=== PATIENT | female | born 1995 | race Caucasian/White ===

== ENCOUNTER 2025-11-01 06:01 | Inpatient (IN) | payer BC, SELFPAY ==
[2025-11-01] VITALS (24 sets, daily range): BP systolic 107–149; BP diastolic 63–123; PULSE 61–223; RESP 16; TEMP 36.1–37.1; O2SAT 96–100
[2025-11-01] MEDS: LACTATED RINGERS 1,000 ML 125 ML IV CONT (06:15)
--- OUTSIDE RECORDS SUMMARY | 2025-11-01 06:19 | XMS_ITS | Continuity of Care Document ---
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 Discussed plan. Not available 09/10/2025 10:47:12 Plan of Treatment Reminders Order Date Submit Date Provider Last Modified By Organization Details Last Modified Time Details Appointments OB ROUTINE 2024 10:00A M ELVIRA ZARAGOZA MD Not available Not available Not available U/S OB BPP 2024 09:30A M ULTRASOUND Not available Not available Not available NST 2024 10:00A M NST SCHEDULE Not available Not available Not available OB ROUTINE 2024 10:30A M Alysia Santos CNM Not available Not available Not available U/S OB BPP 2024 09:00A M ULTRASOUND Not available Not available Not available NST 2024 09:30A M NST SCHEDULE Not available Not available Not available OB ROUTINE 2024 10:00A M Alysia Santos CNM Not available Not available Not available INDUCTI ON 2024 06:00A M Alysia Santos CNM Not available Not available Not available U/S OB BPP 2025 09:00A M ULTRASOUND Not available Not available Not available NST 2025 09:30A M NST SCHEDULE Not available Not available Not available OB ROUTINE 2025 10:00A Cathy Santos, CNM Not available Not available Not available Lab None recorde d. Referral None recorde d. Procedures None recorde d. Surgeries None recorde d. Imaging None recorde d. Medication Orders None recorde d. Patient TargetsNo targets recorded. Patient InstructionsNo instructions recorded. Reason for Referral None Reported. Results Created Date Observation Date Name Description Value Unit Range Abnormal Flag Note LastModifiedBy Organization Detail LastModifiedTime 05/27/2005/27/2025 [UNIT Y] ANEUP LOIDY NIPT fraction 10.2% normal Not Available [facility] [address], [place], [address], 05/27/2025 02:56:04 05/27/2005/27/2025 [UNIT Y] ANEUP LOIDY NIPT 22Q11.2 microdeletio n LOW RISK <1 in 10,000 normal Not Available [facility] [address], [place], [address], 05/27/2025 02:56:04 05/27/2005/27/2025 [UNIT Y] ANEUP LOIDY NIPT sex chromosome aneuploidy NOT DETECT ED normal Not Available [facility] [address], [place], [address], 05/27/2025 02:56:04 05/27/20 25 05/27/2025 [UNIT Y] ANEUP LOIDY NIPT monosomy X LOW RISK <1 in 10,000 normal Not Available [facility] [address], [place], [address], 05/27/2025 02:56:04 05/27/20 25 05/27/2025 [UNIT Y] ANEUP LOIDY NIPT trisomy 13 LOW RISK <1 in 10,000 normal Not Available [facility] [address], [place], [address], 05/27/2025 02:56:04 05/27/20 25 05/27/2025 [UNIT Y] ANEUP LOIDY NIPT trisomy 18 LOW RISK <1 in 10,000 normal Not Available [facility] [address], [place], [address], 05/27/2025 02:56:04 05/27/20 25 05/27/2025 [UNIT Y] ANEUP LOIDY NIPT trisomy 21 LOW RISK <1 in 10,000 normal Not Available [facility] [address], [place], [address], 05/27/2025 02:56:04 05/27/20 25 05/27/2025 [UNIT Y] ANEUP LOIDY NIPT sex FEMALE normal Not Available [facility] [address], [place], [address], 05/27/2025 02:56:04 05/27/20 25 05/27/2025 [UNIT Y] ANEUP LOIDY NIPT gestation SINGLE TON normal Not Available [facility] [address], [place], [address], 05/27/2025 02:56:04 05/27/20 25 05/27/2025 [UNIT Y] ANEUP LOIDY NIPT for detailed report, see pdf See PDF normal Not Available [facility] [address], [place], [address], 05/27/2025 02:56:04 06/03/20 25 06/03/2025 [UNIT Y] LORIN Morocho sickle cell disease/beta -thalassemia /hemoglobino pathies carrier screen NEGATI VE normal Not Available [facility] [address], [place], [address], 06/03/2025 09:08:22 06/03/20 25 06/03/2025 [UNIT Y] LORIN Morocho alpha-thalas semia carrier screen NEGATI VE normal Not Available [facility] [address], [place], [address], 06/03/2025 09:08:22 06/03/20 25 06/03/2025 [UNIT Y] LORIN RICO Kurtis cystic fibrosis carrier screen NEGATI VE normal Not Available [facility] [address], [place], [address], 06/03/2025 09:08:22 06/03/20 25 06/03/2025 [UNIT Y] LORIN RICO Kurtis spinal muscular atrophy carrier screen NEGATI VE 2 SMN1 copies , SNP not presen t normal Not Available [facility] [address], [place], [address], 06/03/2025 09:08:22 06/03/20 25 06/03/2025 [UNIT Y] LORIN MCCANN TRISHA Morocho for detailed report, see pdf See PDF normal Not Available [facility] [address], [place], [address], 06/03/2025 09:08:22 05/19/20 25 05/19/2025 CBC W/DIF F WBC 9.6 10'3/ uL 3.5-10 .5 Not Available [facility] (Lab) [address], [place], [address], 05/20/2025 10:56:36 05/19/20 25 05/19/2025 CBC W/DIF F RBC 4.49 10'6/ uL (based on docume nted legal sex) 3.80-5 .20 Not Available [facility] (Lab) [address], [place], [address], 05/20/2025 10:56:36 05/19/20 25 05/19/2025 CBC W/DIF F HGB 12.5 g/dL (based on docume nted legal sex) 11.6-1 5.4 Not Available [facility] (Lab) [address], [place], [address], 05/20/2025 10:56:36 05/19/20 25 05/19/2025 CBC W/DIF F HCT 38.2 % (based on docume nted legal sex) 34.0-4 5.0 Not Available [facility] (Lab) [address], [place], [address], 05/20/2025 10:56:36 05/19/20 25 05/19/2025 CBC W/DIF F MCV 85.1 fL 80.0-9 9.0 Not Available [facility] (Lab) [address], [place], [address], 05/20/2025 10:56:36 05/19/20 25 05/19/2025 CBC W/DIF F MCH 27.8 pg 27.0-3 4.0 Not Available [facility] (Lab) [address], [place], [address], 05/20/2025 10:56:36 05/19/20 25 05/19/2025 CBC W/DIF F MCHC 32.7 g/dL 32.0-3 5.5 Not Available [facility] (Lab) [address], [place], [address], 05/20/2025 10:56:36 05/19/20 25 05/19/2025 CBC W/DIF F RDW 13.2 % 11.0-1 5.0 Not Available [facility] (Lab) [address], [place], [address], 05/20/2025 10:56:36 05/19/20 25 05/19/2025 CBC W/DIF F plt 301 10'3/ uL 150-40 0 Not Available [facility] (Lab) [address], [place], [address], 05/20/2025 10:56:36 05/19/20 25 05/19/2025 CBC W/DIF F MPV 11.9 fL 8.8-12 .1 Not Available [facility] (Lab) [address], [place], [address], 05/20/2025 10:56:36 05/19/20 25 05/19/2025 CBC W/DIF F NRBC's 0.0 % 0.0 Not Available [facility] (Lab) [address] [facility], [place], [address], 05/20/2025 10:56:36 05/19/20 25 05/19/2025 CBC W/DIF F absolute NRBCs 0.0 10'3/ uL no refere nce range establ ished Not Available [facility] (Lab) [address] [facility], [place], [address], 05/20/2025 10:56:36 05/19/20 25 05/19/2025 CBC W/DIF F neutrophils 71.0 % 34.0-7 3.0 Not Available [facility] (Lab) [address] [facility], [place], [address], 05/20/2025 10:56:36 05/19/20 25 05/19/2025 CBC W/DIF F lymphocytes 22.5 % 15.0-5 0.0 Not Available [facility] (Lab) [address] [facility], [place], [address], 05/20/2025 10:56:36 05/19/20 25 05/19/2025 CBC W/DIF F monocytes 5.3 % 1.0-15 .0 Not Available [facility] (Lab) [address] [facility], [place], [address], 05/20/2025 10:56:36 05/19/20 25 05/19/2025 CBC W/DIF F eosinophils 0.6 % 0.0-8. 0 Not Available [facility] (Lab) [address] [facility], [place], [address], 05/20/2025 10:56:36 05/19/20 25 05/19/2025 CBC W/DIF F basophils 0.3 % 0.0-2. 0 Not Available [facility] (Lab) [address] [facility], [place], [address], 05/20/2025 10:56:36 05/19/20 25 05/19/2025 CBC W/DIF F immature granulocytes 0.3 % no define d refere nce range Immat ure Granu locyt es (IG) repre sents autom ated enume ratio n of Metam yeloc ytes, Myelo cytes and Promy elocy claudia when IG is < 5%. Blast s are not inclu ded in IG and repor tashi separ ately if prese nt. Not Available [facility] (Lab) [address] [facility], [place], [address], 05/20/2025 10:56:36 05/19/20 25 05/19/2025 CBC W/DIF F absolute neutrophils 6.8 10'3/ uL 1.5-8. 0 Not Available [facility] (Lab) [address] [facility], [place], [address], 05/20/2025 10:56:36 05/19/20 25 05/19/2025 CBC W/DIF F absolute lymphocytes 2.2 10'3/ uL 1.0-4. 0 Not Available [facility] (Lab) [address] [facility], [place], [address], 05/20/2025 10:56:36 05/19/20 25 05/19/2025 CBC W/DIF F absolute monocytes 0.5 10'3/ uL 0.2-1. 0 Not Available [facility] (Lab) [address] [facility] [address], [place], [address], 05/20/2025 10:56:36 05/19/20 25 05/19/2025 CBC W/DIF F absolute eosinophils 0.1 10'3/ uL 0.0-0. 6 Not Available [facility] (Lab) [address] [facility], [place], [address], 05/20/2025 10:56:36 05/19/20 25 05/19/2025 CBC W/DIF F absolute basophils 0.0 10'3/ uL 0.0-0. 3 Not Available [facility] (Lab) [address], [place], [address], 05/20/2025 10:56:36 05/19/20 25 05/19/2025 CBC W/DIF F absolute immature granulocytes 0.0 10'3/ uL 0.00-0 .10 Refer ence range s for nonbi nary/ inter sex or unspe cifie d gende r patie nts have not been estab lishe d. Pleas e refer to the follo wing table for range s estab lishe d for cisge nder patie nts and evalu ate in the clini sam padmini xt of the indiv idual patie nt: https ://angelique resendizand book. nm.or g/gen derx Not Available [facility] (Lab) [address], [place], [address], 05/20/2025 10:56:36 05/19/20 25 05/19/2025 HEPAT ITIS B SURFA CE ANTIG EN hepatitis B surface antigen Non-re active non-re active This assay was perfo rmed using [employer] ratio n reage nts and test kits. Value s obtai erica with other assay metho ds or kits canno t be used inter melton eably . Not Available [facility] (Lab) [address], [place], [address], 05/20/2025 10:56:37 05/19/2005/19/2025 HIV 1/2 ANTIG EN/AN TIBOD Y, REFLE X CONFI RMATI ON HIV antigen/anti body Nonrea ctive nonrea ctive HIV-1 antig en and HIV-1 /HIV- 2 antib odies were not detec tashi. No labor atory evide nce of HIV infec tion. Not Available [facility] (Lab) [address], [place], [address], 05/20/2025 10:56:37 05/19/20 25 05/19/2025 HEPAT ITIS C ANTIB NEPTALI SCREE N, REFLE X TO CONFI RMATI ON hepatitis C antibody Non-re active non-re active Antib odies to HCV Not Detec tashi, does not exclu de the possi bilit y of expos ure to HCV. Not Available [facility] (Lab) [address] [facility], [place], [address], 05/20/2025 10:56:38 05/19/20 25 05/19/2025 VITAM IN D, 25-OH (TOTA L D2/D3 ) vitamin D, 25-hydroxy, total 59.5 NG/mL 30.0-1 00.0 Sugge stive of Defic iency : <20 ng/mL Sugge stive of Insuf ficie ncy: 20-29 ng/mL Sugge stive of Suffi cienc y: 30-10 0 ng/mL Sugge stive of Toxic ity: >150 ng/mL Not Available [facility] (Lab) [address] [facility], [place], [address], 05/20/2025 10:56:38 05/19/20 25 05/19/2025 TYPE/ RH/SC REEN ABO/Rh type O POS Not Available [facility] (Lab) [address] [facility] [address] [facility], [place], [address], 05/20/2025 10:56:39 05/19/20 25 05/19/2025 TYPE/ RH/SC REEN antibody screen NEG Not Available [facility] (Lab) [address] [facility], [place], [address], 05/20/2025 10:56:39 05/19/20 25 05/19/2025 TYPE/ RH/SC REEN exp date 2024 23:59 Not Available [facility] (Lab) [address] [facility], [place], [address], 05/20/2025 10:56:39 05/19/20 25 05/19/2025 RUBEL LA IGG ANTIB NEPTALI, QUANT rubella antibodies, IgG Reacti ve reacti ve Not Available [facility] (Lab) [address] [facility], [place], [address], 05/20/2025 10:56:39 05/19/20 25 05/19/2025 RUBEL LA IGG ANTIB NEPTALI, QUANT rubella antibodies, IgG quant 13.6 IU/mL >=10 Non-r eacti ve (Non- Immun e) <10 IU/mL React dwight (Immu ne) > or = 10 IU/mL Not Available [facility] (Lab) [address] [facility], [place], [address], 05/20/2025 10:56:39 05/19/20 25 05/19/2025 HEMOG LOBIN A1C hemoglobin A1C 4.9 % 4.0-5. 6 The Ameri can Diabe claudia Assoc iatio n recom mends that a prima ry goal of thera py shoul d be a HBA1C of < 7% and that physi cians shoul d reeva luate the treat ment regim en in patie nts with HBA1C value s consi stent ly > 8%. <5.7% Nagela l 5.7 - 6.4% Incre ased risk for diabe claudia >=6.5 % Diagn ostic of diabe claudia <7.0% Goal of thera py >8.0% Actio n sugge sted Not Available [facility] (Lab) [address] [facility], [place], [address], 05/20/2025 10:56:40 05/19/20 25 05/19/2025 RPR SCREE N, REFLE X TITER /CONF IRMAT ION RPR qualitative Nonrea ctive nonrea ctive Not Available [facility] (Lab) [address] [facility], [place], [address], 05/20/2025 10:56:41 05/19/20 25 05/19/2025 CULTU RE: URINE result report SEE RESULT S BELOW Test: Cultu re: Urine Speci men Sourc e: Urine Voide d Speci men Type: Urine Speci men Date: 7/2/2 025 1413 Resul t Date: 2142 Resul t Statu s: Final resul t Abnor mal: No Resul ting Lab: [facility] [address] [facility] [address] Tel: CULTU RE ----- ----- ----- --- No growt h in 1 day (dete ction level of 10,00 0 colon ies / ml.) Not Available [facility] (Lab) [address] [facility] [address], [place], [address], 05/20/2025 22:47:16 05/19/20 25 05/19/2025 IMAGE GUIDE D PAP, REFLE X HPV IF ASCUS ONLY image guided Pap, reflex HPV ASCUS only SEE RESULT S BELOW CASE REPOR T: Cytol ogy Gynec ologi sam Repor t Case: [id number] Autho alexi Provi kiah: Alysia Mohr NP Colle cted: 05/19 1409 Order ing Locat ion: [place] Patho logy Recei [place]: 05/20 1144 First Scree n: Wong Jimenez , [place] Rescr een: Joseph Deleon, CT Speci men: Trisha rubio Pap - Image d, Cervi x STATE MENT OF ADEQU ACY: Satis facto ry for evalu ation Trans forma tion zone compo nent prese nt ----- ----- ----- ----- ----- ----- ----- ----- ----- ----- ----- ----- ----- ----- ----- ----- ----- ---- FINAL DIAGN OSIS: Negat dwight for Intra epith elial Lesimani morocho or Jose Antonio ribeiro ([facility]) . Elect sapphire becker d by Joseph Deleon, CT on 025 at 1739 CDT ----- ----- ----- ----- ----- ----- ----- ----- ----- ----- ----- ----- ----- ----- ----- ----- ----- ---- COMME NT: This speci men was revie wed by a Cytot echno logis t and/o r Patho logis t (as indic ated in this repor t) after evalu ation using the Thinp rep Imagi ng Syste m. CLINI SAM INFOR MATIO N: Menst rual Statu s: LMP (if appli cable ): Clini sam Histo ry/Pr eviou s Pap: Type of Neopl marcelo (if appli cable ): Signi fican t Clini sam Findi ngs: Other Histo ry: Hormo kezia (if appli cable ): PAP EDUCA JANELL L NOTE: The Pap Test is a scree joanne test with an inher ent false negat dwight rate. Liqui d-bas ed sampl ing may decre ase, but will not elimi yvrose, false negat dwight resul ts. A negat dwight resul t does not precl ude the prese nce and/o r devel opmen t of disea se, since the prese nce of abnor mal cells in the sampl e depen ds on the locat ion of the lesio n and sampl ing techn ique. Osbaldo nued regul ar scree joanne is the best metho d of cance r preve ntion . If repor tashi cytol ogic findi ng do not corre late with physi sam and/o r histo rical findi ngs, furth er inves tigat ion is recom minal d, as clini luis eduardo camp nted. Not Available [facility] (Lab) [address], [place], [address], 05/24/2025 18:43:29 05/19/20 25 05/19/2025 CT/GC (CAT) , THINP REP VIAL chlamydia trachomatis, PCR Negati ve negati ve Not Available [facility] (Lab) [address], [place], [address], 05/24/2025 18:43:30 05/19/20 25 05/19/2025 CT/GC (CAT) , THINP REP VIAL neisseria gonorrhoeae, PCR Negati ve negati ve Not Available [facility] (Lab) [address], [place], [address], 05/24/2025 18:43:30 05/19/20 25 05/19/2025 drug scree n, urine Cannabinoids : positi ve Not Available [facility] [address], [place], [address], 05/19/2025 13:35:34 05/19/20 25 05/19/2025 drug scree n, urine Other: positi ve Not Available [facility] [address], [place], [address], 05/19/2025 13:35:34 09/10/20 25 09/10/2025 HEMAT OCRIT (HCT) HCT 39.4 % (based on docume nted legal sex) 34.0-4 5.0 Not Available [facility] (Lab) [address] [place], [address], 09/11/2025 12:57:34 09/10/20 25 09/10/2025 HEMOG LOBIN (HGB) HGB 12.7 g/dL (based on docume nted legal sex) 11.6-1 5.4 Not Available [facility] (Lab) [address] [place], [address], 09/11/2025 12:57:34 09/10/20 25 09/10/2025 CMP/C BC/UR IC ACID WBC 10.8 10'3/ uL 3.5-10 .5 high Not Available [facility] (Lab) [address], [place], [address], 09/11/2025 12:57:34 09/10/20 25 09/10/2025 CMP/C BC/UR IC ACID RBC 4.59 10'6/ uL (based on docume nted legal sex) 3.80-5 .20 Not Available [facility] (Lab) [address] [facility], [place], [address], 09/11/2025 12:57:34 09/10/2009/10/2025 CMP/C BC/UR IC ACID HGB 12.7 g/dL (based on docume nted legal sex) 11.6-1 5.4 Not Available [facility] (Lab) [address] [facility], [place], [address], 09/11/2025 12:57:34 09/10/2009/10/2025 CMP/C BC/UR IC ACID HCT 39.4 % (based on docume nted legal sex) 34.0-4 5.0 Not Available [facility] (Lab) [address] [facility] [address], [place], [address], 09/11/2025 12:57:34 09/10/2009/10/2025 CMP/C BC/UR IC ACID MCV 85.8 fL 80.0-9 9.0 Not Available [facility] (Lab) [address] [facility], [place], [address], 09/11/2025 12:57:34 09/10/2009/10/2025 CMP/C BC/UR IC ACID MCH 27.7 pg 27.0-3 4.0 Not Available [facility] (Lab) [address] [place], [address], 09/11/2025 12:57:34 09/10/2009/10/2025 CMP/C BC/UR IC ACID MCHC 32.2 g/dL 32.0-3 5.5 Not Available [facility] (Lab) [address] [place], [address], 09/11/2025 12:57:34 09/10/2009/10/2025 CMP/C BC/UR IC ACID RDW 12.7 % 11.0-1 5.0 Not Available [facility] (Lab) [address] [facility], [place], [address], 09/11/2025 12:57:34 09/10/2009/10/2025 CMP/C BC/UR IC ACID plt 252 10'3/ uL 150-40 0 Not Available [facility] (Lab) [address] [facility] [address], [place], [address], 09/11/2025 12:57:34 09/10/2009/10/2025 CMP/C BC/UR IC ACID MPV 11.7 fL 8.8-12 .1 Not Available [facility] (Lab) [address] [facility] [address], [place], [address], 09/11/2025 12:57:34 09/10/2009/10/2025 CMP/C BC/UR IC ACID NRBC's 0.0 % 0.0 Not Available [facility] (Lab) [address] [facility] [address], [place], [address], 09/11/2025 12:57:34 09/10/2009/10/2025 CMP/C BC/UR IC ACID absolute NRBCs 0.0 10'3/ uL no refere nce range establ ished Not Available [facility] (Lab) [address] [facility] [address], [place], [address], 09/11/2025 12:57:34 09/10/2009/10/2025 CMP/C BC/UR IC ACID neutrophils 74.4 % 34.0-7 3.0 high Not Available [facility] (Lab) [address] [place], [address], 09/11/2025 12:57:34 09/10/2009/10/2025 CMP/C BC/UR IC ACID lymphocytes 18.6 % 15.0-5 0.0 Not Available [facility] (Lab) [address] [place], [address], 09/11/2025 12:57:34 09/10/2009/10/2025 CMP/C BC/UR IC ACID monocytes 5.9 % 1.0-15 .0 Not Available [facility] (Lab) [address] [facility] [address], [place], [address], 09/11/2025 12:57:34 09/10/2009/10/2025 CMP/C BC/UR IC ACID eosinophils 0.5 % 0.0-8. 0 Not Available [facility] (Lab) [address] [facility] [address], [place], [address], 09/11/2025 12:57:34 09/10/2009/10/2025 CMP/C BC/UR IC ACID basophils 0.1 % 0.0-2. 0 Not Available [facility] (Lab) [address] [facility] [address], [place], [address], 09/11/2025 12:57:34 09/10/20 25 09/10/2025 CMP/C BC/UR IC ACID immature granulocytes 0.5 % no define d refere nce range Immat ure Granu locyt es (IG) repre sents autom ated enume ratio n of Metam yeloc ytes, Myelo cytes and Promy elocy claudia when IG is < 5%. Blast s are not inclu ded in IG and repor tashi separ ately if prese nt. Not Available [facility] (Lab) [address] [facility] [address], [place], [address], 09/11/2025 12:57:34 09/10/2009/10/2025 CMP/C BC/UR IC ACID absolute neutrophils 8.1 10'3/ uL 1.5-8. 0 high Not Available [facility] (Lab) [address] [facility] [address], [place], [address], 09/11/2025 12:57:34 09/10/20 25 09/10/2025 CMP/C BC/UR IC ACID absolute lymphocytes 2.0 10'3/ uL 1.0-4. 0 Not Available [facility] (Lab) [address] [facility] [address], [place], [address], 09/11/2025 12:57:34 09/10/2009/10/2025 CMP/C BC/UR IC ACID absolute monocytes 0.6 10'3/ uL 0.2-1. 0 Not Available [facility] (Lab) [address] [facility] [address], [place], [address], 09/11/2025 12:57:34 09/10/20 25 09/10/2025 CMP/C BC/UR IC ACID absolute eosinophils 0.1 10'3/ uL 0.0-0. 6 Not Available [facility] (Lab) [address] [facility] [address], [place], [address], 09/11/2025 12:57:34 09/10/2009/10/2025 CMP/C BC/UR IC ACID absolute basophils 0.0 10'3/ uL 0.0-0. 3 Not Available [facility] (Lab) [address] [facility] [address], [place], [address], 09/11/2025 12:57:34 09/10/2009/10/2025 CMP/C BC/UR IC ACID absolute immature granulocytes 0.1 10'3/ uL 0.00-0 .10 Refer ence range s for nonbi nary/ inter sex or unspe cifie d gende r patie nts have not been estab lishe d. Plefarhana e refer to the marko wing table for range s estab lishe d for cisge nder patie nts and evalu ate in the clini sam padmini xt of the indiv idual patie nt: https ://angelique dennis book. nm.or g/gen derx Not Available [facility] (Lab) [address], [place], [address], 09/11/2025 12:57:34 09/10/20 25 09/10/2025 CMP/C BC/UR IC ACID uric acid 3.0 mg/dL 2.3-6. 6 Not Available [facility] (Lab) [address] [facility] [address], [place], [address], 09/11/2025 12:57:34 09/10/2009/10/2025 CMP/C BC/UR IC ACID sodium 136 mmol/ L 133-14 6 Not Available [facility] (Lab) [address] [facility] [address], [place], [address], 09/11/2025 12:57:34 09/10/2009/10/2025 CMP/C BC/UR IC ACID potassium 3.9 mmol/ L 3.5-5. 1 Not Available [facility] (Lab) [address] [facility] [address], [place], [address], 09/11/2025 12:57:34 09/10/2009/10/2025 CMP/C BC/UR IC ACID chloride 102 mmol/ L 98-107 Not Available [facility] (Lab) [address] [place], [address], 09/11/2025 12:57:34 09/10/2009/10/2025 CMP/C BC/UR IC ACID carbon dioxide 26 mmol/ L 21-31 Not Available [facility] (Lab) [address] [facility] [address], [place], [address], 09/11/2025 12:57:34 09/10/20 25 09/10/2025 CMP/C BC/UR IC ACID anion gap 8 mmol/ L 4-13 Not Available [facility] (Lab) [address] [place], [address], 09/11/2025 12:57:34 09/10/2009/10/2025 CMP/C BC/UR IC ACID blood urea nitrogen 5 mg/dL 7-25 low Not Available [facility] (Lab) [address] [place], [address], 09/11/2025 12:57:34 09/10/20 25 09/10/2025 CMP/C BC/UR IC ACID creatinine 0.55 mg/dL 0.60-1 .30 low Not Available [facility] (Lab) [address], [place], [address], 09/11/2025 12:57:34 09/10/2009/10/2025 CMP/C BC/UR IC ACID egfrcr (CKD-epi 2020) >90 mL/mi n/1.7 3_m2 >=60 Not Available [facility] (Lab) [address], [place], [address], 09/11/2025 12:57:34 09/10/2009/10/2025 CMP/C BC/UR IC ACID calcium 8.8 mg/dL 8.3-10 .5 Not Available [facility] (Lab) [address], [place], [address], 09/11/2025 12:57:34 09/10/2009/10/2025 CMP/C BC/UR IC ACID glucose 113 mg/dL 70-100 high Not Available [facility] (Lab) [address], [place], [address], 09/11/2025 12:57:34 09/10/2009/10/2025 CMP/C BC/UR IC ACID protein, total 6.1 g/dL 6.4-8. 3 low Not Available [facility] (Lab) [address] [place], [address], 09/11/2025 12:57:34 09/10/2009/10/2025 CMP/C BC/UR IC ACID albumin 3.6 g/dL 3.5-5. 0 Not Available [facility] (Lab) [address] [place], [address], 09/11/2025 12:57:34 09/10/2009/10/2025 CMP/C BC/UR IC ACID ALT 17 units /L 9-43 Not Available [facility] (Lab) [address] [place], [address], 09/11/2025 12:57:34 09/10/2009/10/2025 CMP/C BC/UR IC ACID alkaline phosphatase 61 units /L 34-104 Not Available [facility] (Lab) [address], [place], [address], 09/11/2025 12:57:34 09/10/2009/10/2025 CMP/C BC/UR IC ACID AST 15 units /L 13-39 Not Available [facility] (Lab) [address] [facility], [place], [address], 09/11/2025 12:57:34 09/10/2009/10/2025 CMP/C BC/UR IC ACID bilirubin, total 0.3 mg/dL 0.2-1. 2 Not Available [facility] (Lab) [address] [place], [address], 09/11/2025 12:57:34 09/10/20 25 09/10/2025 GTT - GESTA JANELL L TRISHA Morocho, ACOG OB glucose, 1 hour screen 107 mg/dL 70-135 Not Available [facility] (Lab) [address] [place], [address], 09/11/2025 12:57:35 09/10/2009/10/2025 HIV 1/2 ANTIG EN/AN TIBOD Y, REFLE X CONFI RMATI ON HIV antigen/anti body Nonrea ctive nonrea ctive HIV-1 antig en and HIV-1 /HIV- 2 antib odies were not detec tashi. No labor atory evide nce of HIV infec tion. Not Available [facility] (Lab) [address] [place], [address], 09/11/2025 12:57:35 09/10/2009/10/2025 RPR SCREE N, REFLE X TITER /CONF IRMAT ION RPR qualitative Nonrea ctive nonrea ctive Not Available [facility] (Lab) [address] [place] [facility] [place], [address], 09/11/2025 12:57:35 07/14/20 25 07/14/2025 US, obste tric, 2nd or 3rd trime ster No observ ation record ed. [address], [place], [address], 07/14/2025 11:48:13 07/14/20 25 07/14/2025 US, obste tric, follo w-up No observ ation record ed. [email or web address] [address], [place], [address], 07/14/2025 16:09:19 08/11/20 25 08/11/2025 US, obste tric, follo w-up No observ ation record ed. [facility] [address], [place], [address], 08/11/2025 18:35:48 08/11/20 25 08/11/2025 US, obste tric, follo w-up No observ ation record ed. [email or web address] [address] [address], [place], [address], 08/13/2025 07:06:41 09/10/2009/10/2025 US, obste tric, follo w-up No observ ation record ed. [facility] [address], [place], [address], 09/10/2025 14:42:43 09/10/2009/10/2025 US, obste tric, follo w-up No observ ation record ed. [email or web address] [place] [address], [place], [address], 09/14/2025 14:46:19 10/08/20 25 10/08/2025 US, obste tric, follo w-up No observ ation record ed. [email or web address] [place] [address], [place], [address], 10/11/2025 11:55:36 10/08/20 25 10/08/2025 non-s tress test No observ ation record ed. [email or web address] [place] [address], [place], [address], 10/08/2025 13:48:06 10/08/20 non-s tress test No observ ation record ed. [place] [address], [place], [address], 10/08/2025 12:32:22 10/08/20 25 10/08/2025 US, obste tric, follo w-up No observ ation record ed. [facility] [address], [place], [address], 10/08/2025 16:57:13 10/08/20 25 10/08/2025 US, dominic tric, bioph ysica l profi le + non-s tress test No observ ation record ed. [facility] [address], [place], [address], 10/08/2025 16:57:23 10/13/20 25 10/13/2025 US, dominic tric, bioph ysica l profi le + non-s tress test No observ ation record ed. [email or web address] [place] [address], [place], [address], 10/13/2025 11:51:09 10/13/20 25 10/13/2025 US, dominic tric, bioph ysica l profi le + non-s tress test No observ ation record ed. [email or web address] [place] [address], [place], [address], 10/20/2025 11:47:34 10/13/2010/13/2025 non-s tress test No observ ation record ed. [address], [place], [address], 10/13/2025 17:57:16 10/13/20 non-s tress test No observ ation record ed. [address], [place], [address], 10/13/2025 17:34:36 10/22/2010/22/2025 US, obste tric, bioph ysica l profi le No observ ation record ed. [email or web address] [place] [address], [place], [address], 10/29/2025 11:35:15 10/22/20 25 10/22/2025 US, obste tric, bioph ysica l profi le + non-s tress test No observ ation record ed. [facility] [address], [place], [address], 10/22/2025 13:51:55 10/22/20 25 10/22/2025 non-s tress test No observ ation record ed. [address], [place], [address], 10/27/2025 18:38:42 10/22/20 non-s tress test No observ ation record ed. [address], [place], [address], 10/22/2025 12:42:25 10/29/20 25 10/29/2025 US, obste tric, follo w-up No observ ation record ed. [email or web address] [place] [address], [place], [address], 10/30/2025 01:33:53 10/29/20 25 10/29/2025 US, obste tric, follo w-up No observ ation record ed. [facility] [address], [place], [address], 10/29/2025 17:16:32 10/29/20 25 10/29/2025 US, obste tric, bioph ysica l profi le + non-s tress test No observ ation record ed. [facility] [address], [place], [address], 10/29/2025 17:16:42 Result Notes None recorded. Problems Name Problem SNOMED Code Status Onset Date Resolution Date Notes Provider Name and Address Organization Details Recorded Time 60030294 Active 2024 Linda mcgill, [facility] 5 10:53:18 Hypertens dwight disorder 05053199 Active 2024 labetalol 200mg bid bASA daily serial growth us , weekly testing @ 32wks 10/08/25 300mg bid rpt labs Alysia Santos CNM [address], [place], [address], [facility] 5 12:52:39 Mixed anxiety and depressiv e disorder 478287932 Active 2024 buspirone 10mg lexapro 20 mg daily Alysia Santos CNM [address], [place], [address], [facility] 5 12:01:06 Past history of gestation al hypertens ion 949394722 Active 2024 vs preeclamp deirdre delivered at 37 weeks Alysia Santos CNM [address], [place], [address], [facility] 5 12:01:27 Marijuana user 054923320 Active 2024 Pt decreased . Continued use is causing family issues and pt is experienc ing increased anxiety and depressio n symptoms. Nina mccann [facility] 5 16:48:10 Marijuana user 629448700 Active 2024 Pt decreased . Continued use is causing family issues and pt is experienc ing increased anxiety and depressio n symptoms. Nina mccann [facility] 5 16:48:11 Problem Notes None recorded. Procedures Surgical History Date Name Laterality Status Provider Name and Address Organization Details Recorded Time 11/18/2021 Date of Last Pap Smear completed Kim Monson [facility] 08/11/2025 14:32:13 Imaging Results None recorded. Procedure Notes None recorded. Medical Equipment None Reported. Allergies Allergen ID Allergen Name Allergen Category Reaction Reaction Severity Criticality Documentation Date Start Date Code Code System Note Provider Name and Address Organization Details Recorded Time 70492 amoxicill in medicatio n hives Not available Not available 10/08/20252016 723 RxNorm Not Available [employer] - prod 5 03:06:32 30614 clindamyc in Not available hives Not available Not available 10/08/20252018 2582 RxNorm Not Available [employer] - [employer] 5 03:06:32 Medications Name Sig Start Date Stop Date Status Note LastModified by Organization Details LastModified Time labetalol 200 mg tablet TAKE 1 TABLET BY MOUTH TWICE DAILY DIRECTED 2024 active Not Available Not Available Not Avai lable triamcinolo ne acetonide 0.1 % topical cream APPLY TOPICALLY TWICE A DAY 05/19 completed Not Available Not Available Not Available ondansetron 8 mg disintegrat ing tablet DISSOLVE 1 TABLET ON THE TONGUE TWICE DAILY NEEDED 2024 active Not Available Not Available Not Avai lable Macrobid 100 mg capsule Take 1 capsule every 12 hours by oral route for 7 days. 10/08 completed Not Available Not Available Not Available buspirone 10 mg tablet active Not Available Not Available Not Available hydrochloro thiazide 12.5 mg capsule TAKE 1 CAPSULE BY MOUTH EVERY MORNING 05/19 completed Not Available Not Available Not Available buspirone 7.5 mg tablet TAKE 1 TABLET BY MOUTH 2 TIMES DAILY. 05/19 completed Not Available Not Available Not Available metoclopram shannan 10 mg tablet Take 1 tablet 4 times a day by oral route. 06/28 completed Not Available Not Available Not Available escitalopra m 20 mg tablet TAKE 1 TABLET BY MOUTH EVERY DAY 2024 active Not Available Not Available Not Avai lable Pepcid active Not Available Not Availa ble Not Available active Not Available Not Avai lable Not Available Vitals Date Recorded Body weight Systolic And Diastolic Provider Name and Address Organization Details Last Updated DateTime 09/10/2025 82336.56459 g 125/78 mm[Hg] Linda Auguste [facility] 09/10/2025 10:26:36 Social History Question Answer Notes LastModified by Organizat ion Details LastModified Time Do You Have An Advance Directive? No Information n ot available 04/22/2025 How Many Years Have You Consumed Alcohol? 8 [email or web address] Information not available 08/11/2025 Are You Blind Or Do You Have Difficulty Seeing? No Information not available 04/22/2025 What Is Your Level Of Caffeine Consumption? Moderate Information not available 04/22/2025 How Much Tobacco Do You Chew? None Information not available 04/22/2025 In The 14 Days Before Symptom Onset, Have You Had Close Contact With A Laboratory-confirme d COVID-19 While That Case Was Ill? No Information n ot available 04/22/2025 In The 14 Days Before Symptom Onset, Have You Had Close Contact With A Person Who Is Under Investigation For COVID-19 While That Person Was Ill? No Information not available 04/22/2025 Have You Been To An Area Known To Be High Risk For COVID-19? No Information not available 04/22/2025 Are You Deaf Or Do You Have Serious Difficulty Hearing? No Information not available 04/22/2025 What Type Of Diet Are You Following? REGULAR Information n ot available 04/22/2025 What Is The Highest Grade Or Level Of School You Have Completed Or The Highest Degree You Have Received? [id number] Information not available 04/22/2025 Are There Any Guns Present In Your Home? Yes Information not available 04/22/2025 Have You Ever Been Counseled For Unhealthy Alcohol Use? No [email or web address] Information not available 06/16/2025 Do You Use Protection During Sex? No Information not available 04/22/2025 Do You Use Your Seat Belt Or Car Seat Routinely? Yes Information not available 04/22/2025 Are You Sexually Active? Yes [email or web address] Information not available 06/16/2025 Do You Have Smoke And Carbon Monoxide Detectors In Your Home? Yes Information not available 04/22/2025 At What Age Did You Start Smoking Tobacco? 19 Information not available 04/22/2025 How Much Tobacco Do You Smoke? No Information not available 04/22/2025 Do You Use Sunscreen Routinely? No Information not available 04/22/2025 Has Tobacco Cessation Counseling Been Provided? No [email or web address] Information not available 06/16/2025 How Many Years Have You Smoked Tobacco? 4 [email or web address] Information not available 08/11/2025 Have You Used IV Drugs? No Information not available 04/22/2025 Do You Have Difficulty Walking Or Climbing Stairs? No [email or web address] Information not available 06/16/2025 Sex: Unknown Functional Status Question Answer Note LastModified by Organizat ion Details LastModified Time Do you use any illicit or recreational drugs? Yes Information not available 04/22/2025 Do you or have you ever used any other forms of tobacco or nicotine? No Information not available 06/16/2025 What is your level of alcohol consumption? Occasional [email or web address] Information not available 08/11/2025 Are you currently employed? Yes [email or web address] Information not available 06/16/2025 Are you able to walk independently without assistance or assistive devices? [email or web address] Information not available 04/22/2025 Are you able to care for yourself independently? 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 No [email or web address] Information not available 06/16/2025 What is your exercise level? Occasional Information not available 04/22/2025 Mental Status Question Answer Note LastModified by Organization D etails LastModified Time Do you feel stressed (tense, restless, nervous, or anxious, or unable to sleep at night)? [id number] Information not available 08/11/2025 Family History Relationship Description Onset Age of this Age Resolved Age Notes LastModified by Organization Details LastModified Time Paternal Grandmother Heart disease Not available 2024 15:56:02 Paternal Grandmother Diabetes mellitus Not available 2024 15:56:02 Mother Heart disease Not available 2024 15:56:02 Mother Diabetes mellitus Not available 2024 15:56:02 Father Diabetes mellitus Not available 2024 15:56:02 Medical History Condition Response Anxiety Disorder Y History of abnormal pap Y Depression/ depression Y Hypertension Y Gynecological History Statement/Question Response Flow Moderate Date of LMP 02/20/2025 N Was last menstrual period normal Y STIs/STDs N Condoms Desired Control Method Condoms Abnormal Pap Y On BCP's at Conception? N HPV Vaccine N Duration of Flow (days) 7 Current Control Method None Age at First Child 23 Are cycles usually normal Y Frequency of Cycle (Q days) 28 Sexually Active? Y Menses Monthly Y Age of first menstrual cycle 12 Date of Last Pap Smear 11/18/2021 Sexual Problems? Y LMP Definite N 11/18/2017 Obstetrics History GPAL:G 3 P 0 0 1 1 Type Value Spontaneous 1 Living 1 Total 3 Past Encounters Encounter ID Performer Location Encounter Start Date Encounter Closed Date Diagnosis/Indication Diagnosis SNOMED-CT Code Diagnosis ICD10 Code Diagnosis IMO Codes Diagnosis Note [id number] Norris Jordan MD [facility] [address] [address] 08/11/2025 13:50:59 08/11/2025 14:30:57 Chronic hypertension complicating AND/OR reason for care during 38118140 O10.912 Z3A.24 [id number] Alysia Santos CNM [facility] [address],[place] [address] 08/11/2025 13:51:12 08/11/2025 14:48:47 Gestation period, 24 weeks 664235021 Z3A.24 [id number] Norris Jordan MD [facility] [address],[place] [address] 09/10/2025 09:35:51 09/10/2025 10:12:45 Maternal hypertension 066276580 O16.3 Z3A.28 2931046 [id number] Alysia Santos CNM [facility] [address],[place] [address] 09/10/2025 09:36:28 09/10/2025 11:14:34 Gestation period, 28 weeks 57634864 Z3A.28 0283229 Health Concerns Section Related Observation LastModified by Organization Detai ls LastModified Time None Recorded Concern Status LastModified by Organization Details LastModified Time None Recorded Payers Encounter Date Sequence Insurance Name Policy Number Policy Sarah Covered Member ID Sarah Member ID Guarantor Name 09/10/2025 1 [place] [id number] Artem [place] [id number] Artem Dora Notes Date Note Type Note Provider Name and Address Organization Details Recorded Time 09/10/2025 text/html Generic HPI TemplateReported by Patient Alysia Santos CNM [address], [place], [address], [facility] 09/10/2025 11:13:18 OBGyn Episode Ob Episode Information Episode Created Date Number of Fetuses Patient Bloodtype Patient rh Status Prepregnancy Weight lbs Domestic Partner Domestic Partner Phone Father Name Manuscript Editor Status 05/19/20 25 1 O Positive 173 OPEN Fetus Data First Name Last Name Admitted to NICU Weight (g) Sex Living Outcome Pediatric Complications Fetus ID Race Codes Race Delivery Type [id number] Problems Problem Notes Problem Name Start Date End Date Resolution Snomed Code Not e Hypertensive disorder 05/19/2025 1539948 3 labetalol 200mg bidbASA dailyserial growth us , weekly testing @ [id number]// 300mg bid rpt labs Past history of gestational hypertension 05/19/2025 606764349 vs preeclampsia delivered at 37 weeks Marijuana user 08/18/2025 917007600 Pt d ecreased. Continued use is causing family issues and pt is experiencing increased anxiety and depression symptoms. Mixed anxiety and depressive disorder 05/19/2025 941658634 buspiron e 10mglexapro 20 mg daily Pablito Calculation Initial Pablito Date Initial Exam Date Initial Exam Provider Initial Ultrasound Date Last Menstrual Period Date Ultra Sound Weeks Gestation 11/27/2025 05/19/2025 04/22/2025 02/20/2025 9 Eighteen To Twenty Week Pablito Update Ultra Sound Date Fundal Height At Umbil Quickening Date Ultra Sound Latest Weeks Gestation Final Pablito Confirmed By Final Pablito Confirmed Date Final Pablito Date Ultra Sound Latest Days Gestation 0 [email or web address] 05/19/2025 11/27/19 26 0 Pre- Flowsheet Flowsheet Date 05/19/2025 Yoder Score Blood Edema Fundus Height Fundus Units Glucose Ketones Leukocytes Nitrite Labor Signs Protein Cervic Dilation Cervic Effacement Cervic Station Type Weight in lbs Pre/Post Dialysis Refused Weight 169.591244996249 BP Diastolic BP Location Tested BP Systolic BP Type 73 L arm 118 sitting Fetus Heart Rate Present Fetus Movement A No Comments pap collected, labs today, r eviewed history meds, education and precautions, vaping daily, weaning slowly, begin routine care, care in third trimester, delivery 37-38 weeks Flowsheet Date 06/16/2025 Yoder Score Blood Edema Fundus Height Fundus Units Glucose Ketones Leukocytes Nitrite Labor Signs Protein Cervic Dilation Cervic Effacement Cervic Station Type Weight in lbs Pre/Post Dialysis Refused Weight 173.730653121204 BP Diastolic BP Location Tested BP Systolic BP Type 77 L arm 133 sitting Fetus Heart Rate Present A 150 Fetus Movement A No Comments weaning still on vape, bring ing son to [place] next visit, education and precautions f/u 4 weeks ?FM ok for colace Flowsheet Date 07/14/2025 Yoder Score Blood Edema Fundus Height Fundus Units Glucose Ketones Leukocytes Nitrite Labor Signs Protein Cervic Dilation Cervic Effacement Cervic Station Type Weight in lbs Pre/Post Dialysis Refused BP Diastolic BP Location Tested BP Systolic BP Type Fetus Heart Rate Present Fetus Movement Comments Flowsheet Date 07/14/2025 Yoder Score Blood Edema Fundus Height Fundus Units Glucose Ketones Leukocytes Nitrite Labor Signs Protein Cervic Dilation Cervic Effacement Cervic Station Type Weight in lbs Pre/Post Dialysis Refused Weight 179.626245162272 BP Diastolic BP Location Tested BP Systolic BP Type 81 L arm 125 sitting Fetus Heart Rate Present Fetus Movement A Yes Comments anatomy complete, nausea in am ok for pepcid at hs, education and precautions +FM, plan growth q 4 f/u 4 weeks Flowsheet Date 08/11/2025 Yoder Score Blood Edema Fundus Height Fundus Units Glucose Ketones Leukocytes Nitrite Labor Signs Protein Cervic Dilation Cervic Effacement Cervic Station Type Weight in lbs Pre/Post Dialysis Refused BP Diastolic BP Location Tested BP Systolic BP Type Fetus Heart Rate Present Fetus Movement Comments Flowsheet Date 08/11/2025 Yoder Score Blood Edema Fundus Height Fundus Units Glucose Ketones Leukocytes Nitrite Labor Signs Protein Cervic Dilation Cervic Effacement Cervic Station Type Weight in lbs Pre/Post Dialysis Refused Weight 188.334985968998 BP Diastolic BP Location Tested BP Systolic BP Type 74 L arm 119 sitting Fetus Heart Rate Present Fetus Movement A Yes Comments +FM, precautions and educati on efw 73%, growth q 4, testing at 32 weeks,f/u 4 weeks Flowsheet Date 09/10/2025 Yoder Score Blood Edema Fundus Height Fundus Units Glucose Ketones Leukocytes Nitrite Labor Signs Protein Cervic Dilation Cervic Effacement Cervic Station Type Weight in lbs Pre/Post Dialysis Refused BP Diastolic BP Location Tested BP Systolic BP Type Fetus Heart Rate Present Fetus Movement Comments Flowsheet Date 09/10/2025 Yoder Score Blood Edema Fundus Height Fundus Units Glucose Ketones Leukocytes Nitrite Labor Signs Protein Cervic Dilation Cervic Effacement Cervic Station Type Weight in lbs Pre/Post Dialysis Refused 189.522952004552 BP Diastolic BP Location Tested BP Systolic BP Type 78 L arm 125 sitting Fetus Heart Rate Present Fetus Movement A Yes Comments +FM, very tearful today anxi et high, meds usually work when not but having some issues at home and with family. growth good, eating ok, precautions and education. discussed anxiety and will plan referral to laurel diaz apn for management. gct today reviewed us Flowsheet Date 09/24/2025 Yoder Score Blood Edema Fundus Height Fundus Units Glucose Ketones Leukocytes Nitrite Labor Signs Protein Cervic Dilation Cervic Effacement Cervic Station 0cm Type Weight in lbs Pre/Post Dialysis Refused Weight 188.964215613330 BP Diastolic BP Location Tested BP Systolic BP Type 73 L arm 111 sitting Fetus Heart Rate Present A 138 Fetus Movement A Yes Comments lots of cntx gone now but in creased pressure, cervix closed, urine for culture, +FM labor precautions, already scheduled preadmit, planning delivery around nov 06. saw laurel diaz note in chart f/u 2 weeks Flowsheet Date 10/08/2025 Yoder Score Blood Edema Fundus Height Fundus Units Glucose Ketones Leukocytes Nitrite Labor Signs Protein Cervic Dilation Cervic Effacement Cervic Station Type Weight in lbs Pre/Post Dialysis Refused Weight 190.900543184740 BP Diastolic BP Location Tested BP Systolic BP Type 79 L arm 122 sitting Fetus Heart Rate Present Fetus Movement A Yes Comments Flowsheet Date 10/08/2025 Yoder Score Blood Edema Fundus Height Fundus Units Glucose Ketones Leukocytes Nitrite Labor Signs Protein Cervic Dilation Cervic Effacement Cervic Station Type Weight in lbs Pre/Post Dialysis Refused BP Diastolic BP Location Tested BP Systolic BP Type Fetus Heart Rate Present Fetus Movement Comments Flowsheet Date 10/08/2025 Yoder Score Blood Edema Fundus Height Fundus Units Glucose Ketones Leukocytes Nitrite Labor Signs Protein Cervic Dilation Cervic Effacement Cervic Station Type Weight in lbs Pre/Post Dialysis Refused 191.799607635496 BP Diastolic BP Location Tested BP Systolic BP Type Fetus Heart Rate Present Fetus Movement Comments bpp 10/10 +FM doing well, ca ll for preadmit, bp's at home are increasing, discussed rpt labs today and can increase to 300mg bid will discuss with md, urine for culture, hx uti would like to make sure its gone, precautions and education f/u one week Flowsheet Date 10/13/2025 Yoder Score Blood Edema Fundus Height Fundus Units Glucose Ketones Leukocytes Nitrite Labor Signs Protein Cervic Dilation Cervic Effacement Cervic Station Type Weight in lbs Pre/Post Dialysis Refused BP Diastolic BP Location Tested BP Systolic BP Type Fetus Heart Rate Present Fetus Movement Comments Flowsheet Date 10/13/2025 Yoder Score Blood Edema Fundus Height Fundus Units Glucose Ketones Leukocytes Nitrite Labor Signs Protein Cervic Dilation Cervic Effacement Cervic Station Type Weight in lbs Pre/Post Dialysis Refused 189.122182863972 BP Diastolic BP Location Tested BP Systolic BP Type 80 L arm 119 sitting Fetus Heart Rate Present Fetus Movement A Yes Comments Flowsheet Date 10/13/2025 Yoder Score Blood Edema Fundus Height Fundus Units Glucose Ketones Leukocytes Nitrite Labor Signs Protein Cervic Dilation Cervic Effacement Cervic Station Type Weight in lbs Pre/Post Dialysis Refused Weight 189.293014692227 BP Diastolic BP Location Tested BP Systolic BP Type 80 L arm 119 sitting Fetus Heart Rate Present Fetus Movement A Yes Comments +FM bpp 06/25 iOL nov 09, 2025 at 0600. precautions and education,never started the 300mg labetalol, bp's normotensive ok to cont 200mg labetalol bid, f/u one week Flowsheet Date 10/22/2025 Yoder Score Blood Edema Fundus Height Fundus Units Glucose Ketones Leukocytes Nitrite Labor Signs Protein Cervic Dilation Cervic Effacement Cervic Station Type Weight in lbs Pre/Post Dialysis Refused BP Diastolic BP Location Tested BP Systolic BP Type Fetus Heart Rate Present Fetus Movement Comments Flowsheet Date 10/22/2025 Yoder Score Blood Edema Fundus Height Fundus Units Glucose Ketones Leukocytes Nitrite Labor Signs Protein Cervic Dilation Cervic Effacement Cervic Station Type Weight in lbs Pre/Post Dialysis Refused Weight 192.132370229212 BP Diastolic BP Location Tested BP Systolic BP Type 79 L arm 128 sitting Fetus Heart Rate Present Fetus Movement A Yes Comments Flowsheet Date 10/22/2025 Yoder Score Blood Edema Fundus Height Fundus Units Glucose Ketones Leukocytes Nitrite Labor Signs Protein Cervic Dilation Cervic Effacement Cervic Station Type Weight in lbs Pre/Post Dialysis Refused [id number] BP Diastolic BP Location Tested BP Systolic BP Type 79 L arm 128 sitting Fetus Heart Rate Present Fetus Movement A Yes Comments bpp 08/27, +FM reviewed ptl precautions, doing well, education done f/u one week as scheduled Flowsheet Date 10/29/2025 Yoder Score Blood Edema Fundus Height Fundus Units Glucose Ketones Leukocytes Nitrite Labor Signs Protein Cervic Dilation Cervic Effacement Cervic Station Type Weight in lbs Pre/Post Dialysis Refused BP Diastolic BP Location Tested BP Systolic BP Type Fetus Heart Rate Present Fetus Movement Comments Flowsheet Date 10/29/2025 Yoder Score Blood Edema Fundus Height Fundus Units Glucose Ketones Leukocytes Nitrite Labor Signs Protein Cervic Dilation Cervic Effacement Cervic Station Type Weight in lbs Pre/Post Dialysis Refused BP Diastolic BP Location Tested BP Systolic BP Type Fetus Heart Rate Present Fetus Movement Comments Menstrual History Last Menstrual Date Menses Monthly On Bcp Conception Prior Menses Frequency Hcg Plus Date Menarche Onset Age 0402/20/2025 true 29 Delivery Information Delivery Date Delivery Type Labor Anesthesia Weeks Gestation Incision Type Labor Labor Length Hrs Delivered By Post Complications Tubal Sterilization Discharge Date Comments Discharge Information Feeding Method Contraceptive Method Maternal HG B and HCT Levels
--- OUTSIDE RECORDS SUMMARY | 2025-11-01 06:19 | XMS_ITS | Continuity of Care Document ---
Author Organization [facility] [address] [place] [address] Care Team Providers Care Chief Executive Name Role Phone TIANNA ALESHA Primary Care Provider Assessment No assessment recorded. Plan of Treatment Reminders Order Date Submit [...] available Not available OB ROUTINE 2025 10:00A M Alysia Santos CNM Not available Not available Not available Lab None recorde d. Referral None recorde d. Procedures None recorde d. Surgeries None recorde d. Imaging US, obstetr ic, follow- up 2024 025 VANESSA [address], [address], [place], [address], 10/09/2025 23:38:32 US, obstetr ic, biophys ical profile + non-str ess test 2024 025 [email or web address] [address], [address], [place], [address], 10/09/2025 21:51:12 Medication Orders None recorde d. Patient TargetsNo targets recorded. Patient InstructionsNo instructions recorded. Reason for Referral None Reported. Results Created Date Observation Date Name Description Value Unit Range Abnormal Flag Note LastModifiedBy Organization Detail LastModifiedTime 05/27/2005/27/2025 [UNIT Y] ANEUP LOIDY NIPT fraction 10.2% normal Not Available [facility] [address], [place], [address], 05/27/2025 02:56:04 05/27/20 25 05/27/2025 [UNIT Y] ANEUP LOIDY NIPT 22Q11.2 microdeletio n LOW RISK <1 in 10,000 normal Not Available [facility] [address], [place], [address], 05/27/2025 02:56:04 05/27/20 25 05/27/2025 [UNIT Y] ANEUP LOIDY NIPT sex chromosome aneuploidy NOT DETECT ED normal Not Available [facility] [address], [place], [address], 05/27/2025 02:56:04 05/27/20 25 05/27/2025 [UNIT Y] ANEUP LOIDY NIPT monosomy X LOW RISK <1 in 10,000 normal Not Available [facility] [address], [place], [address], 05/27/2025 02:56:04 05/27/20 25 05/27/2025 [UNIT Y] ANEUP LOIDY NIPT trisomy 13 LOW RISK <1 in 10,000 normal Not Available [facility] [address], [place], [address], 05/27/2025 02:56:04 05/27/20 25 05/27/2025 [UNIT Y] ANEUP LOIDY NIPT trisomy 18 LOW RISK <1 in 10,000 normal Not Available [facility] [address], [place], [address], 05/27/2025 02:56:04 05/27/20 25 05/27/2025 [UNIT Y] ANEUP LOIDY NIPT trisomy 21 LOW RISK <1 in 10,000 normal Not Available [facility] [address], [place], [address], 05/27/2025 02:56:04 05/27/20 25 05/27/2025 [UNIT Y] ANEUP LOIDY NIPT sex FEMALE normal Not Available [facility] [address], [place], [address], 05/27/2025 02:56:04 05/27/20 25 05/27/2025 [UNIT Y] ANEUP LOIDY NIPT gestation SINGLE TON normal Not Available [facility] [address], [place], [address], 05/27/2025 02:56:04 05/27/20 25 05/27/2025 [UNIT Y] ANEUP LOIDY NIPT for detailed report, see pdf See PDF normal Not Available [facility] [address], [place], [address], 05/27/2025 02:56:04 06/03/20 25 06/03/2025 [UNIT Y] LORIN ER LYNDAE N sickle cell disease/beta -thalassemia /hemoglobino pathies carrier screen NEGATI VE normal Not Available [facility] [address], [place], [address], 06/03/2025 09:08:22 06/03/20 25 06/03/2025 [UNIT Y] LORIN Hull alpha-thalas semia carrier screen NEGATI VE normal Not Available [facility] [address], [place], [address], 06/03/2025 09:08:22 06/03/20 25 06/03/2025 [UNIT Y] LORIN Hull cystic fibrosis carrier screen NEGATI VE normal Not Available [facility] [address], [place], [address], 06/03/2025 09:08:22 06/03/20 25 06/03/2025 [UNIT Y] LORIN Hull spinal muscular atrophy carrier screen NEGATI VE 2 SMN1 copies , SNP not presen t normal Not Available [facility] [address], [place], [address], 06/03/2025 09:08:22 06/03/20 25 06/03/2025 [UNIT Y] LORIN RAMY Hull for detailed report, see pdf See PDF normal Not Available [facility] [address], [place], [address], 06/03/2025 09:08:22 05/19/20 25 05/19/2025 CBC W/DIF F WBC 9.6 10'3/ uL 3.5-10 .5 Not Available [facility] (Lab) [address], [place], [address], 05/20/2025 10:56:36 05/19/20 25 05/19/2025 CBC W/DIF F RBC 4.49 10'6/ uL (based on docume nted legal sex) 3.80-5 .20 Not Available [facility] (Lab) [address], [place], [address], 05/20/2025 10:56:36 05/19/20 25 05/19/2025 CBC W/DIF F HGB 12.5 g/dL (based on docume nted legal sex) 11.6-1 5.4 Not Available [facility] (Lab) [address], [place], [address], 05/20/2025 10:56:36 05/19/20 25 05/19/2025 CBC W/DIF F HCT 38.2 % (based on docume nted legal sex) 34.0-4 5.0 Not Available [facility] (Lab) [address], [place], [address], 05/20/2025 10:56:36 05/19/20 25 05/19/2025 CBC W/DIF F MCV 85.1 fL 80.0-9 9.0 Not Available [facility] (Lab) [address], [place], [address], 05/20/2025 10:56:36 05/19/20 25 05/19/2025 CBC W/DIF F MCH 27.8 pg 27.0-3 4.0 Not Available [facility] (Lab) [address], [place], [address], 05/20/2025 10:56:36 05/19/20 25 05/19/2025 CBC W/DIF F MCHC 32.7 g/dL 32.0-3 5.5 Not Available [facility] (Lab) [address], [place], [address], 05/20/2025 10:56:36 05/19/20 25 05/19/2025 CBC W/DIF F RDW 13.2 % 11.0-1 5.0 Not Available [facility] (Lab) [address], [place], [address], 05/20/2025 10:56:36 05/19/20 25 05/19/2025 CBC W/DIF F plt 301 10'3/ uL 150-40 0 Not Available [facility] (Lab) [address] [facility], [place], [address], 05/20/2025 10:56:36 05/19/20 25 05/19/2025 CBC W/DIF F MPV 11.9 fL 8.8-12 .1 Not Available [facility] (Lab) [address] [facility], [place], [address], 05/20/2025 10:56:36 05/19/20 25 05/19/2025 CBC W/DIF F NRBC's 0.0 % 0.0 Not Available [facility] (Lab) [address] [facility], [place], [address], 05/20/2025 10:56:36 05/19/20 25 05/19/2025 CBC W/DIF F absolute NRBCs 0.0 10'3/ uL no refere nce range establ ished Not Available [facility] (Lab) [address] [facility], [place], [address], 05/20/2025 10:56:36 05/19/20 25 05/19/2025 CBC W/DIF F neutrophils 71.0 % 34.0-7 3.0 Not Available [facility] (Lab) [address] [facility], [place], [address], 05/20/2025 10:56:36 05/19/20 25 05/19/2025 CBC W/DIF F lymphocytes 22.5 % 15.0-5 0.0 Not Available [facility] (Lab) [address] [facility], [place], [address], 05/20/2025 10:56:36 05/19/20 25 05/19/2025 CBC W/DIF F monocytes 5.3 % 1.0-15 .0 Not Available [facility] (Lab) [address] [facility], [place], [address], 05/20/2025 10:56:36 05/19/20 25 05/19/2025 CBC W/DIF F eosinophils 0.6 % 0.0-8. 0 Not Available [facility] (Lab) [address] [facility], [place], [address], 05/20/2025 10:56:36 05/19/20 25 05/19/2025 CBC W/DIF F basophils 0.3 % 0.0-2. 0 Not Available [facility] (Lab) [address] [facility], [place], [address], 05/20/2025 10:56:36 05/19/20 25 05/19/2025 CBC W/DIF [...] separ ately if prese nt. Not Available [facility] (Lab) [address] [facility], [place], [address], 05/20/2025 10:56:36 05/19/20 25 05/19/2025 CBC W/DIF F absolute neutrophils 6.8 10'3/ uL 1.5-8. 0 Not Available [facility] (Lab) [address] [facility], [place], [address], 05/20/2025 10:56:36 05/19/20 25 05/19/2025 CBC W/DIF F absolute lymphocytes 2.2 10'3/ uL 1.0-4. 0 Not Available [facility] (Lab) [address] [facility], [place], [address], 05/20/2025 10:56:36 05/19/20 25 05/19/2025 CBC W/DIF F absolute monocytes 0.5 10'3/ uL 0.2-1. 0 Not Available [facility] (Lab) [address] [facility], [place], [address], 05/20/2025 10:56:36 05/19/20 25 05/19/2025 CBC W/DIF F absolute eosinophils 0.1 10'3/ uL 0.0-0. 6 Not Available [facility] (Lab) [address] [place], [address], 05/20/2025 10:56:36 05/19/20 25 05/19/2025 CBC W/DIF F absolute basophils 0.0 10'3/ uL 0.0-0. 3 Not Available [facility] (Lab) [address], [place], [address], 05/20/2025 10:56:36 05/19/20 25 05/19/2025 CBC W/DIF F absolute immature granulocytes 0.0 10'3/ uL 0.00-0 .10 Refer ence range s for nonbi nary/ inter sex or unspe cifie d gende r patie nts have not been estab lishe d. Pleas e refer to the marko wing table for range s estab lishe d for cisge nder patie nts and evalu ate in the clini jennifer padmini xt of the indiv idual patie nt: https ://la and book. nm.or g/gen derx Not Available [facility] (Lab) [address], [place], [address], 05/20/2025 10:56:36 05/19/20 25 05/19/2025 HEPAT ITIS B SURFA CE ANTIG EN hepatitis B surface antigen Non-re active non-re active This assay was perfo rmed using [employer] ratio n reage nts and test kits. Value s obtai erica with other assay metho ds or kits canno t be used inter melton eably . Not Available [facility] (Lab) [address], [place], [address], 05/20/2025 10:56:37 05/19/20 25 05/19/2025 HIV 1/2 ANTIG EN/AN TIBOD Y, REFLE X CONFI RMATI ON HIV antigen/anti body Nonrea ctive nonrea ctive HIV-1 antig en and HIV-1 /HIV- 2 antib odies were not detec tashi. No labor atory evide nce of HIV infec tion. Not Available [facility] (Lab) [address], [place], [address], 05/20/2025 10:56:37 05/19/20 25 05/19/2025 HEPAT ITIS C ANTIB NEPTALI SCREE N, REFLE X TO CONFI RMATI ON hepatitis C antibody Non-re active non-re active Antib odies to HCV Not Detec tashi, does not exclu de the possi bilit y of expos ure to HCV. Not Available [facility] (Lab) [address], [place], [address], 05/20/2025 10:56:38 05/19/20 25 05/19/2025 VITAM IN D, 25-OH (TOTA L D2/D3 ) vitamin D, 25-hydroxy, total 59.5 NG/mL 30.0-1 00.0 Sugge stive of Defic iency : <20 ng/mL Sugge stive of Insuf ficie ncy: 20-29 ng/mL Sugge stive of Suffi cienc y: 30-10 0 ng/mL Sugge stive of Toxic ity: >150 ng/mL Not Available [facility] (Lab) [address], [place], [address], 05/20/2025 10:56:38 05/19/20 25 05/19/2025 TYPE/ RH/SC REEN ABO/Rh type O POS Not Available [facility] (Lab) [address], [place], [address], 05/20/2025 10:56:39 05/19/20 25 05/19/2025 TYPE/ RH/SC REEN antibody screen NEG Not Available [facility] (Lab) [address], [place], [address], 05/20/2025 10:56:39 05/19/20 25 05/19/2025 TYPE/ RH/SC REEN exp date 2024 23:59 Not Available [facility] (Lab) [address] [facility], [place], [address], 05/20/2025 10:56:39 05/19/20 25 05/19/2025 RUBEL LA IGG ANTIB NEPTALI, QUANT rubella antibodies, IgG Reacti ve reacti ve Not Available [facility] (Lab) [address] [facility], [place], [address], 05/20/2025 10:56:39 05/19/20 25 05/19/2025 RUBEL LA IGG ANTIB NEPTALI, QUANT rubella antibodies, IgG quant 13.6 IU/mL >=10 Non-r eacti ve (Non- Immun e) <10 IU/mL React dwight (Immu ne) > or = 10 IU/mL Not Available [facility] (Lab) [address] [facility], [place], [address], 05/20/2025 10:56:39 05/19/20 25 05/19/2025 HEMOG LOBIN A1C hemoglobin A1C 4.9 % 4.0-5. 6 The Ameri can Diabe claudia Assoc iatio n recom mends that a prima ry goal of thera py loretta d be a HBA1C of < 7% and that physi cians shoul d reeva luate the treat ment regim en in patie nts with HBA1C value s consi stent ly > 8%. <5.7% Angela l 5.7 - 6.4% Incre ased risk for diabe claudia >=6.5 % Diagn ostic of diabe claudia <7.0% Goal of thera py >8.0% Actio n sugge sted Not Available [facility] (Lab) [address], [place], [address], 05/20/2025 10:56:40 05/19/20 25 05/19/2025 RPR SCREE N, REFLE X TITER /CONF IRMAT ION RPR qualitative Nonrea ctive nonrea ctive Not Available [facility] (Lab) [address], [place], [address], 05/20/2025 10:56:41 05/19/20 25 05/19/2025 CULTU RE: URINE result report SEE RESULT S BELOW Test: Cultu re: Urine Speci men Sourc e: Urine Voide d Speci men Type: Urine Speci men Date: 1413 Resul t Date: 2142 Resul t Statu s: Final resul t Abnor mal: No Resul ting Lab: [facility] [address] [facility] [address] Tel: CULTU RE ----- ----- ----- --- No growt h in 1 day (dete ction level of 10,00 0 colon ies / ml.) Not Available [facility] (Lab) [address] [facility], [place], [address], 05/20/2025 22:47:16 05/19/20 25 05/19/2025 IMAGE GUIDE D PAP, REFLE X HPV IF ASCUS ONLY image guided Pap, reflex HPV ASCUS only SEE RESULT S BELOW CASE REPOR T: Cytol ogy Gynec ologi jennifer Repor t Case: [id number] Autho alexi verma Provi kiah: Alysia Mohr NP Colle cted: 05/19 1409 Order ing Locat ion: [place] Patho logy Recei [place]: 05/20 1144 First Scree n: Wong Jimenez , CT Rescr een: Joseph Deleon, CT Speci men: Scree joanen Pap - Image d, Cervi x STATE MENT OF ADEQU ACY: Satis facto ry for evalu ation Trans forma tion zone compo nent prese nt ----- ----- ----- ----- ----- ----- ----- ----- ----- ----- ----- ----- ----- ----- ----- ----- ----- ---- FINAL DIAGN OSIS: Negat dwight for Intra epith elial Lesio n or Jose Antonio ribeiro (NIL) . Elect sapphire becker d by Joseph [...] Thinp rep Imagi ng Syste m. CLINI JENNIFER INFOR MATIO N: Menst rual Statu s: LMP (if appli cable ): Clini jennifer Histo ry/Pr eviou s Pap: Type of Neopl marcelo (if appli cable ): Signi fican t Clini jennifer Findi ngs: Other Histo ry: Hormo kezia [...] ng do not corre late with physi jennifer and/o r histo rical findi ngs, furth er inves tigat ion is recom minal d, as clini luis eduardo camp nted. Not Available [facility] (Lab) [address], [place], [address], 05/24/2025 18:43:29 05/19/20 25 05/19/2025 CT/GC (CAT) , THINP REP VIAL chlamydia trachomatis, PCR Negati ve negati ve Not Available [facility] (Lab) [address] [place], [address], 05/24/2025 18:43:30 05/19/20 25 05/19/2025 CT/GC (CAT) , THINP REP VIAL neisseria gonorrhoeae, PCR Negati ve negati ve Not Available [facility] (Lab) [address] [place], [address], 05/24/2025 18:43:30 05/19/20 25 05/19/2025 drug scree n, urine Cannabinoids : positi ve Not Available [facility] [address], [place], [address], 05/19/2025 13:35:34 05/19/20 25 05/19/2025 drug scree n, urine Other: positi ve Not Available [facility] [address], [place], [address], 05/19/2025 13:35:34 09/10/20 25 09/10/2025 HEMAT OCRIT (HCT) HCT 39.4 % (based on docume nted legal sex) 34.0-4 5.0 Not Available [facility] (Lab) [address] [place], [address], 09/11/2025 12:57:34 09/10/20 25 09/10/2025 HEMOG LOBIN (HGB) HGB 12.7 g/dL (based on docume nted legal sex) 11.6-1 5.4 Not Available [facility] (Lab) [address] [place], [address], 09/11/2025 12:57:34 09/10/20 25 09/10/2025 CMP/C BC/UR IC ACID WBC 10.8 10'3/ uL 3.5-10 .5 high Not Available [facility] (Lab) [address] [facility], [place], [address], 09/11/2025 12:57:34 09/10/2009/10/2025 CMP/C BC/UR IC ACID RBC 4.59 10'6/ uL (based on docume nted legal sex) 3.80-5 .20 Not Available [facility] (Lab) [address] [facility], [place], [address], 09/11/2025 12:57:34 09/10/2009/10/2025 CMP/C BC/UR IC ACID HGB 12.7 g/dL (based on docume nted legal sex) 11.6-1 5.4 Not Available [facility] (Lab) [address] [facility], [place], [address], 09/11/2025 12:57:34 09/10/20 25 09/10/2025 CMP/C BC/UR IC ACID HCT 39.4 % (based on docume nted legal sex) 34.0-4 5.0 Not Available [facility] (Lab) [address] [facility], [place], [address], 09/11/2025 12:57:34 09/10/2009/10/2025 CMP/C BC/UR IC ACID MCV 85.8 fL 80.0-9 9.0 Not Available [facility] (Lab) [address] [facility], [place], [address], 09/11/2025 12:57:34 09/10/2009/10/2025 CMP/C BC/UR IC ACID MCH 27.7 pg 27.0-3 4.0 Not Available [facility] (Lab) [address] [facility], [place], [address], 09/11/2025 12:57:34 09/10/2009/10/2025 CMP/C BC/UR IC ACID MCHC 32.2 g/dL 32.0-3 5.5 Not Available [facility] (Lab) [address] [facility], [place], [address], 09/11/2025 12:57:34 09/10/2009/10/2025 CMP/C BC/UR IC ACID RDW 12.7 % 11.0-1 5.0 Not Available [facility] (Lab) [address] [facility], [place], [address], 09/11/2025 12:57:34 09/10/2009/10/2025 CMP/C BC/UR IC ACID plt 252 10'3/ uL 150-40 0 Not Available [facility] (Lab) [address] [facility], [place], [address], 09/11/2025 12:57:34 09/10/2009/10/2025 CMP/C BC/UR IC ACID MPV 11.7 fL 8.8-12 .1 Not Available [facility] (Lab) [address] [facility], [place], [address], 09/11/2025 12:57:34 09/10/2009/10/2025 CMP/C BC/UR IC ACID NRBC's 0.0 % 0.0 Not Available [facility] (Lab) [address] [place], [address], 09/11/2025 12:57:34 09/10/2009/10/2025 CMP/C BC/UR IC ACID absolute NRBCs 0.0 10'3/ uL no refere nce range establ ished Not Available [facility] (Lab) [address] [place], [address], 09/11/2025 12:57:34 09/10/2009/10/2025 CMP/C BC/UR IC ACID neutrophils 74.4 % 34.0-7 3.0 high Not Available [facility] (Lab) [address] [place], [address], 09/11/2025 12:57:34 09/10/20 25 09/10/2025 CMP/C BC/UR IC ACID lymphocytes 18.6 % 15.0-5 0.0 Not Available [facility] (Lab) [address] [facility], [place], [address], 09/11/2025 12:57:34 09/10/2009/10/2025 CMP/C BC/UR IC ACID monocytes 5.9 % 1.0-15 .0 Not Available [facility] (Lab) [address] [facility], [place], [address], 09/11/2025 12:57:34 09/10/20 25 09/10/2025 CMP/C BC/UR IC ACID eosinophils 0.5 % 0.0-8. 0 Not Available [facility] (Lab) [address] [facility], [place], [address], 09/11/2025 12:57:34 09/10/20 25 09/10/2025 CMP/C BC/UR IC ACID basophils 0.1 % 0.0-2. 0 Not Available [facility] (Lab) [address] [facility], [place], [address], 09/11/2025 12:57:34 09/10/20 25 09/10/2025 CMP/C BC/UR IC ACID immature granulocytes 0.5 % no define d refere nce range Immat ure Granu locyt es (IG) repre sents autom ated enume ratio n of Metam yeloc ytes, Myelo cytes and Promy elocy claudia when IG is < 5%. Blast s are not inclu ded in IG and repor atshi separ ately if prese nt. Not Available [facility] (Lab) [address] [facility], [place], [address], 09/11/2025 12:57:34 09/10/20 25 09/10/2025 CMP/C BC/UR IC ACID absolute neutrophils 8.1 10'3/ uL 1.5-8. 0 high Not Available [facility] (Lab) [address] [place], [address], 09/11/2025 12:57:34 09/10/2009/10/2025 CMP/C BC/UR IC ACID absolute lymphocytes 2.0 10'3/ uL 1.0-4. 0 Not Available [facility] (Lab) [address] [place], [address], 09/11/2025 12:57:34 09/10/2009/10/2025 CMP/C BC/UR IC ACID absolute monocytes 0.6 10'3/ uL 0.2-1. 0 Not Available [facility] (Lab) [address] [place], [address], 09/11/2025 12:57:34 09/10/20 25 09/10/2025 CMP/C BC/UR IC ACID absolute eosinophils 0.1 10'3/ uL 0.0-0. 6 Not Available [facility] (Lab) [address] [place], [address], 09/11/2025 12:57:34 09/10/2009/10/2025 CMP/C BC/UR IC ACID absolute basophils 0.0 10'3/ uL 0.0-0. 3 Not Available [facility] (Lab) [address] [place], [address], 09/11/2025 12:57:34 09/10/2009/10/2025 CMP/C BC/UR IC ACID absolute immature granulocytes 0.1 10'3/ uL 0.00-0 .10 Refer ence range s for nonbi nary/ inter sex or unspe cifie d gende r patie nts have not been estab lishe d. Pleas e refer to the [facility] table for range s estab lishe d for cisge nder patie nts and evalu ate in the clini jennifer padmini xt of the indiv idual patie nt: https ://angelique dennis book. nm.or g/gen derx Not Available [facility] (Lab) [address] [facility], [place], [address], 09/11/2025 12:57:34 09/10/2009/10/2025 CMP/C BC/UR IC ACID uric acid 3.0 mg/dL 2.3-6. 6 Not Available [facility] (Lab) [address] [facility], [place], [address], 09/11/2025 12:57:34 09/10/2009/10/2025 CMP/C BC/UR IC ACID sodium 136 mmol/ L 133-14 6 Not Available [facility] (Lab) [address] [facility], [place], [address], 09/11/2025 12:57:34 09/10/2009/10/2025 CMP/C BC/UR IC ACID potassium 3.9 mmol/ L 3.5-5. 1 Not Available [facility] (Lab) [address] [facility], [place], [address], 09/11/2025 12:57:34 09/10/2009/10/2025 CMP/C BC/UR IC ACID chloride 102 mmol/ L 98-107 Not Available [facility] (Lab) [address] [facility], [place], [address], 09/11/2025 12:57:34 09/10/2009/10/2025 CMP/C BC/UR IC ACID carbon dioxide 26 mmol/ L 21-31 Not Available [facility] (Lab) [address] [place], [address], 09/11/2025 12:57:34 09/10/2009/10/2025 CMP/C BC/UR IC ACID anion gap 8 mmol/ L 4-13 Not Available [facility] (Lab) [address] [place], [address], 09/11/2025 12:57:34 09/10/2009/10/2025 CMP/C BC/UR IC ACID blood urea nitrogen 5 mg/dL 7-25 low Not Available [facility] (Lab) [address] [facility], [place], [address], 09/11/2025 12:57:34 09/10/20 25 09/10/2025 CMP/C BC/UR IC ACID creatinine 0.55 mg/dL 0.60-1 .30 low Not Available [facility] (Lab) [address] [facility], [place], [address], 09/11/2025 12:57:34 09/10/20 25 09/10/2025 CMP/C BC/UR IC ACID egfrcr (CKD-epi 2020) >90 mL/mi n/1.7 3_m2 >=60 Not Available [facility] (Lab) [address] [facility], [place], [address], 09/11/2025 12:57:34 09/10/2009/10/2025 CMP/C BC/UR IC ACID calcium 8.8 mg/dL 8.3-10 .5 Not Available [facility] (Lab) [address] [facility], [place], [address], 09/11/2025 12:57:34 09/10/20 25 09/10/2025 CMP/C BC/UR IC ACID glucose 113 mg/dL 70-100 high Not Available [facility] (Lab) [address] [facility], [place], [address], 09/11/2025 12:57:34 09/10/2009/10/2025 CMP/C BC/UR IC ACID protein, total 6.1 g/dL 6.4-8. 3 low Not Available [facility] (Lab) [address] [place], [address], 09/11/2025 12:57:34 09/10/20 25 09/10/2025 CMP/C BC/UR IC ACID albumin 3.6 g/dL 3.5-5. 0 Not Available [facility] (Lab) [address] [place], [address], 09/11/2025 12:57:34 09/10/2009/10/2025 CMP/C BC/UR IC ACID ALT 17 units /L 9-43 Not Available [facility] (Lab) [address] [facility], [place], [address], 09/11/2025 12:57:34 09/10/2009/10/2025 CMP/C BC/UR IC ACID alkaline phosphatase 61 units /L 34-104 Not Available [facility] (Lab) [address] [facility], [place], [address], 09/11/2025 12:57:34 09/10/2009/10/2025 CMP/C BC/UR IC ACID AST 15 units /L 13-39 Not Available [facility] (Lab) [address] [facility], [place], [address], 09/11/2025 12:57:34 09/10/2009/10/2025 CMP/C BC/UR IC ACID bilirubin, total 0.3 mg/dL 0.2-1. 2 Not Available [facility] (Lab) [address] [place], [address], 09/11/2025 12:57:34 09/10/2009/10/2025 GTT - GESTA JANELL L SCREE N, ACOG OB glucose, 1 hour screen 107 mg/dL 70-135 Not Available [facility] (Lab) [address] [place], [address], 09/11/2025 12:57:35 09/10/2009/10/2025 HIV 1/2 ANTIG EN/AN TIBOD Y, REFLE X CONFI RMATI ON HIV antigen/anti body Nonrea ctive nonrea ctive HIV-1 antig en and HIV-1 /HIV- 2 antib odies were not detec tashi. No labor atory evide nce of HIV infec tion. Not Available [facility] [facility] [address] [place], [address], 09/11/2025 12:57:35 09/10/20 25 09/10/2025 RPR SCREE N, REFLE X TITER /CONF IRMAT ION RPR qualitative Nonrea ctive nonrea ctive Not Available [facility] (Lab) [address] [facility], [place], [address], 09/11/2025 12:57:35 09/24/20 25 09/24/2025 CULTU RE: URINE result report SEE RESULT S BELOW Test: Cultu re: Urine Speci men Sourc e: Urine - Clean Catch Speci men Type: Urine Speci men Date: 2024 1332 Resul t Date: 2024 1203 Resul t Statu s: Final resul t Abnor mal: No Resul ting Lab: [facility] [address] [facility] [address] Tel: CULTU RE ----- ----- ----- --- Cultu re resul t (>=3 organ isms prese nt) indic ates possi ble conta minat ion. Repea t cultu re if sympt oms indic ate. Not Available [facility] (Lab) [address] [facility], [place], [address], 09/26/2025 13:06:06 09/24/20 25 09/24/2025 urina lysis , dipst ick Leukocytes ++ Not Available [facility] [address], [place], [address], 09/24/2025 13:05:12 09/24/20 25 09/24/2025 urina lysis , dipst ick Protein + Not Available [facility] [address], [place], [address], 09/24/2025 13:05:12 09/24/20 25 09/24/2025 urina lysis , dipst ick pH 5 Not Available [facility] [address], [place], [address], 09/24/2025 13:05:12 09/24/20 25 09/24/2025 urina lysis , dipst ick Blood +++ Not Available [facility] [address], [place], [address], 09/24/2025 13:05:12 09/24/20 25 09/24/2025 urina lysis , dipst ick Specific Mobile 1.015 Not Available [facility] [address], [place], [address], 09/24/2025 13:05:12 09/24/20 25 09/24/2025 urina lysis , dipst ick Appearance cloudy Not Available [facility] [address], [place], [address], 09/24/2025 13:05:12 09/24/20 25 09/24/2025 urina lysis , dipst ick Color yellow Not Available [facility] [address], [place], [address], 09/24/2025 13:05:12 10/08/20 25 10/08/2025 CBC W/DIF F WBC 12.3 10'3/ uL 3.5-10 .5 high Not Available [facility] (Lab) [address] [place], [address], 10/10/2025 00:09:54 10/08/20 25 10/08/2025 CBC W/DIF F RBC 4.69 10'6/ uL (based on docume nted legal sex) 3.80-5 .20 Not Available [facility] (Lab) [address] , [place], [address], 10/10/2025 00:09:54 10/08/20 25 10/08/2025 CBC W/DIF F HGB 12.7 g/dL (based on docume nted legal sex) 11.6-1 5.4 Not Available [facility] (Lab) [address], [place], [address], 10/10/2025 00:09:54 10/08/20 25 10/08/2025 CBC W/DIF F HCT 39.8 % (based on docume nted legal sex) 34.0-4 5.0 Not Available [facility] (Lab) [address], [place], [address], 10/10/2025 00:09:54 10/08/20 25 10/08/2025 CBC W/DIF F MCV 84.9 fL 80.0-9 9.0 Not Available [facility] (Lab) [address], [place], [address], 10/10/2025 00:09:54 10/08/20 25 10/08/2025 CBC W/DIF F MCH 27.1 pg 27.0-3 4.0 Not Available [facility] (Lab) [address], [place], [address], 10/10/2025 00:09:54 10/08/20 25 10/08/2025 CBC W/DIF F MCHC 31.9 g/dL 32.0-3 5.5 low Not Available [facility] (Lab) [address], [place], [address], 10/10/2025 00:09:54 10/08/20 25 10/08/2025 CBC W/DIF F RDW 13.2 % 11.0-1 5.0 Not Available [facility] (Lab) [address] [place], [address], 10/10/2025 00:09:54 10/08/20 25 10/08/2025 CBC W/DIF F plt 239 10'3/ uL 150-40 0 Not Available [facility] (Lab) [address] [place], [address], 10/10/2025 00:09:54 10/08/20 25 10/08/2025 CBC W/DIF F MPV 11.9 fL 8.8-12 .1 Not Available [facility] (Lab) [address], [place], [address], 10/10/2025 00:09:54 10/08/20 25 10/08/2025 CBC W/DIF F NRBC's 0.0 % 0.0 Not Available [facility] (Lab) [address], [place], [address], 10/10/2025 00:09:54 10/08/20 25 10/08/2025 CBC W/DIF F absolute NRBCs 0.0 10'3/ uL no refere nce range establ ished Not Available [facility] (Lab) [address], [place], [address], 10/10/2025 00:09:54 10/08/20 25 10/08/2025 CBC W/DIF F neutrophils 70.7 % 34.0-7 3.0 Not Available [facility] (Lab) [address], [place], [address], 10/10/2025 00:09:54 10/08/20 25 10/08/2025 CBC W/DIF F lymphocytes 22.0 % 15.0-5 0.0 Not Available [facility] (Lab) [address], [place], [address], 10/10/2025 00:09:54 10/08/20 25 10/08/2025 CBC W/DIF F monocytes 6.1 % 1.0-15 .0 Not Available [facility] (Lab) [address], [place], [address], 10/10/2025 00:09:54 10/08/20 25 10/08/2025 CBC W/DIF F eosinophils 0.5 % 0.0-8. 0 Not Available [facility] (Lab) [address], [place], [address], 10/10/2025 00:09:54 10/08/20 25 10/08/2025 CBC W/DIF F basophils 0.2 % 0.0-2. 0 Not Available [facility] (Lab) [address] [facility], [place], [address], 10/10/2025 00:09:54 10/08/20 25 10/08/2025 CBC W/DIF F immature granulocytes 0.5 % no define d refere nce range Immat ure Granu locyt es (IG) repre sents autom ated enume ratio n of Metam yeloc ytes, Myelo cytes and Promy elocy claudia when IG is < 5%. Blast s are not inclu ded in IG and repor tashi separ ately if prese nt. Not Available [facility] (Lab) [address] [facility], [place], [address], 10/10/2025 00:09:54 10/08/20 25 10/08/2025 CBC W/DIF F absolute neutrophils 8.7 10'3/ uL 1.5-8. 0 high Not Available [facility] (Lab) [address] [facility], [place], [address], 10/10/2025 00:09:54 10/08/20 25 10/08/2025 CBC W/DIF F absolute lymphocytes 2.7 10'3/ uL 1.0-4. 0 Not Available [facility] (Lab) [address] [facility], [place], [address], 10/10/2025 00:09:54 10/08/20 25 10/08/2025 CBC W/DIF F absolute monocytes 0.8 10'3/ uL 0.2-1. 0 Not Available [facility] (Lab) [address] [facility], [place], [address], 10/10/2025 00:09:54 10/08/20 25 10/08/2025 CBC W/DIF F absolute eosinophils 0.1 10'3/ uL 0.0-0. 6 Not Available [facility] (Lab) [address], [place], [address], 10/10/2025 00:09:54 10/08/20 25 10/08/2025 CBC W/DIF F absolute basophils 0.0 10'3/ uL 0.0-0. 3 Not Available [facility] (Lab) [address], [place], [address], 10/10/2025 00:09:54 10/08/20 25 10/08/2025 CBC W/DIF F absolute immature granulocytes 0.1 10'3/ uL 0.00-0 .10 Refer ence range s for nonbi nary/ inter sex or unspe cifie d gende r patie nts have not been estab lishe d. Plefarhana e [facility] for range s estab lishe d for cisge nder patie nts and evalu ate in the clini jennifer padmini xt of the indiv idual patie nt: https ://angelique dennis book. nm.or g/gen derx Not Available [facility] (Lab) [address] [facility], [place], [address], 10/10/2025 00:09:54 10/08/20 25 10/08/2025 PROTE IN/CR EATIN INE RATIO , URINE creatinine, urine 34.6 mg/dL R-No refer ence range estab lishe d for this assay Not Available [facility] (Lab) [address], [place], [address], 10/10/2025 00:09:55 10/08/20 25 10/08/2025 PROTE IN/CR EATIN INE RATIO , URINE protein, urine <4 mg/dL R-No refer ence range estab lishe d for this assay Not Available [facility] (Lab) [address], [place], [address], 10/10/2025 00:09:55 10/08/20 25 10/08/2025 PROTE IN/CR EATIN INE RATIO , URINE protein/crea tinine ratio, urine . No Refer ence Range avail able for Rando m Urine s. Unabl e to perfo rm calcu latio n due to low elidia te marline ntrat ion A prote in to creat inine ratio of >=0.1 9 is a good predi ctor of signi fican t prote inuri a. A level of <0.14 can rule out signi fican t prote inuri a. Not Available [facility] (Lab) [address] [facility], [place], [address], 10/10/2025 00:09:55 10/08/20 25 10/08/2025 URIC ACID uric acid 3.5 mg/dL 2.3-6. 6 Not Available [facility] (Lab) [address] [facility], [place], [address], 10/10/2025 00:09:55 10/08/20 25 10/08/2025 CMP(C OMPRE HENSI VE METAB OLIC PANEL ) sodium 135 mmol/ L 133-14 6 Not Available [facility] (Lab) [address] [place], [address], 10/10/2025 00:09:56 10/08/20 25 10/08/2025 CMP(C OMPRE HENSI VE METAB OLIC PANEL ) potassium 3.8 mmol/ L 3.5-5. 1 Not Available [facility] (Lab) [address] [place], [address], 10/10/2025 00:09:56 10/08/20 25 10/08/2025 CMP(C OMPRE HENSI VE METAB OLIC PANEL ) chloride 102 mmol/ L 98-107 Not Available [facility] (Lab) [address] [place], [address], 10/10/2025 00:09:56 10/08/20 25 10/08/2025 CMP(C OMPRE HENSI VE METAB OLIC PANEL ) carbon dioxide 22 mmol/ L 21-31 Not Available [facility] (Lab) [address] [place], [address], 10/10/2025 00:09:56 10/08/20 25 10/08/2025 CMP(C OMPRE HENSI VE METAB OLIC PANEL ) anion gap 11 mmol/ L 4-13 Not Available [facility] (Lab) [address] [facility], [place], [address], 10/10/2025 00:09:56 10/08/20 25 10/08/2025 CMP(C OMPRE HENSI VE METAB OLIC PANEL ) blood urea nitrogen 5 mg/dL 7-25 low Not Available [facility] (Lab) [address] [facility], [place], [address], 10/10/2025 00:09:56 10/08/20 25 10/08/2025 CMP(C OMPRE HENSI VE METAB OLIC PANEL ) creatinine 0.53 mg/dL 0.60-1 .30 low Not Available [facility] (Lab) [address] [facility], [place], [address], 10/10/2025 00:09:56 10/08/20 25 10/08/2025 CMP(C OMPRE HENSI VE METAB OLIC PANEL ) egfrcr (CKD-epi 2020) >90 mL/mi n/1.7 3_m2 >=60 Not Available [facility] (Lab) [address] [facility], [place], [address], 10/10/2025 00:09:56 10/08/20 25 10/08/2025 CMP(C OMPRE HENSI VE METAB OLIC PANEL ) calcium 8.6 mg/dL 8.3-10 .5 Not Available [facility] (Lab) [address] [facility], [place], [address], 10/10/2025 00:09:56 10/08/20 25 10/08/2025 CMP(C OMPRE HENSI VE METAB OLIC PANEL ) glucose 92 mg/dL 70-100 Not Available [facility] (Lab) [address] [facility], [place], [address], 10/10/2025 00:09:56 10/08/20 25 10/08/2025 CMP(C OMPRE HENSI VE METAB OLIC PANEL ) protein, total 5.9 g/dL 6.4-8. 3 low Not Available [facility] (Lab) [address], [place], [address], 10/10/2025 00:09:56 10/08/20 25 10/08/2025 CMP(C OMPRE HENSI VE METAB OLIC PANEL ) albumin 3.5 g/dL 3.5-5. 0 Not Available [facility] (Lab) [address], [place], [address], 10/10/2025 00:09:56 10/08/20 25 10/08/2025 CMP(C OMPRE HENSI VE METAB OLIC PANEL ) ALT 17 units /L 9-43 Not Available [facility] (Lab) [address] [facility], [place], [address], 10/10/2025 00:09:56 10/08/20 25 10/08/2025 CMP(C OMPRE HENSI VE METAB OLIC PANEL ) alkaline phosphatase 81 units /L 34-104 Not Available [facility] (Lab) [address] [facility], [place], [address], 10/10/2025 00:09:56 10/08/20 25 10/08/2025 CMP(C OMPRE HENSI VE METAB OLIC PANEL ) AST 16 units /L 13-39 Not Available [facility] (Lab) [address] [facility], [place], [address], 10/10/2025 00:09:56 10/08/20 25 10/08/2025 CMP(C OMPRE HENSI VE METAB OLIC PANEL ) bilirubin, total 0.5 mg/dL 0.2-1. 2 Not Available [facility] (Lab) [address] [facility], [place], [address], 10/10/2025 00:09:56 10/08/2010/08/2025 CULTU RE: URINE result report SEE RESULT S BELOW Test: Cultu re: Urine Speci men Sourc e: Urine - Clean Catch Speci men Type: Urine Speci men Date: 10/08 1152 Resul t Date: 10/09 2305 Resul t Statu s: Final resul t Abnor mal: No Resul ting Lab: [facility] [address] [facility] [address] Tel: CULTU RE ----- ----- ----- --- No growt h in 1 day (dete ction level of 10,00 0 colon ies / ml.) Not Available [facility] (Lab) [address], [place], [address], 10/10/2025 00:09:56 07/14/20 25 07/14/2025 US, obste tric, 2nd or 3rd trime ster No observ ation record ed. [email or web address], [place], [address], 07/14/2025 11:48:13 07/14/2007/14/2025 US, obste tric, follo w-up No observ ation record ed. [email or web address] [address], [place], [address], 07/14/2025 16:09:19 08/11/20 25 08/11/2025 US, obste tric, follo w-up No observ ation record ed. [facility] [address], [place], [address], 08/11/2025 18:35:48 08/11/20 25 08/11/2025 US, obste tric, follo w-up No observ ation record ed. [address], [place], [address], 08/13/2025 07:06:41 09/10/20 09/10/2025 US, obste tric, follo w-up No observ ation record ed. [facility] [address], [place], [address], 09/10/2025 14:42:43 09/10/20 25 09/10/2025 US, obste tric, follo w-up No observ ation record ed. [email or web address] [address], [place], [address], 09/14/2025 14:46:19 10/08/2010/08/2025 US, obste tric, follo w-up No observ ation record ed. [address], [place], [address], 10/11/2025 11:55:36 10/08/20 25 10/08/2025 non-s tress test No observ ation record ed. [address], [place], [address], 10/08/2025 13:48:06 10/08/20 non-s tress test No observ ation record ed. [email or web address], [place], [address], 10/08/2025 12:32:22 10/08/2010/08/2025 , obste tric, follo w-up No observ ation record ed. [facility] [address], [place], [address], 10/08/2025 16:57:13 10/08/20 25 10/08/2025 , obste tric, bioph ysica l profi le + non-s tress test No observ ation record ed. [facility] [address], [place], [address], 10/08/2025 16:57:23 10/13/20 25 10/13/2025 US, obste tric, bioph ysica l profi le + non-s tress test No observ ation record ed. [email or web address] [facility] [address], [place], [address], 10/13/2025 11:51:09 10/13/20 25 10/13/2025 US, obste tric, bioph ysica l profi le + non-s tress test No observ ation record ed. [email or web address] [address], [place], [address], 10/20/2025 11:47:34 10/13/2010/13/2025 non-s tress test No observ ation record ed. [email or web address] [facility] [address], [place], [address], 10/13/2025 17:57:16 10/13/20 non-s tress test No observ ation record ed. [email or web address] [facility] [address], [place], [address], 10/13/2025 17:34:36 10/22/20 25 10/22/2025 US, dominic tric, bioph ysica l profi le No observ ation record ed. [email or web address] [address], [place], [address], 10/29/2025 11:35:15 10/22/20 25 10/22/2025 US, obste tric, bioph ysica l profi le + non-s tress test No observ ation record ed. [facility] [address], [place], [address], 10/22/2025 13:51:55 10/22/20 25 10/22/2025 non-s tress test No observ ation record ed. [address], [place], [address], 10/27/2025 18:38:42 10/22/20 non-s tress test No observ ation record ed. [address], [place], [address], 10/22/2025 12:42:25 10/29/20 25 10/29/2025 US, obste tric, follo w-up No observ ation record ed. [email or web address] [address], [place], [address], 10/30/2025 01:33:53 10/29/20 25 10/29/2025 US, obste tric, follo w-up No observ ation record ed. [facility] [address], [place], [address], 10/29/2025 17:16:32 10/29/20 25 10/29/2025 US, obste tric, bioph ysica l profi le + non-s tress test No observ ation record ed. [facility] [address], [place], [address], 10/29/2025 17:16:42 Result Notes None recorded. Problems Name Problem SNOMED Code Status Onset Date Resolution Date Notes Provider Name and Address Organization Details Recorded Time 04386445 Active 2024 Linda mcgill, [facility] 10:53:18 Hypertens dwight disorder 68688057 Active 2024 labetalol 200mg bid bASA daily serial growth us , weekly testing @ 32wks 10/08/25 300mg bid rpt labs Alysia Santos CNM [address], [place], [address], [facility] 12:52:39 Mixed anxiety and depressiv e disorder 544614387 Active 2024 buspirone 10mg lexapro 20 mg daily Alysia Santos CNM [address], [place], [address], [facility] 12:01:06 Past history of gestation al hypertens ion 841211478 Active 2024 vs preeclamp deirdre delivered at 37 weeks Alysia Santos CNM [address], [place], [address], [facility] 12:01:27 Marijuana user 439778154 Active 2024 Pt decreased . Continued use is causing family issues and pt is experienc ing increased anxiety and depressio n symptoms. Nina Lestermarizolboom mcgill [facility] 16:48:10 Marijuana user 545851649 Active 2024 Pt decreased . Continued use is causing family issues and pt is experienc ing increased anxiety and depressio n symptoms. Nina Hammboom mcgill [facility] 16:48:11 Problem Notes None recorded. Procedures Surgical History Date Name Laterality Status Provider Name and Address Organization Details Recorded Time 11/18/2021 Date of Last Pap Smear completed Kim Monson [facility] 08/11/2025 14:32:13 Imaging Results None recorded. Procedure Notes None recorded. Medical Equipment None Reported. Allergies Allergen ID Allergen Name Allergen Category Reaction Reaction Severity Criticality Documentation Date Start Date Code Code System Note Provider Name and Address Organization Details Recorded Time 57412 amoxicill in medicatio n hives Not available Not available 10/08/20252016 723 RxNorm Not Available vanessa - External Data Service - prod 03:06:32 13216 clindamyc in Not available hives Not available Not available 10/08/20252018 2582 RxNorm Not Available vanessa - External Data Service - prod 03:06:32 Medications Name Sig Start Date Stop [...] Not Available Vitals Date Recorded Body weight Provider Name an d Address Organization Details Last Updated DateTime 10/08/2025 46443.26411 g Krysta Ortizney [facility] 10/08/2025 12:37:53 Date Recorded Body height Body mass index (BMI) Body weight Systolic And Diastolic Provider Name and Address Organization Details Last Updated DateTime 10/08/2025 162.56 cm 32.6 kg/m2 93263.55 g 122/79 mm[Hg] Cami Merida [facility] 10/08/2025 12:29:55 Social History Question Answer Notes LastModified by Organizat ion Details LastModified Time Do You Have An Advance Directive? No Information n ot available 04/22/2025 How Many Years Have You Consumed Alcohol? 8 [email or web address] Information not available 08/11/2025 Are You Blind [...] Or The Highest Degree You Have Received? [id number] Information not available 04/22/2025 Are There Any Guns Present In Your Home? Yes Information not available 04/22/2025 Have You Ever Been Counseled For Unhealthy Alcohol Use? No [email or web address] Information not available 06/16/2025 Do You Use Protection During Sex? No Information not available 04/22/2025 Do You Use Your Seat Belt Or Car Seat Routinely? Yes Information not available 04/22/2025 Are You Sexually Active? Yes [email or web address] Information not available 06/16/2025 Do You Have Smoke And Carbon Monoxide Detectors In Your Home? Yes Information not available 04/22/2025 At What Age Did You Start Smoking Tobacco? 19 Information not available 04/22/2025 How Much Tobacco Do You Smoke? No Information not available 04/22/2025 Do You Use Sunscreen Routinely? No Information not available 04/22/2025 Has Tobacco Cessation Counseling Been Provided? No [email or web address] Information not available 06/16/2025 How Many Years Have You Smoked Tobacco? 4 Information not available 08/11/2025 Have You Used IV Drugs? No Information not available 04/22/2025 Do You Have Difficulty Walking Or Climbing Stairs? No Information not available 06/16/2025 Sex: Unknown Functional Status Question Answer Note LastModified by Organizat ion Details LastModified Time Do you use any illicit or recreational drugs? Yes Information not available 04/22/2025 Do you or have you ever used any other forms of tobacco or nicotine? No Information not available 06/16/2025 What is your level of alcohol consumption? Occasional [email or web address] Information not available 08/11/2025 Are you currently employed? Yes [email or web address] Information not available 06/16/2025 Are you able to walk independently without assistance or assistive devices? [email or web address] Information not available 04/22/2025 Are you able to care for yourself independently? 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 No [email or web address] Information not available 06/16/2025 What is your exercise level? Occasional Information not available 04/22/2025 Mental Status Question Answer Note LastModified by Organization D etails LastModified Time Do you feel stressed (tense, restless, nervous, or anxious, or unable to sleep at night)? [id number] [email or web address] Information not available 08/11/2025 Family History Relationship [...] Disorder Y History of abnormal pap Y Hypertension Y Depression/ depression Y Gynecological History Statement/Question Response Flow Moderate [...] ICD10 Code Diagnosis IMO Codes Diagnosis Note [id number] Norris Jordan MD [facility] [address] [address] 09/10/2025 09:35:51 09/10/2025 10:12:45 Maternal hypertension 409005747 O16.3 Z3A.28 4142662 [id number] Alysia Santos [facility] [address] [place] [address] 09/10/2025 09:36:28 09/10/2025 11:14:34 Gestation period, 28 weeks 96160595 Z3A.28 5384882 464358 [facility] [address] [place] [address] 09/24/2025 11:20:09 09/24/2025 12:02:06 Gestation period, 30 weeks 52813305 Z3A.30 6931770 Acute urin shamir tract infection 197553786 N39.0 397626 049750 [facility] [address],[place] [address] 10/08/2025 11:01:42 10/08/2025 12:33:16 Chronic hypertension complicating AND/OR reason for care during 64914399 O10.919 86589979 [id number] Norris Jordan MD [facility] [address] [address] 10/08/2025 11:02:16 10/08/2025 13:23:40 Hypertension complicating 7180030894 9102 O16.3 Z3A.32 89614893 [id number] Alysia Santos CNM [facility] [address] [address] 10/08/2025 11:02:36 10/08/2025 12:56:56 -induced hypertension 18246117 O13.9 Hypertensive disorder 38 593006 I10 84220150 History of urinary tract infection 0066294129 107 Z87.298 1040974 Health Concerns Section Related Observation LastModified by Organization Detai ls LastModified Time None Recorded Concern Status LastModified by Organization Details LastModified Time None Recorded Payers Encounter Date Sequence Insurance Name Policy Number Policy Sarah Covered Member ID Sarah Member ID Guarantor Name 10/08/2025 1 [id number] Artem Beresford [id number] Artem Beresford Notes Date Note Type Note Provider Name and Address Organization Details Recorded Time 10/08/2025 text/html Generic HPI TemplateReported by Patient Alysia Santos CNM [address], [place], [address], [facility] 10/08/2025 12:55:06 OBGyn Episode Ob Episode Information Episode Created Date Number of Fetuses Patient Bloodtype Patient rh Status Prepregnancy Weight lbs Domestic Partner Domestic Partner Phone Father Name Human Factors Scientist Status 05/19/20 25 1 O Positive 173 OPEN Fetus Data First Name Last Name Admitted to NICU Weight (g) Sex Living Outcome Pediatric Complications Fetus ID Race Codes Race Delivery Type [id number] Problems Problem Notes Problem Name Start Date End Date Resolution Snomed Code Not e Hypertensive disorder 05/19/2025 3875698 3 labetalol 200mg bidbASA dailyserial growth us , weekly testing @ 26tyh7310/08/25 300mg bid rpt labs Past history of gestational hypertension 05/19/2025 [id number] vs preeclampsia delivered at 37 weeks Marijuana user 08/18/2025 [id number] Pt d ecreased. Continued use is causing family issues and pt is experiencing increased anxiety and depression symptoms. Mixed anxiety and depressive disorder 05/19/2025 [id number] buspiron e 10mglexapro 20 mg daily Pablito [...] Date Ultra Sound Latest Days Gestation 0 [email or web address] 05/19/2025 11/27/19 26 0 Pre- Flowsheet Flowsheet Date 05/19/2025 Yoder Score Blood Edema Fundus Height Fundus Units Glucose Ketones Leukocytes Nitrite Labor Signs Protein Cervic Dilation Cervic Effacement Cervic Station Type Weight in lbs Pre/Post Dialysis Refused Weight 169.780771330770 BP Diastolic BP Location Tested BP Systolic [...] Weight in lbs Pre/Post Dialysis Refused Weight 173.586346858216 BP Diastolic BP Location Tested BP Systolic [...] Weight in lbs Pre/Post Dialysis Refused Weight 179.934922967670 BP Diastolic BP Location Tested BP Systolic [...] Weight in lbs Pre/Post Dialysis Refused Weight 188.574593138372 BP Diastolic BP Location Tested BP Systolic [...] Type Weight in lbs Pre/Post Dialysis Refused 189.349619050068 BP Diastolic BP Location Tested BP Systolic [...] Weight in lbs Pre/Post Dialysis Refused Weight 188.434547036961 BP Diastolic BP Location Tested BP Systolic BP Type 73 L arm 111 sitting Fetus Heart Rate Present A 138 Fetus Movement A Yes Comments lots of cntx gone now but in creased pressure, cervix closed, urine for culture, +FM labor precautions, already scheduled preadmit, planning delivery around nov 06. saw t joe note in chart f/u 2 weeks Flowsheet Date 10/08/2025 Yoder Score Blood Edema Fundus Height Fundus Units Glucose Ketones Leukocytes Nitrite Labor Signs Protein Cervic Dilation Cervic Effacement Cervic Station Type Weight in lbs Pre/Post Dialysis Refused Weight 190.190609533594 BP Diastolic BP Location Tested BP Systolic [...] Type Weight in lbs Pre/Post Dialysis Refused 191.242470788612 BP Diastolic BP Location Tested BP Systolic [...] education f/u one week Flowsheet Date 10/13/2025 Yodre Score Blood Edema Fundus Height Fundus Units [...] Type Weight in lbs Pre/Post Dialysis Refused 189.748257200926 BP Diastolic BP Location Tested BP Systolic BP Type 80 L arm 119 sitting Fetus Heart Rate Present Fetus Movement A Yes Comments Flowsheet Date 10/13/2025 Yoder Score Blood Edema Fundus Height Fundus Units Glucose Ketones Leukocytes Nitrite Labor Signs Protein Cervic Dilation Cervic Effacement Cervic Station Type Weight in lbs Pre/Post Dialysis Refused Weight 189.240584586784 BP Diastolic BP Location Tested BP Systolic BP Type 80 L arm 119 sitting Fetus Heart Rate Present Fetus Movement A Yes Comments +FM bpp 8/ iOL nov 09, 2025 at 0600. precautions [...] Weight in lbs Pre/Post Dialysis Refused Weight 192.840002737877 BP Diastolic BP Location Tested BP Systolic BP Type 79 L arm 128 sitting Fetus Heart Rate Present Fetus Movement A Yes Comments Flowsheet Date 10/22/2025 Yoder Score Blood Edema Fundus Height Fundus Units Glucose Ketones Leukocytes Nitrite Labor Signs Protein Cervic Dilation Cervic Effacement Cervic Station Type Weight in lbs Pre/Post Dialysis Refused 192.236573896882 BP Diastolic BP Location Tested BP Systolic [...]
--- OUTSIDE RECORDS SUMMARY | 2025-11-01 06:19 | XMS_ITS | Data Portability ---
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 Discussed plan. Not available 10/22/2025 12:38:42 Plan of Treatment Reminders Order Date Submit [...] Not available OB ROUTINE 2024 10:00A M Alsyia Santos CNM Not available Not available Not available INDUCTI ON 2024 06:00A M Alysia Santos CNM Not available Not available Not available U/S OB BPP 2025 09:00A M ULTRASOUND Not available Not available Not available NST 2025 09:30A M NST SCHEDULE Not available Not available Not available OB ROUTINE 2025 10:00A M Alysia Santos, CNM Not available Not available Not available Lab None recorde d. Referral None recorde d. Procedures None recorde d. Surgeries None recorde d. Imaging US, obstetr ic, follow- up 2024 025 [address], [address], [place], [address], 10/29/2025 16:47:31 US, obstetr ic, biophys ical profile + non-str ess test 2024 025 BRIANA [address], [address], [place], [address], 10/29/2025 17:16:42 non-str ess test 2024 [email or web address] [place], [place] [id number], [address], [place], [address], 10/22/2025 13:37:30 US, obstetr ic, biophys ical profile + non-str ess test 2024 025 [email or web address] [address], [address], [place], [address], 10/22/2025 14:22:06 Medication Orders None recorde d. Patient TargetsNo targets recorded. Patient InstructionsNo instructions recorded. Reason for Referral None Reported. Results Created Date Observation Date Name Description Value Unit Range Abnormal Flag Note LastModifiedBy Organization Detail LastModifiedTime 09/24/20 25 09/24/2025 CULTU RE: URINE result report SEE RESULT S BELOW Test: Cultu re: Urine Speci men Sourc e: Urine - Clean Catch Speci men Type: Urine Speci men Date: 2024 1332 Resul t Date: 2024 1203 Resul t Statu s: Final resul t Abnor mal: No Resul ting Lab: [facility] [address] [facility] [address] Tel: CULTU RE ----- ----- ----- --- Cultu re resul t (>=3 organ isms prese nt) indic ates possi ble conta minat ion. Repea t cultu re if sympt oms indic ate. Not Available [facility] (Lab) [address], [place], [address], 09/26/2025 13:06:06 09/24/20 25 09/24/2025 urina lysis , dipst ick Leukocytes ++ Not Available [facility] [address], [place], [address], 09/24/2025 13:05:12 09/24/20 25 09/24/2025 urina lysis , dipst ick Protein + Not Available [address], [place], [address], 09/24/2025 13:05:12 09/24/20 25 09/24/2025 urina lysis , dipst ick pH 5 Not Available [facility], [place], [address], 09/24/2025 13:05:12 09/24/20 25 09/24/2025 urina lysis , dipst ick Blood +++ Not Available [address], [place], [address], 09/24/2025 13:05:12 09/24/20 25 09/24/2025 urina lysis , dipst ick Specific Harper 1.015 Not Available [facility] [address], [place], [address], 09/24/2025 13:05:12 09/24/20 25 09/24/2025 urina lysis , dipst ick Appearance cloudy Not Available [facility] [address], [place], [address], 09/24/2025 13:05:12 09/24/20 25 09/24/2025 urina lysis , dipst ick Color yellow Not Available [address], [place], [address], 09/24/2025 13:05:12 10/08/20 25 10/08/2025 CBC W/DIF F WBC 12.3 10'3/ uL 3.5-10 .5 high Not Available [facility] (Lab) [address], [place], [address], 10/10/2025 00:09:54 10/08/20 25 10/08/2025 CBC W/DIF F RBC 4.69 10'6/ uL (based on docume nted legal sex) 3.80-5 .20 Not Available [facility] (Lab) [address], [place], [address], 10/10/2025 00:09:54 10/08/20 25 10/08/2025 CBC W/DIF F HGB 12.7 g/dL (based on docume nted legal sex) 11.6-1 5.4 Not Available [facility] (Lab) [address], [place], [address], 10/10/2025 00:09:54 10/08/20 25 10/08/2025 CBC W/DIF F HCT 39.8 % (based on docume nted legal sex) 34.0-4 5.0 Not Available [facility] (Lab) [address], [place], [address], 10/10/2025 00:09:54 10/08/20 25 10/08/2025 CBC W/DIF F MCV 84.9 fL 80.0-9 9.0 Not Available [facility] (Lab) [address], [place], [address], 10/10/2025 00:09:54 10/08/20 25 10/08/2025 CBC W/DIF F MCH 27.1 pg 27.0-3 4.0 Not Available [facility] (Lab) [address] [facility], [place], [address], 10/10/2025 00:09:54 10/08/20 25 10/08/2025 CBC W/DIF F MCHC 31.9 g/dL 32.0-3 5.5 low Not Available [facility] (Lab) [address] [facility], [place], [address], 10/10/2025 00:09:54 10/08/20 25 10/08/2025 CBC W/DIF F RDW 13.2 % 11.0-1 5.0 Not Available [facility] (Lab) [address], [place], [address], 10/10/2025 00:09:54 10/08/20 25 10/08/2025 CBC W/DIF F plt 239 10'3/ uL 150-40 0 Not Available [facility] (Lab) [address] [facility], [place], [address], 10/10/2025 00:09:54 10/08/20 25 10/08/2025 CBC W/DIF F MPV 11.9 fL 8.8-12 .1 Not Available [facility] (Lab) [address] [facility], [place], [address], 10/10/2025 00:09:54 10/08/20 25 10/08/2025 CBC W/DIF F NRBC's 0.0 % 0.0 Not Available [facility] (Lab) [address] [facility], [place], [address], 10/10/2025 00:09:54 10/08/20 25 10/08/2025 CBC W/DIF F absolute NRBCs 0.0 10'3/ uL no refere nce range establ ished Not Available [facility] (Lab) [address], [place], [address], 10/10/2025 00:09:54 10/08/20 25 10/08/2025 CBC W/DIF F neutrophils 70.7 % 34.0-7 3.0 Not Available [facility] (Lab) [address] [facility], [place], [address], 10/10/2025 00:09:54 10/08/20 25 10/08/2025 CBC W/DIF F lymphocytes 22.0 % 15.0-5 0.0 Not Available [facility] (Lab) [address] [facility], [place], [address], 10/10/2025 00:09:54 10/08/20 25 10/08/2025 CBC W/DIF F monocytes 6.1 % 1.0-15 .0 Not Available [facility] (Lab) [address] [facility], [place], [address], 10/10/2025 00:09:54 10/08/20 25 10/08/2025 CBC W/DIF F eosinophils 0.5 % 0.0-8. 0 Not Available [facility] (Lab) [address] [facility], [place], [address], 10/10/2025 00:09:54 10/08/20 25 10/08/2025 CBC W/DIF F basophils 0.2 % 0.0-2. 0 Not Available [facility] (Lab) [address] [place], [address], 10/10/2025 00:09:54 10/08/20 25 10/08/2025 CBC W/DIF [...] separ ately if prese nt. Not Available [facility] (Lab) [address] [facility], [place], [address], 10/10/2025 00:09:54 10/08/20 25 10/08/2025 CBC W/DIF F absolute neutrophils 8.7 10'3/ uL 1.5-8. 0 high Not Available [facility] (Lab) [address] [place], [address], 10/10/2025 00:09:54 10/08/20 25 10/08/2025 CBC W/DIF F absolute lymphocytes 2.7 10'3/ uL 1.0-4. 0 Not Available [facility] (Lab) [address], [place], [address], 10/10/2025 00:09:54 10/08/20 25 10/08/2025 CBC W/DIF F absolute monocytes 0.8 10'3/ uL 0.2-1. 0 Not Available [facility] (Lab) [address] [facility], [place], [address], 10/10/2025 00:09:54 10/08/20 25 10/08/2025 CBC W/DIF F absolute eosinophils 0.1 10'3/ uL 0.0-0. 6 Not Available [facility] (Lab) [address] [facility], [place], [address], 10/10/2025 00:09:54 10/08/20 25 10/08/2025 CBC W/DIF F absolute basophils 0.0 10'3/ uL 0.0-0. 3 Not Available [facility] (Lab) [address] [facility], [place], [address], 10/10/2025 00:09:54 10/08/20 25 10/08/2025 CBC W/DIF [...] dennis book. nm.or g/gen derx Not Available [facility] (Lab) [address] [facility], [place], [address], 10/10/2025 00:09:54 10/08/20 25 10/08/2025 PROTE IN/CR EATIN INE RATIO , URINE creatinine, urine 34.6 mg/dL R-No refer ence range estab lishe d for this assay Not Available [facility] (Lab) [address] [place], [address], 10/10/2025 00:09:55 10/08/20 25 10/08/2025 PROTE IN/CR EATIN INE RATIO , URINE protein, urine <4 mg/dL R-No refer ence range estab lishe d for this assay Not Available [facility] (Lab) [address] [facility], [place], [address], 10/10/2025 00:09:55 10/08/20 25 10/08/2025 PROTE IN/CR [...] fican t prote inuri a. Not Available [facility] (Lab) [address] [facility], [place], [address], 10/10/2025 00:09:55 10/08/20 25 10/08/2025 URIC ACID uric acid 3.5 mg/dL 2.3-6. 6 Not Available [facility] (Lab) [address] [facility], [place], [address], 10/10/2025 00:09:55 10/08/20 25 10/08/2025 CMP(C OMPRE HENSI VE METAB OLIC PANEL ) sodium 135 mmol/ L 133-14 6 Not Available [facility] (Lab) [address] [facility], [place], [address], 10/10/2025 00:09:56 10/08/20 25 10/08/2025 CMP(C OMPRE HENSI VE METAB OLIC PANEL ) potassium 3.8 mmol/ L 3.5-5. 1 Not Available [facility] (Lab) [address] [facility], [place], [address], 10/10/2025 00:09:56 10/08/20 25 10/08/2025 CMP(C OMPRE HENSI VE METAB OLIC PANEL ) chloride 102 mmol/ L 98-107 Not Available [facility] (Lab) [address] [facility], [place], [address], 10/10/2025 00:09:56 10/08/20 25 10/08/2025 CMP(C OMPRE HENSI VE METAB OLIC PANEL ) carbon dioxide 22 mmol/ L 21-31 Not Available [facility] (Lab) [address] [facility], [place], [address], 10/10/2025 00:09:56 10/08/20 25 10/08/2025 CMP(C OMPRE HENSI VE METAB OLIC PANEL ) anion gap 11 mmol/ L 4-13 Not Available [facility] (Lab) [address] [place], [address], 10/10/2025 00:09:56 10/08/20 25 10/08/2025 CMP(C OMPRE HENSI VE METAB OLIC PANEL ) blood urea nitrogen 5 mg/dL 7-[address] [facility] (Lab) [address] [place], [address], 10/10/2025 00:09:56 10/08/20 25 10/08/2025 CMP(C OMPRE HENSI VE METAB OLIC PANEL ) creatinine 0.53 mg/dL 0.60-1 .30 low Not Available [facility] (Lab) [address], [place], [address], 10/10/2025 00:09:56 10/08/20 25 10/08/2025 CMP(C OMPRE HENSI VE METAB OLIC PANEL ) egfrcr (CKD-epi 2020) >90 mL/mi n/1.7 3_m2 >=60 Not Available [facility] (Lab) [address], [place], [address], 10/10/2025 00:09:56 10/08/20 25 10/08/2025 CMP(C OMPRE HENSI VE METAB OLIC PANEL ) calcium 8.6 mg/dL 8.3-10 .5 Not Available [facility] (Lab) [address], [place], [address], 10/10/2025 00:09:56 10/08/20 25 10/08/2025 CMP(C OMPRE HENSI VE METAB OLIC PANEL ) glucose 92 mg/dL 70-100 Not Available [facility] (Lab) [address], [place], [address], 10/10/2025 00:09:56 10/08/20 25 10/08/2025 CMP(C OMPRE HENSI VE METAB OLIC PANEL ) protein, total 5.9 g/dL 6.4-8. 3 low Not Available [facility] (Lab) [address], [place], [address], 10/10/2025 00:09:56 10/08/20 25 10/08/2025 CMP(C OMPRE HENSI VE METAB OLIC PANEL ) albumin 3.5 g/dL 3.5-5. 0 Not Available [facility] (Lab) [address] [place], [address], 10/10/2025 00:09:56 10/08/20 25 10/08/2025 CMP(C OMPRE HENSI VE METAB OLIC PANEL ) ALT 17 units /L 9-43 Not Available [facility] (Lab) [address] [facility], [place], [address], 10/10/2025 00:09:56 10/08/20 25 10/08/2025 CMP(C OMPRE HENSI VE METAB OLIC PANEL ) alkaline phosphatase 81 units /L 34-104 Not Available [facility] (Lab) [address] [facility], [place], [address], 10/10/2025 00:09:56 10/08/20 25 10/08/2025 CMP(C OMPRE HENSI VE METAB OLIC PANEL ) AST 16 units /L 13-39 Not Available [facility] (Lab) [address] [facility], [place], [address], 10/10/2025 00:09:56 10/08/20 25 10/08/2025 CMP(C OMPRE HENSI VE METAB OLIC PANEL ) bilirubin, total 0.5 mg/dL 0.2-1. 2 Not Available [facility] (Lab) [address] [facility], [place], [address], 10/10/2025 00:09:56 10/08/20 25 10/08/2025 CULTU RE: URINE result report SEE RESULT S BELOW Test: Cultu re: Urine Speci men Sourc e: Urine - Clean Catch Speci men Type: Urine Speci men Date: 10/08 1152 Resul t Date: 10/09 2305 Resul t Statu s: Final resul t Abnor mal: No Resul ting Lab: [facility] [address] [facility] [address] Tel: CULTU RE ----- ----- ----- --- No growt h in 1 day (dete ction level of 10,00 0 colon ies / ml.) Not Available [facility] (Lab) [address] [place], [address], 10/10/2025 00:09:56 10/08/20 25 10/08/2025 US, obste tric, follo w-up No observ ation record ed. [email or web address] [address], [place], [address], 10/11/2025 11:55:36 10/08/2010/08/2025 non-s tress test No observ ation record ed. [email or web address] [address], [place], [address], 10/08/2025 13:48:06 10/08/20 non-s tress test No observ ation record ed. [email or web address] [address], [place], [address], 10/08/2025 12:32:22 10/08/2010/08/2025 US, obste tric, follo w-up No observ ation record ed. [facility] [address], [place], [address], 10/08/2025 16:57:13 10/08/20 25 10/08/2025 US, obste tric, bioph ysica l profi le + non-s tress test No observ ation record ed. [facility] [address], [place], [address], 10/08/2025 16:57:23 10/13/20 25 10/13/2025 US, obste tric, bioph ysica l profi le + non-s tress test No observ ation record ed. [email or web address] [address], [place], [address], 10/13/2025 11:51:09 10/13/20 25 10/13/2025 US, obste tric, bioph ysica l profi le + non-s tress test No observ ation record ed. [email or web address] [address], [place], [address], 10/20/2025 11:47:34 10/13/20 25 10/13/2025 non-s tress test No observ ation record ed. [email or web address] [address], [place], [address], 10/13/2025 17:57:16 10/13/20 non-s tress test No observ ation record ed. [address], [place], [address], 10/13/2025 17:34:36 10/22/20 25 10/22/2025 US, obste tric, bioph ysica l profi le No observ ation record ed. [email or web address] Guadarrama [address], [place], [address], 10/29/2025 11:35:15 10/22/20 25 10/22/2025 US, dominic tric, bioph ysica l profi le + non-s tress test No observ ation record ed. [facility] [address], [place], [address], 10/22/2025 13:51:55 10/22/20 25 10/22/2025 non-s tress test No observ ation record ed. [address], [place], [address], 10/27/2025 18:38:42 10/22/20 non-s tress test No observ ation record ed. [address], [place], [address], 10/22/2025 12:42:25 10/29/20 25 10/29/2025 US, dominic tric, follo w-up No observ ation record ed. [email or web address] [address], [place], [address], 10/30/2025 01:33:53 10/29/20 25 10/29/2025 US, obste tric, follo w-up No observ ation record ed. [facility] [address], [place], [address], 10/29/2025 17:16:32 10/29/20 25 10/29/2025 US, obste tric, bioph ysica l profi le + non-s tress test No observ ation record ed. [facility] [address], [place], [address], 10/29/2025 17:16:42 Result Notes None recorded. Problems Name Problem SNOMED Code Status Onset Date Resolution Date Notes Provider Name and Address Organization Details Recorded Time 16074648 Active 2024 Linda mcgill, [facility] 5 10:53:18 Hypertens dwight disorder 72902326 Active 2024 labetalol 200mg bid bASA daily serial growth us , weekly testing @ 32wks 10/08/25 300mg bid rpt labs Alysia Santos CNM [address], [place], [address], [facility] 5 12:52:39 Mixed anxiety and depressiv e disorder 813192777 Active 2024 buspirone 10mg lexapro 20 mg daily Alysia Santos CNM [address], [place], [address], [facility] 5 12:01:06 Past history of gestation al hypertens ion 765281638 Active 2024 vs preeclamp deirdre delivered at 37 weeks Alysia Santos CNM [address], [place], [address], [facility] 5 12:01:27 Marijuana user 834337251 Active 2024 Pt decreased . Continued use is causing family issues and pt is experienc ing increased anxiety and depressio n symptoms. Nina conway [facility] 16:48:10 Marijuana user 774471341 Active 2024 Pt decreased . Continued use is causing family issues and pt is experienc ing increased anxiety and depressio n symptoms. Nina conway [facility] 16:48:11 Problem Notes None recorded. Procedures Surgical History Date Name Laterality Status Provider Name and Address Organization Details Recorded Time 11/18/2021 Date of Last Pap Smear completed Kim Monson [facility] 08/11/2025 14:32:13 Imaging Results None recorded. Procedure Notes None recorded. Medical Equipment None Reported. Allergies Allergen ID Allergen Name Allergen Category Reaction Reaction Severity Criticality Documentation Date Start Date Code Code System Note Provider Name and Address Organization Details Recorded Time 50765 amoxicill in medicatio n hives Not available Not available 10/08/20252016 723 RxNorm Not Available [employer] - prod 5 03:06:32 02351 [email or web address] in Not available hives Not available Not available 10/08/20252018 2582 RxNorm Not Available [employer] - prod 5 03:06:32 Medications Name Sig Start Date [...] Not Available Vitals Date Recorded Body weight Body mass index (BMI) Body height Body height Body mass index (BMI) Body weight Systolic And Diastolic Systolic And Diastolic Provider Name and Address Organization Details Last Updated DateTime 5 91150.7 3504 g 33 kg/m2 162.56 cm 162.56 cm 33 kg/m2 27078.7 4 g 128/79 mm[Hg] 128/79 mm[Hg] Cami Merida [facility] 5 12:38:07 Social History Question Answer Notes LastModified by Organizat ion Details LastModified Time Do You Have An Advance Directive? No Information n ot available 04/22/2025 How Many Years Have You Consumed Alcohol? 8 [email or web address] Information not available 08/11/2025 Are You Blind [...] Or The Highest Degree You Have Received? [id number] Information not available 04/22/2025 Are There Any Guns Present In Your Home? Yes Information not available 04/22/2025 Have You Ever Been Counseled For Unhealthy Alcohol Use? No [email or web address] Information not available 06/16/2025 Do You Use Protection During Sex? No Information not available 04/22/2025 Do You Use Your Seat Belt Or Car Seat Routinely? Yes Information not available 04/22/2025 Are You Sexually Active? Yes [email or web address] Information not available 06/16/2025 Do You Have Smoke And Carbon Monoxide Detectors In Your Home? Yes Information not available 04/22/2025 At What Age Did You Start Smoking Tobacco? 19 Information not available 04/22/2025 How Much Tobacco Do You Smoke? No Information not available 04/22/2025 Do You Use Sunscreen Routinely? No Information not available 04/22/2025 Has Tobacco Cessation Counseling Been Provided? No [email or web address] Information not available 06/16/2025 How Many Years Have You Smoked Tobacco? 4 [email or web address] Information not available 08/11/2025 Have You Used IV Drugs? No Information not available 04/22/2025 Do You Have Difficulty Walking Or Climbing Stairs? No [email or web address] Information not available 06/16/2025 Sex: Unknown Functional Status Question Answer Note LastModified by Organizat ion Details LastModified Time Do you use any illicit or recreational drugs? Yes Information not available 04/22/2025 Do you or have you ever used any other forms of tobacco or nicotine? No [email or web address] Information not available 06/16/2025 What is your level of alcohol consumption? Occasional [email or web address] Information not available 08/11/2025 Are you currently employed? Yes [email or web address] Information not available 06/16/2025 Are you able to walk independently without assistance or assistive devices? [email or web address] Information not available 04/22/2025 Are you able to care for yourself independently? 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 No [email or web address] Information not available 06/16/2025 What is your exercise level? Occasional Information not available 04/22/2025 Mental Status Question Answer Note LastModified by Organization D etails LastModified Time Do you feel stressed (tense, restless, nervous, or anxious, or unable to sleep at night)? [id number] [email or web address] Information not available 08/11/2025 Family History Relationship [...] ICD10 Code Diagnosis IMO Codes Diagnosis Note [id number] Norris Jordan MD [facility] [address] [address] 04/22/2025 13:48:32 04/22/2025 14:32:48 [id number] Norris Jordan MD [facility] [address] [address] 04/22/2025 13:49:21 04/22/2025 16:39:15 Nausea and vomiting 83015176 R11.2 1031826434 Essential hypertension 02012140 I10 65059 this patient is an 29-year-ol d female with amenorrhea . She has a positive test and ultrasound shows a viable intrauteri ne . We talked about early care. Talked about precaution s in that included comments about diet, exercise, over-the-c ounter medication s.. We talked about vaccines. Talked about genetic screening. Talked about her ultrasound today and your ultrasound at 12 weeks. She will begin routine care. We spent 20 minutes face-to-fa ce. More than 50% was counseling . Chronic hypertensi ve, discontinu e hydrochlor othiazide, started 200 of labetalol b.i.d., history of preeclamps ia. Starting a baby aspirin. Amenorrhea 49733323 N91. 2 04004 this patient is an 29-year-ol d female with amenorrhea . She has a positive test and ultrasound shows a viable intrauteri ne . We talked about early care. Talked about precaution s in that included comments about diet, exercise, over-the-c ounter medication s.. We talked about vaccines. Talked about genetic screening. Talked about her ultrasound today and your ultrasound at 12 weeks. She will begin routine care. We spent 20 minutes face-to-fa ce. More than 50% was counseling . Chronic hypertensi ve, discontinu e hydrochlor othiazide, started 200 of labetalol b.i.d., history of preeclamps ia. Starting a baby aspirin. [id number] Norris Jordan MD [facility] [address] [address] 05/14/2025 10:30:16 05/14/2025 11:18:36 screening 084961095 Z36.82 Z3A.11 733735 [id number] Alysia Santos [facility] [address] [address] 05/19/2025 10:32:03 05/19/2025 12:05:29 Gestation period, 12 weeks 65774654 Z3A.12 6935776 [id number] Alysia Santos [facility] [address],[place] [address] 06/16/2025 15:15:47 06/16/2025 16:16:35 Gestation period, 16 weeks 93221691 Z3A.16 4564228 [id number] Norris Jordan MD [facility] [address] [address] 07/14/2025 09:19:21 07/14/2025 10:36:57 screening for malformation 077050454 Z36.3 Z3A.20 [id number] Alysia Santos [facility] [address] [address] 07/14/2025 09:20:42 07/14/2025 11:32:11 Gestation period, 20 weeks 51643295 Z3A.20 8057411 [id number] Norris Jordan MD [facility] [address] [address] 08/11/2025 13:50:59 08/11/2025 14:30:57 Chronic hypertension complicating AND/OR reason for care during 95041868 O10.912 Z3A.24 12459997 [id number] Alysia Santos [facility] [address],[place] [address] 08/11/2025 13:51:12 08/11/2025 14:48:47 Gestation period, 24 weeks [id number] Z3A.24 [id number] Norris Jordan MD [facility] [address],[place] [address] 09/10/2025 09:35:51 09/10/2025 10:12:45 Maternal hypertension 605600111 O16.3 Z3A.28 4450635 [id number] [facility] [address] [place] [address] 09/10/2025 09:36:28 09/10/2025 11:14:34 Gestation period, 28 weeks 51519055 Z3A.28 4372784 [id number] Alysia Santos [facility] [address] [place] [address] 09/24/2025 11:20:09 09/24/2025 12:02:06 Gestation period, 30 weeks 55372878 Z3A.30 6516762 Acute urin shamir tract infection 238850048 N39.0 693141 [id number] Alysia Santos [facility] [address] [place] [address] 10/08/2025 11:01:42 10/08/2025 12:33:16 Chronic hypertension complicating AND/OR reason for care during 62276779 O10.919 [id number] Norris Jordan MD [facility] [address] [place] [address] 10/08/2025 11:02:16 10/08/2025 13:23:40 Hypertension complicating 9399897331 9102 O16.3 Z3A.32 [id number] Alysia Santos [facility] [address] [place] [address] 10/08/2025 11:02:36 10/08/2025 12:56:56 -induced hypertension 73843184 O13.9 Hypertensive disorder 38 573100 I10 70675496 History of urinary tract infection 8616615688 107 Z87.513 5744482 [id number] Norris Jordan MD [facility] [address] [place] [address] 10/13/2025 10:48:37 10/13/2025 11:35:45 Essential hypertension complicating AND/OR reason for care during 46945984 O10.013 Z3A.33 3703268 [id number] Alysia Santos [facility] [address] 1 10/13/2025 10:48:51 10/13/2025 17:36:59 Chronic hypertension complicating AND/OR reason for care during 10673688 O10.919 69730805 [id number] Alysia Santos [facility] [address] 1 10/13/2025 10:49:32 10/13/2025 11:51:38 Gestation period, 33 weeks 61975140 Z3A.33 2864232 [id number] Norris Jordan MD [facility] [address] 1 10/22/2025 10:36:47 10/22/2025 13:37:48 Maternal hypertension 886230590 O16.3 Z3A.34 8786776 [id number] Alysia Santos [facility] [address],[place] [address] 10/22/2025 10:37:30 10/22/2025 13:37:30 Chronic hypertension complicating AND/OR reason for care during 53916944 O10.919 93055469 [id number] Alysia Santos [facility] [address] [address] 10/22/2025 10:37:44 10/22/2025 13:34:57 Gestation period, 34 weeks 92281860 Z3A.34 8005102 [id number] ELVIRA ZARAGOZA MD [facility] [address] [address] 10/29/2025 10:58:06 10/29/2025 14:35:19 Chronic hypertension complicating AND/OR reason for care during 83584447 O10.913 Z3A.35 [id number] Health Concerns Section Related Observation LastModified by Organization Detai ls LastModified Time None Recorded Concern Status LastModified by Organization Details LastModified Time None Recorded Advance Directives Directive N: Payers Insurance Date Sequence Insurance Name Policy Number Policy Sarah Covered Member ID Sarah Member ID Guarantor Name 10/31/2025 1 [place] [id number] Artem Dora [id number] Artem Dora 06/18/2025 PAYMENT PLAN [employer] [place] 07/16/2025 PAYMENT PLAN [employer] [place] Notes Date Note Type Note Provider Name and Address Organization Details Recorded Time 10/22/2025 text/html Generic HPI TemplateReported by Patient Alysia Santos, SARA [address], [place], [address], [facility] 10/22/2025 12:39:00 OBGyn Episode Ob Episode Information Episode Created Date Number of Fetuses Patient Bloodtype Patient rh Status Prepregnancy Weight lbs Domestic Partner Domestic Partner Phone Father Name Engine Lathe Operator Status 04/22/20 1 CLOSED Fetus Data First Name Last Name Admitted to NICU Weight (g) Sex Living Outcome Pediatric Complications Fetus ID Race Codes Race Delivery Type , Spontane ous [id number] Pablito Calculation Initial Pablito Date Initial Exam Date Initial Exam Provider Initial Ultrasound Date Last Menstrual Period Date Ultra Sound Weeks Gestation 0 Eighteen To Twenty Week Pablito Update Ultra Sound Date Fundal Height At Umbil Quickening Date Ultra Sound Latest Weeks Gestation Final Pablito Confirmed By Final Pablito Confirmed Date Final Pablito Date Ultra Sound Latest Days Gestation 0 0 Menstrual History Last Menstrual Date Menses Monthly On Bcp Conception Prior Menses Frequency Hcg Plus Date Menarche Onset Age Delivery Information Delivery Date Delivery Type Labor Anesthesia Weeks Gestation Incision Type Labor Labor Length Hrs Delivered By Post Complications Tubal Sterilization Discharge Date Comments 2 Discharge Information Feeding Method Contraceptive Method Maternal HG B and HCT Levels Ob Episode Information Episode Created Date Number of Fetuses Patient Bloodtype Patient rh Status Prepregnancy Weight lbs Domestic Partner Domestic Partner Phone Father Name Engine Lathe Operator Status 04/22/20 25 1 CLOSED Fetus Data First Name Last Name Admitted to NICU Weight (g) Sex Living Outcome Pediatric Complications Fetus ID Race Codes Race Delivery Type 3316.66 4704 M Full Term 12775 Vaginal Delivery Pablito Calculation Initial Pablito Date Initial Exam Date Initial Exam Provider Initial Ultrasound Date Last Menstrual Period Date Ultra Sound Weeks Gestation 0 Eighteen To Twenty Week Pablito Update Ultra Sound Date Fundal Height At Umbil Quickening Date Ultra Sound Latest Weeks Gestation Final Pablito Confirmed By Final Pablito Confirmed Date Final Pablito Date Ultra Sound Latest Days Gestation 0 0 Menstrual History Last Menstrual Date Menses Monthly On Bcp Conception Prior Menses Frequency Hcg Plus Date Menarche Onset Age Delivery Information Delivery Date Delivery Type Labor Anesthesia Weeks Gestation Incision Type Labor Labor Length Hrs Delivered By Post Complications Tubal Sterilization Discharge Date Comments 9 37 HTN Discharge Information Feeding Method Contraceptive Method Maternal HG B and HCT Levels Ob Episode Information Episode Created Date Number of Fetuses Patient Bloodtype Patient rh Status Prepregnancy Weight lbs Domestic Partner Domestic Partner Phone Father Name Engine Lathe Operator Status 05/19/20 25 1 O Positive 173 OPEN Fetus Data First Name Last Name Admitted to NICU Weight (g) Sex Living Outcome Pediatric Complications Fetus ID Race Codes Race Delivery Type [id number] Problems Problem Notes Problem Name Start Date End Date Resolution Snomed Code Not e Hypertensive disorder 05/19/2025 [id number] 3 labetalol 200mg bidbASA dailyserial growth us , weekly testing @ 68kmt2510/08/25 300mg bid rpt labs Past history of gestational hypertension 05/19/2025 [id number] vs preeclampsia delivered at 37 weeks Marijuana user 08/18/2025 [id number] Pt d ecreased. Continued use is causing family issues and pt is experiencing increased anxiety and depression symptoms. Mixed anxiety and depressive disorder 05/19/2025 [id number] buspiron e 10mglexapro 20 mg daily Pablito [...] Date Ultra Sound Latest Days Gestation 0 [email or web address] 05/19/2025 11/27/19 26 0 Pre-la nena Flowsheet Flowsheet Date 05/19/2025 Yoder Score Blood Edema Fundus Height Fundus Units Glucose Ketones Leukocytes Nitrite Labor Signs Protein Cervic Dilation Cervic Effacement Cervic Station Type Weight in lbs Pre/Post Dialysis Refused Weight 169.195876160580 BP Diastolic BP Location Tested BP Systolic BP Type 73 L arm 118 sitting Fetus Heart Rate Present Fetus Movement A No Comments pap collected, labs today, r abundio history meds, education and precautions, vaping daily, weaning slowly, begin routine care, care in third trimester, delivery 37-38 weeks Flowsheet Date 06/16/2025 Yoder Score Blood Edema Fundus Height Fundus Units Glucose Ketones Leukocytes Nitrite Labor Signs Protein Cervic Dilation Cervic Effacement Cervic Station Type Weight in lbs Pre/Post Dialysis Refused Weight 173.228553742201 BP Diastolic BP Location Tested BP Systolic [...] Weight in lbs Pre/Post Dialysis Refused Weight 179.511695443058 BP Diastolic BP Location Tested BP Systolic [...] Weight in lbs Pre/Post Dialysis Refused Weight 188.065952633885 BP Diastolic BP Location Tested BP Systolic [...] Type Weight in lbs Pre/Post Dialysis Refused 189.189252287362 BP Diastolic BP Location Tested BP Systolic BP Type 78 L arm 125 sitting Fetus Heart Rate Present Fetus Movement A Yes Comments +FM, very tearful today anxi et high, meds usually work when not but having some issues at home and with family. growth good, eating ok, precautions and education. discussed anxiety and will plan referral to laurel diaz material control clerk for management. gct today reviewed us Flowsheet Date 09/24/2025 Yoder Score Blood Edema Fundus Height Fundus Units Glucose Ketones Leukocytes Nitrite Labor Signs Protein Cervic Dilation Cervic Effacement Cervic Station 0cm Type Weight in lbs Pre/Post Dialysis Refused Weight 188.917974036310 BP Diastolic BP Location Tested BP Systolic [...] Weight in lbs Pre/Post Dialysis Refused Weight 190.248200585270 BP Diastolic BP Location Tested BP Systolic [...] Type Weight in lbs Pre/Post Dialysis Refused 191.853425825513 BP Diastolic BP Location Tested BP Systolic [...] Type Weight in lbs Pre/Post Dialysis Refused 189.476796102861 BP Diastolic BP Location Tested BP Systolic BP Type 80 L arm 119 sitting Fetus Heart Rate Present Fetus Movement A Yes Comments Flowsheet Date 10/13/2025 Yoder Score Blood Edema Fundus Height Fundus Units Glucose Ketones Leukocytes Nitrite Labor Signs Protein Cervic Dilation Cervic Effacement Cervic Station Type Weight in lbs Pre/Post Dialysis Refused Weight 189.626143344938 BP Diastolic BP Location Tested BP Systolic BP Type 80 L arm 119 sitting Fetus Heart Rate Present Fetus Movement A Yes Comments +FM bpp 8/8 iOL nov 09, 2025 at 0600. precautions [...] Weight in lbs Pre/Post Dialysis Refused Weight 192.584256320216 BP Diastolic BP Location Tested BP Systolic BP Type 79 L arm 128 sitting Fetus Heart Rate Present Fetus Movement A Yes Comments Flowsheet Date 10/22/2025 Yoder Score Blood Edema Fundus Height Fundus Units Glucose Ketones Leukocytes Nitrite Labor Signs Protein Cervic Dilation Cervic Effacement Cervic Station Type Weight in lbs Pre/Post Dialysis Refused 192.375230162760 BP Diastolic BP Location Tested BP Systolic [...]
--- OUTSIDE RECORDS SUMMARY | 2025-11-01 06:19 | XMS_ITS | Continuity of Care Document ---
Author Organization [facility] Address [address] [place] [address] Care Team Providers Care Elevator Examiner Name Role Phone TIANNA ALESHA Primary Care [...] None recorde d. Imaging US, obstetr ic, biophys ical profile + non-str ess test 2024 025 [email or web address] [place], [address], [address], [place], [address], 10/13/2025 11:38:27 Medication Orders None recorde d. Patient TargetsNo targets recorded. Patient InstructionsNo instructions recorded. Reason for Referral None Reported. Results Created Date Observation Date Name Description Value Unit Range Abnormal Flag Note LastModifiedBy Organization Detail LastModifiedTime 05/27/2005/27/2025 [UNIT Y] ANEUP LOIDY NIPT fraction 10.2% normal Not Available [facility] [address], [place], [address], 05/27/2025 02:56:04 05/27/20 25 05/27/2025 [UNIT Y] ANEUP LOIDY NIPT 22Q11.2 microdeletio n LOW RISK <1 in 10,000 normal Not Available [facility] [address], [place], [address], 05/27/2025 02:56:04 05/27/20 25 05/27/2025 [UNIT Y] ANEUP LOIDY NIPT sex chromosome aneuploidy NOT DETECT ED normal Not Available [facility] [address], [place], [address], 05/27/2025 02:56:04 05/27/20 25 05/27/2025 [UNIT Y] ANEUP LOIDY NIPT monosomy X LOW RISK <1 in 10,000 normal Not Available [facility] [address], [place], [address], 05/27/2025 02:56:04 05/27/20 25 05/27/2025 [UNIT Y] ANEUP LOIDY NIPT trisomy 13 LOW RISK <1 in 10,000 normal Not Available [facility] [address], [place], [address], 05/27/2025 02:56:04 05/27/20 25 05/27/2025 [UNIT Y] ANEUP LOIDY NIPT trisomy 18 LOW RISK <1 in 10,000 normal Not Available [facility] [address], [place], [address], 05/27/2025 02:56:04 05/27/20 25 05/27/2025 [UNIT Y] ANEUP LOIDY NIPT trisomy 21 LOW RISK <1 in 10,000 normal Not Available [facility] [address], [place], [address], 05/27/2025 02:56:04 05/27/20 25 05/27/2025 [UNIT Y] ANEUP LOIDY NIPT sex FEMALE normal Not Available [facility] [address], [place], [address], 05/27/2025 02:56:04 05/27/20 25 05/27/2025 [UNIT Y] ANEUP LOIDY NIPT gestation SINGLE TON normal Not Available [facility] [address], [place], [address], 05/27/2025 02:56:04 05/27/20 25 05/27/2025 [UNIT Y] ANEUP LOIDY NIPT for detailed report, see pdf See PDF normal Not Available [facility] [address], [place], [address], 05/27/2025 02:56:04 06/03/20 25 06/03/2025 [UNIT Y] LORIN RAMY Morocho sickle cell disease/beta -thalassemia /hemoglobino pathies carrier screen NEGATI VE normal Not Available [facility] [address], [place], [address], 06/03/2025 09:08:22 06/03/20 25 06/03/2025 [UNIT Y] LORIN RAMY RICO N alpha-thalas semia carrier screen NEGATI VE normal Not Available [facility] [address], [place], [address], 06/03/2025 09:08:22 06/03/20 25 06/03/2025 [UNIT Y] LORIN RAMY Morocho cystic fibrosis carrier screen NEGATI VE normal Not Available [facility] [address], [place], [address], 06/03/2025 09:08:22 06/03/20 25 06/03/2025 [UNIT Y] LORIN RAMY Morocho spinal muscular atrophy carrier screen NEGATI VE 2 SMN1 copies , SNP not presen t normal Not Available [facility] [address], [place], [address], 06/03/2025 09:08:22 06/03/20 25 06/03/2025 [UNIT Y] LORIN RAMY Morocho for detailed report, see pdf See PDF normal Not Available [facility] [address], [place], [address], 06/03/2025 09:08:22 05/19/20 25 05/19/2025 CBC W/DIF F WBC 9.6 10'3/ uL 3.5-10 .5 Not Available [facility] (Lab) [address], [place], [address], 05/20/2025 10:56:36 05/19/20 25 05/19/2025 CBC W/DIF F RBC 4.49 10'6/ uL (based on docume nted legal sex) 3.80-5 .20 Not Available [facility] (Lab) [address], [place], [address], 05/20/2025 10:56:36 05/19/20 25 05/19/2025 CBC W/DIF F HGB 12.5 g/dL (based on docume nted legal sex) 11.6-1 5.4 Not Available [facility] (Lab) [address], [place], [address], 05/20/2025 10:56:36 05/19/20 25 05/19/2025 CBC W/DIF F HCT 38.2 % (based on docume nted legal sex) 34.0-4 5.0 Not Available [facility] (Lab) [address], [place], [address], 05/20/2025 10:56:36 05/19/20 25 05/19/2025 CBC W/DIF F MCV 85.1 fL 80.0-9 9.0 Not Available [facility] (Lab) [address], [place], [address], 05/20/2025 10:56:36 05/19/20 25 05/19/2025 CBC W/DIF F MCH 27.8 pg 27.0-3 4.0 Not Available [facility] (Lab) [address], [place], [address], 05/20/2025 10:56:36 05/19/20 25 05/19/2025 CBC W/DIF F MCHC 32.7 g/dL 32.0-3 5.5 Not Available [facility] (Lab) [address] [address], [place], [address], 05/20/2025 10:56:36 05/19/20 25 05/19/2025 CBC W/DIF F RDW 13.2 % 11.0-1 5.0 Not Available [facility] (Lab) [address], [place], [address], 05/20/2025 10:56:36 05/19/20 25 05/19/2025 CBC W/DIF F plt 301 10'3/ uL 150-40 0 Not Available [facility] (Lab) [address], [place], [address], 05/20/2025 10:56:36 05/19/20 25 05/19/2025 CBC W/DIF F MPV 11.9 fL 8.8-12 .1 Not Available [facility] (Lab) [address], [place], [address], 05/20/2025 10:56:36 05/19/20 25 05/19/2025 CBC W/DIF F NRBC's 0.0 % 0.0 Not Available [facility] (Lab) [address], [place], [address], 05/20/2025 10:56:36 05/19/20 25 05/19/2025 CBC W/DIF F absolute NRBCs 0.0 10'3/ uL no refere nce range establ ished Not Available [facility] (Lab) [address], [place], [address], 05/20/2025 10:56:36 05/19/20 25 05/19/2025 CBC W/DIF F neutrophils 71.0 % 34.0-7 3.0 Not Available [facility] (Lab) [address], [place], [address], 05/20/2025 10:56:36 05/19/20 25 05/19/2025 CBC W/DIF F lymphocytes 22.5 % 15.0-5 0.0 Not Available [facility] (Lab) [address], [place], [address], 05/20/2025 10:56:36 05/19/20 25 05/19/2025 CBC W/DIF F monocytes 5.3 % 1.0-15 .0 Not Available [facility] (Lab) [address], [place], [address], 05/20/2025 10:56:36 05/19/20 25 05/19/2025 CBC W/DIF F eosinophils 0.6 % 0.0-8. 0 Not Available [facility] (Lab) [address], [place], [address], 05/20/2025 10:56:36 05/19/20 25 05/19/2025 CBC W/DIF F basophils 0.3 % 0.0-2. 0 Not Available [facility] (Lab) [address], [place], [address], 05/20/2025 10:56:36 05/19/20 25 05/19/2025 CBC W/DIF [...] separ ately if prese nt. Not Available [facility] (Lab) [address], [place], [address], 05/20/2025 10:56:36 05/19/20 25 05/19/2025 CBC W/DIF F absolute neutrophils 6.8 10'3/ uL 1.5-8. 0 Not Available [facility] (Lab) [address], [place], [address], 05/20/2025 10:56:36 05/19/20 25 05/19/2025 CBC W/DIF F absolute lymphocytes 2.2 10'3/ uL 1.0-4. 0 Not Available [facility] (Lab) [address], [place], [address], 05/20/2025 10:56:36 05/19/20 25 05/19/2025 CBC W/DIF F absolute monocytes 0.5 10'3/ uL 0.2-1. 0 Not Available [facility] (Lab) [address], [place], [address], 05/20/2025 10:56:36 05/19/20 25 05/19/2025 CBC W/DIF F absolute eosinophils 0.1 10'3/ uL 0.0-0. 6 Not Available [facility] (Lab) [address], [place], [address], 05/20/2025 10:56:36 05/19/20 25 05/19/2025 CBC W/DIF F absolute basophils 0.0 10'3/ uL 0.0-0. 3 Not Available [facility] (Lab) [address], [place], [address], 05/20/2025 10:56:36 05/19/20 25 05/19/2025 CBC W/DIF [...] the indiv idual patie nt: https ://angelique bhand book. nm.or g/gen derx Not Available [facility] (Lab) [address], [place], [address], 05/20/2025 10:56:36 05/19/20 25 05/19/2025 HEPAT ITIS B SURFA CE ANTIG EN hepatitis B surface antigen Non-re active non-re active This assay was perfo rmed using [employer] ratio n reage nts and test kits. Value s obtai erica with other assay metho ds or kits canno t be used inter melton eably . Not Available [facility] (Lab) [address], [place], [address], 05/20/2025 10:56:37 05/19/20 25 05/19/2025 HIV 1/2 ANTIG EN/AN TIBOD Y, REFLE X CONFI RMATI ON HIV antigen/anti body Nonrea ctive nonrea ctive HIV-1 antig en and HIV-1 /HIV- 2 antib odies were not detec tashi. No labor atory evide nce of HIV infec tion. Not Available [facility] (Lab) [address], [place], [address], 05/20/2025 10:56:37 05/19/20 25 05/19/2025 HEPAT ITIS C ANTIB NEPTALI SCREE N, REFLE X TO CONFI RMATI ON hepatitis C antibody Non-re active non-re active Antib odies to HCV Not Detec tashi, does not exclu de the possi bilit y of expos ure to HCV. Not Available [facility] (Lab) [address], [place], [address], 05/20/2025 10:56:38 05/19/20 25 05/19/2025 VITAM IN D, 25-OH (TOTA L D2/D3 ) vitamin D, 25-hydroxy, total 59.5 NG/mL 30.0-1 00.0 Sugge stive of Defic iency : <20 ng/mL Sugge stive of Insuf ficie ncy: 20-29 ng/mL Sugge stive of Suffi cienc y: 30-10 0 ng/mL Sugge stive of Toxic ity: >150 ng/mL Not Available [facility] (Lab) [address], [place], [address], 05/20/2025 10:56:38 05/19/20 25 05/19/2025 TYPE/ RH/SC REEN ABO/Rh type O POS Not Available [facility] (Lab) [address], [place], [address], 05/20/2025 10:56:39 05/19/20 25 05/19/2025 TYPE/ RH/SC REEN antibody screen NEG Not Available [facility] (Lab) [address], [place], [address], 05/20/2025 10:56:39 05/19/20 25 05/19/2025 TYPE/ RH/SC REEN exp date 2024 23:59 Not Available [facility] (Lab) [address], [place], [address], 05/20/2025 10:56:39 05/19/20 25 05/19/2025 RUBEL LA IGG ANTIB NEPTALI, QUANT rubella antibodies, IgG Reacti ve reacti ve Not Available [facility] (Lab) [address] [place], [address], 05/20/2025 10:56:39 05/19/20 25 05/19/2025 RUBEL LA IGG ANTIB NEPTALI, QUANT rubella antibodies, IgG quant 13.6 IU/mL >=10 Non-r eacti ve (Non- Immun e) <10 IU/mL React dwight (Immu ne) > or = 10 IU/mL Not Available [facility] (Lab) [address], [place], [address], 05/20/2025 10:56:39 05/19/20 25 05/19/2025 HEMOG LOBIN [...] >8.0% Actio n sugge sted Not Available [facility] (Lab) [address], [place], [address], 05/20/2025 10:56:40 05/19/20 25 05/19/2025 RPR SCREE N, REFLE X TITER /CONF IRMAT ION RPR qualitative Nonrea ctive nonrea ctive Not Available [facility] (Lab) [address], [place], [address], 05/20/2025 10:56:41 05/19/20 25 05/19/2025 CULTU RE: URINE result report SEE RESULT S BELOW Test: Cultu re: Urine Speci men Sourc e: Urine Voide d Speci men Type: Urine Speci men Date: 1413 Resul t Date: 2143 Resul t Statu s: Final resul t Abnor mal: No Resul nelsong Lab: [facility] [address] [facility] [address] Tel: CULTU RE ----- ----- ----- --- No growt h in 1 day (dete ction level of 10,00 0 colon ies / ml.) Not Available [facility] (Lab) [address], [place], [address], 05/20/2025 22:47:16 05/19/20 25 05/19/2025 IMAGE GUIDE D PAP, REFLE X HPV IF ASCUS ONLY image guided Pap, reflex HPV ASCUS only SEE RESULT S BELOW CASE REPOR T: Cytol ogy Gynec ologi jennifer Repor t Case: [id number] Autho alexi verma Provi kiah: Alysia Mohr, JAYSON Colle cted: 05/19 1409 Order ing Locat ion: [place] [facility] Recei kingston: 05/20 1144 First Scree n: Wong Jimenez , CT Rescr een: Joseph Deleon CT Speci men: Scree joanne Pap - Image d, Cervi x STATE MENT OF ADEQU ACY: Satis facto ry for evalu ation Trans forma tion zone compo nent prese nt ----- ----- ----- ----- ----- ----- ----- ----- ----- ----- ----- ----- ----- ----- ----- ----- ----- ---- FINAL DIAGN OSIS: Negat dwight for Intra epith elial Lesimani morocho or Jose Antonio ribeiro (NIL) . Elect sapphire becker d by Joseph Deleon, CT on at 1739 CDT ----- ----- ----- ----- [...] tigat ion is recom minal d, as domingoi luis eduardo camp nted. Not Available [facility] (Lab) [address] [place], [address], 05/24/2025 18:43:29 05/19/20 25 05/19/2025 CT/GC (CAT) , THINP REP VIAL chlamydia trachomatis, PCR Negati ve negati ve Not Available [facility] (Lab) [address], [place], [address], 05/24/2025 18:43:30 05/19/20 25 05/19/2025 CT/GC (ACT) , THINP REP VIAL neisseria gonorrhoeae, PCR Negati ve negati ve Not Available [facility] (Lab) [address], [place], [address], 05/24/2025 18:43:30 05/19/20 25 05/19/2025 drug scree n, urine Cannabinoids : positi ve Not Available [facility] [address] [place], [address], 05/19/2025 13:35:34 05/19/20 25 05/19/2025 drug scree n, urine Other: positi ve Not Available [facility] [address], [place], [address], 05/19/2025 13:35:34 09/10/20 25 09/10/2025 HEMAT OCRIT (HCT) HCT 39.4 % (based on docume nted legal sex) 34.0-4 5.0 Not Available [facility] (Lab) [address], [place], [address], 09/11/2025 12:57:34 09/10/20 25 09/10/2025 HEMOG LOBIN (HGB) HGB 12.7 g/dL (based on docume nted legal sex) 11.6-1 5.4 Not Available [facility] (Lab) [address], [place], [address], 09/11/2025 12:57:34 09/10/20 25 09/10/2025 CMP/C BC/UR IC ACID WBC 10.8 10'3/ uL 3.5-10 .5 high Not Available [facility] (Lab) [address], [place], [address], 09/11/2025 12:57:34 10/2409/10/2025 CMP/C BC/UR IC ACID RBC 4.59 10'6/ uL (based on docume nted legal sex) 3.80-5 .20 Not Available [facility] (Lab) [address], [place], [address], 09/11/2025 12:57:34 09/10/2009/10/2025 CMP/C BC/UR IC ACID HGB 12.7 g/dL (based on docume nted legal sex) 11.6-1 5.4 Not Available [facility] (Lab) [address], [place], [address], 09/11/2025 12:57:34 09/10/2009/10/2025 CMP/C BC/UR IC ACID HCT 39.4 % (based on docume nted legal sex) 34.0-4 5.0 Not Available [facility] (Lab) [address], [place], [address], 09/11/2025 12:57:34 09/10/2009/10/2025 CMP/C BC/UR IC ACID MCV 85.8 fL 80.0-9 9.0 Not Available [facility] (Lab) [address], [place], [address], 09/11/2025 12:57:34 09/10/2009/10/2025 CMP/C BC/UR IC ACID MCH 27.7 pg 27.0-3 4.0 Not Available [facility] (Lab) [address], [place], [address], 09/11/2025 12:57:34 09/10/2009/10/2025 CMP/C BC/UR IC ACID MCHC 32.2 g/dL 32.0-3 5.5 Not Available [facility] (Lab) [address] [place], [address], 09/11/2025 12:57:34 09/10/2009/10/2025 CMP/C BC/UR IC ACID RDW 12.7 % 11.0-1 5.0 Not Available [facility] (Lab) [address], [place], [address], 09/11/2025 12:57:34 09/10/2009/10/2025 CMP/C BC/UR IC ACID plt 252 10'3/ uL 150-40 0 Not Available [facility] (Lab) [address], [place], [address], 09/11/2025 12:57:34 09/10/2009/10/2025 CMP/C BC/UR IC ACID MPV 11.7 fL 8.8-12 .1 Not Available [facility] (Lab) [address], [place], [address], 09/11/2025 12:57:34 09/10/2009/10/2025 CMP/C BC/UR IC ACID NRBC's 0.0 % 0.0 Not Available [facility] (Lab) [address], [place], [address], 09/11/2025 12:57:34 09/10/2009/10/2025 CMP/C BC/UR IC ACID absolute NRBCs 0.0 10'3/ uL no refere nce range establ ished Not Available [facility] (Lab) [address], [place], [address], 09/11/2025 12:57:34 09/10/2009/10/2025 CMP/C BC/UR IC ACID neutrophils 74.4 % 34.0-7 3.0 high Not Available [facility] (Lab) [address], [place], [address], 09/11/2025 12:57:34 09/10/20 25 09/10/2025 CMP/C BC/UR IC ACID lymphocytes 18.6 % 15.0-5 0.0 Not Available [facility] (Lab) [address], [place], [address], 09/11/2025 12:57:34 09/10/2009/10/2025 CMP/C BC/UR IC ACID monocytes 5.9 % 1.0-15 .0 Not Available [facility] (Lab) [address], [place], [address], 09/11/2025 12:57:34 09/10/2009/10/2025 CMP/C BC/UR IC ACID eosinophils 0.5 % 0.0-8. 0 Not Available [facility] (Lab) [address], [place], [address], 09/11/2025 12:57:34 09/10/2009/10/2025 CMP/C BC/UR IC ACID basophils 0.1 % 0.0-2. 0 Not Available [facility] (Lab) [address], [place], [address], 09/11/2025 12:57:34 09/10/2009/10/2025 CMP/C BC/UR IC ACID immature granulocytes 0.5 % no define d refere nce range Immat ure Granu locyt es (IG) repre sents autom ated enume ratio n of Metam yeloc ytes, Myelo cytes and Promy elocy claudia when IG is < 5%. Blast s are not inclu ded in IG and repor tashi separ ately if prese nt. Not Available [facility] (Lab) [address], [place], [address], 09/11/2025 12:57:34 09/10/2009/10/2025 CMP/C BC/UR IC ACID absolute neutrophils 8.1 10'3/ uL 1.5-8. 0 high Not Available [facility] (Lab) [address], [place], [address], 09/11/2025 12:57:34 09/10/20 25 09/10/2025 CMP/C BC/UR IC ACID absolute lymphocytes 2.0 10'3/ uL 1.0-4. 0 Not Available [facility] (Lab) [address], [place], [address], 09/11/2025 12:57:34 09/10/20 25 09/10/2025 CMP/C BC/UR IC ACID absolute monocytes 0.6 10'3/ uL 0.2-1. 0 Not Available [facility] (Lab) [address], [place], [address], 09/11/2025 12:57:34 09/10/20 25 09/10/2025 CMP/C BC/UR IC ACID absolute eosinophils 0.1 10'3/ uL 0.0-0. 6 Not Available [facility] (Lab) [address], [place], [address], 09/11/2025 12:57:34 09/10/2009/10/2025 CMP/C BC/UR IC ACID absolute basophils 0.0 10'3/ uL 0.0-0. 3 Not Available [facility] (Lab) [address], [place], [address], 09/11/2025 12:57:34 09/10/20 25 09/10/2025 CMP/C BC/UR IC ACID absolute immature granulocytes 0.1 10'3/ uL 0.00-0 .10 Refer ence range s for nonbi nary/ inter sex or unspe cifie d gende r patie nts have not been estab lishe d. [facility]as e [facility] for range s estab lishe d for cisge nder patie nts and evalu ate in the clini jennifer padmini xt of the indiv idual patie nt: https ://angelique dennis book. nm.or g/gen derx Not Available [facility] (Lab) [address], [place], [address], 09/11/2025 12:57:34 09/10/2009/10/2025 CMP/C BC/UR IC ACID uric acid 3.0 mg/dL 2.3-6. 6 Not Available [facility] (Lab) [address], [place], [address], 09/11/2025 12:57:34 09/10/2009/10/2025 CMP/C BC/UR IC ACID sodium 136 mmol/ L 133-14 6 Not Available [facility] (Lab) [address], [place], [address], 09/11/2025 12:57:34 09/10/2009/10/2025 CMP/C BC/UR IC ACID potassium 3.9 mmol/ L 3.5-5. 1 Not Available [facility] (Lab) [address], [place], [address], 09/11/2025 12:57:34 09/10/2009/10/2025 CMP/C BC/UR IC ACID chloride 102 mmol/ L 98-107 Not Available [facility] (Lab) [address], [place], [address], 09/11/2025 12:57:34 09/10/2009/10/2025 CMP/C BC/UR IC ACID carbon dioxide 26 mmol/ L 21-31 Not Available [facility] (Lab) [address], [place], [address], 09/11/2025 12:57:34 09/10/2009/10/2025 CMP/C BC/UR IC ACID anion gap 8 mmol/ L 4-13 Not Available [facility] (Lab) [address] [place], [address], 09/11/2025 12:57:34 09/10/2009/10/2025 CMP/C BC/UR IC ACID blood urea nitrogen 5 mg/dL 7-25 low Not Available [facility] (Lab) [address] [place], [address], 09/11/2025 12:57:34 10/24/09/10/2025 CMP/C BC/UR IC ACID creatinine 0.55 mg/dL 0.60-1 .30 low Not Available [facility] (Lab) [address], [place], [address], 09/11/2025 12:57:34 09/10/2009/10/2025 CMP/C BC/UR IC ACID egfrcr (CKD-epi 2020) >90 mL/mi n/1.7 3_m2 >=60 Not Available [facility] (Lab) [address], [place], [address], 09/11/2025 12:57:34 09/10/2009/10/2025 CMP/C BC/UR IC ACID calcium 8.8 mg/dL 8.3-10 .5 Not Available [facility] (Lab) [address], [place], [address], 09/11/2025 12:57:34 09/10/20 25 09/10/2025 CMP/C BC/UR IC ACID glucose 113 mg/dL 70-100 high Not Available [facility] (Lab) [address], [place], [address], 09/11/2025 12:57:34 09/10/20 25 09/10/2025 CMP/C BC/UR IC ACID protein, total 6.1 g/dL 6.4-8. 3 low Not Available [facility] (Lab) [address] [place], [address], 09/11/2025 12:57:34 09/10/20 25 09/10/2025 CMP/C BC/UR IC ACID albumin 3.6 g/dL 3.5-5. 0 Not Available [facility] (Lab) [address], [place], [address], 09/11/2025 12:57:34 09/10/20 25 09/10/2025 CMP/C BC/UR IC ACID ALT 17 units /L 9-43 Not Available [facility] (Lab) [address] [place], [address], 09/11/2025 12:57:34 09/10/2009/10/2025 CMP/C BC/UR IC ACID alkaline phosphatase 61 units /L 34-104 Not Available [facility] (Lab) [address], [place], [address], 09/11/2025 12:57:34 09/10/2009/10/2025 CMP/C BC/UR IC ACID AST 15 units /L 13-39 Not Available [facility] (Lab) [address] [place], [address], 09/11/2025 12:57:34 09/10/2009/10/2025 CMP/C BC/UR IC ACID bilirubin, total 0.3 mg/dL 0.2-1. 2 Not Available [facility] (Lab) [address] [place], [address], 09/11/2025 12:57:34 09/10/2009/10/2025 GTT - GESTA JANELL L TRISHA Morocho, ACOG OB glucose, 1 hour screen 107 mg/dL 70-135 Not Available [facility] (Lab) [address] [place], [address], 09/11/2025 12:57:35 09/10/2009/10/2025 HIV 1/2 ANTIG EN/AN TIBOD Y, REFLE X CONFI RMATI ON HIV antigen/anti body Nonrea ctive nonrea ctive HIV-1 antig en and HIV-1 /HIV- 2 antib odies were not detec tashi. No labor atory evide nce of HIV infec tion. Not Available [facility] (Lab) [address] [place], [address], 09/11/2025 12:57:35 09/10/2009/10/2025 RPR SCREE N, REFLE X TITER /CONF IRMAT ION RPR qualitative Nonrea ctive nonrea ctive Not Available [facility] (Lab) [address] [place], [address], 09/11/2025 12:57:35 09/24/2009/24/2025 CULTU RE: URINE result report SEE RESULT S BELOW Test: Cultu re: Urine Speci men Sourc e: Urine - Clean Catch Speci men Type: Urine Speci men Date: 2024 1332 Resul t Date: 2024 1203 Resul t Statu s: Final resul t Abnor mal: No Resul ting Lab: [facility] [address] [facility] [address] Tel: CULTU RE ----- ----- ----- --- Cultu re resul t (>=3 organ isms prese nt) indic ates possi ble conta minat ion. Repea t cultu re if sympt oms indic ate. Not Available [facility] (Lab) [address], [place], [address], 09/26/2025 13:06:06 09/24/20 25 09/24/2025 urina lysis , dipst ick Leukocytes ++ Not Available [facility] [address] [place], [address], 09/24/2025 13:05:12 09/24/20 25 09/24/2025 urina lysis , dipst ick Protein + Not Available [facility] [address], [place], [address], 09/24/2025 13:05:12 09/24/20 25 09/24/2025 urina lysis , dipst ick pH 5 Not Available [facility] [address], [place], [address], 09/24/2025 13:05:12 09/24/20 25 09/24/2025 urina lysis , dipst ick Blood +++ Not Available [facility] [address], [place], [address], 09/24/2025 13:05:12 09/24/20 25 09/24/2025 urina lysis , dipst ick Specific [place] 1.015 Not Available [facility] [address], [place], [address], 09/24/2025 13:05:12 09/24/20 25 09/24/2025 urina lysis , dipst ick Appearance cloudy Not Available [facility] [address], [place], [address], 09/24/2025 13:05:12 09/24/20 25 09/24/2025 urina lysis , dipst ick Color yellow Not Available [facility] [address], [place], [address], 09/24/2025 13:05:12 10/08/20 25 10/08/2025 CBC W/DIF F WBC 12.3 10'3/ uL 3.5-10 .5 high Not Available [facility] (Lab) [address] , [place], [address], 10/10/2025 00:09:54 10/08/20 25 10/08/2025 CBC W/DIF F RBC 4.69 10'6/ uL (based on docume nted legal sex) 3.80-5 .20 Not Available [facility] (Lab) [address], [place], [address], 10/10/2025 00:09:54 10/08/20 25 10/08/2025 CBC W/DIF F HGB 12.7 g/dL (based on docume nted legal sex) 11.6-1 5.4 Not Available [facility] (Lab) [address], [address], 10/10/2025 00:09:54 10/08/20 25 10/08/2025 CBC W/DIF F HCT 39.8 % (based on docume nted legal sex) 34.0-4 5.0 Not Available [facility] (Lab) [address], [place], [address], 10/10/2025 00:09:54 10/08/20 25 10/08/2025 CBC W/DIF F MCV 84.9 fL 80.0-9 9.0 Not Available [facility] (Lab) [address], [place], [address], 10/10/2025 00:09:54 10/08/20 25 10/08/2025 CBC W/DIF F MCH 27.1 pg 27.0-3 4.0 Not Available [facility] (Lab) [address], [place], [address], 10/10/2025 00:09:54 10/08/20 25 10/08/2025 CBC W/DIF F MCHC 31.9 g/dL 32.0-3 5.5 low Not Available [facility] (Lab) [address], [place], [address], 10/10/2025 00:09:54 10/08/20 25 10/08/2025 CBC W/DIF F RDW 13.2 % 11.0-1 5.0 Not Available [facility] (Lab) [address], [place], [address], 10/10/2025 00:09:54 10/08/20 25 10/08/2025 CBC W/DIF F plt 239 10'3/ uL 150-40 0 Not Available [facility] (Lab) [address], [place], [address], 10/10/2025 00:09:54 10/08/20 25 10/08/2025 CBC W/DIF F MPV 11.9 fL 8.8-12 .1 Not Available [facility] (Lab) [address], [place], [address], 10/10/2025 00:09:54 10/08/20 25 10/08/2025 CBC W/DIF F NRBC's 0.0 % 0.0 Not Available [facility] (Lab) [address], [place], [address], 10/10/2025 00:09:54 10/08/20 25 10/08/2025 CBC W/DIF F absolute NRBCs 0.0 10'3/ uL no refere nce range establ ished Not Available [facility] (Lab) [address], [place], [address], 10/10/2025 00:09:54 10/08/20 25 10/08/2025 CBC W/DIF F neutrophils 70.7 % 34.0-7 3.0 Not Available [facility] (Lab) [address], [place], [address], 10/10/2025 00:09:54 10/08/20 25 10/08/2025 CBC W/DIF F lymphocytes 22.0 % 15.0-5 0.0 Not Available [facility] (Lab) [address], [place], [address], 10/10/2025 00:09:54 10/08/20 25 10/08/2025 CBC W/DIF F monocytes 6.1 % 1.0-15 .0 Not Available [facility] (Lab) [address], [place], [address], 10/10/2025 00:09:54 10/08/20 25 10/08/2025 CBC W/DIF F eosinophils 0.5 % 0.0-8. 0 Not Available [facility] (Lab) [address], [place], [address], 10/10/2025 00:09:54 10/08/20 25 10/08/2025 CBC W/DIF F basophils 0.2 % 0.0-2. 0 Not Available [facility] (Lab) [address], [place], [address], 10/10/2025 00:09:54 10/08/20 25 10/08/2025 CBC W/DIF [...] separ ately if prese nt. Not Available [facility] (Lab) [address] [facility], [place], [address], 10/10/2025 00:09:54 10/08/20 25 10/08/2025 CBC W/DIF F absolute neutrophils 8.7 10'3/ uL 1.5-8. 0 high Not Available [facility] (Lab) [address] [facility], [place], [address], 10/10/2025 00:09:54 10/08/20 25 10/08/2025 CBC W/DIF F absolute lymphocytes 2.7 10'3/ uL 1.0-4. 0 Not Available [facility] (Lab) [address] [facility], [place], [address], 10/10/2025 00:09:54 10/08/20 25 10/08/2025 CBC W/DIF F absolute monocytes 0.8 10'3/ uL 0.2-1. 0 Not Available [facility] (Lab) [address] [facility], [place], [address], 10/10/2025 00:09:54 10/08/20 25 10/08/2025 CBC W/DIF F absolute eosinophils 0.1 10'3/ uL 0.0-0. 6 Not Available [facility] (Lab) [address] [facility], [place], [address], 10/10/2025 00:09:54 10/08/20 25 10/08/2025 CBC W/DIF F absolute basophils 0.0 10'3/ uL 0.0-0. 3 Not Available [facility] (Lab) [address] [facility], [place], [address], 10/10/2025 00:09:54 10/08/20 25 10/08/2025 CBC W/DIF [...] dennis book. nm.or g/gen derx Not Available [facility] (Lab) [address] [facility], [place], [address], 10/10/2025 00:09:54 10/08/20 25 10/08/2025 PROTE IN/CR EATIN INE RATIO , URINE creatinine, urine 34.6 mg/dL R-No refer ence range estab lishe d for this assay Not Available [facility] (Lab) [address] [place], [address], 10/10/2025 00:09:55 10/08/20 25 10/08/2025 PROTE IN/CR EATIN INE RATIO , URINE protein, urine <4 mg/dL R-No refer ence range estab lishe d for this assay Not Available [facility] (Lab) [address] [place], [address], 10/10/2025 00:09:55 10/08/20 25 10/08/2025 PROTE IN/CR EATIN INE RATIO , URINE protein/crea tinine ratio, urine . No Refer ence Range avail able for Rando m Urine s. Unabl e to perfo rm calcu latio n due to low elidia te marline ntrat ion A prote in to creat inine ratio of >=0.1 9 is a good predi ctor of dinorah barragan prote inuri a. A level of <0.14 can rule out signi fican t prote inuri a. Not Available [facility] (Lab) [address] [facility], [place], [address], 10/10/2025 00:09:55 10/08/20 25 10/08/2025 URIC ACID uric acid 3.5 mg/dL 2.3-6. 6 Not Available [facility] ([facility]) [address] [facility], [place], [address], 10/10/2025 00:09:55 10/08/20 25 10/08/2025 CMP(C OMPRE HENSI VE METAB OLIC PANEL ) sodium 135 mmol/ L 133-14 6 Not Available [facility] (Lab) [address] [facility], [place], [address], 10/10/2025 00:09:56 10/08/20 25 10/08/2025 CMP(C OMPRE HENSI VE METAB OLIC PANEL ) potassium 3.8 mmol/ L 3.5-5. 1 Not Available [facility] (Lab) [address] [place], [address], 10/10/2025 00:09:56 10/08/20 25 10/08/2025 CMP(C OMPRE HENSI VE METAB OLIC PANEL ) chloride 102 mmol/ L 98-107 Not Available [facility] (Lab) [address] [place], [address], 10/10/2025 00:09:56 10/08/20 25 10/08/2025 CMP(C OMPRE HENSI VE METAB OLIC PANEL ) carbon dioxide 22 mmol/ L 21-31 Not Available [facility] (Lab) [address] [place], [address], 10/10/2025 00:09:56 10/08/20 25 10/08/2025 CMP(C OMPRE HENSI VE METAB OLIC PANEL ) anion gap 11 mmol/ L 4-13 Not Available [facility] (Lab) [address] [facility], [place], [address], 10/10/2025 00:09:56 10/08/20 25 10/08/2025 CMP(C OMPRE HENSI VE METAB OLIC PANEL ) blood urea nitrogen 5 mg/dL 7-25 low Not Available [facility] (Lab) [address], [place], [address], 10/10/2025 00:09:56 10/08/20 25 10/08/2025 CMP(C OMPRE HENSI VE METAB OLIC PANEL ) creatinine 0.53 mg/dL 0.60-1 .30 low Not Available [facility] (Lab) [address] [facility], [place], [address], 10/10/2025 00:09:56 10/08/20 25 10/08/2025 CMP(C OMPRE HENSI VE METAB OLIC PANEL ) egfrcr (CKD-epi 2020) >90 mL/mi n/1.7 3_m2 >=60 Not Available [facility] (Lab) [address] [facility], [place], [address], 10/10/2025 00:09:56 10/08/20 25 10/08/2025 CMP(C OMPRE HENSI VE METAB OLIC PANEL ) calcium 8.6 mg/dL 8.3-10 .5 Not Available [facility] (Lab) [address] [facility], [place], [address], 10/10/2025 00:09:56 10/08/20 25 10/08/2025 CMP(C OMPRE HENSI VE METAB OLIC PANEL ) glucose 92 mg/dL 70-100 Not Available [facility] (Lab) [address] [facility], [place], [address], 10/10/2025 00:09:56 10/08/20 25 10/08/2025 CMP(C OMPRE HENSI VE METAB OLIC PANEL ) protein, total 5.9 g/dL 6.4-8. 3 low Not Available [facility] (Lab) [address] [facility], [place], [address], 10/10/2025 00:09:56 10/08/20 25 10/08/2025 CMP(C OMPRE HENSI VE METAB OLIC PANEL ) albumin 3.5 g/dL 3.5-5. 0 Not Available [facility] (Lab) [address] [facility], [place], [address], 10/10/2025 00:09:56 10/08/20 25 10/08/2025 CMP(C OMPRE HENSI VE METAB OLIC PANEL ) ALT 17 units /L 9-43 Not Available [facility] (Lab) [address] [facility], [place], [address], 10/10/2025 00:09:56 10/08/20 25 10/08/2025 CMP(C OMPRE HENSI VE METAB OLIC PANEL ) alkaline phosphatase 81 units /L 34-104 Not Available [facility] (Lab) [address] [facility], [place], [address], 10/10/2025 00:09:56 10/08/20 25 10/08/2025 CMP(C OMPRE HENSI VE METAB OLIC PANEL ) AST 16 units /L 13-39 Not Available [facility] (Lab) [address] [facility], [place], [address], 10/10/2025 00:09:56 10/08/20 25 10/08/2025 CMP(C OMPRE HENSI VE METAB OLIC PANEL ) bilirubin, total 0.5 mg/dL 0.2-1. 2 Not Available [facility] (Lab) [address] [place], [address], 10/10/2025 00:09:56 10/08/20 25 10/08/2025 CULTU RE: URINE result report SEE RESULT S BELOW Test: Cultu re: Urine Speci men Sourc e: Urine - Clean Catch Speci men Type: Urine Speci men Date: 10/08 1152 Resul t Date: 10/09 2305 Resul t Statu s: Final resul t Abnor mal: No Resul ting Lab: [facility] [address] [facility] [address] Tel: CULTU RE ----- ----- ----- --- No growt h in 1 day (dete ction level of 10,00 0 colon ies / ml.) Not Available [facility] (Lab) [address] [facility], [place], [address], 10/10/2025 00:09:56 07/14/20 25 07/14/2025 US, obste tric, 2nd or 3rd trime ster No observ ation record ed. [email or web address], [place], [address], 07/14/2025 11:48:13 07/14/2007/14/2025 US, obste tric, follo w-up No observ ation record ed. [email or web address] [address], [place], [address], 07/14/2025 16:09:19 08/11/2008/11/2025 US, obste tric, follo w-up No observ ation record ed. [facility] [address], [place], [address], 08/11/2025 18:35:48 08/11/20 25 08/11/2025 US, obste tric, follo w-up No observ ation record ed. [email or web address] [address], [place], [address], 08/13/2025 07:06:41 09/10/20 25 09/10/2025 US, obste tric, follo w-up No observ ation record ed. [facility] [address], [place], [address], 09/10/2025 14:42:43 09/10/2009/10/2025 US, obste tric, follo w-up No observ ation record ed. [email or web address] [address], [place], [address], 09/14/2025 14:46:19 10/08/20 25 10/08/2025 US, obste tric, follo w-up No observ ation record ed. [email or web address] [address], [place], [address], 10/11/2025 11:55:36 10/08/2010/08/2025 non-s tress test No observ ation record ed. [email or web address] [place] [address], [place], [address], 10/08/2025 13:48:06 10/08/20 non-s tress test No observ ation record ed. [email or web address] [place] [address], [place], [address], 10/08/2025 12:32:22 10/08/2010/08/2025 US, obste tric, follo w-up No observ ation record ed. [facility] [address], [place], [address], 10/08/2025 16:57:13 10/08/20 25 10/08/2025 US, dominic tric, bioph ysica l profi le + non-s tress test No observ ation record ed. [facility] [address], [place], [address], 10/08/2025 16:57:23 10/13/20 25 10/13/2025 US, obste tric, bioph ysica l profi le + non-s tress test No observ ation record ed. [email or web address] [place] [address], [place], [address], 10/13/2025 11:51:09 10/13/2010/13/2025 US, obste tric, bioph ysica l profi le + non-s tress test No observ ation record ed. [email or web address] [address], [place], [address], 10/20/2025 11:47:34 10/13/2010/13/2025 non-s tress test No observ ation record ed. [address], [place], [address], 10/13/2025 17:57:16 10/13/20 non-s tress test No observ ation record ed. [address], [place], [address], 10/13/2025 17:34:36 10/22/20 25 10/22/2025 US, obste tric, bioph ysica l profi le No observ ation record ed. [email or web address] [address], [place], [address], 10/29/2025 11:35:15 10/22/20 25 10/22/2025 US, obste tric, bioph ysica l profi le + non-s tress test No observ ation record ed. [facility] [address], [place], [address], 10/22/2025 13:51:55 10/22/20 25 10/22/2025 non-s tress test No observ ation record ed. [address], [place], [address], 10/27/2025 18:38:42 10/22/20 non-s tress test No observ ation record ed. [place] [address], [place], [address], 10/22/2025 12:42:25 10/29/20 25 10/29/2025 US, obste tric, follo w-up No observ ation record ed. [email or web address] [address], [place], [address], 10/30/2025 01:33:53 10/29/20 25 10/29/2025 US, obste tric, follo w-up No observ ation record ed. [facility] [address], [place], [address], 10/29/2025 17:16:32 10/29/20 25 10/29/2025 US, obste tric, bioph ysica l profi le + non-s tress test No observ ation record ed. [facility] [address], [place], [address], 10/29/2025 17:16:42 Result Notes None recorded. Problems Name Problem SNOMED Code Status Onset Date Resolution Date Notes Provider Name and Address Organization Details Recorded Time 22303135 Active 2024 Linda mcgill, [facility] 10:53:18 Hypertens dwight disorder 56290097 Active 2024 labetalol 200mg bid bASA daily serial growth us , weekly testing @ 32wks 10/08/25 300mg bid rpt labs Alysia Santos CNM [address], [place], [address], [facility] 12:52:39 Mixed anxiety and depressiv e disorder 013827346 Active 2024 buspirone 10mg lexapro 20 mg daily Alysia Santos CNM [address], [place], [address], [place] [facility] 5 12:01:06 Past history of gestation al hypertens ion 686635763 Active 2024 vs preeclamp deirdre delivered at 37 weeks Alysia Santos, SARA [address], [place], [address], [facility] 5 12:01:27 Marijuana user 999254258 Active 2024 Pt decreased . Continued use is causing family issues and pt is experienc ing increased anxiety and depressio n symptoms. Nina Olivares er null, [facility] 5 16:48:10 Marijuana user 515051208 Active 2024 Pt decreased . Continued use is causing family issues and pt is experienc ing increased anxiety and depressio n symptoms. Nina conway null, [facility] 5 16:48:11 Problem Notes None recorded. Procedures Surgical History Date Name Laterality Status Provider Name and Address Organization Details Recorded Time 11/18/2021 Date of Last Pap Smear completed Kim Monson [facility] 08/11/2025 14:32:13 Imaging Results None recorded. Procedure Notes None recorded. Medical Equipment None Reported. Allergies Allergen ID Allergen Name Allergen Category Reaction Reaction Severity Criticality Documentation Date Start Date Code Code System Note Provider Name and Address Organization Details Recorded Time 29609 amoxicill in medicatio n hives Not available Not available 10/08/20252016 723 RxNorm Not Available [employer] - prod 5 03:06:32 [id number] clindamyc in Not available hives Not available Not available 10/08/20252018 2582 RxNorm Not Available [employer] - prod 5 03:06:32 Medications [...] and Address Organization Details Last Updated DateTime 10/13/2025 19077.69390 g 119/80 mm[Hg] Cami Merida [facility] 10/13/2025 17:32:53 Date Recorded Body height Body mass index (BMI) Body weight Systolic And Diastolic Provider Name and Address Organization Details Last Updated DateTime 10/13/2025 162.56 cm 32.4 kg/m2 53230.96 g 119/80 mm[Hg] LOREN DENNIS [facility] 10/13/2025 11:35:50 Social History Question Answer Notes LastModified by Organizat ion Details LastModified Time Do You Have An Advance Directive? No Information n ot available 04/22/2025 How Many Years Have You Consumed Alcohol? 8 Information not available 08/11/2025 Are You Blind [...] Or The Highest Degree You Have Received? [id number] Information not available 04/22/2025 Are There Any Guns Present In Your Home? Yes Information not available 04/22/2025 Have You Ever Been Counseled For Unhealthy Alcohol Use? No [email or web address] Information not available 06/16/2025 Do You Use Protection During Sex? No Information not available 04/22/2025 Do You Use Your Seat Belt Or Car Seat Routinely? Yes Information not available 04/22/2025 Are You Sexually Active? Yes Information not available 06/16/2025 Do You Have Smoke And Carbon Monoxide Detectors In Your Home? Yes Information not available 04/22/2025 At What Age Did You Start Smoking Tobacco? 19 Information not available 04/22/2025 How Much Tobacco Do You Smoke? No Information not available 04/22/2025 Do You Use Sunscreen Routinely? No Information not available 04/22/2025 Has Tobacco Cessation Counseling Been Provided? No Information not available 06/16/2025 How Many Years Have You Smoked Tobacco? 4 Information not available 08/11/2025 Have You Used IV Drugs? No Information not available 04/22/2025 Do You Have Difficulty Walking Or Climbing Stairs? No [email or web address] Information not available 06/16/2025 Sex: Unknown Functional Status Question Answer Note LastModified by Organizat ion Details LastModified Time Do you use any illicit or recreational drugs? Yes Information not available 04/22/2025 Do you or have you ever used any other forms of tobacco or nicotine? No [email or web address] Information not available 06/16/2025 What is your level of alcohol consumption? Occasional [email or web address] Information not available 08/11/2025 Are you currently employed? Yes [email or web address] Information not available 06/16/2025 Are you able to walk independently without assistance or assistive devices? [email or web address] Information not available 04/22/2025 Are you able to care for yourself independently? 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 No [email or web address] Information not available 06/16/2025 What is your exercise level? Occasional Information not available 04/22/2025 Mental Status Question Answer Note LastModified by Organization D etails LastModified Time Do you feel stressed (tense, restless, nervous, or anxious, or unable to sleep at night)? [id number] [email or web address] Information not available 08/11/2025 Family History Relationship [...] ICD10 Code Diagnosis IMO Codes Diagnosis Note [id number] Alysia Santos [facility] [address] [place] [address] 09/24/2025 11:20:09 09/24/2025 12:02:06 Gestation period, 30 weeks 04952284 Z3A.30 1073821 Acute urin shamir tract infection 856702735 N39.0 155591 [id number] Alysia Santos [facility] [address] [place] [address] 10/08/2025 11:01:42 10/08/2025 12:33:16 Chronic hypertension complicating AND/OR reason for care during 90437556 O10.919 10337511 [id number] Norris Jordan MD [place] [address] [place] [address] 10/08/2025 11:02:16 10/08/2025 13:23:40 Hypertension complicating 2097340313 9102 O16.3 Z3A.32 99633573 [id number] Alysia Santos [facility] [address] [place] [address] 10/08/2025 11:02:36 10/08/2025 12:56:56 -induced hypertension 57360868 O13.9 Hypertensive disorder 38 780070 I10 81505422 History of urinary tract infection 5533281216 107 Z87.387 [id number] [id number] Norris Jordan MD [place] [address] [place] [address] 10/13/2025 10:48:37 10/13/2025 11:35:45 Essential hypertension complicating AND/OR reason for care during 53680003 O10.013 Z3A.33 2907768 [id number] Alysia Santos CNM [place] [address],[facility] [place] [address] 10/13/2025 10:48:51 10/13/2025 17:36:59 Chronic hypertension complicating AND/OR reason for care during 43994142 O10.919 31409011 [id number] [facility] [address] [address] 10/13/2025 10:49:32 10/13/2025 11:51:38 Gestation period, 33 weeks 55588555 Z3A.33 0807112 Health Concerns Section Related Observation LastModified by Organization Detai ls LastModified Time None Recorded Concern Status LastModified by Organization Details LastModified Time None Recorded Payers Encounter Date Sequence Insurance Name Policy Number Policy Sarah Covered Member ID Sarah Member ID Guarantor Name 10/13/2025 1 [employer] [id number] Artem Owings [id number] Artem Dora Notes Date Note Type Note Provider Name and Address Organization Details Recorded Time 10/13/2025 text/html Generic HPI TemplateReported by Patient Alysia Santos CNM [address], [place], [address], [facility] 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 Continued use is causing family issues and pt is experiencing increased anxiety and depression symptoms. Mixed anxiety and depressive disorder 05/19/2025 782746593 buspiron e 10mglexapro 20 mg daily Pablito [...] Date Ultra Sound Latest Days Gestation 0 [email or web address] 05/19/2025 11/27/19 26 0 Pre-la nena Flowsheet Flowsheet Date 05/19/2025 Yoder Score Blood Edema Fundus Height Fundus Units Glucose Ketones Leukocytes Nitrite Labor Signs Protein Cervic Dilation Cervic Effacement Cervic Station Type Weight in lbs Pre/Post Dialysis Refused Weight 169.486687949869 BP Diastolic BP Location Tested BP Systolic [...] Weight in lbs Pre/Post Dialysis Refused Weight 173.671282180860 BP Diastolic BP Location Tested BP Systolic [...] Weight in lbs Pre/Post Dialysis Refused Weight 179.977210773253 BP Diastolic BP Location Tested BP Systolic [...] Weight in lbs Pre/Post Dialysis Refused Weight 188.007461178713 BP Diastolic BP Location Tested BP Systolic [...] Type Weight in lbs Pre/Post Dialysis Refused 189.452358755411 BP Diastolic BP Location Tested BP Systolic [...] Weight in lbs Pre/Post Dialysis Refused Weight 188.378448599492 BP Diastolic BP Location Tested BP Systolic [...] Weight in lbs Pre/Post Dialysis Refused Weight 190.066665849693 BP Diastolic BP Location Tested BP Systolic [...] Type Weight in lbs Pre/Post Dialysis Refused 191.058389661252 BP Diastolic BP Location Tested BP Systolic BP Type Fetus Heart Rate Present Fetus Movement Comments bpp 10/10 +FM doing well, ca ll for preadmit, bp's at home are increasing, discussed rpt labs today and can increase to 300mg bid will discuss with , urine for culture, hx uti would like [...] Type Weight in lbs Pre/Post Dialysis Refused 189.739018038347 BP Diastolic BP Location Tested BP Systolic BP Type 80 L arm 119 sitting Fetus Heart Rate Present Fetus Movement A Yes Comments Flowsheet Date 10/13/2025 Yoder Score Blood Edema Fundus Height Fundus Units Glucose Ketones Leukocytes Nitrite Labor Signs Protein Cervic Dilation Cervic Effacement Cervic Station Type Weight in lbs Pre/Post Dialysis Refused Weight 189.243863874262 BP Diastolic BP Location Tested BP Systolic [...] Weight in lbs Pre/Post Dialysis Refused Weight 192.809611035709 BP Diastolic BP Location Tested BP Systolic BP Type 79 L arm 128 sitting Fetus Heart Rate Present Fetus Movement A Yes Comments Flowsheet Date 10/22/2025 Yoder Score Blood Edema Fundus Height Fundus Units Glucose Ketones Leukocytes Nitrite Labor Signs Protein Cervic Dilation Cervic Effacement Cervic Station Type Weight in lbs Pre/Post Dialysis Refused 192.221159394042 BP Diastolic BP Location Tested BP Systolic BP Type 79 L arm 128 sitting Fetus Heart Rate Present Fetus Movement A Yes Comments bpp 10/10, +FM reviewed ptl precautions, doing well, education [...]
--- OUTSIDE RECORDS SUMMARY | 2025-11-01 06:20 | XMS_ITS | Continuity of Care Document ---
Author Organization [facility] Address [address] [place] [address] Care Team Providers Care Salesperson Hosiery Name Role Phone TIANNA ALESHA Primary Care Provider Assessment No assessment recorded. Plan of Treatment Reminders Order Date Submit Date Provider Last Modified By Organization Details Last Modified Time Details Appointments OB ROUTINE 2024 10:00A M ELVIRA ZAARGOZA MD Not available Not available Not available [...] recorde d. Surgeries None recorde d. Imaging non-str ess test 2024 [facility]25 [facility] [place], [facility] [address], [address], [place], [address], 10/22/2025 13:37:30 Medication Orders None recorde d. Patient TargetsNo targets recorded. Patient InstructionsNo instructions recorded. Reason for Referral None Reported. Results Created Date Observation Date Name Description Value Unit Range Abnormal Flag Note LastModifiedBy Organization Detail LastModifiedTime 05/27/2005/27/2025 [UNIT Y] ANEUP LOIDY NIPT fraction 10.2% normal Not Available [facility] [address], [place], [address], 05/27/2025 02:56:04 05/27/20 25 05/27/2025 [UNIT Y] ANEUP LOIDY NIPT 22Q11.2 microdeletio n LOW RISK <1 in 10,000 normal Not Available [facility] [address], [place], [address], 05/27/2025 02:56:04 05/27/20 25 05/27/2025 [UNIT Y] ANEUP LOIDY NIPT sex chromosome aneuploidy NOT DETECT ED normal Not Available [facility] [address], [place], [address], 05/27/2025 02:56:04 05/27/20 25 05/27/2025 [UNIT Y] ANEUP LOIDY NIPT monosomy X LOW RISK <1 in 10,000 normal Not Available [facility] [address], [place], [address], 05/27/2025 02:56:04 05/27/20 25 05/27/2025 [UNIT Y] ANEUP LOIDY NIPT trisomy 13 LOW RISK <1 in 10,000 normal Not Available [facility] [address], [place], [address], 05/27/2025 02:56:04 05/27/20 25 05/27/2025 [UNIT Y] ANEUP LOIDY NIPT trisomy 18 LOW RISK <1 in 10,000 normal Not Available [facility] [address], [place], [address], 05/27/2025 02:56:04 05/27/20 25 05/27/2025 [UNIT Y] ANEUP LOIDY NIPT trisomy 21 LOW RISK <1 in 10,000 normal Not Available [facility] [address], [place], [address], 05/27/2025 02:56:04 05/27/20 25 05/27/2025 [UNIT Y] ANEUP LOIDY NIPT sex FEMALE normal Not Available [facility] [address], [place], [address], 05/27/2025 02:56:04 05/27/20 25 05/27/2025 [UNIT Y] ANEUP LOIDY NIPT gestation SINGLE TON normal Not Available [facility] [address], [place], [address], 05/27/2025 02:56:04 05/27/20 25 05/27/2025 [UNIT Y] ANEUP LOIDY NIPT for detailed report, see pdf See PDF normal Not Available [facility] [address], [place], [address], 05/27/2025 02:56:04 06/03/20 25 06/03/2025 [UNIT Y] LORIN RAMY Hull sickle cell disease/beta -thalassemia /hemoglobino pathies carrier screen NEGATI VE normal Not Available [facility] [address], [place], [address], 06/03/2025 09:08:22 06/03/20 25 06/03/2025 [UNIT Y] LORIN RAMY Hull alpha-thalas semia carrier screen NEGATI VE normal Not Available [facility] [address] [place], [address], 06/03/2025 09:08:22 06/03/20 25 06/03/2025 [UNIT Y] LORIN RAMY Hull cystic fibrosis carrier screen NEGATI VE normal Not Available [facility] [address], [place], [address], 06/03/2025 09:08:22 06/03/20 25 06/03/2025 [UNIT Y] LORIN RAMY Hull spinal muscular atrophy carrier screen NEGATI VE 2 SMN1 copies , SNP not presen t normal Not Available [facility] [address], [place], [address], 06/03/2025 09:08:22 06/03/20 25 06/03/2025 [UNIT Y] LORIN RAMY Hull for detailed report, see pdf See PDF normal Not Available [facility] [address], [place], [address], 06/03/2025 09:08:22 05/19/20 25 05/19/2025 CBC W/DIF F WBC 9.6 10'3/ uL 3.5-10 .5 Not Available [facility] (Lab) [address], [place], [address], 05/20/2025 10:56:36 05/19/20 25 05/19/2025 CBC W/DIF F RBC 4.49 10'6/ uL (based on docume nted legal sex) 3.80-5 .20 Not Available [facility] (Lab) [address], [place], [address], 05/20/2025 10:56:36 05/19/20 25 05/19/2025 CBC W/DIF F HGB 12.5 g/dL (based on docume nted legal sex) 11.6-1 5.4 Not Available [facility] (Lab) [address], [place], [address], 05/20/2025 10:56:36 05/19/20 25 05/19/2025 CBC W/DIF F HCT 38.2 % (based on docume nted legal sex) 34.0-4 5.0 Not Available [facility] (Lab) [address], [place], [address], 05/20/2025 10:56:36 05/19/20 25 05/19/2025 CBC W/DIF F MCV 85.1 fL 80.0-9 9.0 Not Available [facility] (Lab) [address], [place], [address], 05/20/2025 10:56:36 05/19/20 25 05/19/2025 CBC W/DIF F MCH 27.8 pg 27.0-3 4.0 Not Available [facility] (Lab) [address], [place], [address], 05/20/2025 10:56:36 05/19/20 25 05/19/2025 CBC W/DIF F MCHC 32.7 g/dL 32.0-3 5.5 Not Available [facility] (Lab) [address], [place], [address], 05/20/2025 10:56:36 05/19/20 25 05/19/2025 CBC W/DIF F RDW 13.2 % 11.0-1 5.0 Not Available [facility] (Lab) [address], [place], [address], 05/20/2025 10:56:36 05/19/20 25 05/19/2025 CBC W/DIF F plt 301 10'3/ uL 150-40 0 Not Available [facility] (Lab) [address] [place], [address], 05/20/2025 10:56:36 05/19/20 25 05/19/2025 CBC W/DIF F MPV 11.9 fL 8.8-12 .1 Not Available [facility] (Lab) [address] [facility], [place], [address], 05/20/2025 10:56:36 05/19/20 25 05/19/2025 CBC W/DIF F NRBC's 0.0 % 0.0 Not Available [facility] (Lab) [address] [facility], [place], [address], 05/20/2025 10:56:36 05/19/20 25 05/19/2025 CBC W/DIF F absolute NRBCs 0.0 10'3/ uL no refere nce range establ ished Not Available [facility] (Lab) [address] [facility], [place], [address], 05/20/2025 10:56:36 05/19/20 25 05/19/2025 CBC W/DIF F neutrophils 71.0 % 34.0-7 3.0 Not Available [facility] (Lab) [address] [facility], [place], [address], 05/20/2025 10:56:36 05/19/20 25 05/19/2025 CBC W/DIF F lymphocytes 22.5 % 15.0-5 0.0 Not Available [facility] (Lab) [address] [facility], [place], [address], 05/20/2025 10:56:36 05/19/20 25 05/19/2025 CBC W/DIF F monocytes 5.3 % 1.0-15 .0 Not Available [facility] (Lab) [address] [facility], [place], [address], 05/20/2025 10:56:36 05/19/20 25 05/19/2025 CBC W/DIF F eosinophils 0.6 % 0.0-8. 0 Not Available [facility] (Lab) [address] [place], [address], 05/20/2025 10:56:36 05/19/20 25 05/19/2025 CBC W/DIF F basophils 0.3 % 0.0-2. 0 Not Available [facility] (Lab) [address] [facility], [place], [address], 05/20/2025 10:56:36 05/19/20 25 05/19/2025 CBC W/DIF [...] separ ately if prese nt. Not Available [facility] (Lab) [address] [facility], [place], [address], 05/20/2025 10:56:36 05/19/20 25 05/19/2025 CBC W/DIF F absolute neutrophils 6.8 10'3/ uL 1.5-8. 0 Not Available [facility] (Lab) [address] [facility], [place], [address], 05/20/2025 10:56:36 05/19/20 25 05/19/2025 CBC W/DIF F absolute lymphocytes 2.2 10'3/ uL 1.0-4. 0 Not Available [facility] (Lab) [address] [facility], [place], [address], 05/20/2025 10:56:36 05/19/20 25 05/19/2025 CBC W/DIF F absolute monocytes 0.5 10'3/ uL 0.2-1. 0 Not Available [facility] (Lab) [address] [facility], [place], [address], 05/20/2025 10:56:36 05/19/20 25 05/19/2025 CBC W/DIF F absolute eosinophils 0.1 10'3/ uL 0.0-0. 6 Not Available [facility] (Lab) [address] [facility], [place], [address], 05/20/2025 10:56:36 05/19/20 25 05/19/2025 CBC W/DIF F absolute basophils 0.0 10'3/ uL 0.0-0. 3 Not Available [facility] (Lab) [address], [place], [address], 05/20/2025 10:56:36 05/19/20 25 05/19/2025 CBC W/DIF [...] the indiv idual patie nt: https :[email or web address] and [email or web address].or g/gen derx Not Available [facility] (Lab) [address], [place], [address], 05/20/2025 10:56:36 05/19/20 25 05/19/2025 HEPAT ITIS B SURFA CE ANTIG EN hepatitis B surface antigen Non-re active non-re active This assay was perfo rmed using [employer] ratio n reage nts and test kits. Value s obtai erica with other assay metho ds or kits canno t be used inter melton eably . Not Available [facility] (Lab) [address], [place], [address], 05/20/2025 10:56:37 05/19/20 25 05/19/2025 HIV 1/2 ANTIG EN/AN TIBOD Y, REFLE X CONFI RMATI ON HIV antigen/anti body Nonrea ctive nonrea ctive HIV-1 antig en and HIV-1 /HIV- 2 antib odies were not detec tashi. No labor atory evide nce of HIV infec tion. Not Available [facility] (Lab) [address], [place], [address], 05/20/2025 10:56:37 05/19/20 25 05/19/2025 HEPAT ITIS C ANTIB NEPTALI SCREE N, REFLE X TO CONFI RMATI ON hepatitis C antibody Non-re active non-re active Antib odies to HCV Not Detec tashi, does not exclu de the possi bilit y of expos ure to HCV. Not Available [facility] (Lab) [address] [facility], [place], [address], 05/20/2025 10:56:38 05/19/20 25 05/19/2025 VITAM IN D, 25-OH (TOTA L D2/D3 ) vitamin D, 25-hydroxy, total 59.5 NG/mL 30.0-1 00.0 Sugge stive of Defic iency : <20 ng/mL Sugge stive of Insuf ficie ncy: 20-29 ng/mL Sugge stive of Suffi cienc y: 30-10 0 ng/mL Sugge stive of Toxic ity: >150 ng/mL Not Available [facility] (Lab) [address] [facility], [place], [address], 05/20/2025 10:56:38 05/19/20 25 05/19/2025 TYPE/ RH/SC REEN ABO/Rh type O POS Not Available [facility] (Lab) [address] [place], [address], 05/20/2025 10:56:39 05/19/20 25 05/19/2025 TYPE/ RH/SC REEN antibody screen NEG Not Available [facility] (Lab) [address] [place], [address], 05/20/2025 10:56:39 05/19/20 25 05/19/2025 TYPE/ RH/SC REEN exp date 2024 23:59 Not Available [facility] (Lab) [address] [place], [address], 05/20/2025 10:56:39 05/19/20 25 05/19/2025 RUBEL LA IGG ANTIB NEPTALI, QUANT rubella antibodies, IgG Reacti ve reacti ve Not Available [facility] (Lab) [address] [facility], [place], [address], 05/20/2025 10:56:39 05/19/20 25 05/19/2025 RUBEL LA IGG ANTIB NEPTALI, QUANT rubella antibodies, IgG quant 13.6 IU/mL >=10 Non-r eacti ve (Non- Immun e) <10 IU/mL React dwight (Immu ne) > or = 10 IU/mL Not Available [facility] (Lab) [address] [facility], [place], [address], 05/20/2025 10:56:39 05/19/20 25 05/19/2025 HEMOG LOBIN [...] >8.0% Actio n sugge sted Not Available [facility] (Lab) [address] [facility], [place], [address], 05/20/2025 10:56:40 05/19/20 25 05/19/2025 RPR SCREE N, REFLE X TITER /CONF IRMAT ION RPR qualitative Nonrea ctive nonrea ctive Not Available [facility] (Lab) [address] [facility], [place], [address], 05/20/2025 10:56:41 05/19/20 25 05/19/2025 CULTU RE: URINE result report SEE RESULT S BELOW Test: Cultu re: Urine Speci men Sourc e: Urine Voide d Speci men Type: Urine Speci men Date: 1413 Resul t Date: 3 Resul t Statu s: Final resul t Abnor mal: No Resul ting Lab: [facility] [address] [facility] [address] Tel: CULTU RE ----- ----- ----- --- No growt h in 1 day (dete ction level of 10,00 0 colon ies / ml.) Not Available [facility] (Lab) [address] [facility], [place], [address], 05/20/2025 22:47:16 05/19/20 25 05/19/2025 IMAGE GUIDE [...] kingston: 05/20 1144 First Scree n: Wong Jimeenz , CT Rescr een: Joseph Deleon, CT Speci men: Screalisha rubio Pap - Image d, Cervi x STATE MENT OF ADEQU ACY: Satis facto ry for evalu ation Trans forma tion zone compo nent prese nt ----- ----- ----- ----- ----- ----- ----- ----- ----- ----- ----- ----- ----- ----- ----- ----- ----- ---- FINAL DIAGN OSIS: Negat dwight for Intra epith elial Lesimani n or Jose Antonio ribeiro ([facility]) . Elect sapphire becker d by Joseph [...] clini luis eduardo camp nted. Not Available [facility] (Lab) [address], [place], [address], 05/24/2025 18:43:29 05/19/20 25 05/19/2025 CT/GC (CAT) , THINP REP VIAL chlamydia trachomatis, PCR Negati ve negati ve Not Available [facility] (Lab) [address] [place] [address], [address], 05/24/2025 18:43:30 05/19/20 25 05/19/2025 CT/GC (CAT) , THINP REP VIAL neisseria gonorrhoeae, PCR Negati ve negati ve Not Available [facility] (Lab) [address] [place], [address], 05/24/2025 18:43:30 05/19/20 25 05/19/2025 drug scree n, urine Cannabinoids : positi ve Not Available [facility] [address], [place], [address], 05/19/2025 13:35:34 05/19/20 25 05/19/2025 drug scree n, urine Other: positi ve Not Available [facility] [address], [place], [address], 05/19/2025 13:35:34 09/10/20 25 09/10/2025 HEMAT OCRIT (HCT) HCT 39.4 % (based on docume nted legal sex) 34.0-4 5.0 Not Available [facility] (Lab) [address] [place], [address], 09/11/2025 12:57:34 09/10/20 25 09/10/2025 HEMOG LOBIN (HGB) HGB 12.7 g/dL (based on docume nted legal sex) 11.6-1 5.4 Not Available [facility] (Lab) [address] [place], [address], 09/11/2025 12:57:34 09/10/20 25 09/10/2025 CMP/C BC/UR IC ACID WBC 10.8 10'3/ uL 3.5-10 .5 high Not Available [facility] (Lab) [address], [place], [address], 09/11/2025 12:57:34 09/10/20 25 09/10/2025 CMP/C BC/UR IC ACID RBC 4.59 10'6/ uL (based on docume nted legal sex) 3.80-5 .20 Not Available [facility] (Lab) [address] [facility], [place], [address], 09/11/2025 12:57:34 09/10/20 25 09/10/2025 CMP/C BC/UR IC ACID HGB 12.7 g/dL (based on docume nted legal sex) 11.6-1 5.4 Not Available [facility] (Lab) [address] [facility], [place], [address], 09/11/2025 12:57:34 09/10/2009/10/2025 CMP/C BC/UR IC ACID HCT 39.4 % (based on docume nted legal sex) 34.0-4 5.0 Not Available [facility] (Lab) [address] [facility], [place], [address], 09/11/2025 12:57:34 09/10/2009/10/2025 CMP/C BC/UR IC ACID MCV 85.8 fL 80.0-9 9.0 Not Available [facility] (Lab) [address] [facility], [place], [address], 09/11/2025 12:57:34 09/10/2009/10/2025 CMP/C BC/UR IC ACID MCH 27.7 pg 27.0-3 4.0 Not Available [facility] (Lab) [address] [facility], [place], [address], 09/11/2025 12:57:34 09/10/2009/10/2025 CMP/C BC/UR IC ACID MCHC 32.2 g/dL 32.0-3 5.5 Not Available [facility] (Lab) [address] [place], [address], 09/11/2025 12:57:34 09/10/20 25 09/10/2025 CMP/C BC/UR IC ACID RDW 12.7 % 11.0-1 5.0 Not Available [facility] (Lab) [address] [facility], [place], [address], 09/11/2025 12:57:34 09/10/2009/10/2025 CMP/C BC/UR IC ACID plt 252 10'3/ uL 150-40 0 Not Available [facility] (Lab) [address] [facility], [place], [address], 09/11/2025 12:57:34 09/10/2009/10/2025 CMP/C BC/UR IC ACID MPV 11.7 fL 8.8-12 .1 Not Available [facility] (Lab) [address] [facility], [place], [address], 09/11/2025 12:57:34 09/10/2009/10/2025 CMP/C BC/UR IC ACID NRBC's 0.0 % 0.0 Not Available [facility] (Lab) [address] [facility], [place], [address], 09/11/2025 12:57:34 09/10/2009/10/2025 CMP/C BC/UR IC ACID absolute NRBCs 0.0 10'3/ uL no refere nce range establ ished Not Available [facility] (Lab) [address] [facility], [place], [address], 09/11/2025 12:57:34 09/10/2009/10/2025 CMP/C BC/UR IC ACID neutrophils 74.4 % 34.0-7 3.0 high Not Available [facility] (Lab) [address] [place], [address], 09/11/2025 12:57:34 09/10/2009/10/2025 CMP/C BC/UR IC ACID lymphocytes 18.6 % 15.0-5 0.0 Not Available [facility] (Lab) [address] [place], [address], 09/11/2025 12:57:34 09/10/2009/10/2025 CMP/C BC/UR IC ACID monocytes 5.9 % 1.0-15 .0 Not Available [facility] (Lab) [address] [facility], [place], [address], 09/11/2025 12:57:34 09/10/2009/10/2025 CMP/C BC/UR IC ACID eosinophils 0.5 % 0.0-8. 0 Not Available [facility] (Lab) [address] [facility], [place], [address], 09/11/2025 12:57:34 09/10/2009/10/2025 CMP/C BC/UR IC ACID basophils 0.1 % 0.0-2. 0 Not Available [facility] (Lab) [address] [place], [address], 09/11/2025 12:57:34 09/10/20 25 09/10/2025 CMP/C BC/UR [...] separ ately if prese nt. Not Available [facility] (Lab) [address] [facility], [place], [address], 09/11/2025 12:57:34 09/10/20 25 09/10/2025 CMP/C BC/UR IC ACID absolute neutrophils 8.1 10'3/ uL 1.5-8. 0 high Not Available [facility] (Lab) [address] [facility], [place], [address], 09/11/2025 12:57:34 09/10/20 25 09/10/2025 CMP/C BC/UR IC ACID absolute lymphocytes 2.0 10'3/ uL 1.0-4. 0 Not Available [facility] (Lab) [address] [facility], [place], [address], 09/11/2025 12:57:34 09/10/2009/10/2025 CMP/C BC/UR IC ACID absolute monocytes 0.6 10'3/ uL 0.2-1. 0 Not Available [facility] (Lab) [address] [facility], [place], [address], 09/11/2025 12:57:34 09/10/2009/10/2025 CMP/C BC/UR IC ACID absolute eosinophils 0.1 10'3/ uL 0.0-0. 6 Not Available [facility] (Lab) [address] [facility], [place], [address], 09/11/2025 12:57:34 09/10/2009/10/2025 CMP/C BC/UR IC ACID absolute basophils 0.0 10'3/ uL 0.0-0. 3 Not Available [facility] (Lab) [address] [facility], [place], [address], 09/11/2025 12:57:34 09/10/2009/10/2025 CMP/C BC/UR IC ACID [...] dennis book. nm.or g/gen derx Not Available [facility] (Lab) [address] [facility], [place], [address], 09/11/2025 12:57:34 09/10/2009/10/2025 CMP/C BC/UR IC ACID uric acid 3.0 mg/dL 2.3-6. 6 Not Available [facility] (Lab) [address] [facility], [place], [address], 09/11/2025 12:57:34 09/10/2009/10/2025 CMP/C BC/UR IC ACID sodium 136 mmol/ L 133-14 6 Not Available [facility] (Lab) [address] [facility], [place], [address], 09/11/2025 12:57:34 09/10/2009/10/2025 CMP/C BC/UR IC ACID potassium 3.9 mmol/ L 3.5-5. 1 Not Available [facility] (Lab) [address] [facility], [place], [address], 09/11/2025 12:57:34 09/10/2009/10/2025 CMP/C BC/UR IC ACID chloride 102 mmol/ L 98-107 Not Available [facility] (Lab) [address] [facility], [place], [address], 09/11/2025 12:57:34 09/10/2009/10/2025 CMP/C BC/UR IC ACID carbon dioxide 26 mmol/ L 21-31 Not Available [facility] (Lab) [address] [facility], [place], [address], 09/11/2025 12:57:34 09/10/2009/10/2025 CMP/C BC/UR IC ACID anion gap 8 mmol/ L 4-13 Not Available [facility] (Lab) [address] [place], [address], 09/11/2025 12:57:34 09/10/2009/10/2025 CMP/C BC/UR IC ACID blood urea nitrogen 5 mg/dL 7-25 low Not Available [facility] (Lab) [address] [place], [address], 09/11/2025 12:57:34 09/10/20 25 09/10/2025 CMP/C BC/UR IC ACID creatinine 0.55 mg/dL 0.60-1 .30 low Not Available [facility] (Lab) [address] [facility], [place], [address], 09/11/2025 12:57:34 09/10/2009/10/2025 CMP/C BC/UR IC ACID egfrcr (CKD-epi 2020) >90 mL/mi n/1.7 3_m2 >=60 Not Available [facility] (Lab) [address] [facility], [place], [address], 09/11/2025 12:57:34 09/10/2009/10/2025 CMP/C BC/UR IC ACID calcium 8.8 mg/dL 8.3-10 .5 Not Available [facility] (Lab) [address] [facility], [place], [address], 09/11/2025 12:57:34 09/10/2009/10/2025 CMP/C BC/UR IC ACID glucose 113 mg/dL 70-100 high Not Available [facility] (Lab) [address] [facility], [place], [address], 09/11/2025 12:57:34 09/10/20 25 09/10/2025 CMP/C BC/UR IC ACID protein, total 6.1 g/dL 6.4-8. 3 low Not Available [facility] (Lab) [address] [place], [address], 09/11/2025 12:57:34 09/10/2009/10/2025 CMP/C BC/UR IC ACID albumin 3.6 g/dL 3.5-5. 0 Not Available [facility] (Lab) [address] [place], [address], 09/11/2025 12:57:34 09/10/20 25 09/10/2025 CMP/C BC/UR IC ACID ALT 17 units /L 9-43 Not Available [facility] (Lab) [address] [place], [address], 09/11/2025 12:57:34 09/10/2009/10/2025 CMP/C BC/UR IC ACID alkaline phosphatase 61 units /L 34-104 Not Available [facility] (Lab) [address] [facility], [place], [address], 09/11/2025 12:57:34 09/10/2009/10/2025 CMP/C BC/UR IC ACID AST 15 units /L 13-39 Not Available [facility] (Lab) [address] [facility], [place], [address], 09/11/2025 12:57:34 09/10/2009/10/2025 CMP/C BC/UR IC ACID bilirubin, total 0.3 mg/dL 0.2-1. 2 Not Available [facility] (Lab) [address] [facility], [place], [address], 09/11/2025 12:57:34 09/10/2009/10/2025 GTT - GESTA JANELL L TRISHA [place], ACOG OB glucose, 1 hour screen 107 mg/dL 70-135 Not Available [facility] (Lab) [address] [facility], [place], [address], 09/11/2025 12:57:35 09/10/2009/10/2025 HIV 1/2 ANTIG EN/AN TIBOD Y, REFLE X CONFI RMATI ON HIV antigen/anti body Nonrea ctive nonrea ctive HIV-1 antig en and HIV-1 /HIV- 2 antib odies were not detec tashi. No labor atory evide nce of HIV infec tion. Not Available [facility] (Lab) [address] [facility], [place], [address], 09/11/2025 12:57:35 09/10/20 25 09/10/2025 RPR SCREE N, REFLE X TITER /CONF IRMAT ION RPR qualitative Nonrea ctive nonrea ctive Not Available [facility] (Lab) [address] [facility], [place], [address], 09/11/2025 12:57:35 09/24/2009/24/2025 CULTU RE: URINE result report SEE RESULT S BELOW Test: Cultu re: Urine Speci men Sourc e: Urine - Clean Catch Speci men Type: Urine Speci men Date: 2024 1332 Resul t Date: 2024 1203 Resul t Statu s: Final resul t Abnor mal: No Resul ting Lab: [facility] [address] [facility] [address] Tel: CULTU RE ----- ----- ----- --- Cultu re resul t (>=3 organ isms prese nt) indic ates possi ble conta minat ion. Repea t cultu re if sympt oms indic ate. Not Available [facility] (Lab) [address] [place], [address], 09/26/2025 13:06:06 09/24/20 25 09/24/2025 urina lysis , dipst ick Leukocytes ++ Not Available [facility] [address], [place], [address], 09/24/2025 13:05:12 09/24/20 25 09/24/2025 urina lysis , dipst ick Protein + Not Available [facility] [address], [place], [address], 09/24/2025 13:05:12 09/24/20 25 09/24/2025 urina lysis , dipst ick pH 5 Not Available [facility] [address], [place], [address], 09/24/2025 13:05:12 09/24/20 25 09/24/2025 urina lysis , dipst ick Blood +++ Not Available [facility] [address], [place], [address], 09/24/2025 13:05:12 09/24/20 25 09/24/2025 urina lysis , dipst ick Specific Dodge 1.015 Not Available [facility] [address], [place], [address], 09/24/2025 13:05:12 09/24/20 25 09/24/2025 urina lysis , dipst ick Appearance cloudy Not Available [facility] [address], [place], [address], 09/24/2025 13:05:12 09/24/20 25 09/24/2025 urina lysis , dipst ick Color yellow Not Available [facility] [address], [place], [address], 09/24/2025 13:05:12 10/08/20 25 10/08/2025 CBC W/DIF F WBC 12.3 10'3/ uL 3.5-10 .5 high Not Available [facility] (Lab) [address], [place], [address], 10/10/2025 00:09:54 10/08/20 25 10/08/2025 CBC W/DIF F RBC 4.69 10'6/ uL (based on docume nted legal sex) 3.80-5 .20 Not Available [facility] (Lab) [address], [place], [address], 10/10/2025 00:09:54 10/08/20 25 10/08/2025 CBC W/DIF F HGB 12.7 g/dL (based on docume nted legal sex) 11.6-1 5.4 Not Available [facility] (Lab) [address], [place], [address], 10/10/2025 00:09:54 10/08/20 25 10/08/2025 CBC W/DIF F HCT 39.8 % (based on docume nted legal sex) 34.0-4 5.0 Not Available [facility] (Lab) [address], [place], [address], 10/10/2025 00:09:54 10/08/20 25 10/08/2025 CBC W/DIF F MCV 84.9 fL 80.0-9 9.0 Not Available [facility] (Lab) [address], [place], [address], 10/10/2025 00:09:54 10/08/20 25 10/08/2025 CBC W/DIF F MCH 27.1 pg 27.0-3 4.0 Not Available [facility] (Lab) [address], [place], [address], 10/10/2025 00:09:54 10/08/20 25 10/08/2025 CBC W/DIF F MCHC 31.9 g/dL 32.0-3 5.5 low Not Available [facility] (Lab) [address], [place], [address], 10/10/2025 00:09:54 10/08/20 25 10/08/2025 CBC W/DIF F RDW 13.2 % 11.0-1 5.0 Not Available [facility] (Lab) [address], [place], [address], 10/10/2025 00:09:54 10/08/20 25 10/08/2025 CBC W/DIF F plt 239 10'3/ uL 150-40 0 Not Available [facility] (Lab) [address], [place], [address], 10/10/2025 00:09:54 10/08/20 25 10/08/2025 CBC W/DIF F MPV 11.9 fL 8.8-12 .1 Not Available [facility] (Lab) [address], [place], [address], 10/10/2025 00:09:54 10/08/20 25 10/08/2025 CBC W/DIF F NRBC's 0.0 % 0.0 Not Available [facility] (Lab) [address], [place], [address], 10/10/2025 00:09:54 10/08/20 25 10/08/2025 CBC W/DIF F absolute NRBCs 0.0 10'3/ uL no refere nce range establ ished Not Available [facility] (Lab) [address], [place], [address], 10/10/2025 00:09:54 10/08/20 25 10/08/2025 CBC W/DIF F neutrophils 70.7 % 34.0-7 3.0 Not Available [facility] (Lab) [address], [place], [address], 10/10/2025 00:09:54 10/08/20 25 10/08/2025 CBC W/DIF F lymphocytes 22.0 % 15.0-5 0.0 Not Available [facility] (Lab) [address], [place], [address], 10/10/2025 00:09:54 10/08/20 25 10/08/2025 CBC W/DIF F monocytes 6.1 % 1.0-15 .0 Not Available [facility] (Lab) [address], [place], [address], 10/10/2025 00:09:54 10/08/20 25 10/08/2025 CBC W/DIF F eosinophils 0.5 % 0.0-8. 0 Not Available [facility] (Lab) [address], [place], [address], 10/10/2025 00:09:54 10/08/20 25 10/08/2025 CBC W/DIF F basophils 0.2 % 0.0-2. 0 Not Available [facility] (Lab) [address], [place], [address], 10/10/2025 00:09:54 10/08/20 25 10/08/2025 CBC W/DIF [...] separ ately if prese nt. Not Available [facility] (Lab) [address], [place], [address], 10/10/2025 00:09:54 10/08/20 25 10/08/2025 CBC W/DIF F absolute neutrophils 8.7 10'3/ uL 1.5-8. 0 high Not Available [facility] (Lab) [address], [place], [address], 10/10/2025 00:09:54 10/08/20 25 10/08/2025 CBC W/DIF F absolute lymphocytes 2.7 10'3/ uL 1.0-4. 0 Not Available [facility] (Lab) [address], [place], [address], 10/10/2025 00:09:54 10/08/20 25 10/08/2025 CBC W/DIF F absolute monocytes 0.8 10'3/ uL 0.2-1. 0 Not Available [facility] (Lab) [address], [place], [address], 10/10/2025 00:09:54 10/08/20 25 10/08/2025 CBC W/DIF F absolute eosinophils 0.1 10'3/ uL 0.0-0. 6 Not Available [facility] (Lab) [address], [place], [address], 10/10/2025 00:09:54 10/08/20 25 10/08/2025 CBC W/DIF F absolute basophils 0.0 10'3/ uL 0.0-0. 3 Not Available [facility] (Lab) [address] [facility], [place], [address], 10/10/2025 00:09:54 10/08/20 25 10/08/2025 CBC W/DIF F absolute immature granulocytes 0.1 10'3/ uL 0.00-0 .10 Refer ence range s for nonbi nary/ inter sex or unspe cifie d gende r patie nts have not been estab lishe d. Pleas e refer to the [employer] wing table for range s estab lishe d for cisge nder patie nts and evalu ate in the clini sam padmini xt of the indiv idual patie nt: https ://angelique dennis book. nm.or g/gen derx Not Available [facility] (Lab) [address] [facility], [place], [address], 10/10/2025 00:09:54 10/08/20 25 10/08/2025 PROTE IN/CR EATIN INE RATIO , URINE creatinine, urine 34.6 mg/dL R-No refer ence range estab lishe d for this assay Not Available [facility] (Lab) [address] [facility], [place], [address], 10/10/2025 00:09:55 10/08/20 25 10/08/2025 PROTE IN/CR EATIN INE RATIO , URINE protein, urine <4 mg/dL R-No refer ence range estab lishe d for this assay Not Available [facility] (Lab) [address] [place], [address], 10/10/2025 00:09:55 10/08/20 25 10/08/2025 PROTE IN/CR EATIN INE RATIO , URINE protein/crea tinine ratio, urine . No Refer ence Range avail able for Rando m Urine s. Unabl e to perfo rm calcu latio n due to low elidia te marline ntrat ion A prote in to creat inine ratio of >=0.1 9 is a good predi ctor of signi kimberan t prote inuri a. A level of <0.14 can rule out signi fican t prote inuri a. Not Available [facility] (Lab) [address] [facility], [place], [address], 10/10/2025 00:09:55 10/08/20 25 10/08/2025 URIC ACID uric acid 3.5 mg/dL 2.3-6. 6 Not Available [facility] (Lab) [address] [facility], [place], [address], 10/10/2025 00:09:55 10/08/20 25 10/08/2025 CMP(C OMPRE HENSI VE METAB OLIC PANEL ) sodium 135 mmol/ L 133-14 6 Not Available [facility] (Lab) [address] [facility], [place], [address], 10/10/2025 00:09:56 10/08/20 25 10/08/2025 CMP(C OMPRE HENSI VE METAB OLIC PANEL ) potassium 3.8 mmol/ L 3.5-5. 1 Not Available [facility] (Lab) [address] [facility], [place], [address], 10/10/2025 00:09:56 10/08/20 25 10/08/2025 CMP(C OMPRE HENSI VE METAB OLIC PANEL ) chloride 102 mmol/ L 98-107 Not Available [facility] (Lab) [address] [place], [address], 10/10/2025 00:09:56 10/08/20 25 10/08/2025 CMP(C OMPRE HENSI VE METAB OLIC PANEL ) carbon dioxide 22 mmol/ L 21-31 Not Available [facility] (Lab) [address] [place], [address], 10/10/2025 00:09:56 10/08/20 25 10/08/2025 CMP(C OMPRE HENSI VE METAB OLIC PANEL ) anion gap 11 mmol/ L 4-13 Not Available [facility] (Lab) [address] [place], [address], 10/10/2025 00:09:56 10/08/20 25 10/08/2025 CMP(C OMPRE HENSI VE METAB OLIC PANEL ) blood urea nitrogen 5 mg/dL 7-25 low Not Available [facility] (Lab) [address], [place], [address], 10/10/2025 00:09:56 10/08/20 25 10/08/2025 CMP(C OMPRE HENSI VE METAB OLIC PANEL ) creatinine 0.53 mg/dL 0.60-1 .30 low Not Available [facility] (Lab) [address], [place], [address], 10/10/2025 00:09:56 10/08/20 25 10/08/2025 CMP(C OMPRE HENSI VE METAB OLIC PANEL ) egfrcr (CKD-epi 2020) >90 mL/mi n/1.7 3_m2 >=60 Not Available [facility] (Lab) [address], [place], [address], 10/10/2025 00:09:56 10/08/20 25 10/08/2025 CMP(C OMPRE HENSI VE METAB OLIC PANEL ) calcium 8.6 mg/dL 8.3-10 .5 Not Available [facility] (Lab) [address], [place], [address], 10/10/2025 00:09:56 10/08/20 25 10/08/2025 CMP(C OMPRE HENSI VE METAB OLIC PANEL ) glucose 92 mg/dL 70-100 Not Available [facility] (Lab) [address] [place], [address], 10/10/2025 00:09:56 10/08/20 25 10/08/2025 CMP(C OMPRE HENSI VE METAB OLIC PANEL ) protein, total 5.9 g/dL 6.4-8. 3 low Not Available [facility] (Lab) [address], [place], [address], 10/10/2025 00:09:56 10/08/20 25 10/08/2025 CMP(C OMPRE HENSI VE METAB OLIC PANEL ) albumin 3.5 g/dL 3.5-5. 0 Not Available [facility] (Lab) [address] [facility], [place], [address], 10/10/2025 00:09:56 10/08/20 25 10/08/2025 CMP(C OMPRE HENSI VE METAB OLIC PANEL ) ALT 17 units /L 9-43 Not Available [facility] (Lab) [address] [facility], [place], [address], 10/10/2025 00:09:56 10/08/20 25 10/08/2025 CMP(C OMPRE HENSI VE METAB OLIC PANEL ) alkaline phosphatase 81 units /L 34-104 Not Available [facility] (Lab) [address] [facility], [place], [address], 10/10/2025 00:09:56 10/08/20 25 10/08/2025 CMP(C OMPRE HENSI VE METAB OLIC PANEL ) AST 16 units /L 13-39 Not Available [facility] (Lab) [address] [facility], [place], [address], 10/10/2025 00:09:56 10/08/20 25 10/08/2025 CMP(C OMPRE HENSI VE METAB OLIC PANEL ) bilirubin, total 0.5 mg/dL 0.2-1. 2 Not Available [facility] (Lab) [address] [place], [address], 10/10/2025 00:09:56 10/08/20 25 10/08/2025 CULTU RE: URINE result report SEE RESULT S BELOW Test: Cultu re: Urine Speci men Sourc e: Urine - Clean Catch Speci men Type: Urine Speci men Date: 10/08 1152 Resul t Date: 10/09 2305 Resul t Statu s: Final resul t Abnor mal: No Oliva damong Lab: [facility] [address] [facility] [address] Tel: CULTU RE ----- ----- ----- --- No growt h in 1 day (dete ction level of 10,00 0 colon ies / ml.) Not Available [facility] (Lab) [address] [facility], [place], [address], 10/10/2025 00:09:56 07/14/20 25 07/14/2025 US, obste tric, 2nd or 3rd trime ster No observ ation record ed. [address], [place], [address], 07/14/2025 11:48:13 07/14/20 25 07/14/2025 US, obste tric, follo w-up No observ ation record ed. [email or web address] [address], [place], [address], 07/14/2025 16:09:19 08/11/20 25 08/11/2025 US, obste tric, follo w-up No observ ation record ed. [facility] [address], [place], [address], 08/11/2025 18:35:48 08/11/20 25 08/11/2025 US, obste tric, follo w-up No observ ation record ed. [email or web address] [address], [place], [address], 08/13/2025 07:06:41 09/10/20 25 09/10/2025 US, obste tric, follo w-up No observ ation record ed. [facility] [address], [place], [address], 09/10/2025 14:42:43 09/10/20 25 09/10/2025 US, obste tric, follo w-up No observ ation record ed. [email or web address] [address], [place], [address], 09/14/2025 14:46:19 10/08/20 25 10/08/2025 US, obste tric, follo w-up No observ ation record ed. [email or web address] [address], [place], [address], 10/11/2025 11:55:36 10/08/2010/08/2025 non-s tress test No observ ation record ed. [email or web address] [place] [address], [place], [address], 10/08/2025 13:48:06 10/08/20 non-s tress test No observ ation record ed. [email or web address] [facility] [address], [place], [address], 10/08/2025 12:32:22 10/08/2010/08/2025 US, obste tric, follo w-up No observ ation record ed. [facility] [address], [place], [address], 10/08/2025 16:57:13 10/08/20 25 10/08/2025 US, obstalisha tric, bioph ysica l profi le + non-s tress test No observ ation record ed. [facility] [address], [place], [address], 10/08/2025 16:57:23 10/13/20 25 10/13/2025 US, obste tric, bioph ysica l profi le + non-s tress test No observ ation record ed. [email or web address] [facility] [address], [place], [address], 10/13/2025 11:51:09 10/13/20 25 10/13/2025 US, obste tric, bioph ysica l profi le + non-s tress test No observ ation record ed. [email or web address] [address], [place], [address], 10/20/2025 11:47:34 10/13/20 25 10/13/2025 non-s tress test No observ ation record ed. [email or web address], [place], [address], 10/13/2025 17:57:16 10/13/20 non-s tress test No observ ation record ed. [address], [place], [address], 10/13/2025 17:34:36 10/22/20 25 10/22/2025 US, obste tric, bioph ysica l profi le No observ ation record ed. [email or web address] [address], [place], [address], 10/29/2025 11:35:15 10/22/20 25 10/22/2025 US, obste tric, bioph ysica l profi le + non-s tress test No observ ation record ed. [facility] [address], [place], [address], 10/22/2025 13:51:55 10/22/20 25 10/22/2025 non-s tress test No observ ation record ed. [address], [place], [address], 10/27/2025 18:38:42 10/22/20 non-s tress test No observ ation record ed. [address], [place], [address], 10/22/2025 12:42:25 10/29/20 25 10/29/2025 US, obste tric, follo w-up No observ ation record ed. [email or web address] [address], [place], [address], 10/30/2025 01:33:53 10/29/20 25 10/29/2025 US, obste tric, follo w-up No observ ation record ed. [facility] [address], [place], [address], 10/29/2025 17:16:32 10/29/20 25 10/29/2025 US, obste tric, bioph ysica l profi le + non-s tress test No observ ation record ed. [facility] [address], [place], [address], 10/29/2025 17:16:42 Result Notes None recorded. Problems Name Problem SNOMED Code Status Onset Date Resolution Date Notes Provider Name and Address Organization Details Recorded Time 93426400 Active 2024 Linda mcgill, [facility] 10:53:18 Hypertens dwight disorder 01633464 Active 2024 labetalol 200mg bid bASA daily serial growth us , weekly testing @ 32wks 10/08/25 300mg bid rpt labs Alysia Santos CNM [address], [place], [address], [facility] 12:52:39 Mixed anxiety and depressiv e disorder 617488434 Active 2024 buspirone 10mg lexapro 20 mg daily Alysia Santos CNM [address], [place], [address], [facility] 5 12:01:06 Past history of gestation al hypertens ion 599531117 Active 2024 vs preeclamp deirdre delivered at 37 weeks Alysia Santos, SARA [address], [place], [address], [facility] 5 12:01:27 Marijuana user 174152415 Active 2024 Pt decreased . Continued use is causing family issues and pt is experienc ing increased anxiety and depressio n symptoms. Nina Olivares er null, [facility] 5 16:48:10 Marijuana user 979953452 Active 2024 Pt decreased . Continued use is causing family issues and pt is experienc ing increased anxiety and depressio n symptoms. Nina Olivares er null, [facility] 5 16:48:11 Problem Notes None recorded. Procedures Surgical History Date Name Laterality Status Provider Name and Address Organization Details Recorded Time 11/18/2021 Date of Last Pap Smear completed Kim Monsno [facility] 08/11/2025 14:32:13 Imaging Results None recorded. Procedure Notes None recorded. Medical Equipment None Reported. Allergies Allergen ID Allergen Name Allergen Category Reaction Reaction Severity Criticality Documentation Date Start Date Code Code System Note Provider Name and Address Organization Details Recorded Time 10808 amoxicill in medicatio n hives Not available Not available 10/08/20252016 723 RxNorm Not Available [email or web address] - prod 5 03:06:32 86906 clindamyc in Not available hives Not available Not available 10/08/20252018 2582 RxNorm Not Available [employer] - prod 5 03:06:32 Medications [...] Address Organization Details Last Updated DateTime 5 74112.7 3504 g 33 kg/m2 162.56 cm 162.56 cm 33 kg/m2 95312.7 4 g 128/79 mm[Hg] 128/79 mm[Hg] Cami Merida [facility] 5 12:38:07 Social History Question Answer Notes LastModified by Organizat ion Details LastModified Time Do You Have An Advance Directive? No Information n ot available 04/22/2025 How Many Years Have You Consumed Alcohol? 8 [email or web address] Information not available 08/11/2025 Are You Blind [...] Or The Highest Degree You Have Received? [id number] Information not available 04/22/2025 Are There Any Guns Present In Your Home? Yes Information not available 04/22/2025 Have You Ever Been Counseled For Unhealthy Alcohol Use? No [email or web address] Information not available 06/16/2025 Do You Use Protection During Sex? No Information not available 04/22/2025 Do You Use Your Seat Belt Or Car Seat Routinely? Yes Information not available 04/22/2025 Are You Sexually Active? Yes [email or web address] Information not available 06/16/2025 Do You Have Smoke And Carbon Monoxide Detectors In Your Home? Yes Information not available 04/22/2025 At What Age Did You Start Smoking Tobacco? 19 Information not available 04/22/2025 How Much Tobacco Do You Smoke? No Information not available 04/22/2025 Do You Use Sunscreen Routinely? No Information not available 04/22/2025 Has Tobacco Cessation Counseling Been Provided? No [email or web address] Information not available 06/16/2025 How Many Years Have You Smoked Tobacco? 4 [email or web address] Information not available 08/11/2025 Have You Used IV Drugs? No Information not available 04/22/2025 Do You Have Difficulty Walking Or Climbing Stairs? No [email or web address] Information not available 06/16/2025 Sex: Unknown Functional Status Question Answer Note LastModified by Organizat ion Details LastModified Time Do you use any illicit or recreational drugs? Yes Information not available 04/22/2025 Do you or have you ever used any other forms of tobacco or nicotine? No [email or web address] Information not available 06/16/2025 What is your level of alcohol consumption? Occasional [email or web address] Information not available 08/11/2025 Are you currently employed? Yes [email or web address] Information not available 06/16/2025 Are you able to walk independently without assistance or assistive devices? [email or web address] Information not available 04/22/2025 Are you able to care for yourself independently? 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 No Information not available 06/16/2025 What is your exercise level? Occasional Information not available 04/22/2025 Mental Status Question Answer Note LastModified by Organization D etails LastModified Time Do you feel stressed (tense, restless, nervous, or anxious, or unable to sleep at night)? [id number] [email or web address] Information not available 08/11/2025 Family History Relationship [...] Medical History Condition Response Anxiety Disorder Y Depression/ depression Y History of abnormal pap Y Hypertension Y Gynecological History Statement/Question Response [...] ICD10 Code Diagnosis IMO Codes Diagnosis Note [id number] Alysia Santos [facility] [address] [address] 09/24/2025 11:20:09 09/24/2025 12:02:06 Gestation period, 30 weeks 88603340 Z3A.30 5511150 Acute urin shamir tract infection 209302895 N39.0 172332 302379 Alysia Santos [facility] [address] [place] [address] 10/08/2025 11:01:42 10/08/2025 12:33:16 Chronic hypertension complicating AND/OR reason for care during 05616638 O10.919 02265064 [id number] Norris Jordan MD [facility] [address] [place] [address] 10/08/2025 11:02:16 10/08/2025 13:23:40 Hypertension complicating 6316530312 9102 O16.3 Z3A.32 07943167 709835 Alysia Santos [facility] [address],[place] [address] 10/08/2025 11:02:36 10/08/2025 12:56:56 -induced hypertension 42385472 O13.9 Hypertensive disorder 38 343420 I10 58470581 History of urinary tract infection 1985172573 107 Z87.154 4749958 882172 Norris Jordan MD [facility] [address] [place] [address] 10/13/2025 10:48:37 10/13/2025 11:35:45 Essential hypertension complicating AND/OR reason for care during 70869880 O10.013 Z3A.33 9686092 474781 Alysia Santos [facility] [address],[place] [address] 1 10/13/2025 10:48:51 10/13/2025 17:36:59 Chronic hypertension complicating AND/OR reason for care during 67841838 O10.919 69158507 190836 Alysia Santos [facility] [address],[place] [address] 1 10/13/2025 10:49:32 10/13/2025 11:51:38 Gestation period, 33 weeks 90788944 Z3A.33 4105339 [id number] Norris Jordan MD [facility] [address],[place] [address] 1 10/22/2025 10:36:47 10/22/2025 13:37:48 Maternal hypertension 824112261 O16.3 Z3A.34 7227244 659505 Alysia Santos [place] [address],[place] [address] 10/22/2025 10:37:30 10/22/2025 13:37:30 Chronic hypertension complicating AND/OR reason for care during 50153633 O10.919 61842853 [id number] Alysia Santos [place] [address],[place] [address] 10/22/2025 10:37:44 10/22/2025 13:34:57 Gestation period, 34 weeks 79738611 Z3A.34 3959119 Health Concerns Section Related Observation LastModified by Organization Detai ls LastModified Time None Recorded Concern Status LastModified by Organization Details LastModified Time None Recorded Payers Encounter Date Sequence Insurance Name Policy Number Policy Sarah Covered Member ID Sarah Member ID Guarantor Name 10/22/2025 1 [employer] [id number] Artem Dora [id number] Artem John Notes Date Note Type Note Provider Name and Address Organization Details Recorded Time 10/22/2025 text/html Generic HPI TemplateReported by Patient Alysia Hay Ames, CN [address], [place], [address], [place] [facility] 10/22/2025 12:39:00 OBGyn Episode Ob Episode Information Episode Created Date Number of Fetuses Patient Bloodtype Patient rh Status Prepregnancy Weight lbs Domestic Partner Domestic Partner Phone Father Name Case Advocate Status 05/19/20 25 1 O Positive 173 OPEN Fetus Data First Name Last Name Admitted to NICU Weight (g) Sex Living Outcome Pediatric Complications Fetus ID Race Codes Race Delivery Type [id number] Problems Problem Notes Problem Name Start Date End Date Resolution Snomed Code Not e Hypertensive disorder 05/19/2025 2703959 3 labetalol 200mg bidbASA dailyserial growth us , weekly testing @ [id number]/ 300mg bid rpt labs Past history of gestational hypertension 05/19/2025 607050254 vs preeclampsia delivered at 37 weeks Marijuana user 08/18/2025 838891926 Pt d ecreased. Continued use is causing family issues and pt is experiencing increased anxiety and depression symptoms. Mixed anxiety and depressive disorder 05/19/2025 128740032 buspiron e 10mglexapro 20 mg daily Pablito [...] Date Ultra Sound Latest Days Gestation 0 [email or web address] 05/19/2025 11/27/19 26 0 Pre-la nena Flowsheet Flowsheet Date 05/19/2025 Yoder Score Blood Edema Fundus Height Fundus Units Glucose Ketones Leukocytes Nitrite Labor Signs Protein Cervic Dilation Cervic Effacement Cervic Station Type Weight in lbs Pre/Post Dialysis Refused Weight 169.244773361712 BP Diastolic BP Location Tested BP Systolic [...] Weight in lbs Pre/Post Dialysis Refused Weight 173.002570707530 BP Diastolic BP Location Tested BP Systolic [...] Weight in lbs Pre/Post Dialysis Refused Weight 179.674303387379 BP Diastolic BP Location Tested BP Systolic [...] Weight in lbs Pre/Post Dialysis Refused Weight 188.145944963485 BP Diastolic BP Location Tested BP Systolic [...] Type Weight in lbs Pre/Post Dialysis Refused 189.234091838105 BP Diastolic BP Location Tested BP Systolic BP Type 78 L arm 125 sitting Fetus Heart Rate Present Fetus Movement A Yes Comments +FM, very tearful today anxi et high, meds usually work when not but having some issues at home and with family. growth good, eating ok, precautions and education. discussed anxiety and will plan referral to [facility] for management. gct today reviewed us Flowsheet Date 09/24/2025 Yoder Score Blood Edema Fundus Height Fundus Units Glucose Ketones Leukocytes Nitrite Labor Signs Protein Cervic Dilation Cervic Effacement Cervic Station 0cm Type Weight in lbs Pre/Post Dialysis Refused Weight 188.682359544799 BP Diastolic BP Location Tested BP Systolic [...] Weight in lbs Pre/Post Dialysis Refused Weight 190.454655431273 BP Diastolic BP Location Tested BP Systolic [...] Type Weight in lbs Pre/Post Dialysis Refused 191.905110442543 BP Diastolic BP Location Tested BP Systolic [...] Type Weight in lbs Pre/Post Dialysis Refused 189.799900917317 BP Diastolic BP Location Tested BP Systolic BP Type 80 L arm 119 sitting Fetus Heart Rate Present Fetus Movement A Yes Comments Flowsheet Date 10/13/2025 Yoder Score Blood Edema Fundus Height Fundus Units Glucose Ketones Leukocytes Nitrite Labor Signs Protein Cervic Dilation Cervic Effacement Cervic Station Type Weight in lbs Pre/Post Dialysis Refused Weight 189.907328476067 BP Diastolic BP Location Tested BP Systolic [...] Weight in lbs Pre/Post Dialysis Refused Weight 192.459189457062 BP Diastolic BP Location Tested BP Systolic BP Type 79 L arm 128 sitting Fetus Heart Rate Present Fetus Movement A Yes Comments Flowsheet Date 10/22/2025 Yoder Score Blood Edema Fundus Height Fundus Units Glucose Ketones Leukocytes Nitrite Labor Signs Protein Cervic Dilation Cervic Effacement Cervic Station Type Weight in lbs Pre/Post Dialysis Refused 192.683757891089 BP Diastolic BP Location Tested BP Systolic [...]
--- OUTSIDE RECORDS SUMMARY | 2025-11-01 06:20 | XMS_ITS | Continuity of Care Document ---
Author Organization [facility] Address [address] [place] [address] Care Team Providers Care Superior Court Clerk Name Role Phone ALESHA WYNN Primary Care Provider Assessment Encounter Date Assessment Date Assessment LastModified by Organization Details LastModified Time 09/24/2025 09/24/2025 Patient is 30___weeks . Discussed plan. Not available 09/24/2025 12:01:25 Plan of Treatment Reminders Order Date Submit [...] available OB ROUTINE 2025 10:00A M Alysia Reddygle, CNM Not available Not available Not available Lab culture , urine 2024 025 [facility] (Lab), [address], [place], [address], 09/26/2025 13:06:07 urinaly sis, dipstic k 2024 025 [place], [facility] [address], [address], [place], [address], 09/24/2025 13:06:11 Referral None recorde d. Procedures None recorde d. Surgeries None recorde d. Imaging None recorde d. Medication Orders Macrobi d 100 mg capsule 2024 [facility]25 [id number] [address], [place], [id number], 10/08/2025 05:01:38 Patient TargetsNo targets recorded. Patient InstructionsNo instructions recorded. Reason for Referral None Reported. Results Created Date Observation Date Name Description Value Unit Range Abnormal Flag Note LastModifiedBy Organization Detail LastModifiedTime 05/27/2005/27/2025 [UNIT Y] ANEUP LOIDY NIPT fraction 10.2% normal Not Available Billimani sullivane [address], [place], [address], 05/27/2025 02:56:04 05/27/2005/27/2025 [UNIT Y] ANEUP LOIDY NIPT 22Q11.2 microdeletio n LOW RISK <1 in 10,000 normal Not Available [address], [place], [address], 05/27/2025 02:56:04 05/27/20 25 05/27/2025 [UNIT Y] ANEUP LOIDY NIPT sex chromosome aneuploidy NOT DETECT ED normal [place], [address], 05/27/2025 02:56:04 05/27/20 25 05/27/2025 [UNIT Y] ANEUP LOIDY NIPT monosomy X LOW RISK <1 in 10,000 normal Not Available [facility] [address], [place], [address], 05/27/2025 02:56:04 05/27/20 25 05/27/2025 [UNIT Y] ANEUP LOIDY NIPT trisomy 13 LOW RISK <1 in 10,000 normal Not Available [facility] [address], [place], [address], 05/27/2025 02:56:04 05/27/20 25 05/27/2025 [UNIT Y] ANEUP LOIDY NIPT trisomy 18 LOW RISK <1 in 10,000 normal Not Available [facility] [address], [place], [address], 05/27/2025 02:56:04 05/27/20 25 05/27/2025 [UNIT Y] ANEUP LOIDY NIPT trisomy 21 LOW RISK <1 in 10,000 normal Not Available [facility] [address], [place], [address], 05/27/2025 02:56:04 05/27/20 25 05/27/2025 [UNIT Y] ANEUP LOIDY NIPT sex FEMALE normal Not Available [facility] [address], [place], [address], 05/27/2025 02:56:04 05/27/20 25 05/27/2025 [UNIT Y] ANEUP LOIDY NIPT gestation SINGLE TON normal Not Available [facility] [address], [place], [address], 05/27/2025 02:56:04 05/27/20 25 05/27/2025 [UNIT Y] ANEUP LOIDY NIPT for detailed report, see pdf See PDF normal Not Available [facility] [address], [place], [address], 05/27/2025 02:56:04 06/03/20 25 06/03/2025 [UNIT Y] LORIN Morocho sickle cell disease/beta -thalassemia /hemoglobino pathies carrier screen NEGATI VE normal Not Available [facility] [address], [place], [address], 06/03/2025 09:08:22 06/03/20 25 06/03/2025 [UNIT Y] LORIN Morocho alpha-thalas semia carrier screen NEGATI VE normal Not Available [facility] [address], [place], [address], 06/03/2025 09:08:22 06/03/20 25 06/03/2025 [UNIT Y] LORIN Morocho cystic fibrosis carrier screen NEGATI VE normal Not Available [facility] [address], [place], [address], 06/03/2025 09:08:22 06/03/20 25 06/03/2025 [UNIT Y] LORIN Morocho spinal muscular atrophy carrier screen NEGATI VE 2 SMN1 copies , SNP not presen t normal Not Available [facility] [address], [place], [address], 06/03/2025 09:08:22 06/03/20 25 06/03/2025 [UNIT Y] LORIN Morocho for detailed report, see pdf See PDF normal Not Available [facility] [address], [place], [address], 06/03/2025 09:08:22 05/19/20 25 05/19/2025 CBC W/DIF F WBC 9.6 10'3/ uL 3.5-10 .5 Not Available [facility] (Lab) [address], [place], [address], 05/20/2025 10:56:36 05/19/20 25 05/19/2025 CBC W/DIF F RBC 4.49 10'6/ uL (based on docume nted legal sex) 3.80-5 .20 Not Available [facility] (Lab) [address] , [place], [address], 05/20/2025 10:56:36 05/19/20 25 05/19/2025 CBC W/DIF F HGB 12.5 g/dL (based on docume nted legal sex) 11.6-1 5.4 Not Available [facility] (Lab) [address], [place], [address], 05/20/2025 10:56:36 05/19/20 25 05/19/2025 CBC W/DIF F HCT 38.2 % (based on docume nted legal sex) 34.0-4 5.0 Not Available [facility] (Lab) [address], [place], [address], 05/20/2025 10:56:36 05/19/20 25 05/19/2025 CBC W/DIF F MCV 85.1 fL 80.0-9 9.0 Not Available [facility] (Lab) [address], [place], [address], 05/20/2025 10:56:36 05/19/20 25 05/19/2025 CBC W/DIF F MCH 27.8 pg 27.0-3 4.0 Not Available [facility] (Lab) [address], [place], [address], 05/20/2025 10:56:36 05/19/20 25 05/19/2025 CBC W/DIF F MCHC 32.7 g/dL 32.0-3 5.5 Not Available [facility] (Lab) [address], [place], [address], 05/20/2025 10:56:36 05/19/20 25 05/19/2025 CBC W/DIF F RDW 13.2 % 11.0-1 5.0 Not Available [facility] (Lab) [address], [place], [address], 05/20/2025 10:56:36 05/19/20 25 05/19/2025 CBC W/DIF F plt 301 10'3/ uL 150-40 0 Not Available [facility] (Lab) [address], [place], [address], 05/20/2025 10:56:36 05/19/20 25 05/19/2025 CBC W/DIF F MPV 11.9 fL 8.8-12 .1 Not Available [facility] (Lab) [address], [place], [address], 05/20/2025 10:56:36 05/19/20 25 05/19/2025 CBC W/DIF F NRBC's 0.0 % 0.0 Not Available [facility] (Lab) [address], [place], [address], 05/20/2025 10:56:36 05/19/20 25 05/19/2025 CBC W/DIF F absolute NRBCs 0.0 10'3/ uL no refere nce range establ ished Not Available [facility] (Lab) [address], [place], [address], 05/20/2025 10:56:36 05/19/20 25 05/19/2025 CBC W/DIF F neutrophils 71.0 % 34.0-7 3.0 Not Available [facility] (Lab) [address], [place], [address], 05/20/2025 10:56:36 05/19/20 25 05/19/2025 CBC W/DIF F lymphocytes 22.5 % 15.0-5 0.0 Not Available [facility] (Lab) [address], [place], [address], 05/20/2025 10:56:36 05/19/20 25 05/19/2025 CBC W/DIF F monocytes 5.3 % 1.0-15 .0 Not Available [facility] (Lab) [address], [place], [address], 05/20/2025 10:56:36 05/19/20 25 05/19/2025 CBC W/DIF F eosinophils 0.6 % 0.0-8. 0 Not Available [facility] (Lab) [address], [place], [address], 05/20/2025 10:56:36 05/19/20 25 05/19/2025 CBC W/DIF F basophils 0.3 % 0.0-2. 0 Not Available [facility] (Lab) [address], [place], [address], 05/20/2025 10:56:36 05/19/20 25 05/19/2025 CBC W/DIF [...] separ ately if prese nt. Not Available [facility] (Lab) [address], [place], [address], 05/20/2025 10:56:36 05/19/20 25 05/19/2025 CBC W/DIF F absolute neutrophils 6.8 10'3/ uL 1.5-8. 0 Not Available [facility] (Lab) [address], [place], [address], 05/20/2025 10:56:36 05/19/20 25 05/19/2025 CBC W/DIF F absolute lymphocytes 2.2 10'3/ uL 1.0-4. 0 Not Available [facility] (Lab) [address], [place], [address], 05/20/2025 10:56:36 05/19/20 25 05/19/2025 CBC W/DIF F absolute monocytes 0.5 10'3/ uL 0.2-1. 0 Not Available [facility] (Lab) [address], [place], [address], 05/20/2025 10:56:36 05/19/20 25 05/19/2025 CBC W/DIF F absolute eosinophils 0.1 10'3/ uL 0.0-0. 6 Not Available [facility] (Lab) [address], [place], [address], 05/20/2025 10:56:36 05/19/20 25 05/19/2025 CBC W/DIF F absolute basophils 0.0 10'3/ uL 0.0-0. 3 Not Available [facility] (Lab) [address], [place], [address], 05/20/2025 10:56:36 05/19/20 25 05/19/2025 CBC W/DIF [...] dennis book. nm.or g/gen derx Not Available [facility] (Lab) [address], [place], [address], 05/20/2025 10:56:36 05/19/2005/19/2025 HEPAT ITIS B SURFA CE ANTIG EN hepatitis B surface antigen Non-re active non-re active This assay was perfo rmed using [employer] ratio n reage nts and test kits. Value s obtai erica with other assay metho ds or kits canno t be used inter melton eably . Not Available [facility] (Lab) [address], [place], [address], 05/20/2025 10:56:37 05/19/2005/19/2025 HIV 1/2 ANTIG EN/AN TIBOD Y, REFLE X CONFI RMATI ON HIV antigen/anti body Nonrea ctive nonrea ctive HIV-1 antig en and HIV-1 /HIV- 2 antib odies were not detec tashi. No labor atory evide nce of HIV infec tion. Not Available [facility] (Lab) [address], [place], [address], 05/20/2025 10:56:37 05/19/2005/19/2025 HEPAT ITIS C ANTIB NEPTALI SCREE N, REFLE X TO CONFI RMATI ON hepatitis C antibody Non-re active non-re active Antib odies to HCV Not Detec tashi, does not exclu de the possi bilit y of expos ure to HCV. Not Available [facility] (Lab) [address], [place], [address], 05/20/2025 10:56:38 05/19/20 25 05/19/2025 VITAM IN D, 25-OH (TOTA L D2/D3 ) vitamin D, 25-hydroxy, total 59.5 NG/mL 30.0-1 00.0 Sugge stive of Defic iency : <20 ng/mL Sugge stive of Insuf ficie ncy: 20-29 ng/mL Sugge stive of Suffi cienc y: 30-10 0 ng/mL Sugge stive of Toxic ity: >150 ng/mL Not Available [facility] (Lab) [address], [place], [address], 05/20/2025 10:56:38 05/19/20 25 05/19/2025 TYPE/ RH/SC REEN ABO/Rh type O POS Not Available [facility] (Lab) [address], [place], [address], 05/20/2025 10:56:39 05/19/20 25 05/19/2025 TYPE/ RH/SC REEN antibody screen NEG Not Available [facility] (Lab) [address] [place], [address], 05/20/2025 10:56:39 05/19/20 25 05/19/2025 TYPE/ RH/SC REEN exp date 2024 23:59 Not Available [facility] (Lab) [address] [place], [address], 05/20/2025 10:56:39 05/19/20 25 05/19/2025 RUBEL LA IGG ANTIB NEPTALI, QUANT rubella antibodies, IgG Reacti ve reacti ve Not Available [facility] (Lab) [address] [place], [address], 05/20/2025 10:56:39 05/19/20 25 05/19/2025 RUBEL LA IGG ANTIB NEPTALI, QUANT rubella antibodies, IgG quant 13.6 IU/mL >=10 Non-r eacti ve (Non- Immun e) <10 IU/mL React dwight (Immu ne) > or = 10 IU/mL Not Available [facility] (Lab) [address] [place], [address], 05/20/2025 10:56:39 05/19/20 25 05/19/2025 HEMOG LOBIN A1C hemoglobin A1C 4.9 % 4.0-5. 6 The Ameri can Diabe claudia Assoc iatio n recom mends that a prima ry goal of thera py loretta perez be a HBA1C of < 7% and that physi cians loretta d reeva luate the treat ment regim en in patie nts with HBA1C value s consi stent ly > 8%. <5.7% Angela l 5.7 - 6.4% Incre ased risk for diabe claudia >=6.5 % Diagn ostic of diabe claudia <7.0% Goal of thera py >8.0% Actio n sugge sted Not Available [facility] (Lab) [address], [place], [address], 05/20/2025 10:56:40 05/19/20 25 05/19/2025 RPR SCREE N, REFLE X TITER /CONF IRMAT ION RPR qualitative Nonrea ctive nonrea ctive Not Available [facility] (Lab) [address], [place], [address], 05/20/2025 10:56:41 05/19/20 25 05/19/2025 CULTU RE: URINE result report SEE RESULT S BELOW Test: Cultu re: Urine Speci men Sourc e: Urine Voide d Speci men Type: Urine Speci men Date: 1413 Resul t Date: 2142 Resul t Statu s: Final resul t Abnor mal: No Resul ting Lab: [facility] [address] [address] Tel: CULTU RE ----- ----- ----- --- No growt h in 1 day (dete ction level of 10,00 0 colon ies / ml.) Not Available [facility] (Lab) [address], [place], [address], 05/20/2025 22:47:16 05/19/20 25 05/19/2025 IMAGE GUIDE D PAP, REFLE X HPV IF ASCUS ONLY image guided Pap, reflex HPV ASCUS only SEE RESULT S BELOW CASE REPOR T: Cytol ogy Gynec ologi jennifer Repor t Case: [id number] Autho alexi g Provi kiah: Alysia Mohr NP Colle cted: 05/19 1409 Order ing Locat ion: [place] Patho logy Recei [place]: 05/20 1144 First Scree n: Wong Jimenez , CT Rescr een: Joseph Deleon, CT Speci men: Scree joanne Pap - [...] jennifer and/o r histo rical findi ngs, [place] inves tigshar ion is recom minal d, as clini luis eduardo camp nted. Not Available [facility] (Lab) [address], [place], [address], 05/24/2025 18:43:29 05/19/20 25 05/19/2025 CT/GC (CAT) , THINP REP VIAL chlamydia trachomatis, PCR Negati ve negati ve Not Available [facility] (Lab) [address] [place], [address], 05/24/2025 18:43:30 05/19/20 25 05/19/2025 CT/GC (CAT) , THINP REP VIAL neisseria gonorrhoeae, PCR Negati ve negati ve Not Available [facility] (Lab) [address] , [place], [address], 05/24/2025 18:43:30 05/19/20 25 05/19/2025 drug scree n, urine Cannabinoids : positi ve Not Available [facility] [address], [place], [address], 05/19/2025 13:35:34 05/19/20 25 05/19/2025 drug scree n, urine Other: positi ve Not Available [facility] [address], [place], [address], 05/19/2025 13:35:34 09/10/20 25 09/10/2025 HEMAT OCRIT (HCT) HCT 39.4 % (based on docume nted legal sex) 34.0-4 5.0 Not Available [facility] (Lab) [address] , [place], [address], 09/11/2025 12:57:34 09/10/20 25 09/10/2025 HEMOG LOBIN (HGB) HGB 12.7 g/dL (based on docume nted legal sex) 11.6-1 5.4 Not Available [facility] (Lab) [address], [place], [address], 09/11/2025 12:57:34 09/10/2009/10/2025 CMP/C BC/UR IC ACID WBC 10.8 10'3/ uL 3.5-10 .5 high Not Available [facility] (Lab) [address], [place], [address], 09/11/2025 12:57:34 09/10/2009/10/2025 CMP/C BC/UR IC ACID RBC 4.59 10'6/ uL (based on docume nted legal sex) 3.80-5 .20 Not Available [facility] (Lab) [address], [place], [address], 09/11/2025 12:57:34 09/10/2009/10/2025 CMP/C BC/UR IC ACID HGB 12.7 g/dL (based on docume nted legal sex) 11.6-1 5.4 Not Available [facility] (Lab) [address], [place], [address], 09/11/2025 12:57:34 09/10/2009/10/2025 CMP/C BC/UR IC ACID HCT 39.4 % (based on docume nted legal sex) 34.0-4 5.0 Not Available [facility] (Lab) [address] [place], [address], 09/11/2025 12:57:34 09/10/2009/10/2025 CMP/C BC/UR IC ACID MCV 85.8 fL 80.0-9 9.0 Not Available [facility] (Lab) [address] [place], [address], 09/11/2025 12:57:34 09/10/2009/10/2025 CMP/C BC/UR IC ACID MCH 27.7 pg 27.0-3 4.0 Not Available [facility] (Lab) [address], [place], [address], 09/11/2025 12:57:34 09/10/2009/10/2025 CMP/C BC/UR IC ACID MCHC 32.2 g/dL 32.0-3 5.5 Not Available [facility] (Lab) [address], [place], [address], 09/11/2025 12:57:34 09/10/2009/10/2025 CMP/C BC/UR IC ACID RDW 12.7 % 11.0-1 5.0 Not Available [facility] (Lab) [address], [place], [address], 09/11/2025 12:57:34 09/10/2009/10/2025 CMP/C BC/UR IC ACID plt 252 10'3/ uL 150-40 0 Not Available [facility] (Lab) [address], [place], [address], 09/11/2025 12:57:34 09/10/2009/10/2025 CMP/C BC/UR IC ACID MPV 11.7 fL 8.8-12 .1 Not Available [facility] (Lab) [address], [place], [address], 09/11/2025 12:57:34 09/10/2009/10/2025 CMP/C BC/UR IC ACID NRBC's 0.0 % 0.0 Not Available [facility] (Lab) [address], [place], [address], 09/11/2025 12:57:34 09/10/2009/10/2025 CMP/C BC/UR IC ACID absolute NRBCs 0.0 10'3/ uL no refere nce range establ ished Not Available [facility] (Lab) [address], [place], [address], 09/11/2025 12:57:34 09/10/2009/10/2025 CMP/C BC/UR IC ACID neutrophils 74.4 % 34.0-7 3.0 high Not Available [facility] (Lab) [address] [place], [address], 09/11/2025 12:57:34 09/10/20 25 09/10/2025 CMP/C BC/UR IC ACID lymphocytes 18.6 % 15.0-5 0.0 Not Available [facility] (Lab) [address] [place], [address], 09/11/2025 12:57:34 09/10/2009/10/2025 CMP/C BC/UR IC ACID monocytes 5.9 % 1.0-15 .0 Not Available [facility] (Lab) [address] [place], [address], 09/11/2025 12:57:34 09/10/20 25 09/10/2025 CMP/C BC/UR IC ACID eosinophils 0.5 % 0.0-8. 0 Not Available [facility] (Lab) [address] [place], [address], 09/11/2025 12:57:34 09/10/20 25 09/10/2025 CMP/C BC/UR IC ACID basophils 0.1 % 0.0-2. 0 Not Available [facility] (Lab) [address] [place], [address], 09/11/2025 12:57:34 09/10/2009/10/2025 CMP/C BC/UR IC ACID immature granulocytes 0.5 % no define d refere nce range Immat ure Granu locyt es (IG) repre sents autom ated enume ratio n of Metam yeloc ytes, Myelo cytes and Promy elocy claudia when IG is < 5%. Blast s are not inclu ded in IG and repor tashi separ ately if prese nt. Not Available [facility] (Lab) [address], [place], [address], 09/11/2025 12:57:34 09/10/2009/10/2025 CMP/C BC/UR IC ACID absolute neutrophils 8.1 10'3/ uL 1.5-8. 0 high Not Available [facility] (Lab) [address], [place], [address], 09/11/2025 12:57:34 09/10/20 25 09/10/2025 CMP/C BC/UR IC ACID absolute lymphocytes 2.0 10'3/ uL 1.0-4. 0 Not Available [facility] (Lab) [address], [place], [address], 09/11/2025 12:57:34 09/10/2009/10/2025 CMP/C BC/UR IC ACID absolute monocytes 0.6 10'3/ uL 0.2-1. 0 Not Available [facility] (Lab) [address], [place], [address], 09/11/2025 12:57:34 09/10/20 25 09/10/2025 CMP/C BC/UR IC ACID absolute eosinophils 0.1 10'3/ uL 0.0-0. 6 Not Available [facility] (Lab) [address], [place], [address], 09/11/2025 12:57:34 09/10/20 25 09/10/2025 CMP/C BC/UR IC ACID absolute basophils 0.0 10'3/ uL 0.0-0. 3 Not Available [facility] (Lab) [address], [place], [address], 09/11/2025 12:57:34 09/10/20 25 09/10/2025 CMP/C BC/UR IC ACID absolute immature granulocytes 0.1 10'3/ uL 0.00-0 .10 Refer ence range s for nonbi nary/ inter sex or unspe cifie d gende r patie nts have not been estab lishe d. Garth brito refer to the saeed wing table for range s estab lishe d for cisge nder patie nts and evalu ate in the clini jennifer padmini xt of the indiv idual patie nt: https ://angelique resendizand book. nm.or g/gen derx Not Available [facility] (Lab) [address] , [place], [address], 09/11/2025 12:57:34 09/10/2009/10/2025 CMP/C BC/UR IC ACID uric acid 3.0 mg/dL 2.3-6. 6 Not Available [facility] (Lab) [address] [place], [address], 09/11/2025 12:57:34 09/10/2009/10/2025 CMP/C BC/UR IC ACID sodium 136 mmol/ L 133-14 6 Not Available [facility] (Lab) [address], [place], [address], 09/11/2025 12:57:34 09/10/2009/10/2025 CMP/C BC/UR IC ACID potassium 3.9 mmol/ L 3.5-5. 1 Not Available [facility] (Lab) [address] [place], [address], 09/11/2025 12:57:34 09/10/20 25 09/10/2025 CMP/C BC/UR IC ACID chloride 102 mmol/ L 98-107 Not Available [facility] (Lab) [address] [place], [address], 09/11/2025 12:57:34 09/10/20 25 09/10/2025 CMP/C BC/UR IC ACID carbon dioxide 26 mmol/ L 21-31 Not Available [facility] (Lab) [address] [place], [address], 09/11/2025 12:57:34 09/10/2009/10/2025 CMP/C BC/UR IC ACID anion gap 8 mmol/ L 4-13 Not Available [facility] (Lab) [address], [place], [address], 09/11/2025 12:57:34 09/10/2009/10/2025 CMP/C BC/UR IC ACID blood urea nitrogen 5 mg/dL 7-25 low Not Available [facility] (Lab) [address], [place], [address], 09/11/2025 12:57:34 09/10/2009/10/2025 CMP/C BC/UR IC ACID creatinine 0.55 mg/dL 0.60-1 .30 low Not Available [facility] (Lab) [address], [place], [address], 09/11/2025 12:57:34 09/10/2009/10/2025 CMP/C BC/UR IC ACID egfrcr (CKD-epi 2020) >90 mL/mi n/1.7 3_m2 >=60 Not Available [facility] (Lab) [address], [place], [address], 09/11/2025 12:57:34 09/10/2009/10/2025 CMP/C BC/UR IC ACID calcium 8.8 mg/dL 8.3-10 .5 Not Available [facility] (Lab) [address], [place], [address], 09/11/2025 12:57:34 09/10/2009/10/2025 CMP/C BC/UR IC ACID glucose 113 mg/dL 70-100 high Not Available [facility] (Lab) [address], [place], [address], 09/11/2025 12:57:34 09/10/2009/10/2025 CMP/C BC/UR IC ACID protein, total 6.1 g/dL 6.4-8. 3 low Not Available [facility] (Lab) [address], [place], [address], 09/11/2025 12:57:34 09/10/2009/10/2025 CMP/C BC/UR IC ACID albumin 3.6 g/dL 3.5-5. 0 Not Available [facility] (Lab) [address] [place], [address], 09/11/2025 12:57:34 09/10/2009/10/2025 CMP/C BC/UR IC ACID ALT 17 units /L 9-43 Not Available [facility] (Lab) [address] [place], [address], 09/11/2025 12:57:34 09/10/2009/10/2025 CMP/C BC/UR IC ACID alkaline phosphatase 61 units /L 34-104 Not Available [facility] (Lab) [address], [place], [address], 09/11/2025 12:57:34 09/10/2009/10/2025 CMP/C BC/UR IC ACID AST 15 units /L 13-39 Not Available [facility] (Lab) [address] [facility], [place], [address], 09/11/2025 12:57:34 09/10/2009/10/2025 CMP/C BC/UR IC ACID bilirubin, total 0.3 mg/dL 0.2-1. 2 Not Available [facility] (Lab) [address] [place], [address], 09/11/2025 12:57:34 09/10/2009/10/2025 GTT - GESTA JANELL Jone Morocho, ACOG OB glucose, 1 hour screen 107 mg/dL 70-135 Not Available [facility] (Lab) [address] [place], [address], 09/11/2025 12:57:35 09/10/2009/10/2025 HIV 1/2 ANTIG EN/AN TIBOD Y, REFLE X CONFI RMATI ON HIV antigen/anti body Nonrea ctive nonrea ctive HIV-1 antig en and HIV-1 /HIV- 2 antib odies were not detec tashi. No labor atory evide nce of HIV infec tion. Not Available [facility] (Lab) [address] , [place], [address], 09/11/2025 12:57:35 09/10/2009/10/2025 RPR SCREE N, REFLE X TITER /CONF IRMAT ION RPR qualitative Nonrea ctive nonrea ctive Not Available [facility] (Lab) [address], [place], [address], 09/11/2025 12:57:35 09/24/2009/24/2025 CULTU RE: URINE result report SEE RESULT S BELOW Test: Cultu re: Urine Speci men Sourc e: Urine - Clean Catch Speci men Type: Urine Speci men Date: 2024 1332 Resul t Date: 2024 1203 Resul t Statu s: Final resul t Abnor mal: No Resul ting Lab: [facility] [address] [facility] [address] Tel: CULTU RE ----- ----- ----- --- Cultu re resul t (>=3 organ isms prese nt) indic ates possi ble conta minat ion. Repea t cultu re if sympt oms indic ate. Not Available [facility] (Lab) [address] [facility], [place], [place], [id number], 09/26/2025 13:06:06 09/24/2009/24/2025 urina lysis , dipst ick Leukocytes ++ Not Available Briana [facility]ain [address], [place], [address], 09/24/2025 13:05:12 09/24/20 25 09/24/2025 urina lysis , dipst ick Protein + Not Available [facility] [address], [place], [address], 09/24/2025 13:05:12 09/24/20 25 09/24/2025 urina lysis , dipst ick pH 5 Not Available [facility] [address], [place], [address], 09/24/2025 13:05:12 09/24/20 25 09/24/2025 urina lysis , dipst ick Blood +++ Not Available [facility] [address], [place], [address], 09/24/2025 13:05:12 09/24/20 25 09/24/2025 urina lysis , dipst ick Specific [place] 1.015 Not Available [facility] [address], [place], [address], 09/24/2025 13:05:12 09/24/20 25 09/24/2025 urina lysis , dipst ick Appearance cloudy Not Available [facility] [address], [place], [address], 09/24/2025 13:05:12 09/24/20 25 09/24/2025 urina lysis , dipst ick Color yellow Not Available [facility] [address], [place], [address], 09/24/2025 13:05:12 07/14/20 25 07/14/2025 US, obste tric, 2nd or 3rd trime ster No observ ation record ed. [email or web address] [facility] [address], [place], [address], 07/14/2025 11:48:13 07/14/20 25 07/14/2025 US, obste tric, follo w-up No observ ation record ed. [email or web address] [address], [place], [address], 07/14/2025 16:09:19 08/11/20 25 08/11/2025 US, obste tric, follo w-up No observ ation record ed. [facility] [address], [place], [address], 08/11/2025 18:35:48 08/11/20 25 08/11/2025 US, obste tric, follo w-up No observ ation record ed. [email or web address] [facility] [address], [place], [address], 08/13/2025 07:06:41 09/10/2009/10/2025 US, obste tric, follo w-up No observ ation record ed. [facility] [address], [place], [address], 09/10/2025 14:42:43 09/10/2009/10/2025 US, obste tric, follo w-up No observ ation record ed. [email or web address] [facility] [address], [place], [address], 09/14/2025 14:46:19 10/08/20 25 10/08/2025 US, obste tric, follo w-up No observ ation record ed. [email or web address] [facility] [address], [place], [address], 10/11/2025 11:55:36 10/08/20 25 10/08/2025 non-s tress test No observ ation record ed. [address], [place], [address], 10/08/2025 13:48:06 10/08/20 non-s tress test No observ ation record ed. [address], [place], [address], 10/08/2025 12:32:22 10/08/20 25 10/08/2025 US, obste tric, follo w-up No observ ation record ed. [facility] [address], [place], [address], 10/08/2025 16:57:13 10/08/20 25 10/08/2025 US, obste tric, bioph ysica l profi le + non-s tress test No observ ation record ed. [facility] [address], [place], [address], 10/08/2025 16:57:23 10/13/20 25 10/13/2025 US, obste tric, bioph ysica l profi le + non-s tress test No observ ation record ed. [email or web address] [facility] [address], [place], [address], 10/13/2025 11:51:09 10/13/20 25 10/13/2025 US, obste tric, bioph ysica l profi le + non-s tress test No observ ation record ed. [email or web address] [facility] [address], [place], [address], 10/20/2025 11:47:34 10/13/20 25 10/13/2025 non-s tress test No observ ation record ed. [address], [place], [address], 10/13/2025 17:57:16 10/13/20 non-s tress test No observ ation record ed. [email or web address] [place] [address] [address], [place], [address], 10/13/2025 17:34:36 10/22/20 25 10/22/2025 US, dominic juárez, bioph ysica l profi le No observ ation record ed. [email or web address] [facility] [address], [place], [address], 10/29/2025 11:35:15 10/22/20 25 10/22/2025 US, dominic tric, bioph ysica l profi le + non-s tress test No observ ation record ed. [facility] [address], [place], [address], 10/22/2025 13:51:55 10/22/20 25 10/22/2025 non-s tress test No observ ation record ed. [address], [place], [address], 10/27/2025 18:38:42 10/22/20 non-s tress test No observ ation record ed. [address], [place], [address], 10/22/2025 12:42:25 10/29/20 25 10/29/2025 US, dominic tric, follo w-up No observ ation record ed. [email or web address] [facility] [address], [place], [address], 10/30/2025 01:33:53 10/29/20 25 10/29/2025 US, obste tric, follo w-up No observ ation record ed. [facility] [address], [place], [address], 10/29/2025 17:16:32 10/29/20 25 10/29/2025 US, dominic tric, bioph ysica l profi le + non-s tress test No observ ation record ed. [email or web address] [facility] [address], [place], [address], 10/29/2025 17:16:42 Result Notes None recorded. Problems Name Problem SNOMED Code Status Onset Date Resolution Date Notes Provider Name and Address Organization Details Recorded Time 65805973 Active 2024 Linda Auguste artem, [facility] 10:53:18 Hypertens dwight disorder 28709935 Active 2024 labetalol 200mg bid bASA daily serial growth us , weekly testing @ 32wks 10/08/25 300mg bid rpt labs Alysia Santos CNM [address], [place], [address], [facility] 12:52:39 Mixed anxiety and depressiv e disorder 803778387 Active 2024 buspirone 10mg lexapro 20 mg daily Alysia Santos CNM [address], [place], [address], [facility] 5 12:01:06 Past history of gestation al hypertens ion 099161837 Active 2024 vs preeclamp deirdre delivered at 37 weeks Alysia Santos CNM [address], [place], [address], [facility] 12:01:27 Marijuana user 004138263 Active 2024 Pt decreased . Continued use is causing family issues and pt is experienc ing increased anxiety and depressio n symptoms. Nina mcgill, [facility] 16:48:10 Marijuana user 148302035 Active 2024 Pt decreased . Continued use is causing family issues and pt is experienc ing increased anxiety and depressio n symptoms. Nina Klaustermei [facility] 5 16:48:11 Problem Notes None recorded. Procedures Surgical History Date Name Laterality Status Provider Name and Address Organization Details Recorded Time 11/18/2021 Date of Last Pap Smear completed Kim Monson [facility] 08/11/2025 14:32:13 Imaging Results None recorded. Procedure Notes None recorded. Medical Equipment None Reported. Allergies Allergen ID Allergen Name Allergen Category Reaction Reaction Severity Criticality Documentation Date Start Date Code Code System Note Provider Name and Address Organization Details Recorded Time 47538 amoxicill in medicatio n hives Not available Not available 10/08/20252016 723 RxNorm Not Available [employer] 5 03:06:32 65374 clindamyc in Not available hives Not available Not available 10/08/20252018 2582 RxNorm Not Available [email or web address] 5 03:06:32 Medications Name Sig Start Date [...] lable Not Available Vitals Date Recorded Body height Body mass index (BMI) Body weight Systolic And Diastolic Provider Name and Address Organization Details Last Updated DateTime 09/24/2025 162.56 cm 32.3 kg/m2 69040.37 g 111/73 mm[Hg] Linda Auguste [facility] 09/24/2025 11:38:22 Social History Question Answer Notes LastModified by Organizat ion Details LastModified Time Do You Have An Advance Directive? No Information n ot available 04/22/2025 How Many Years Have You Consumed Alcohol? 8 [email or web address] Information not available 08/11/2025 Are You Blind [...] Or The Highest Degree You Have Received? [id number] Information not available 04/22/2025 Are There Any Guns Present In Your Home? Yes Information not available 04/22/2025 Have You Ever Been Counseled For Unhealthy Alcohol Use? No [email or web address] Information not available 06/16/2025 Do You Use Protection During Sex? No Information not available 04/22/2025 Do You Use Your Seat Belt Or Car Seat Routinely? Yes Information not available 04/22/2025 Are You Sexually Active? Yes [email or web address] Information not available 06/16/2025 Do You Have Smoke And Carbon Monoxide Detectors In Your Home? Yes Information not available 04/22/2025 At What Age Did You Start Smoking Tobacco? 19 Information not available 04/22/2025 How Much Tobacco Do You Smoke? No Information not available 04/22/2025 Do You Use Sunscreen Routinely? No Information not available 04/22/2025 Has Tobacco Cessation Counseling Been Provided? No [email or web address] Information not available 06/16/2025 How Many Years Have You Smoked Tobacco? 4 [email or web address] Information not available 08/11/2025 Have You Used IV Drugs? No Information not available 04/22/2025 Do You Have Difficulty Walking Or Climbing Stairs? No [email or web address] Information not available 06/16/2025 Sex: Unknown Functional Status Question Answer Note LastModified by Organizat ion Details LastModified Time Do you use any illicit or recreational drugs? Yes Information not available 04/22/2025 Do you or have you ever used any other forms of tobacco or nicotine? No [email or web address] Information not available 06/16/2025 What is your level of alcohol consumption? Occasional [email or web address] Information not available 08/11/2025 Are you currently employed? Yes Information not available 06/16/2025 Are you able to walk independently without assistance or assistive devices? [email or web address] Information not available 04/22/2025 Are you able to care for yourself independently? 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 No Information not available 06/16/2025 What is your exercise level? Occasional Information not available 04/22/2025 Mental Status Question Answer Note LastModified by Organization D etails LastModified Time Do you feel stressed (tense, restless, nervous, or anxious, or unable to sleep at night)? [id number] Information not available 08/11/2025 Family History Relationship [...] ICD10 Code Diagnosis IMO Codes Diagnosis Note [id number] Norris Jordan MD [facility] [address],[place] [address] 09/10/2025 09:35:51 09/10/2025 10:12:45 Maternal hypertension 635357983 O16.3 Z3A.28 2089609 [id number] Alysia Santos CNM [facility] [address] [place] [address] 09/10/2025 09:36:28 09/10/2025 11:14:34 Gestation period, 28 weeks 51065135 Z3A.28 [id number] [id number] Alysia Santos CNM [facility] [address],[place] [address] 09/24/2025 11:20:09 09/24/2025 12:02:06 Gestation period, 30 weeks 18364255 Z3A.30 2858166 Acute urin shamir tract infection 832460853 N39.0 172060 Health Concerns Section Related Observation LastModified by Organization Detai ls LastModified Time None Recorded Concern Status LastModified by Organization Details LastModified Time None Recorded Payers Encounter Date Sequence Insurance Name Policy Number Policy Sarah Covered Member ID Sarah Member ID Guarantor Name 09/24/2025 1 [place] [id number] Artem Dora [id number] Artem [place] Notes Date Note Type Note Provider Name and Address Organization Details Recorded Time 09/24/2025 text/html Generic HPI TemplateReported by Patient Linda Auguste [facility], [facility] 09/24/2025 14:39:21 OBGyn Episode Ob Episode Information Episode Created Date Number of Fetuses Patient Bloodtype Patient rh Status Prepregnancy Weight lbs Domestic Partner Domestic Partner Phone Father Name Scientific Aide Status 05/19/20 25 1 O Positive 173 OPEN Fetus Data First Name Last Name Admitted to NICU Weight (g) Sex Living Outcome Pediatric Complications Fetus ID Race Codes Race Delivery Type [id number] Problems Problem Notes Problem Name Start Date End Date Resolution Snomed Code Not e Hypertensive disorder 05/19/2025 9532953 3 labetalol 200mg bidbASA dailyserial growth us , weekly testing @ 22omb39/21/25 300mg bid rpt labs Past history of gestational hypertension 05/19/2025 998511975 vs preeclampsia delivered at 37 weeks Marijuana user 08/18/2025 773547070 Pt d ecreased. Continued use is causing family issues and pt is experiencing increased anxiety and depression symptoms. Mixed anxiety and depressive disorder 05/19/2025 358639771 buspiron e 10mglexapro 20 mg daily Pablito [...] Date Ultra Sound Latest Days Gestation 0 [email or web address] 05/19/2025 11/27/19 26 0 Pre- Flowsheet Flowsheet Date 05/19/2025 Yoder Score Blood Edema Fundus Height Fundus Units Glucose Ketones Leukocytes Nitrite Labor Signs Protein Cervic Dilation Cervic Effacement Cervic Station Type Weight in lbs Pre/Post Dialysis Refused Weight 169.508388136213 BP Diastolic BP Location Tested BP Systolic BP Type 73 L arm 118 sitting Fetus Heart Rate Present Fetus Movement A No Comments pap collected, labs today, r chavowed history meds, education and precautions, vaping daily, weaning slowly, begin routine care, care in third trimester, delivery 37-38 weeks Flowsheet Date 06/16/2025 Yoder Score Blood Edema Fundus Height Fundus Units Glucose Ketones Leukocytes Nitrite Labor Signs Protein Cervic Dilation Cervic Effacement Cervic Station Type Weight in lbs Pre/Post Dialysis Refused Weight 173.818571957228 BP Diastolic BP Location Tested BP Systolic [...] Weight in lbs Pre/Post Dialysis Refused Weight 179.306026380286 BP Diastolic BP Location Tested BP Systolic [...] Weight in lbs Pre/Post Dialysis Refused Weight 188.239126374668 BP Diastolic BP Location Tested BP Systolic [...] Type Weight in lbs Pre/Post Dialysis Refused 189.126421716127 BP Diastolic BP Location Tested BP Systolic [...] Weight in lbs Pre/Post Dialysis Refused Weight 188.620931894033 BP Diastolic BP Location Tested BP Systolic [...] Weight in lbs Pre/Post Dialysis Refused Weight 190.790314020972 BP Diastolic BP Location Tested BP Systolic [...] Type Weight in lbs Pre/Post Dialysis Refused 191.358668061805 BP Diastolic BP Location Tested BP Systolic [...] Type Weight in lbs Pre/Post Dialysis Refused 189.536092403308 BP Diastolic BP Location Tested BP Systolic BP Type 80 L arm 119 sitting Fetus Heart Rate Present Fetus Movement A Yes Comments Flowsheet Date 10/13/2025 Yoder Score Blood Edema Fundus Height Fundus Units Glucose Ketones Leukocytes Nitrite Labor Signs Protein Cervic Dilation Cervic Effacement Cervic Station Type Weight in lbs Pre/Post Dialysis Refused Weight 189.016363209257 BP Diastolic BP Location Tested BP Systolic BP Type 80 L arm 119 sitting Fetus Heart Rate Present Fetus Movement A Yes Comments +FM bpp / iOL nov 09, 2025 at 0600. precautions [...] Weight in lbs Pre/Post Dialysis Refused Weight 192.270739672141 BP Diastolic BP Location Tested BP Systolic BP Type 79 L arm 128 sitting Fetus Heart Rate Present Fetus Movement A Yes Comments Flowsheet Date 10/22/2025 Yoder Score Blood Edema Fundus Height Fundus Units Glucose Ketones Leukocytes Nitrite Labor Signs Protein Cervic Dilation Cervic Effacement Cervic Station Type Weight in lbs Pre/Post Dialysis Refused 192.096449726895 BP Diastolic BP Location Tested BP Systolic [...]
--- OUTSIDE RECORDS SUMMARY | 2025-11-01 06:20 | XMS_ITS | Continuity of Care Document ---
Author Organization [facility] Address [address] [place] [address] Care Team Providers Care Programming Intern Name Role Phone ALESHA WYNN Primary Care Provider [phone] Assessment Encounter Date Assessment Date Assessment LastModified by Organization Details LastModified Time 08/11/2025 08/11/2025 Patient is _24__weeks . Discussed plan. Not available 08/11/2025 14:48:18 Plan of Treatment Reminders Order Date Submit [...] Not Available [facility] [address], [place], [address], 05/27/2025 02:56:04 05/27/2005/27/2025 [UNIT Y] ANEUP LOIDY NIPT 22Q11.2 microdeletio n LOW RISK <1 in 10,000 normal Not Available [facility] [address], [place], [address], 05/27/2025 02:56:04 05/27/2005/27/2025 [UNIT Y] ANEUP LOIDY NIPT sex chromosome aneuploidy NOT DETECT ED normal Not Available [facility] [address], [place], [address], 05/27/2025 02:56:04 05/27/20 25 05/27/2025 [UNIT Y] ANEUP LOIDY NIPT monosomy X LOW RISK <1 in 10,000 normal Not Available [facility] [address], [place], [address], 05/27/2025 02:56:04 05/27/20 25 05/27/2025 [UNIT Y] ANEUP LOIDY NIPT trisomy 13 LOW RISK <1 in 10,000 normal Not Available [facility] [address], [place], [address], 05/27/2025 02:56:04 05/27/20 25 05/27/2025 [UNIT Y] ANEUP LOIDY NIPT trisomy 18 LOW RISK <1 in 10,000 normal Not Available [facility] [address], [place], [address], 05/27/2025 02:56:04 05/27/20 25 05/27/2025 [UNIT Y] ANEUP LOIDY NIPT trisomy 21 LOW RISK <1 in 10,000 normal Not Available [facility] [address], [place], [address], 05/27/2025 02:56:04 05/27/20 25 05/27/2025 [UNIT Y] ANEUP LOIDY NIPT sex FEMALE normal Not Available [facility] [address], [place], [address], 05/27/2025 02:56:04 05/27/20 25 05/27/2025 [UNIT Y] ANEUP LOIDY NIPT gestation SINGLE TON normal Not Available [facility] [address], [place], [address], 05/27/2025 02:56:04 05/27/20 25 05/27/2025 [UNIT Y] ANEUP LOIDY NIPT for detailed report, see pdf See PDF normal Not Available [facility] [address], [place], [address], 05/27/2025 02:56:04 06/03/20 25 06/03/2025 [UNIT Y] LORIN Morocho sickle cell disease/beta -thalassemia /hemoglobino pathies carrier screen NEGATI VE normal Not Available [facility] [address], [place], [address], 06/03/2025 09:08:22 06/03/20 25 06/03/2025 [UNIT Y] LORIN Morocho alpha-thalas semia carrier screen NEGATI VE normal Not Available [facility] [address], [place], [address], 06/03/2025 09:08:22 06/03/20 25 06/03/2025 [UNIT Y] LORIN RICO Kurtis cystic fibrosis carrier screen NEGATI VE normal Not Available [facility] [address], [place], [address], 06/03/2025 09:08:22 06/03/20 25 06/03/2025 [UNIT Y] LORIN RICO Kurtis spinal muscular atrophy carrier screen NEGATI VE 2 SMN1 copies , SNP not presen t normal Not Available [facility] [address], [place], [address], 06/03/2025 09:08:22 06/03/20 25 06/03/2025 [UNIT Y] LORIN MCCANN TRISHA Morocho for detailed report, see pdf See PDF normal Not Available [facility] [address], [place], [address], 06/03/2025 09:08:22 05/19/20 25 05/19/2025 CBC W/DIF F WBC 9.6 10'3/ uL 3.5-10 .5 Not Available [facility] (Lab) [address], [place], [address], 05/20/2025 10:56:36 05/19/20 25 05/19/2025 CBC W/DIF F RBC 4.49 10'6/ uL (based on docume nted legal sex) 3.80-5 .20 Not Available [facility] (Lab) [address], [place], [address], 05/20/2025 10:56:36 05/19/20 25 05/19/2025 CBC W/DIF F HGB 12.5 g/dL (based on docume nted legal sex) 11.6-1 5.4 Not Available [facility] (Lab) [address], [place], [address], 05/20/2025 10:56:36 05/19/20 25 05/19/2025 CBC W/DIF F HCT 38.2 % (based on docume nted legal sex) 34.0-4 5.0 Not Available [facility] (Lab) [address], [place], [address], 05/20/2025 10:56:36 05/19/20 25 05/19/2025 CBC W/DIF F MCV 85.1 fL 80.0-9 9.0 Not Available [facility] (Lab) [address], [place], [address], 05/20/2025 10:56:36 05/19/20 25 05/19/2025 CBC W/DIF F MCH 27.8 pg 27.0-3 4.0 Not Available [facility] (Lab) [address], [place], [address], 05/20/2025 10:56:36 05/19/20 25 05/19/2025 CBC W/DIF F MCHC 32.7 g/dL 32.0-3 5.5 Not Available [facility] (Lab) [address], [place], [address], 05/20/2025 10:56:36 05/19/20 25 05/19/2025 CBC W/DIF F RDW 13.2 % 11.0-1 5.0 Not Available [facility] (Lab) [address], [place], [address], 05/20/2025 10:56:36 05/19/20 25 05/19/2025 CBC W/DIF F plt 301 10'3/ uL 150-40 0 Not Available [facility] (Lab) [address], [place], [address], 05/20/2025 10:56:36 05/19/20 25 05/19/2025 CBC W/DIF F MPV 11.9 fL 8.8-12 .1 Not Available [facility] (Lab) [address], [place], [address], 05/20/2025 10:56:36 05/19/20 25 05/19/2025 CBC W/DIF F NRBC's 0.0 % 0.0 Not Available [facility] (Lab) [address], [place], [address], 05/20/2025 10:56:36 05/19/20 25 05/19/2025 CBC W/DIF F absolute NRBCs 0.0 10'3/ uL no refere nce range establ ished Not Available [facility] (Lab) [address], [place], [address], 05/20/2025 10:56:36 05/19/20 25 05/19/2025 CBC W/DIF F neutrophils 71.0 % 34.0-7 3.0 Not Available [facility] (Lab) [address], [place], [address], 05/20/2025 10:56:36 05/19/20 25 05/19/2025 CBC W/DIF F lymphocytes 22.5 % 15.0-5 0.0 Not Available [facility] (Lab) [address], [place], [address], 05/20/2025 10:56:36 05/19/20 25 05/19/2025 CBC W/DIF F monocytes 5.3 % 1.0-15 .0 Not Available [facility] (Lab) [address], [place], [address], 05/20/2025 10:56:36 05/19/20 25 05/19/2025 CBC W/DIF F eosinophils 0.6 % 0.0-8. 0 Not Available [facility] (Lab) [address], [place], [address], 05/20/2025 10:56:36 05/19/20 25 05/19/2025 CBC W/DIF F basophils 0.3 % 0.0-2. 0 Not Available [facility] (Lab) [address], [place], [address], 05/20/2025 10:56:36 05/19/20 25 05/19/2025 CBC W/DIF [...] separ ately if prese nt. Not Available [facility] (Lab) [address], [place], [address], 05/20/2025 10:56:36 05/19/20 25 05/19/2025 CBC W/DIF F absolute neutrophils 6.8 10'3/ uL 1.5-8. 0 Not Available [facility] (Lab) [address], [place], [address], 05/20/2025 10:56:36 05/19/20 25 05/19/2025 CBC W/DIF F absolute lymphocytes 2.2 10'3/ uL 1.0-4. 0 Not Available [facility] (Lab) [address], [place], [address], 05/20/2025 10:56:36 05/19/20 25 05/19/2025 CBC W/DIF F absolute monocytes 0.5 10'3/ uL 0.2-1. 0 Not Available [facility] (Lab) [address], [place], [address], 05/20/2025 10:56:36 05/19/20 25 05/19/2025 CBC W/DIF F absolute eosinophils 0.1 10'3/ uL 0.0-0. 6 Not Available [facility] (Lab) [address], [place], [address], 05/20/2025 10:56:36 05/19/20 25 05/19/2025 CBC W/DIF F absolute basophils 0.0 10'3/ uL 0.0-0. 3 Not Available [facility] (Lab) [address], [place], [address], 05/20/2025 10:56:36 05/19/20 25 05/19/2025 CBC W/DIF [...] resendizand book. nm.or g/gen derx Not Available [facility] (Lab) [address], [place], [address], 05/20/2025 10:56:36 05/19/20 25 05/19/2025 HEPAT ITIS B SURFA CE ANTIG EN hepatitis B surface antigen Non-re active non-re active This assay was perfo rmed using [employer] ratio n reage nts and test kits. Value s obtai erica with other assay metho ds or kits canno t be used inter melton eably . Not Available [facility] (Lab) [address], [place], [address], 05/20/2025 10:56:37 05/19/2005/19/2025 HIV 1/2 ANTIG EN/AN TIBOD Y, REFLE X CONFI RMATI ON HIV antigen/anti body Nonrea ctive nonrea ctive HIV-1 antig en and HIV-1 /HIV- 2 antib odies were not detec tashi. No labor atory evide nce of HIV infec tion. Not Available [facility] (Lab) [address], [place], [address], 05/20/2025 10:56:37 05/19/20 25 05/19/2025 HEPAT ITIS C ANTIB NEPTALI SCREE N, REFLE X TO CONFI RMATI ON hepatitis C antibody Non-re active non-re active Antib odies to HCV Not Detec tashi, does not exclu de the possi bilit y of expos ure to HCV. Not Available [facility] (Lab) [address], [place], [address], 05/20/2025 10:56:38 05/19/20 25 05/19/2025 VITAM IN D, 25-OH (TOTA L D2/D3 ) vitamin D, 25-hydroxy, total 59.5 NG/mL 30.0-1 00.0 Sugge stive of Defic iency : <20 ng/mL Sugge stive of Insuf ficie ncy: 20-29 ng/mL Sugge stive of Suffi cienc y: 30-10 0 ng/mL Sugge stive of Toxic ity: >150 ng/mL Not Available [facility] (Lab) [address], [place], [address], 05/20/2025 10:56:38 05/19/20 25 05/19/2025 TYPE/ RH/SC REEN ABO/Rh type O POS Not Available [facility] (Lab) [address], [place], [address], 05/20/2025 10:56:39 05/19/20 25 05/19/2025 TYPE/ RH/SC REEN antibody screen NEG Not Available [facility] (Lab) [address], [place], [address], 05/20/2025 10:56:39 05/19/20 25 05/19/2025 TYPE/ RH/SC REEN exp date 2024 23:59 Not Available [facility] (Lab) [address], [place], [address], 05/20/2025 10:56:39 05/19/20 25 05/19/2025 RUBEL LA IGG ANTIB NEPTALI, QUANT rubella antibodies, IgG Reacti ve reacti ve Not Available [facility] (Lab) [address], [place], [address], 05/20/2025 10:56:39 05/19/20 25 05/19/2025 RUBEL LA IGG ANTIB NEPTALI, QUANT rubella antibodies, IgG quant 13.6 IU/mL >=10 Non-r eacti ve (Non- Immun e) <10 IU/mL React dwight (Immu ne) > or = 10 IU/mL Not Available [facility] (Lab) [address], [place], [address], 05/20/2025 10:56:39 05/19/20 25 05/19/2025 HEMOG LOBIN [...] >8.0% Actio n sugge sted Not Available [facility] (Lab) [address], [place], [address], 05/20/2025 10:56:40 05/19/20 25 05/19/2025 RPR SCREE N, REFLE X TITER /CONF IRMAT ION RPR qualitative Nonrea ctive nonrea ctive Not Available [facility] (Lab) [address], [place], [address], 05/20/2025 10:56:41 05/19/20 25 05/19/2025 CULTU RE: URINE result report SEE RESULT S BELOW Test: Cultu re: Urine Speci men Sourc e: Urine Voide d Speci men Type: Urine Speci men Date: 7/2/2 025 1413 Resul t Date: 2142 Resul t Statu s: Final resul t Abnor mal: No Resul ting Lab: [facility] [address] [facility] [address] Tel: CULTU RE ----- ----- ----- --- No growt h in 1 day (dete ction level of 10,00 0 colon ies / ml.) Not Available [facility] (Lab) [address], [place], [address], 05/20/2025 22:47:16 05/19/20 25 05/19/2025 IMAGE GUIDE [...] elial Lesimani morocho or Jose Antonio ribeiro ([facility]) . Elect sapphire becker d by [...] clini luis eduardo camp nted. Not Available [facility] (Lab) [address], [place], [address], 05/24/2025 18:43:29 05/19/20 25 05/19/2025 CT/GC (CAT) , THINP REP VIAL chlamydia trachomatis, PCR Negati ve negati ve Not Available [facility] (Lab) [address], [place], [address], 05/24/2025 18:43:30 05/19/20 25 05/19/2025 CT/GC (CAT) , THINP REP VIAL neisseria gonorrhoeae, PCR Negati ve negati ve Not Available [facility] (Lab) [address], [place], [address], 05/24/2025 18:43:30 05/19/20 25 05/19/2025 drug scree n, urine Cannabinoids : positi ve Not Available [facility] [address], [place], [address], 05/19/2025 13:35:34 05/19/20 25 05/19/2025 drug scree n, urine Other: positi ve Not Available [facility] [address], [place], [address], 05/19/2025 13:35:34 07/14/20 25 07/14/2025 US, obste tric, 2nd or 3rd trime ster No observ ation record ed. [email or web address] [facility] [address], [place], [address], 07/14/2025 11:48:13 07/14/20 25 07/14/2025 US, obste tric, follo w-up No observ ation record ed. [email or web address] [facility] [address], [place], [address], 07/14/2025 16:09:19 08/11/20 25 08/11/2025 US, obste tric, follo w-up No observ ation record ed. [email or web address] [address], [place], [address], 08/11/2025 18:35:48 08/11/20 25 08/11/2025 US, obste tric, follo w-up No observ ation record ed. [email or web address] [facility] [address], [place], [address], 08/13/2025 07:06:41 09/10/2009/10/2025 US, obste tric, follo w-up No observ ation record ed. [facility] [address], [place], [address], 09/10/2025 14:42:43 09/10/20 25 09/10/2025 US, obste tric, follo w-up No observ ation record ed. [email or web address] [facility] [address], [place], [address], 09/14/2025 14:46:19 10/08/2010/08/2025 US, obste tric, follo w-up No observ ation record ed. [facility] [address], [place], [address], 10/11/2025 11:55:36 10/08/20 25 10/08/2025 non-s tress test No observ ation record ed. [address], [place], [address], 10/08/2025 13:48:06 10/08/20 non-s tress test No observ ation record ed. [email or web address], [place], [address], 10/08/2025 12:32:22 10/08/20 25 10/08/2025 , obste tric, follo w-up No observ ation record ed. [facility] [address], [place], [address], 10/08/2025 16:57:13 10/08/20 25 10/08/2025 US, obste tric, bioph ysica l profi le + non-s tress test No observ ation record ed. [facility] [address], [place], [address], 10/08/2025 16:57:23 10/13/2010/13/2025 US, obste tric, bioph ysica l profi le + non-s tress test No observ ation record ed. [email or web address] [facility] [address], [place], [address], 10/13/2025 11:51:09 10/13/20 25 10/13/2025 US, obste tric, bioph ysica l profi le + non-s tress test No observ ation record ed. [email or web address] [facility] [address], [place], [address], 10/20/2025 11:47:34 10/13/20 25 10/13/2025 non-s tress test No observ ation record ed. [email or web address] [facility] [address], [place], [address], 10/13/2025 17:57:16 10/13/20 non-s tress test No observ ation record ed. [email or web address] [facility] [address], [place], [address], 10/13/2025 17:34:36 10/22/20 25 10/22/2025 US, obste tric, bioph ysica l profi le No observ ation record ed. [email or web address] [facility] [address], [place], [address], 10/29/2025 11:35:15 10/22/20 25 10/22/2025 US, obste tric, bioph ysica l profi le + non-s tress test No observ ation record ed. [facility] [address], [place], [address], 10/22/2025 13:51:55 10/22/20 25 10/22/2025 non-s tress test No observ ation record ed. [address], [place], [address], 10/27/2025 18:38:42 10/22/20 non-s tress test No observ ation record ed. [address], [place], [address], 10/22/2025 12:42:25 10/29/20 25 10/29/2025 US, obste tric, follo w-up No observ ation record ed. [email or web address] [facility] [address], [place], [address], 10/30/2025 01:33:53 10/29/20 25 10/29/2025 US, obste tric, follo w-up No observ ation record ed. [facility] [address], [place], [address], 10/29/2025 17:16:32 10/29/20 25 10/29/2025 US, obste tric, bioph ysica l profi le + non-s tress test No observ ation record ed. [facility] [address], [place], [address], 10/29/2025 17:16:42 Result Notes None recorded. Problems Name Problem SNOMED Code Status Onset Date Resolution Date Notes Provider Name and Address Organization Details Recorded Time 74996552 Active 2024 Linda mcgill [place] - [facility] 10:53:18 Hypertens dwight disorder 05689991 Active 2024 labetalol 200mg bid bASA daily serial growth us , weekly testing @ 32wks 10/08/25 300mg bid rpt labs Alysia Santos CNM [address], [place], [address], [facility] 5 12:52:39 Mixed anxiety and depressiv e disorder 911805761 Active 2024 buspirone 10mg lexapro 20 mg daily Alysia Santos CNM [address], [place], [address], [facility] 5 12:01:06 Past history of gestation al hypertens ion 387267445 Active 2024 vs preeclamp deirdre delivered at 37 weeks Alysia Santos CNM [address], [place], [address], [facility] 5 12:01:27 Marijuana user 945002136 Active 2024 Pt decreased . Continued use is causing family issues and pt is experienc ing increased anxiety and depressio n symptoms. Nina Hammboom mccann [facility], [facility] 5 16:48:10 Marijuana user 899507800 Active 2024 Pt decreased . Continued use is causing family issues and pt is experienc ing increased anxiety and depressio n symptoms. Nina Olivares mna [facility] 5 16:48:11 Problem Notes None recorded. Procedures Surgical History Date Name Laterality Status Provider Name and Address Organization Details Recorded Time 11/18/2021 Date of Last Pap Smear completed Kim Monson [facility] 08/11/2025 14:32:13 Imaging Results None recorded. Procedure Notes None recorded. Medical Equipment None Reported. Allergies Allergen ID Allergen Name Allergen Category Reaction Reaction Severity Criticality Documentation Date Start Date Code Code System Note Provider Name and Address Organization Details Recorded Time 47988 amoxicill in medicatio n hives Not available Not available 10/08/20252016 723 RxNorm Not Available vanessa - External Data Service - prod 03:06:32 19343 clindamyc in Not available hives Not available [...] and Address Organization Details Last Updated DateTime 08/11/2025 162.56 cm 32.3 kg/m2 87270.37 g 119/74 mm[Hg] Kim Monson [place] - [facility] 08/11/2025 14:31:57 Social History Question Answer Notes LastModified by Organizat ion Details LastModified Time Do You Have An Advance Directive? No Information n ot available 04/22/2025 How Many Years Have You Consumed Alcohol? 8 [email or web address] Information not available 08/11/2025 Are You Blind [...] Or The Highest Degree You Have Received? [id number] Information not available 04/22/2025 Are There Any Guns Present In Your Home? Yes Information not available 04/22/2025 Have You Ever Been Counseled For Unhealthy Alcohol Use? No [email or web address] Information not available 06/16/2025 Do You Use Protection During Sex? No Information not available 04/22/2025 Do You Use Your Seat Belt Or Car Seat Routinely? Yes Information not available 04/22/2025 Are You Sexually Active? Yes [email or web address] Information not available 06/16/2025 Do You Have Smoke And Carbon Monoxide Detectors In Your Home? Yes Information not available 04/22/2025 At What Age Did You Start Smoking Tobacco? 19 Information not available 04/22/2025 How Much Tobacco Do You Smoke? No Information not available 04/22/2025 Do You Use Sunscreen Routinely? No Information not available 04/22/2025 Has Tobacco Cessation Counseling Been Provided? No [email or web address] Information not available 06/16/2025 How Many Years Have You Smoked Tobacco? 4 Information not available 08/11/2025 Have You Used IV Drugs? No Information not available 04/22/2025 Do You Have Difficulty Walking Or Climbing Stairs? No [email or web address] Information not available 06/16/2025 Sex: Unknown Functional Status Question Answer Note LastModified by Organizat ion Details LastModified Time Do you use any illicit or recreational drugs? Yes Information not available 04/22/2025 Do you or have you ever used any other forms of tobacco or nicotine? No [email or web address] Information not available 06/16/2025 What is your level of alcohol consumption? Occasional Information not available 08/11/2025 Are you currently employed? Yes Information not available 06/16/2025 Are you able to walk independently without assistance or assistive devices? [email or web address] Information not available 04/22/2025 Are you able to care for yourself independently? 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 No [email or web address] Information not available 06/16/2025 What is your exercise level? Occasional Information not available 04/22/2025 Mental Status Question Answer Note LastModified by Organization D etails LastModified Time Do you feel stressed (tense, restless, nervous, or anxious, or unable to sleep at night)? [id number] [email or web address] Information not available 08/11/2025 Family History Relationship [...] ICD10 Code Diagnosis IMO Codes Diagnosis Note [id number] Norris Jordan MD [facility] [address],[place] [address] 07/14/2025 09:19:21 07/14/2025 10:36:57 screening for malformation 268686044 Z36.3 Z3A.20 5229607179 [id number] [facility] [address],[place] [address] 07/14/2025 09:20:42 07/14/2025 11:32:11 Gestation period, 20 weeks 46388569 Z3A.20 0432406 [id number] Norris Jordan MD [facility] [address],[place] [address] 08/11/2025 13:50:59 08/11/2025 14:30:57 Chronic hypertension complicating AND/OR reason for care during 69896770 O10.912 Z3A.24 96327243 [id number] [facility] [address],[place] [address] 08/11/2025 13:51:12 08/11/2025 14:48:47 Gestation period, 24 weeks 922535445 Z3A.24 [id number] Health Concerns Section Related Observation LastModified by Organization Detai ls LastModified Time None Recorded Concern Status LastModified by Organization Details LastModified Time None Recorded Payers Encounter Date Sequence Insurance Name Policy Number Policy Sarah Covered Member ID Sarah Member ID Guarantor Name 08/11/2025 1 [place] [id number] Artem [place]ham [id number] Artem Dora Notes Date Note Type Note Provider Name and Address Organization Details Recorded Time 08/11/2025 text/html Generic HPI TemplateReported by Patient Alysia MillerLaura Santos, SARA [address], [place], [address], [place] [facility] 08/11/2025 14:48:35 OBGyn Episode Ob Episode Information Episode Created Date Number of Fetuses Patient Bloodtype Patient rh Status Prepregnancy Weight lbs Domestic Partner Domestic Partner Phone Father Name Service Center Assistant Status 05/19/20 25 1 O Positive 173 OPEN Fetus Data First Name Last Name Admitted to NICU Weight (g) Sex Living Outcome Pediatric Complications Fetus ID Race Codes Race Delivery Type [id number] Problems Problem Notes Problem Name Start Date End Date Resolution Snomed Code Not e Hypertensive disorder 05/19/2025 1488622 3 labetalol 200mg bidbASA dailyserial growth us , weekly testing @ 50zhh8310/08/25 300mg bid rpt labs Past history of gestational hypertension 05/19/2025 799951971 vs preeclampsia delivered at 37 weeks Marijuana user 08/18/2025 670542746 Pt d ecreased. Continued use is causing family issues and pt is experiencing increased anxiety and depression symptoms. Mixed anxiety and depressive disorder 05/19/2025 513919818 buspiron e 10mglexapro 20 mg daily Pablito [...] Date Ultra Sound Latest Days Gestation 0 [email or web address] 05/19/2025 11/27/19 26 0 Pre-la nena Flowsheet Flowsheet Date 05/19/2025 Yoder Score Blood Edema Fundus Height Fundus Units Glucose Ketones Leukocytes Nitrite Labor Signs Protein Cervic Dilation Cervic Effacement Cervic Station Type Weight in lbs Pre/Post Dialysis Refused Weight 169.518019070439 BP Diastolic BP Location Tested BP Systolic BP Type 73 L arm 118 sitting Fetus Heart Rate Present Fetus Movement A No Comments pap collected, labs today, shiva [place] history meds, education and precautions, vaping daily, weaning slowly, begin routine care, care in third trimester, delivery 37-38 weeks Flowsheet Date 06/16/2025 Yoder Score Blood Edema Fundus Height Fundus Units Glucose Ketones Leukocytes Nitrite Labor Signs Protein Cervic Dilation Cervic Effacement Cervic Station Type Weight in lbs Pre/Post Dialysis Refused Weight [id number] BP Diastolic BP Location Tested BP Systolic [...] Weight in lbs Pre/Post Dialysis Refused Weight 179.595986246059 BP Diastolic BP Location Tested BP Systolic [...] Weight in lbs Pre/Post Dialysis Refused Weight 188.308737184369 BP Diastolic BP Location Tested BP Systolic [...] Type Weight in lbs Pre/Post Dialysis Refused 189.053702430739 BP Diastolic BP Location Tested BP Systolic [...] Weight in lbs Pre/Post Dialysis Refused Weight 188.839072793684 BP Diastolic BP Location Tested BP Systolic [...] Weight in lbs Pre/Post Dialysis Refused Weight 190.187187734458 BP Diastolic BP Location Tested BP Systolic [...] Type Weight in lbs Pre/Post Dialysis Refused 191.231304916453 BP Diastolic BP Location Tested BP Systolic [...] Type Weight in lbs Pre/Post Dialysis Refused 189.160268101757 BP Diastolic BP Location Tested BP Systolic BP Type 80 L arm 119 sitting Fetus Heart Rate Present Fetus Movement A Yes Comments Flowsheet Date 10/13/2025 Yoder Score Blood Edema Fundus Height Fundus Units Glucose Ketones Leukocytes Nitrite Labor Signs Protein Cervic Dilation Cervic Effacement Cervic Station Type Weight in lbs Pre/Post Dialysis Refused Weight 189.662571444772 BP Diastolic BP Location Tested BP Systolic [...] Weight in lbs Pre/Post Dialysis Refused Weight 192.336091420611 BP Diastolic BP Location Tested BP Systolic BP Type 79 L arm 128 sitting Fetus Heart Rate Present Fetus Movement A Yes Comments Flowsheet Date 10/22/2025 Yoder Score Blood Edema Fundus Height Fundus Units Glucose Ketones Leukocytes Nitrite Labor Signs Protein Cervic Dilation Cervic Effacement Cervic Station Type Weight in lbs Pre/Post Dialysis Refused 192.311852671600 BP Diastolic BP Location Tested BP Systolic [...]
--- OUTSIDE RECORDS SUMMARY | 2025-11-01 06:20 | XMS_ITS | Continuity of Care Document ---
Author Organization [facility] Address [address] [place] [address] Care Team Providers Care Hydrant Setter Name Role Phone TIANNA ALESHA Primary Care [...] d. Imaging non-str ess test 2024 025 [address], [address], [address], [place], [address], 10/08/2025 12:33:16 Medication Orders None recorde d. Patient TargetsNo targets recorded. Patient InstructionsNo instructions recorded. Reason for Referral None Reported. Results Created Date Observation Date Name Description Value Unit Range Abnormal Flag Note LastModifiedBy Organization Detail LastModifiedTime 05/27/2005/27/2025 [UNIT Y] ANEUP LOIDY NIPT fraction 10.2% normal Not Available [facility] [address], [place], [id number], 05/27/2025 02:56:04 05/27/20 25 05/27/2025 [UNIT Y] ANEUP LOIDY NIPT 22Q11.2 microdeletio n LOW RISK <1 in 10,000 normal Not Available [facility] [address], [place], [address], 05/27/2025 02:56:04 05/27/20 25 05/27/2025 [UNIT Y] ANEUP LOIDY NIPT sex chromosome aneuploidy NOT DETECT ED normal Not Available [facility] [address], [place], [id number], 05/27/2025 02:56:04 05/27/20 25 05/27/2025 [UNIT Y] ANEUP LOIDY NIPT monosomy X LOW RISK <1 in 10,000 normal Not Available [facility] [address], [place], [id number], 05/27/2025 02:56:04 05/27/20 25 05/27/2025 [UNIT Y] ANEUP LOIDY NIPT trisomy 13 LOW RISK <1 in 10,000 normal Not Available [facility] [address], [place], [id number], 05/27/2025 02:56:04 05/27/20 25 05/27/2025 [UNIT Y] ANEUP LOIDY NIPT trisomy 18 LOW RISK <1 in 10,000 normal Not Available [facility] [address], [place], [address], 05/27/2025 02:56:04 05/27/20 25 05/27/2025 [UNIT Y] ANEUP LOIDY NIPT trisomy 21 LOW RISK <1 in 10,000 normal Not Available [facility] [address], [place], [address], 05/27/2025 02:56:04 05/27/20 25 05/27/2025 [UNIT Y] ANEUP LOIDY NIPT sex FEMALE normal Not Available [facility] [address], [place], [address], 05/27/2025 02:56:04 05/27/20 25 05/27/2025 [UNIT Y] ANEUP LOIDY NIPT gestation SINGLE TON normal Not Available [facility] [address], [place], [address], 05/27/2025 02:56:04 05/27/20 25 05/27/2025 [UNIT Y] ANEUP LOIDY NIPT for detailed report, see pdf See PDF normal Not Available [facility] [address], [place], [address], 05/27/2025 02:56:04 06/03/20 25 06/03/2025 [UNIT Y] LORIN RAMY Morocho sickle cell disease/beta -thalassemia /hemoglobino pathies carrier screen NEGATI VE normal Not Available [facility] [address], [place], [address], 06/03/2025 09:08:22 06/03/20 25 06/03/2025 [UNIT Y] LORIN RAMY RICO N alpha-thalas semia carrier screen NEGATI VE normal Not Available [facility] [address], [place], [address], 06/03/2025 09:08:22 06/03/20 25 06/03/2025 [UNIT Y] LORIN MCCANN TRISHA Morocho cystic fibrosis carrier screen NEGATI VE normal Not Available [facility] [address], [place], [address], 06/03/2025 09:08:22 06/03/20 25 06/03/2025 [UNIT Y] LORIN RAMY Morocho spinal muscular atrophy carrier screen NEGATI VE 2 SMN1 copies , SNP not presen t normal Not Available [facility] [address], [place], [address], 06/03/2025 09:08:22 06/03/20 25 06/03/2025 [UNIT Y] LORIN RAMY Morocho for detailed report, see pdf See PDF normal Not Available [facility] [address], [place], [address], 06/03/2025 09:08:22 05/19/20 25 05/19/2025 CBC W/DIF F WBC 9.6 10'3/ uL 3.5-10 .5 Not Available [facility] (Lab) [address], [place], [address], 05/20/2025 10:56:36 05/19/20 25 05/19/2025 CBC W/DIF F RBC 4.49 10'6/ uL (based on docume nted legal sex) 3.80-5 .20 Not Available [facility] (Lab) [address], [place], [address], 05/20/2025 10:56:36 05/19/20 25 05/19/2025 CBC W/DIF F HGB 12.5 g/dL (based on docume nted legal sex) 11.6-1 5.4 Not Available [facility] (Lab) [address], [place], [address], 05/20/2025 10:56:36 05/19/20 25 05/19/2025 CBC W/DIF F HCT 38.2 % (based on docume nted legal sex) 34.0-4 5.0 Not Available [facility] (Lab) [address], [place], [address], 05/20/2025 10:56:36 05/19/20 25 05/19/2025 CBC W/DIF F MCV 85.1 fL 80.0-9 9.0 Not Available [facility] (Lab) [address], [place], [address], 05/20/2025 10:56:36 05/19/20 25 05/19/2025 CBC W/DIF F MCH 27.8 pg 27.0-3 4.0 Not Available [facility] (Lab) [address], [place], [address], 05/20/2025 10:56:36 05/19/20 25 05/19/2025 CBC W/DIF F MCHC 32.7 g/dL 32.0-3 5.5 Not Available [facility] (Lab) [address], [place], [address], 05/20/2025 10:56:36 05/19/20 25 05/19/2025 CBC W/DIF F RDW 13.2 % 11.0-1 5.0 Not Available [facility] (Lab) [address], [place], [address], 05/20/2025 10:56:36 05/19/20 25 05/19/2025 CBC W/DIF F plt 301 10'3/ uL 150-40 0 Not Available [facility] (Lab) [address] [place] [address], [address], 05/20/2025 10:56:36 05/19/20 25 05/19/2025 CBC W/DIF F MPV 11.9 fL 8.8-12 .1 Not Available [facility] (Lab) [address], [place], [address], 05/20/2025 10:56:36 05/19/20 25 05/19/2025 CBC W/DIF F NRBC's 0.0 % 0.0 Not Available [facility] (Lab) [address] [facility], [place], [address], 05/20/2025 10:56:36 05/19/20 25 05/19/2025 CBC W/DIF F absolute NRBCs 0.0 10'3/ uL no refere nce range establ ished Not Available [facility] (Lab) [address] [facility], [place], [address], 05/20/2025 10:56:36 05/19/20 25 05/19/2025 CBC W/DIF F neutrophils 71.0 % 34.0-7 3.0 Not Available [facility] (Lab) [address] [facility], [place], [address], 05/20/2025 10:56:36 05/19/20 25 05/19/2025 CBC W/DIF F lymphocytes 22.5 % 15.0-5 0.0 Not Available [facility] (Lab) [address] [facility], [place], [address], 05/20/2025 10:56:36 05/19/20 25 05/19/2025 CBC W/DIF F monocytes 5.3 % 1.0-15 .0 Not Available [facility] (Lab) [address] [facility], [place], [address], 05/20/2025 10:56:36 05/19/20 25 05/19/2025 CBC W/DIF F eosinophils 0.6 % 0.0-8. 0 Not Available [facility] (Lab) [address] [facility], [place], [address], 05/20/2025 10:56:36 05/19/20 25 05/19/2025 CBC W/DIF F basophils 0.3 % 0.0-2. 0 Not Available [facility] (Lab) [address] [facility], [place], [address], 05/20/2025 10:56:36 05/19/20 25 05/19/2025 CBC W/DIF [...] separ ately if prese nt. Not Available [facility] (Lab) [address] [facility], [place], [address], 05/20/2025 10:56:36 05/19/20 25 05/19/2025 CBC W/DIF F absolute neutrophils 6.8 10'3/ uL 1.5-8. 0 Not Available [facility] (Lab) [address] [facility], [place], [address], 05/20/2025 10:56:36 05/19/20 25 05/19/2025 CBC W/DIF F absolute lymphocytes 2.2 10'3/ uL 1.0-4. 0 Not Available [facility] (Lab) [address] [facility], [place], [address], 05/20/2025 10:56:36 05/19/20 25 05/19/2025 CBC W/DIF F absolute monocytes 0.5 10'3/ uL 0.2-1. 0 Not Available [facility] (Lab) [address] [facility], [place], [address], 05/20/2025 10:56:36 05/19/20 25 05/19/2025 CBC W/DIF F absolute eosinophils 0.1 10'3/ uL 0.0-0. 6 Not Available [facility] (Lab) [address] [facility], [place], [address], 05/20/2025 10:56:36 05/19/20 25 05/19/2025 CBC W/DIF F absolute basophils 0.0 10'3/ uL 0.0-0. 3 Not Available [facility] (Lab) [address], [place], [address], 05/20/2025 10:56:36 05/19/20 25 05/19/2025 CBC W/DIF [...] and book. nm.or g/gen derx Not Available [facility] (Lab) [address], [place], [address], 05/20/2025 10:56:36 05/19/20 25 05/19/2025 HEPAT ITIS B SURFA CE ANTIG EN hepatitis B surface antigen Non-re active non-re active This assay was perfo rmed using [employer] ratio n reage nts and test kits. Value s obtai erica with other assay metho ds or kits canno t be used inter melton eably . Not Available [facility] (Lab) [address], [place], [address], 05/20/2025 10:56:37 05/19/20 25 05/19/2025 HIV 1/2 ANTIG EN/AN TIBOD Y, REFLE X CONFI RMATI ON HIV antigen/anti body Nonrea ctive nonrea ctive HIV-1 antig en and HIV-1 /HIV- 2 antib odies were not detec tashi. No labor atory evide nce of HIV infec tion. Not Available [facility] (Lab) [address], [place], [address], 05/20/2025 10:56:37 05/19/20 25 05/19/2025 HEPAT ITIS C ANTIB NEPTALI SCREE N, REFLE X TO CONFI RMATI ON hepatitis C antibody Non-re active non-re active Antib odies to HCV Not Detec tashi, does not exclu de the possi bilit y of expos ure to HCV. Not Available [facility] (Lab) [address] [facility], [place], [address], 05/20/2025 10:56:38 05/19/20 25 05/19/2025 VITAM IN D, 25-OH (TOTA L D2/D3 ) vitamin D, 25-hydroxy, total 59.5 NG/mL 30.0-1 00.0 Sugge stive of Defic iency : <20 ng/mL Sugge stive of Insuf ficie ncy: 20-29 ng/mL Sugge stive of Suffi cienc y: 30-10 0 ng/mL Sugge stive of Toxic ity: >150 ng/mL Not Available [facility] (Lab) [address] [facility], [place], [address], 05/20/2025 10:56:38 05/19/20 25 05/19/2025 TYPE/ RH/SC REEN ABO/Rh type O POS Not Available [facility] (Lab) [address] [place], [address], 05/20/2025 10:56:39 05/19/20 25 05/19/2025 TYPE/ RH/SC REEN antibody screen NEG Not Available [facility] (Lab) [address] [place], [address], 05/20/2025 10:56:39 05/19/20 25 05/19/2025 TYPE/ RH/SC REEN exp date 2024 23:59 Not Available [facility] (Lab) [address] [place], [address], 05/20/2025 10:56:39 05/19/20 25 05/19/2025 RUBEL LA IGG ANTIB NEPTALI, QUANT rubella antibodies, IgG Reacti ve reacti ve Not Available [facility] (Lab) [address] [facility], [place], [address], 05/20/2025 10:56:39 05/19/20 25 05/19/2025 RUBEL LA IGG ANTIB NEPTALI, QUANT rubella antibodies, IgG quant 13.6 IU/mL >=10 Non-r eacti ve (Non- Immun e) <10 IU/mL React dwight (Immu ne) > or = 10 IU/mL Not Available [facility] (Lab) [address] [facility], [place], [address], 05/20/2025 10:56:39 05/19/20 25 05/19/2025 HEMOG LOBIN [...] >8.0% Actio n sugge sted Not Available [facility] (Lab) [address] [facility], [place], [address], 05/20/2025 10:56:40 05/19/20 25 05/19/2025 RPR SCREE N, REFLE X TITER /CONF IRMAT ION RPR qualitative Nonrea ctive nonrea ctive Not Available [facility] (Lab) [address] [facility], [place], [address], 05/20/2025 10:56:41 05/19/20 25 05/19/2025 CULTU RE: URINE result report SEE RESULT S BELOW Test: Cultu re: Urine Speci men Sourc e: Urine Voide d Speci men Type: Urine Speci men Date: 1413 Resul t Date: 2142 Resul t Statu s: Final resul t Abnor mal: No Resul ting Lab: [facility] [address] [facility] [address] Tel: CULTU RE ----- ----- ----- --- No growt h in 1 day (dete ction level of 10,00 0 colon ies / ml.) Not Available [facility] (Lab) [address] [facility], [place], [address], 05/20/2025 22:47:16 05/19/20 25 05/19/2025 IMAGE GUIDE [...] elial Lesimani morocho or Jose Antonio ribeiro ([facility]) . Elect sapphire becker d by [...] clini luis eduardo camp nted. Not Available [facility] (Lab) [address], [place], [address], 05/24/2025 18:43:29 05/19/20 25 05/19/2025 CT/GC (CAT) , THINP REP VIAL chlamydia trachomatis, PCR Negati ve negati ve Not Available [facility] (Lab) [address], [place], [address], 05/24/2025 18:43:30 05/19/20 25 05/19/2025 CT/GC (CAT) , THINP REP VIAL neisseria gonorrhoeae, PCR Negati ve negati ve Not Available [facility] (Lab) [address] [place], [address], 05/24/2025 18:43:30 05/19/20 25 05/19/2025 drug scree n, urine Cannabinoids : positi ve Not Available [facility] [address], [place], [address], 05/19/2025 13:35:34 05/19/20 25 05/19/2025 drug scree n, urine Other: positi ve Not Available [facility] [address], [place], [address], 05/19/2025 13:35:34 09/10/20 25 09/10/2025 HEMAT OCRIT (HCT) HCT 39.4 % (based on docume nted legal sex) 34.0-4 5.0 Not Available [facility] (Lab) [address], [place], [address], 09/11/2025 12:57:34 09/10/20 25 09/10/2025 HEMOG LOBIN (HGB) HGB 12.7 g/dL (based on docume nted legal sex) 11.6-1 5.4 Not Available [facility] (Lab) [address] [place], [address], 09/11/2025 12:57:34 09/10/20 25 09/10/2025 CMP/C BC/UR IC ACID WBC 10.8 10'3/ uL 3.5-10 .5 high Not Available [facility] (Lab) [address] [place], [address], 09/11/2025 12:57:34 09/10/20 25 09/10/2025 CMP/C BC/UR IC ACID RBC 4.59 10'6/ uL (based on docume nted legal sex) 3.80-5 .20 Not Available [facility] (Lab) [address] [facility], [place], [address], 09/11/2025 12:57:34 09/10/2009/10/2025 CMP/C BC/UR IC ACID HGB 12.7 g/dL (based on docume nted legal sex) 11.6-1 5.4 Not Available [facility] (Lab) [address] [facility], [place], [address], 09/11/2025 12:57:34 09/10/2009/10/2025 CMP/C BC/UR IC ACID HCT 39.4 % (based on docume nted legal sex) 34.0-4 5.0 Not Available [facility] (Lab) [address] [facility], [place], [address], 09/11/2025 12:57:34 09/10/2009/10/2025 CMP/C BC/UR IC ACID MCV 85.8 fL 80.0-9 9.0 Not Available [facility] (Lab) [address] [facility], [place], [address], 09/11/2025 12:57:34 09/10/2009/10/2025 CMP/C BC/UR IC ACID MCH 27.7 pg 27.0-3 4.0 Not Available [facility] (Lab) [address] [place], [address], 09/11/2025 12:57:34 09/10/2009/10/2025 CMP/C BC/UR IC ACID MCHC 32.2 g/dL 32.0-3 5.5 Not Available [facility] (Lab) [address] [place], [address], 09/11/2025 12:57:34 09/10/20 25 09/10/2025 CMP/C BC/UR IC ACID RDW 12.7 % 11.0-1 5.0 Not Available [facility] (Lab) [address] [facility], [place], [address], 09/11/2025 12:57:34 09/10/2009/10/2025 CMP/C BC/UR IC ACID plt 252 10'3/ uL 150-40 0 Not Available [facility] (Lab) [address] [facility], [place], [address], 09/11/2025 12:57:34 09/10/2009/10/2025 CMP/C BC/UR IC ACID MPV 11.7 fL 8.8-12 .1 Not Available [facility] (Lab) [address] [facility], [place], [address], 09/11/2025 12:57:34 09/10/2009/10/2025 CMP/C BC/UR IC ACID NRBC's 0.0 % 0.0 Not Available [facility] (Lab) [address] [place], [address], 09/11/2025 12:57:34 09/10/2009/10/2025 CMP/C BC/UR IC ACID absolute NRBCs 0.0 10'3/ uL no refere nce range establ ished Not Available [facility] (Lab) [address] [place], [address], 09/11/2025 12:57:34 09/10/2009/10/2025 CMP/C BC/UR IC ACID neutrophils 74.4 % 34.0-7 3.0 high Not Available [facility] (Lab) [address] [place], [address], 09/11/2025 12:57:34 09/10/2009/10/2025 CMP/C BC/UR IC ACID lymphocytes 18.6 % 15.0-5 0.0 Not Available [facility] (Lab) [address] [place], [address], 09/11/2025 12:57:34 09/10/2009/10/2025 CMP/C BC/UR IC ACID monocytes 5.9 % 1.0-15 .0 Not Available [facility] (Lab) [address] [facility], [place], [address], 09/11/2025 12:57:34 09/10/2009/10/2025 CMP/C BC/UR IC ACID eosinophils 0.5 % 0.0-8. 0 Not Available [facility] (Lab) [address] [facility], [place], [address], 09/11/2025 12:57:34 09/10/2009/10/2025 CMP/C BC/UR IC ACID basophils 0.1 % 0.0-2. 0 Not Available [facility] (Lab) [address] [facility], [place], [address], 09/11/2025 12:57:34 09/10/2009/10/2025 CMP/C BC/UR IC ACID immature granulocytes 0.5 % no define d refere nce range Immat ure Granu locyt es (IG) repre sents autom ated enume ratio n of Metam yeloc ytes, Myelo cytes and Promy elocy claudia when IG is < 5%. Blast s are not inclu ded in IG and repor tashi separ ately if prese nt. Not Available [facility] (Lab) [address] [facility], [place], [address], 09/11/2025 12:57:34 09/10/2009/10/2025 CMP/C BC/UR IC ACID absolute neutrophils 8.1 10'3/ uL 1.5-8. 0 high Not Available [facility] (Lab) [address] [place], [address], 09/11/2025 12:57:34 09/10/2009/10/2025 CMP/C BC/UR IC ACID absolute lymphocytes 2.0 10'3/ uL 1.0-4. 0 Not Available [facility] (Lab) [address] [facility], [place], [address], 09/11/2025 12:57:34 09/10/2009/10/2025 CMP/C BC/UR IC ACID absolute monocytes 0.6 10'3/ uL 0.2-1. 0 Not Available [facility] (Lab) [address] [facility], [place], [address], 09/11/2025 12:57:34 09/10/2009/10/2025 CMP/C BC/UR IC ACID absolute eosinophils 0.1 10'3/ uL 0.0-0. 6 Not Available [facility] (Lab) [address] [facility], [place], [address], 09/11/2025 12:57:34 09/10/2009/10/2025 CMP/C BC/UR IC ACID absolute basophils 0.0 10'3/ uL 0.0-0. 3 Not Available [facility] (Lab) [address] [facility], [place], [address], 09/11/2025 12:57:34 09/10/2009/10/2025 CMP/C BC/UR IC ACID [...] dennis book. nm.or g/gen derx Not Available [facility] (Lab) [address] [facility], [place], [address], 09/11/2025 12:57:34 09/10/2009/10/2025 CMP/C BC/UR IC ACID uric acid 3.0 mg/dL 2.3-6. 6 Not Available [facility] (Lab) [address] [facility], [place], [address], 09/11/2025 12:57:34 09/10/2009/10/2025 CMP/C BC/UR IC ACID sodium 136 mmol/ L 133-14 6 Not Available [facility] (Lab) [address] [facility], [place], [address], 09/11/2025 12:57:34 09/10/2009/10/2025 CMP/C BC/UR IC ACID potassium 3.9 mmol/ L 3.5-5. 1 Not Available [facility] (Lab) [address] [facility], [place], [address], 09/11/2025 12:57:34 09/10/2009/10/2025 CMP/C BC/UR IC ACID chloride 102 mmol/ L 98-107 Not Available [facility] (Lab) [address] [facility], [place], [address], 09/11/2025 12:57:34 09/10/2009/10/2025 CMP/C BC/UR IC ACID carbon dioxide 26 mmol/ L 21-31 Not Available [facility] (Lab) [address] [facility], [place], [address], 09/11/2025 12:57:34 09/10/2009/10/2025 CMP/C BC/UR IC ACID anion gap 8 mmol/ L 4-13 Not Available [facility] (Lab) [address] [place], [address], 09/11/2025 12:57:34 09/10/2009/10/2025 CMP/C BC/UR IC ACID blood urea nitrogen 5 mg/dL 7-25 low Not Available [facility] (Lab) [address] [place], [address], 09/11/2025 12:57:34 09/10/20 25 09/10/2025 CMP/C BC/UR IC ACID creatinine 0.55 mg/dL 0.60-1 .30 low Not Available [facility] (Lab) [address] [facility], [place], [address], 09/11/2025 12:57:34 09/10/2009/10/2025 CMP/C BC/UR IC ACID egfrcr (CKD-epi 2020) >90 mL/mi n/1.7 3_m2 >=60 Not Available [facility] (Lab) [address] [facility], [place], [address], 09/11/2025 12:57:34 09/10/2009/10/2025 CMP/C BC/UR IC ACID calcium 8.8 mg/dL 8.3-10 .5 Not Available [facility] (Lab) [address] [facility], [place], [address], 09/11/2025 12:57:34 09/10/2009/10/2025 CMP/C BC/UR IC ACID glucose 113 mg/dL 70-100 high Not Available [facility] (Lab) [address] [facility], [place], [address], 09/11/2025 12:57:34 09/10/20 25 09/10/2025 CMP/C BC/UR IC ACID protein, total 6.1 g/dL 6.4-8. 3 low Not Available [facility] (Lab) [address] [facility], [place], [address], 09/11/2025 12:57:34 09/10/2009/10/2025 CMP/C BC/UR IC ACID albumin 3.6 g/dL 3.5-5. 0 Not Available [facility] (Lab) [address] [place], [address], 09/11/2025 12:57:34 09/10/20 25 09/10/2025 CMP/C BC/UR IC ACID ALT 17 units /L 9-43 Not Available [facility] (Lab) [address] [place], [address], 09/11/2025 12:57:34 09/10/2009/10/2025 CMP/C BC/UR IC ACID alkaline phosphatase 61 units /L 34-104 Not Available [facility] (Lab) [address] [facility], [place], [address], 09/11/2025 12:57:34 09/10/2009/10/2025 CMP/C BC/UR IC ACID AST 15 units /L 13-39 Not Available [facility] (Lab) [address] [facility], [place], [address], 09/11/2025 12:57:34 09/10/2009/10/2025 CMP/C BC/UR IC ACID bilirubin, total 0.3 mg/dL 0.2-1. 2 Not Available [facility] (Lab) [address], [place], [address], 09/11/2025 12:57:34 09/10/2009/10/2025 GTT - GESTA JANELL L TRISHA Morocho, ACOG OB glucose, 1 hour screen 107 mg/dL 70-135 Not Available [facility] (Lab) [address], [place], [address], 09/11/2025 12:57:35 09/10/2009/10/2025 HIV 1/2 ANTIG EN/AN TIBOD Y, REFLE X CONFI RMATI ON HIV antigen/anti body Nonrea ctive nonrea ctive HIV-1 antig en and HIV-1 /HIV- 2 antib odies were not detec tashi. No labor atory evide nce of HIV infec tion. Not Available [facility] (Lab) [address], [place], [address], 09/11/2025 12:57:35 09/10/20 25 09/10/2025 RPR SCREE N, REFLE X TITER /CONF IRMAT ION RPR qualitative Nonrea ctive nonrea ctive Not Available [facility] (Lab) [address], [place], [address], 09/11/2025 12:57:35 09/24/2009/24/2025 CULTU RE: URINE result report SEE RESULT S BELOW Test: Cultu re: Urine Speci men Sourc e: Urine - Clean Catch Speci men Type: Urine Speci men Date: 2024 1332 Resul t Date: 2024 1203 Resul t Statu s: Final resul t Abnor mal: No Resul ting Lab: [facility] [address] [facility] [address] Tel: CULTU RE ----- ----- ----- --- Cultu re resul t (>=3 organ isms prese nt) indic ates possi ble conta minat ion. Repea t cultu re if sympt oms indic ate. Not Available [facility] (Lab) [address], [place], [address], 09/26/2025 13:06:06 09/24/20 25 09/24/2025 urina lysis , dipst ick Leukocytes ++ Not Available [facility] [address], [place], [address], 09/24/2025 13:05:12 09/24/20 25 09/24/2025 urina lysis , dipst ick Protein + Not Available [facility] [address], [place], [address], 09/24/2025 13:05:12 09/24/20 25 09/24/2025 urina lysis , dipst ick pH 5 Not Available [facility] [address], [place], [address], 09/24/2025 13:05:12 09/24/20 25 09/24/2025 urina lysis , dipst ick Blood +++ Not Available [facility] [address], [place], [address], 09/24/2025 13:05:12 09/24/20 25 09/24/2025 urina lysis , dipst ick Specific [employer] 1.015 Not Available [facility] [address], [place], [place], [address], 09/24/2025 13:05:12 09/24/20 25 09/24/2025 urina lysis , dipst ick Appearance cloudy Not Available [facility] [address], [place], [address], 09/24/2025 13:05:12 09/24/20 25 09/24/2025 urina lysis , dipst ick Color yellow Not Available [facility] [address], [place], [address], 09/24/2025 13:05:12 10/08/20 25 10/08/2025 CBC W/DIF F WBC 12.3 10'3/ uL 3.5-10 .5 high Not Available [facility] (Lab) [address], [place], [address], 10/10/2025 00:09:54 10/08/20 25 10/08/2025 CBC W/DIF F RBC 4.69 10'6/ uL (based on docume nted legal sex) 3.80-5 .20 Not Available [facility] (Lab) [address], [place], [address], 10/10/2025 00:09:54 10/08/20 25 10/08/2025 CBC W/DIF F HGB 12.7 g/dL (based on docume nted legal sex) 11.6-1 5.4 Not Available [facility] (Lab) [address], [place], [address], 10/10/2025 00:09:54 10/08/20 25 10/08/2025 CBC W/DIF F HCT 39.8 % (based on docume nted legal sex) 34.0-4 5.0 Not Available [facility] (Lab) [address], [place], [address], 10/10/2025 00:09:54 10/08/20 25 10/08/2025 CBC W/DIF F MCV 84.9 fL 80.0-9 9.0 Not Available [facility] (Lab) [address], [place], [address], 10/10/2025 00:09:54 10/08/20 25 10/08/2025 CBC W/DIF F MCH 27.1 pg 27.0-3 4.0 Not Available [facility] (Lab) [address], [place], [address], 10/10/2025 00:09:54 10/08/20 25 10/08/2025 CBC W/DIF F MCHC 31.9 g/dL 32.0-3 5.5 low Not Available [facility] (Lab) [address], [place], [address], 10/10/2025 00:09:54 10/08/20 25 10/08/2025 CBC W/DIF F RDW 13.2 % 11.0-1 5.0 Not Available [facility] (Lab) [address], [place], [address], 10/10/2025 00:09:54 10/08/20 25 10/08/2025 CBC W/DIF F plt 239 10'3/ uL 150-40 0 Not Available [facility] (Lab) [address], [place], [address], 10/10/2025 00:09:54 10/08/20 25 10/08/2025 CBC W/DIF F MPV 11.9 fL 8.8-12 .1 Not Available [facility] (Lab) [address], [place], [address], 10/10/2025 00:09:54 10/08/20 25 10/08/2025 CBC W/DIF F NRBC's 0.0 % 0.0 Not Available [facility] (Lab) [address], [place], [address], 10/10/2025 00:09:54 10/08/20 25 10/08/2025 CBC W/DIF F absolute NRBCs 0.0 10'3/ uL no refere nce range establ ished Not Available [facility] (Lab) [address], [place], [address], 10/10/2025 00:09:54 10/08/20 25 10/08/2025 CBC W/DIF F neutrophils 70.7 % 34.0-7 3.0 Not Available [facility] (Lab) [address], [place], [address], 10/10/2025 00:09:54 10/08/20 25 10/08/2025 CBC W/DIF F lymphocytes 22.0 % 15.0-5 0.0 Not Available [facility] (Lab) [address], [place], [address], 10/10/2025 00:09:54 10/08/20 25 10/08/2025 CBC W/DIF F monocytes 6.1 % 1.0-15 .0 Not Available [facility] (Lab) [address] [place], [address], 10/10/2025 00:09:54 10/08/20 25 10/08/2025 CBC W/DIF F eosinophils 0.5 % 0.0-8. 0 Not Available [facility] (Lab) [address] [place], [address], 10/10/2025 00:09:54 10/08/20 25 10/08/2025 CBC W/DIF F basophils 0.2 % 0.0-2. 0 Not Available [facility] (Lab) [address] [place], [address], 10/10/2025 00:09:54 10/08/20 25 10/08/2025 CBC W/DIF [...] separ ately if prese nt. Not Available [facility] (Lab) [address] [place], [address], 10/10/2025 00:09:54 10/08/20 25 10/08/2025 CBC W/DIF F absolute neutrophils 8.7 10'3/ uL 1.5-8. 0 high Not Available [facility] (Lab) [address] [facility], [place], [address], 10/10/2025 00:09:54 10/08/20 25 10/08/2025 CBC W/DIF F absolute lymphocytes 2.7 10'3/ uL 1.0-4. 0 Not Available [facility] (Lab) [address], [place], [address], 10/10/2025 00:09:54 10/08/20 25 10/08/2025 CBC W/DIF F absolute monocytes 0.8 10'3/ uL 0.2-1. 0 Not Available [facility] (Lab) [address] [facility], [place], [address], 10/10/2025 00:09:54 10/08/20 25 10/08/2025 CBC W/DIF F absolute eosinophils 0.1 10'3/ uL 0.0-0. 6 Not Available [facility] (Lab) [address], [place], [address], 10/10/2025 00:09:54 10/08/20 25 10/08/2025 CBC W/DIF F absolute basophils 0.0 10'3/ uL 0.0-0. 3 Not Available [facility] (Lab) [address] [facility], [place], [address], 10/10/2025 00:09:54 10/08/20 25 10/08/2025 CBC W/DIF F absolute immature granulocytes 0.1 10'3/ uL 0.00-0 .10 Refer ence range s for nonbi nary/ inter sex or unspe cifie d gende r patie nts have not been estab lishe d. Pleas e refer to the [facility] table for range s estab lishe d for cisge nder patie nts and evalu ate in the clini jennifer padmini xt of the indiv idual patie nt: https ://angelique dennis book. nm.or g/gen derx Not Available [facility] (Lab) [address] [facility], [place], [address], 10/10/2025 00:09:54 10/08/20 25 10/08/2025 PROTE IN/CR EATIN INE RATIO , URINE creatinine, urine 34.6 mg/dL R-No refer ence range estab lishe d for this assay Not Available [facility] (Lab) [address] [facility], [place], [address], 10/10/2025 00:09:55 10/08/20 25 10/08/2025 PROTE IN/CR EATIN INE RATIO , URINE protein, urine <4 mg/dL R-No refer ence range estab lishe d for this assay Not Available [facility] (Lab) [address] [place], [address], 10/10/2025 00:09:55 10/08/20 25 10/08/2025 PROTE IN/CR [...] fican t prote inuri a. Not Available [facility] (Lab) [address] [facility], [place], [address], 10/10/2025 00:09:55 10/08/20 25 10/08/2025 URIC ACID uric acid 3.5 mg/dL 2.3-6. 6 Not Available [facility] (Lab) [address] [place], [address], 10/10/2025 00:09:55 10/08/20 25 10/08/2025 CMP(C OMPRE HENSI VE METAB OLIC PANEL ) sodium 135 mmol/ L 133-14 6 Not Available [facility] (Lab) [address] [facility], [place], [address], 10/10/2025 00:09:56 10/08/20 25 10/08/2025 CMP(C OMPRE HENSI VE METAB OLIC PANEL ) potassium 3.8 mmol/ L 3.5-5. 1 Not Available [facility] (Lab) [address] [place], [address], 10/10/2025 00:09:56 10/08/20 25 10/08/2025 CMP(C OMPRE HENSI VE METAB OLIC PANEL ) chloride 102 mmol/ L 98-107 Not Available [facility] (Lab) [address] [place], [address], 10/10/2025 00:09:56 10/08/20 25 10/08/2025 CMP(C OMPRE HENSI VE METAB OLIC PANEL ) carbon dioxide 22 mmol/ L 21-31 Not Available [facility] (Lab) [address] [place], [address], 10/10/2025 00:09:56 10/08/20 25 10/08/2025 CMP(C OMPRE HENSI VE METAB OLIC PANEL ) anion gap 11 mmol/ L 4-13 Not Available [facility] (Lab) [address] [place], [address], 10/10/2025 00:09:56 10/08/20 25 10/08/2025 CMP(C OMPRE HENSI VE METAB OLIC PANEL ) blood urea nitrogen 5 mg/dL 7-25 low Not Available [facility] (Lab) [address] [facility], [place], [address], 10/10/2025 00:09:56 10/08/20 25 10/08/2025 CMP(C OMPRE HENSI VE METAB OLIC PANEL ) creatinine 0.53 mg/dL 0.60-1 .30 low Not Available [facility] (Lab) [address] [facility], [place], [address], 10/10/2025 00:09:56 10/08/20 25 10/08/2025 CMP(C OMPRE HENSI VE METAB OLIC PANEL ) egfrcr (CKD-epi 2020) >90 mL/mi n/1.7 3_m2 >=60 Not Available [facility] (Lab) [address] [facility], [place], [address], 10/10/2025 00:09:56 10/08/20 25 10/08/2025 CMP(C OMPRE HENSI VE METAB OLIC PANEL ) calcium 8.6 mg/dL 8.3-10 .5 Not Available [facility] (Lab) [address] [place], [address], 10/10/2025 00:09:56 10/08/20 25 10/08/2025 CMP(C OMPRE HENSI VE METAB OLIC PANEL ) glucose 92 mg/dL 70-100 Not Available [facility] (Lab) [address] [place], [address], 10/10/2025 00:09:56 10/08/20 25 10/08/2025 CMP(C OMPRE HENSI VE METAB OLIC PANEL ) protein, total 5.9 g/dL 6.4-8. 3 low Not Available [facility] (Lab) [address] [place], [address], 10/10/2025 00:09:56 10/08/20 25 10/08/2025 CMP(C OMPRE HENSI VE METAB OLIC PANEL ) albumin 3.5 g/dL 3.5-5. 0 Not Available [facility] (Lab) [address] [facility], [place], [address], 10/10/2025 00:09:56 10/08/20 25 10/08/2025 CMP(C OMPRE HENSI VE METAB OLIC PANEL ) ALT 17 units /L 9-43 Not Available [facility] (Lab) [address] [facility], [place], [address], 10/10/2025 00:09:56 10/08/20 25 10/08/2025 CMP(C OMPRE HENSI VE METAB OLIC PANEL ) alkaline phosphatase 81 units /L 34-104 Not Available [facility] (Lab) [address] [facility], [place], [address], 10/10/2025 00:09:56 10/08/20 25 10/08/2025 CMP(C OMPRE HENSI VE METAB OLIC PANEL ) AST 16 units /L 13-39 Not Available [facility] (Lab) [address] [facility], [place], [address], 10/10/2025 00:09:56 10/08/20 25 10/08/2025 CMP(C OMPRE HENSI VE METAB OLIC PANEL ) bilirubin, total 0.5 mg/dL 0.2-1. 2 Not Available [facility] (Lab) [address] [facility], [place], [address], 10/10/2025 00:09:56 10/08/20 25 10/08/2025 CULTU RE: URINE result report SEE RESULT S BELOW Test: Cultu re: Urine Speci men Sourc e: Urine - Clean Catch Speci men Type: Urine Speci men Date: 10/08 1152 Resul t Date: 10/09 2305 Resul t Statu s: Final resul t Abnor mal: No Resul ray Lab: [facility] [address] [facility] [address] Tel: [phone] CULTU RE ----- ----- ----- --- No growt h in 1 day (dete ction level of 10,00 0 colon ies / ml.) Not Available [facility] (Lab) [address] [facility], [place], [address], 10/10/2025 00:09:56 07/14/2007/14/2025 US, obste tric, 2nd or 3rd trime ster No observ ation record ed. [address], [place], [address], 07/14/2025 11:48:13 07/14/20 25 07/14/2025 US, obste tric, follo w-up No observ ation record ed. [email or web address] [facility] [address], [place], [address], 07/14/2025 16:09:19 08/11/20 25 08/11/2025 US, obste tric, follo w-up No observ ation record ed. [facility] [address], [place], [address], 08/11/2025 18:35:48 08/11/2008/11/2025 US, obste tric, follo w-up No observ ation record ed. [email or web address] [facility] [address], [place], [address], 08/13/2025 07:06:41 09/10/2009/10/2025 US, obste tric, follo w-up No observ ation record ed. [facility] [address], [place], [address], 09/10/2025 14:42:43 09/10/2009/10/2025 US, obste tric, follo w-up No observ ation record ed. [email or web address] [facility] [address], [place], [address], 09/14/2025 14:46:19 10/08/20 25 10/08/2025 US, obste tric, follo w-up No observ ation record ed. [facility] [address], [place], [address], 10/11/2025 11:55:36 10/08/2010/08/2025 non-s tress test No observ ation record ed. [email or web address] [facility] [address], [place], [address], 10/08/2025 13:48:06 10/08/20 non-s tress test No observ ation record ed. [facility] [address], [place], [address], 10/08/2025 12:32:22 10/08/20 25 10/08/2025 US, obste tric, follo w-up No observ ation record ed. [facility] [address], [place], [address], 10/08/2025 16:57:13 10/08/20 25 10/08/2025 US, dominic tric, bioph ysica l profi le + non-s tress test No observ ation record ed. [facility] [address], [place], [address], 10/08/2025 16:57:23 10/13/20 25 10/13/2025 US, obste tric, bioph ysica l profi le + non-s tress test No observ ation record ed. [email or web address] [facility] [address], [place], [address], 10/13/2025 11:51:09 10/13/20 25 10/13/2025 US, obste tric, bioph ysica l profi le + non-s tress test No observ ation record ed. [email or web address] [facility] [address], [place], [address], 10/20/2025 11:47:34 10/13/2010/13/2025 non-s tress test No observ ation record ed. [address], [place], [address], 10/13/2025 17:57:16 10/13/20 non-s tress test No observ ation record ed. [address], [place], [address], 10/13/2025 17:34:36 10/22/20 25 10/22/2025 US, obste tric, bioph ysica l profi le No observ ation record ed. [email or web address] [facility] [address], [place], [address], 10/29/2025 11:35:15 10/22/20 25 10/22/2025 US, obste tric, bioph ysica l profi le + non-s tress test No observ ation record ed. [facility] [address], [place], [address], 10/22/2025 13:51:55 10/22/2010/22/2025 non-s tress test No observ ation record ed. [address], [place], [address], 10/27/2025 18:38:42 10/22/20 non-s tress test No observ ation record ed. [address], [place], [address], 10/22/2025 12:42:25 10/29/20 25 10/29/2025 US, obste tric, follo w-up No observ ation record ed. [email or web address] [facility] [address], [place], [address], 10/30/2025 01:33:53 10/29/20 25 10/29/2025 US, obste tric, follo w-up No observ ation record ed. [facility] [address], [place], [address], 10/29/2025 17:16:32 10/29/20 25 10/29/2025 US, obste tric, bioph ysica l profi le + non-s tress test No observ ation record ed. [facility] [address], [place], [address], 10/29/2025 17:16:42 Result Notes None recorded. Problems Name Problem SNOMED Code Status Onset Date Resolution Date Notes Provider Name and Address Organization Details Recorded Time 58215622 Active 2024 Linda mcgill, [facility] 10:53:18 Hypertens dwight disorder 89147349 Active 2024 labetalol 200mg bid bASA daily serial growth us , weekly testing @ 32wks 10/08/25 300mg bid rpt labs Alysia Santos CNM [address], [place], [address], [facility] 5 12:52:39 Mixed anxiety and depressiv e disorder 511403229 Active 2024 buspirone 10mg lexapro 20 mg daily Alysia Santos CNM [address], [place], [address], [facility] 5 12:01:06 Past history of gestation al hypertens ion 284238476 Active 2024 vs preeclamp deirdre delivered at 37 weeks Alysia Santos CNM [address], [place], [address], [facility] 5 12:01:27 Marijuana user 562458715 Active 2024 Pt decreased . Continued use is causing family issues and pt is experienc ing increased anxiety and depressio n symptoms. Nina Olivares er null, [facility] 5 16:48:10 Marijuana user 075736145 Active 2024 Pt decreased . Continued use is causing family issues and pt is experienc ing increased anxiety and depressio n symptoms. Nina Olivares er null, [facility] 5 16:48:11 Problem Notes None recorded. Procedures Surgical History Date Name Laterality Status Provider Name and Address Organization Details Recorded Time 11/18/2021 Date of Last Pap Smear completed Kim Monson [facility] 08/11/2025 14:32:13 Imaging Results None recorded. Procedure Notes None recorded. Medical Equipment None Reported. Allergies Allergen ID Allergen Name Allergen Category Reaction Reaction Severity Criticality Documentation Date Start Date Code Code System Note Provider Name and Address Organization Details Recorded Time 62092 amoxicill in medicatio n hives Not available Not available 10/08/20252016 723 RxNorm Not Available [employer] [facility] 5 03:06:32 20877 clindamyc in Not available hives Not available Not available 10/08/20252018 2582 RxNorm Not Available [employer] - prod 5 03:06:32 Medications [...] Address Organization Details Last Updated DateTime 10/08/2025 34916.74573 g Krysta Ortizney [facility] 10/08/2025 12:37:53 Date Recorded Body height Body mass index (BMI) Body weight Systolic And Diastolic Provider Name and Address Organization Details Last Updated DateTime 10/08/2025 162.56 cm 32.6 kg/m2 01110.55 g 122/79 mm[Hg] Cami Fuad [facility] 10/08/2025 12:29:55 Social History Question Answer [...] Or The Highest Degree You Have Received? [id number] Information not available 04/22/2025 Are There Any Guns Present In Your Home? Yes Information not available 04/22/2025 Have You Ever Been Counseled For Unhealthy Alcohol Use? No [email or web address] Information not available 06/16/2025 Do You Use Protection During Sex? No Information not available 04/22/2025 Do You Use Your Seat Belt Or Car Seat Routinely? Yes Information not available 04/22/2025 Are You Sexually Active? Yes [email or web address] Information not available 06/16/2025 Do You Have Smoke And Carbon Monoxide Detectors In Your Home? Yes Information not available 04/22/2025 At What Age Did You Start Smoking Tobacco? 19 Information not available 04/22/2025 How Much Tobacco Do You Smoke? No Information not available 04/22/2025 Do You Use Sunscreen Routinely? No Information not available 04/22/2025 Has Tobacco Cessation Counseling Been Provided? No [email or web address] Information not available 06/16/2025 How Many Years Have You Smoked Tobacco? 4 Information not available 08/11/2025 Have You Used IV Drugs? No Information not available 04/22/2025 Do You Have Difficulty Walking Or Climbing Stairs? No [email or web address] Information not available 06/16/2025 Sex: Unknown Functional Status Question Answer Note LastModified by Organizat ion Details LastModified Time Do you use any illicit or recreational drugs? Yes Information not available 04/22/2025 Do you or have you ever used any other forms of tobacco or nicotine? No [email or web address] Information not available 06/16/2025 What is your level of alcohol consumption? Occasional [email or web address] Information not available 08/11/2025 Are you currently employed? Yes [email or web address] Information not available 06/16/2025 Are you able to walk independently without assistance or assistive devices? [email or web address] Information not available 04/22/2025 Are you able to care for yourself independently? 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 No [email or web address] Information not available 06/16/2025 What is your exercise level? Occasional Information not available 04/22/2025 Mental Status Question Answer Note LastModified by Organization D etails LastModified Time Do you feel stressed (tense, restless, nervous, or anxious, or unable to sleep at night)? [id number] Information not available 08/11/2025 Family History Relationship [...] ICD10 Code Diagnosis IMO Codes Diagnosis Note [id number] Norris Jordan MD [facility] [address],[place] [address] 09/10/2025 09:35:51 09/10/2025 10:12:45 Maternal hypertension 180460743 O16.3 Z3A.28 7341584 464666 Alysia Santos [facility] [address],[place] [address] 09/10/2025 09:36:28 09/10/2025 11:14:34 Gestation period, 28 weeks 38171305 Z3A.28 0520999 472116 Alysia Santos [place] [address],[place] [address] 09/24/2025 11:20:09 09/24/2025 12:02:06 Gestation period, 30 weeks 04500392 Z3A.30 8865758 Acute urin shamir tract infection 800133169 N39.0 523322 [id number] Alysia Santos [facility] [address] [place] [address] 10/08/2025 11:01:42 10/08/2025 12:33:16 Chronic hypertension complicating AND/OR reason for care during 71030016 O10.919 44416667 [id number] Norris Jordan MD [facility] [address],[place] [address] 10/08/2025 11:02:16 10/08/2025 13:23:40 Hypertension complicating 8083314207 9102 O16.3 Z3A.32 43552849 053149 Alysia Santos CNM [facility] [address] [address] 10/08/2025 11:02:36 10/08/2025 12:56:56 -induced hypertension 89744006 O13.9 Hypertensive disorder 38 541422 I10 86219453 History of urinary tract infection 9500548165 107 Z87.143 4391323 Health Concerns Section Related Observation LastModified by Organization Detai ls LastModified Time None Recorded Concern Status LastModified by Organization Details LastModified Time None Recorded Payers Encounter Date Sequence Insurance Name Policy Number Policy Sarah Covered Member ID Sarah Member ID Guarantor Name 10/08/2025 1 [place] [id number] Artem Droa [id number] Artem Dora Notes Date Note Type Note Provider Name and Address Organization Details Recorded Time 10/08/2025 text/html Generic HPI TemplateReported by Patient Alysia Santos CNM [address], [place], [address], [facility] 10/08/2025 12:55:06 OBGyn Episode Ob Episode Information Episode Created Date Number of Fetuses Patient Bloodtype Patient rh Status Prepregnancy Weight lbs Domestic Partner Domestic Partner Phone Father Name Clearance Representative Status 05/19/20 1 O Positive 173 OPEN Fetus Data First Name Last Name Admitted to NICU Weight (g) Sex Living Outcome Pediatric Complications Fetus ID Race Codes Race Delivery Type [id number] Problems Problem Notes Problem Name Start Date End Date Resolution Snomed Code Not e Hypertensive disorder 05/19/2025 1419353 3 labetalol 200mg bidbASA dailyserial growth us , weekly testing @ 45nzb5710/08/25 300mg bid rpt labs Past history of gestational hypertension 05/19/2025 771648885 vs preeclampsia delivered at 37 weeks Marijuana user 08/18/2025 999236848 Pt d ecreased. Continued use is causing family issues and pt is experiencing increased anxiety and depression symptoms. Mixed anxiety and depressive disorder 05/19/2025 151061230 buspiron e 10mglexapro 20 mg daily Pablito [...] Date Ultra Sound Latest Days Gestation 0 [email or web address] 05/19/2025 11/27/19 26 0 Pre- Flowsheet Flowsheet Date 05/19/2025 Yoder Score Blood Edema Fundus Height Fundus Units Glucose Ketones Leukocytes Nitrite Labor Signs Protein Cervic Dilation Cervic Effacement Cervic Station Type Weight in lbs Pre/Post Dialysis Refused Weight 169.074717193361 BP Diastolic BP Location Tested BP Systolic [...] Weight in lbs Pre/Post Dialysis Refused Weight 173.836610670486 BP Diastolic BP Location Tested BP Systolic [...] Weight in lbs Pre/Post Dialysis Refused Weight 179.330285626943 BP Diastolic BP Location Tested BP Systolic [...] Weight in lbs Pre/Post Dialysis Refused Weight 188.392209010717 BP Diastolic BP Location Tested BP Systolic [...] Type Weight in lbs Pre/Post Dialysis Refused 189.646273654483 BP Diastolic BP Location Tested BP Systolic [...] Weight in lbs Pre/Post Dialysis Refused Weight 188.575461658902 BP Diastolic BP Location Tested BP Systolic [...] Weight in lbs Pre/Post Dialysis Refused Weight 190.829871268175 BP Diastolic BP Location Tested BP Systolic [...] Type Weight in lbs Pre/Post Dialysis Refused 191.012953899283 BP Diastolic BP Location Tested BP Systolic [...] Type Weight in lbs Pre/Post Dialysis Refused 189.576265160752 BP Diastolic BP Location Tested BP Systolic BP Type 80 L arm 119 sitting Fetus Heart Rate Present Fetus Movement A Yes Comments Flowsheet Date 10/13/2025 Yoder Score Blood Edema Fundus Height Fundus Units Glucose Ketones Leukocytes Nitrite Labor Signs Protein Cervic Dilation Cervic Effacement Cervic Station Type Weight in lbs Pre/Post Dialysis Refused Weight 189.489886928348 BP Diastolic BP Location Tested BP Systolic [...] Weight in lbs Pre/Post Dialysis Refused Weight 192.738610994352 BP Diastolic BP Location Tested BP Systolic BP Type 79 L arm 128 sitting Fetus Heart Rate Present Fetus Movement A Yes Comments Flowsheet Date 10/22/2025 Yoder Score Blood Edema Fundus Height Fundus Units Glucose Ketones Leukocytes Nitrite Labor Signs Protein Cervic Dilation Cervic Effacement Cervic Station Type Weight in lbs Pre/Post Dialysis Refused [id number] BP Diastolic BP Location Tested BP Systolic [...]
--- OUTSIDE RECORDS SUMMARY | 2025-11-01 06:20 | XMS_ITS | Continuity of Care Document ---
Author Organization [facility] Address [address] [place] [address] Care Team Providers Care Audiology Assistant Name Role Phone TIANNA ALESHA Primary Care [...] US, obstetr ic, follow- up 2024 025 [email or web address] Martin, [address], [address], [place], [address], 08/12/2025 18:25:28 Medication Orders None recorde d. Patient TargetsNo targets recorded. Patient InstructionsNo instructions recorded. Reason for Referral None Reported. Results Created Date Observation Date Name Description Value Unit Range Abnormal Flag Note LastModifiedBy Organization Detail LastModifiedTime 05/27/2005/27/2025 [UNIT Y] ANEUP LOIDY NIPT fraction 10.2% normal Not Available [facility] [address], [place], [address], 05/27/2025 02:56:04 05/27/2005/27/2025 [UNIT Y] ANEUP LOIDY NIPT 22Q11.2 microdeletio n LOW RISK <1 in 10,000 normal Not Available [facility] [address], [place], [address], 05/27/2025 02:56:04 05/27/20 25 05/27/2025 [UNIT Y] ANEUP LOIDY NIPT sex chromosome aneuploidy NOT DETECT ED normal Not Available [facility] [address], [place], [address], 05/27/2025 02:56:04 05/27/2005/27/2025 [UNIT Y] ANEUP LOIDY NIPT monosomy X LOW RISK <1 in 10,000 normal Not Available [facility] [address], [place], [address], 05/27/2025 02:56:04 05/27/20 25 05/27/2025 [UNIT Y] ANEUP LOIDY NIPT trisomy 13 LOW RISK <1 in 10,000 normal Not Available [facility] [address], [place], [address], 05/27/2025 02:56:04 05/27/20 25 05/27/2025 [UNIT Y] ANEUP LOIDY NIPT trisomy 18 LOW RISK <1 in 10,000 normal Not Available [facility] [address], [place], [address], 05/27/2025 02:56:04 05/27/20 25 05/27/2025 [UNIT Y] ANEUP LOIDY NIPT trisomy 21 LOW RISK <1 in 10,000 normal Not Available [facility] [address], [place], [address], 05/27/2025 02:56:04 05/27/20 25 05/27/2025 [UNIT Y] ANEUP LOIDY NIPT sex FEMALE normal Not Available [facility] [address], [place], [address], 05/27/2025 02:56:04 05/27/20 25 05/27/2025 [UNIT Y] ANEUP LOIDY NIPT gestation SINGLE TON normal Not Available [facility] [address], [place], [address], 05/27/2025 02:56:04 05/27/20 25 05/27/2025 [UNIT Y] ANEUP LOIDY NIPT for detailed report, see pdf See PDF normal Not Available [facility] [address], [place], [address], 05/27/2025 02:56:04 06/03/20 25 06/03/2025 [UNIT Y] LORIN Hull sickle cell disease/beta -thalassemia /hemoglobino pathies carrier screen NEGATI VE normal Not Available [facility] [address], [place], [address], 06/03/2025 09:08:22 06/03/20 25 06/03/2025 [UNIT Y] LORIN RAMY Hull alpha-thalas semia carrier screen NEGATI VE normal Not Available [facility] [address], [place], [address], 06/03/2025 09:08:22 06/03/20 25 06/03/2025 [UNIT Y] LORIN RAMY Hull cystic fibrosis carrier screen NEGATI VE normal Not Available [facility] [address], [place], [address], 06/03/2025 09:08:22 06/03/20 25 06/03/2025 [UNIT Y] LORIN Hull spinal muscular atrophy carrier screen NEGATI VE 2 SMN1 copies , SNP not presen t normal Not Available [facility] [address], [place], [address], 06/03/2025 09:08:22 06/03/20 25 06/03/2025 [UNIT Y] LORIN Hull for detailed report, see pdf See PDF normal Not Available [facility] [address], [place], [address], 06/03/2025 09:08:22 05/19/20 25 05/19/2025 CBC W/DIF F WBC 9.6 10'3/ uL 3.5-10 .5 Not Available [facility] (Lab) [address], [place], [address], 05/20/2025 10:56:36 05/19/20 25 05/19/2025 CBC W/DIF F RBC 4.49 10'6/ uL (based on docume nted legal sex) 3.80-5 .20 Not Available [facility] (Lab) [address], [place], [address], 05/20/2025 10:56:36 05/19/20 25 05/19/2025 CBC W/DIF F HGB 12.5 g/dL (based on docume nted legal sex) 11.6-1 5.4 Not Available [facility] (Lab) [address], [place], [address], 05/20/2025 10:56:36 05/19/20 25 05/19/2025 CBC W/DIF F HCT 38.2 % (based on docume nted legal sex) 34.0-4 5.0 Not Available [facility] (Lab) [address], [place], [address], 05/20/2025 10:56:36 05/19/20 25 05/19/2025 CBC W/DIF F MCV 85.1 fL 80.0-9 9.0 Not Available [facility] (Lab) [address], [place], [address], 05/20/2025 10:56:36 05/19/20 25 05/19/2025 CBC W/DIF F MCH 27.8 pg 27.0-3 4.0 Not Available [facility] (Lab) [address], [place], [address], 05/20/2025 10:56:36 05/19/20 25 05/19/2025 CBC W/DIF F MCHC 32.7 g/dL 32.0-3 5.5 Not Available [facility] (Lab) [address], [place], [address], 05/20/2025 10:56:36 05/19/20 25 05/19/2025 CBC W/DIF F RDW 13.2 % 11.0-1 5.0 Not Available [facility] (Lab) [address], [place], [address], 05/20/2025 10:56:36 05/19/20 25 05/19/2025 CBC W/DIF F plt 301 10'3/ uL 150-40 0 Not Available [facility] (Lab) [address], [place], [address], 05/20/2025 10:56:36 05/19/20 25 05/19/2025 CBC W/DIF F MPV 11.9 fL 8.8-12 .1 Not Available [facility] (Lab) [address] [facility], [place], [address], 05/20/2025 10:56:36 05/19/20 25 05/19/2025 CBC W/DIF F NRBC's 0.0 % 0.0 Not Available [facility] (Lab) [address] [facility], [place], [address], 05/20/2025 10:56:36 05/19/20 25 05/19/2025 CBC W/DIF F absolute NRBCs 0.0 10'3/ uL no refere nce range establ ished Not Available [facility] (Lab) [address] [facility], [place], [address], 05/20/2025 10:56:36 05/19/20 25 05/19/2025 CBC W/DIF F neutrophils 71.0 % 34.0-7 3.0 Not Available [facility] (Lab) [address] [facility], [place], [address], 05/20/2025 10:56:36 05/19/20 25 05/19/2025 CBC W/DIF F lymphocytes 22.5 % 15.0-5 0.0 Not Available [facility] (Lab) [address] [facility], [place], [address], 05/20/2025 10:56:36 05/19/20 25 05/19/2025 CBC W/DIF F monocytes 5.3 % 1.0-15 .0 Not Available [facility] (Lab) [address] [facility], [place], [address], 05/20/2025 10:56:36 05/19/20 25 05/19/2025 CBC W/DIF F eosinophils 0.6 % 0.0-8. 0 Not Available [facility] (Lab) [address] [facility], [place], [address], 05/20/2025 10:56:36 05/19/20 25 05/19/2025 CBC W/DIF F basophils 0.3 % 0.0-2. 0 Not Available [facility] (Lab) [address] [facility], [place], [address], 05/20/2025 10:56:36 05/19/2005/19/2025 CBC W/DIF F immature granulocytes 0.3 % no define d refere nce range Immat ure Granu locyt es (IG) repre sents autom ated enume ratio n of Metam yeloc ytes, Myelo cytes and Promy elocy claudia when IG is < 5%. Blast s are not inclu ded in IG and repor tashi separ ately if prese nt. Not Available [facility] (Lab) [address] [facility], [place], [address], 05/20/2025 10:56:36 05/19/20 25 05/19/2025 CBC W/DIF F absolute neutrophils 6.8 10'3/ uL 1.5-8. 0 Not Available [facility] (Lab) [address] [facility], [place], [address], 05/20/2025 10:56:36 05/19/20 25 05/19/2025 CBC W/DIF F absolute lymphocytes 2.2 10'3/ uL 1.0-4. 0 Not Available [facility] (Lab) [address] [facility], [place], [address], 05/20/2025 10:56:36 05/19/20 25 05/19/2025 CBC W/DIF F absolute monocytes 0.5 10'3/ uL 0.2-1. 0 Not Available [facility] (Lab) [address] [facility], [place], [address], 05/20/2025 10:56:36 05/19/20 25 05/19/2025 CBC W/DIF F absolute eosinophils 0.1 10'3/ uL 0.0-0. 6 Not Available [facility] (Lab) [address] [facility], [place], [address], 05/20/2025 10:56:36 05/19/20 25 05/19/2025 CBC W/DIF F absolute basophils 0.0 10'3/ uL 0.0-0. 3 Not Available [facility] (Lab) [address], [place], [address], 05/20/2025 10:56:36 05/19/20 25 05/19/2025 CBC W/DIF [...] and book. nm.or g/gen derx Not Available [facility] (Lab) [address], [place], [address], 05/20/2025 10:56:36 05/19/20 25 05/19/2025 HEPAT ITIS B SURFA CE ANTIG EN hepatitis B surface antigen Non-re active non-re active This assay was perfo rmed using [employer] n reage nts and test kits. Value s obtai erica with other assay metho ds or kits canno t be used inter melton eably . Not Available [facility] (Lab) [address], [place], [address], 05/20/2025 10:56:37 05/19/20 25 05/19/2025 HIV 1/2 ANTIG EN/AN TIBOD Y, REFLE X CONFI RMATI ON HIV antigen/anti body Nonrea ctive nonrea ctive HIV-1 antig en and HIV-1 /HIV- 2 antib odies were not detec tashi. No labor atory evide nce of HIV infec tion. Not Available [facility] (Lab) [address], [place], [address], 05/20/2025 10:56:37 05/19/20 25 05/19/2025 HEPAT ITIS C ANTIB NEPTALI SCREE N, REFLE X TO CONFI RMATI ON hepatitis C antibody Non-re active non-re active Antib odies to HCV Not Detec tashi, does not exclu de the possi bilit y of expos ure to HCV. Not Available [facility] (Lab) [address] [facility], [place], [address], 05/20/2025 10:56:38 05/19/20 25 05/19/2025 VITAM IN D, 25-OH (TOTA L D2/D3 ) vitamin D, 25-hydroxy, total 59.5 NG/mL 30.0-1 00.0 Sugge stive of Defic iency : <20 ng/mL Sugge stive of Insuf ficie ncy: 20-29 ng/mL Sugge stive of Suffi cienc y: 30-10 0 ng/mL Sugge stive of Toxic ity: >150 ng/mL Not Available [facility] (Lab) [address] [facility], [place], [address], 05/20/2025 10:56:38 05/19/20 25 05/19/2025 TYPE/ RH/SC REEN ABO/Rh type O POS Not Available [facility] (Lab) [address] [place], [address], 05/20/2025 10:56:39 05/19/20 25 05/19/2025 TYPE/ RH/SC REEN antibody screen NEG Not Available [facility] (Lab) [address] [place], [address], 05/20/2025 10:56:39 05/19/20 25 05/19/2025 TYPE/ RH/SC REEN exp date 2024 23:59 Not Available [facility] (Lab) [address] [place], [address], 05/20/2025 10:56:39 05/19/20 25 05/19/2025 RUBEL LA IGG ANTIB NEPTALI, QUANT rubella antibodies, IgG Reacti ve reacti ve Not Available [facility] (Lab) [address] [facility], [place], [address], 05/20/2025 10:56:39 05/19/20 25 05/19/2025 RUBEL LA IGG ANTIB NEPTALI, QUANT rubella antibodies, IgG quant 13.6 IU/mL >=10 Non-r eacti ve (Non- Immun e) <10 IU/mL React dwight (Immu ne) > or = 10 IU/mL Not Available [facility] (Lab) [address] [facility], [place], [address], 05/20/2025 10:56:39 05/19/20 25 05/19/2025 HEMOG LOBIN [...] >8.0% Actio n sugge sted Not Available [facility] (Lab) [address] [facility], [place], [address], 05/20/2025 10:56:40 05/19/20 25 05/19/2025 RPR SCREE N, REFLE X TITER /CONF IRMAT ION RPR qualitative Nonrea ctive nonrea ctive Not Available [facility] (Lab) [address] [facility], [place], [address], 05/20/2025 10:56:41 05/19/20 25 05/19/2025 CULTU RE: URINE result report SEE RESULT S BELOW Test: Cultu re: Urine Speci men Sourc e: Urine Voide d Speci men Type: Urine Speci men Date: 1413 Resul t Date: 2143 Resul t Statu s: Final resul t Abnor mal: No Resul ting Lab: [facility] [address] [facility] [address] Tel: CULTU RE ----- ----- ----- --- No growt h in 1 day (dete ction level of 10,00 0 colon ies / ml.) Not Available [facility] (Lab) [address] [facility], [place], [address], 05/20/2025 22:47:16 05/19/20 25 05/19/2025 IMAGE GUIDE [...] Jimenez , CT Rescr een: Joseph Deleon, KIRIT Speci men: Screalisha joanne Pap - Image d, Cervi x STATE MENT OF ADEQU ACY: Satis facto ry for evalu ation Trans forma tion zone compo nent prese nt ----- ----- ----- ----- ----- ----- ----- ----- ----- ----- ----- ----- ----- ----- ----- ----- ----- ---- FINAL DIAGN OSIS: Negat dwight for Intra epith elial Lesimani n or Jose Antonio ribeiro ([facility]) . Elect sapphire becker d by [...] clini luis eduardo camp nted. Not Available [facility] (Lab) [address], [place], [address], 05/24/2025 18:43:29 05/19/20 25 05/19/2025 CT/GC (CAT) , THINP REP VIAL chlamydia trachomatis, PCR Negati ve negati ve Not Available [facility] (Lab) [address] [place] [address], [address], 05/24/2025 18:43:30 05/19/20 25 05/19/2025 CT/GC (CAT) , THINP REP VIAL neisseria gonorrhoeae, PCR Negati ve negati ve Not Available [facility] (Lab) [address] [facility], [place], [address], 05/24/2025 18:43:30 05/19/20 25 05/19/2025 drug scree n, urine Cannabinoids : positi ve Not Available [facility] [address], [place], [address], 05/19/2025 13:35:34 05/19/20 25 05/19/2025 drug scree n, urine Other: positi ve Not Available [facility] [address], [place], [address], 05/19/2025 13:35:34 07/14/20 25 07/14/2025 US, obste tric, 2nd or 3rd trime ster No observ ation record ed. [email or web address] [facility] [address], [place], [address], 07/14/2025 11:48:13 07/14/20 25 07/14/2025 US, obste tric, follo w-up No observ ation record ed. [email or web address] [address], [place], [address], 07/14/2025 16:09:19 08/11/20 25 08/11/2025 US, obste tric, follo w-up No observ ation record ed. [email or web address] [facility] [address], [place], [address], 08/11/2025 18:35:48 08/11/20 25 08/11/2025 US, obste tric, follo w-up No observ ation record ed. [email or web address] [address], [place], [address], 08/13/2025 07:06:41 09/10/2009/10/2025 US, obste tric, follo w-up No observ ation record ed. [facility] [address], [place], [address], 09/10/2025 14:42:43 09/10/20 25 09/10/2025 US, obste tric, follo w-up No observ ation record ed. [email or web address] [address], [place], [address], 09/14/2025 14:46:19 10/08/20 25 10/08/2025 US, obste tric, follo w-up No observ ation record ed. [email or web address] [address], [place], [address], 10/11/2025 11:55:36 10/08/20 25 10/08/2025 non-s tress test No observ ation record ed. [address], [place], [address], 10/08/2025 13:48:06 10/08/20 non-s tress test No observ ation record ed. [email or web address], [place], [address], 10/08/2025 12:32:22 10/08/20 25 10/08/2025 , obste tric, follo w-up No observ ation record ed. [facility] [address], [place], [address], 10/08/2025 16:57:13 10/08/20 25 10/08/2025 US, obste tric, [facility] ysica l profi le + non-s tress test No observ ation record ed. [facility] [address], [place], [address], 10/08/2025 16:57:23 10/13/20 25 10/13/2025 US, obste tric, bioph ysica l profi le + non-s tress test No observ ation record ed. [email or web address] [address], [place], [address], 10/13/2025 11:51:09 10/13/20 25 10/13/2025 US, obste tric, bioph ysica l profi le + non-s tress test No observ ation record ed. [email or web address] [address], [place], [address], 10/20/2025 11:47:34 10/13/20 25 10/13/2025 non-s tress test No observ ation record ed. [email or web address] [address], [place], [address], 10/13/2025 17:57:16 10/13/20 non-s tress test No observ ation record ed. [email or web address] [facility] [address], [place], [address], 10/13/2025 17:34:36 10/22/20 25 10/22/2025 US, obste tric, bioph ysica l profi le No observ ation record ed. [email or web address] [facility] [address], [place], [address], 10/29/2025 11:35:15 10/22/20 25 10/22/2025 US, obste tric, bioph ysica l profi le + non-s tress test No observ ation record ed. [facility] [address], [place], [address], 10/22/2025 13:51:55 10/22/20 25 10/22/2025 non-s tress test No observ ation record ed. [address], [place], [address], 10/27/2025 18:38:42 10/22/20 non-s tress test No observ ation record ed. [address], [place], [address], 10/22/2025 12:42:25 10/29/20 25 10/29/2025 US, obste tric, follo w-up No observ ation record ed. [email or web address] [address], [place], [address], 10/30/2025 01:33:53 10/29/20 25 10/29/2025 US, obste tric, follo w-up No observ ation record ed. [facility] [address], [place], [address], 10/29/2025 17:16:32 10/29/20 25 10/29/2025 US, obste tric, bioph ysica l profi le + non-s tress test No observ ation record ed. [facility] [address], [place], [address], 10/29/2025 17:16:42 Result Notes None recorded. Problems Name Problem SNOMED Code Status Onset Date Resolution Date Notes Provider Name and Address Organization Details Recorded Time 09809017 Active 2024 Linda mcgill [place] - [facility] 10:53:18 Hypertens dwight disorder 26506205 Active 2024 labetalol 200mg bid bASA daily serial growth us , weekly testing @ 32wks 10/08/25 300mg bid rpt labs Alysiaolga Santos CNM [address], [place], [address], [facility] 5 12:52:39 Mixed anxiety and depressiv e disorder 034383096 Active 2024 buspirone 10mg lexapro 20 mg daily Alysia Santos CNM [address], [place], [address], [facility] 5 12:01:06 Past history of gestation al hypertens ion 077248724 Active 2024 vs preeclamp deirdre delivered at 37 weeks Alysia Santos CNM [address], [place], [address], [facility] 5 12:01:27 Marijuana user 863345866 Active 2024 Pt decreased . Continued use is causing family issues and pt is experienc ing increased anxiety and depressio n symptoms. Nina Hammboom mcgill, [facility] 5 16:48:10 Marijuana user 757557660 Active 2024 Pt decreased . Continued use is causing family issues and pt is experienc ing increased anxiety and depressio n symptoms. Nina Hammboom [facility], [facility] 5 16:48:11 Problem Notes None recorded. Procedures Surgical History Date Name Laterality Status Provider Name and Address Organization Details Recorded Time 11/18/2021 Date of Last Pap Smear completed Kim Monson [facility] 08/11/2025 14:32:13 Imaging Results None recorded. Procedure Notes None recorded. Medical Equipment None Reported. Allergies Allergen ID Allergen Name Allergen Category Reaction Reaction Severity Criticality Documentation Date Start Date Code Code System Note Provider Name and Address Organization Details Recorded Time 88578 amoxicill in medicatio n hives Not available Not available 10/08/20252016 723 RxNorm Not Available vanessa - External Data Service - prod 5 03:06:32 42515 clindamyc in Not available hives Not available [...] Updated DateTime 08/11/2025 162.56 cm 32.3 kg/m2 97233.37 g 119/74 mm[Hg] Kim Monson [facility] 08/11/2025 14:31:57 Social History Question Answer Notes LastModified by Organizat ion Details LastModified Time Do You Have An Advance Directive? No Information n ot available 04/22/2025 How Many Years Have You Consumed Alcohol? 8 [email or web address] Information not available 08/11/2025 Are You Blind [...] Or The Highest Degree You Have Received? [id number] Information not available 04/22/2025 Are There Any Guns Present In Your Home? Yes Information not available 04/22/2025 Have You Ever Been Counseled For Unhealthy Alcohol Use? No Information not available 06/16/2025 Do You Use Protection During Sex? No Information not available 04/22/2025 Do You Use Your Seat Belt Or Car Seat Routinely? Yes Information not available 04/22/2025 Are You Sexually Active? Yes [email or web address] Information not available 06/16/2025 Do You Have Smoke And Carbon Monoxide Detectors In Your Home? Yes Information not available 04/22/2025 At What Age Did You Start Smoking Tobacco? 19 Information not available 04/22/2025 How Much Tobacco Do You Smoke? No Information not available 04/22/2025 Do You Use Sunscreen Routinely? No Information not available 04/22/2025 Has Tobacco Cessation Counseling Been Provided? No [email or web address] Information not available 06/16/2025 How Many Years Have You Smoked Tobacco? 4 [email or web address] Information not available 08/11/2025 Have You Used IV Drugs? No Information not available 04/22/2025 Do You Have Difficulty Walking Or Climbing Stairs? No [email or web address] Information not available 06/16/2025 Sex: Unknown Functional [...] available 08/11/2025 Are you currently employed? Yes [email or web address] Information not available 06/16/2025 Are you able to walk independently without assistance or assistive devices? [email or web address] Information not available 04/22/2025 Are you able to care for yourself independently? 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 No [email or web address] Information not available 06/16/2025 What is your exercise level? Occasional Information not available 04/22/2025 Mental Status Question Answer Note LastModified by Organization D etails LastModified Time Do you feel stressed (tense, restless, nervous, or anxious, or unable to sleep at night)? [id number] [email or web address] Information not available 08/11/2025 Family History Relationship [...] ICD10 Code Diagnosis IMO Codes Diagnosis Note [id number] Norris Jordan MD [facility] [address],[place] [address] 07/14/2025 09:19:21 07/14/2025 10:36:57 screening for malformation 859539389 Z36.3 Z3A.20 [id number] [facility] [address],[place] [address] 07/14/2025 09:20:42 07/14/2025 11:32:11 Gestation period, 20 weeks 76716213 Z3A.20 7963157 606506 Norris Jordan MD [facility] [address],[place] [address] 08/11/2025 13:50:59 08/11/2025 14:30:57 Chronic hypertension complicating AND/OR reason for care during 30918176 O10.912 Z3A.24 [id number] 161947 [facility] [address],[place] [address] 08/11/2025 13:51:12 08/11/2025 14:48:47 Gestation period, 24 weeks 266878502 Z3A.24 [id number] Health Concerns Section Related Observation LastModified by Organization Detai ls LastModified Time None Recorded Concern Status LastModified by Organization Details LastModified Time None Recorded Payers Encounter Date Sequence Insurance Name Policy Number Policy Sarah Covered Member ID Sarah Member ID Guarantor Name 08/11/2025 1 [employer] [id number] Artem Herman [id number] Artem Dora Notes Date Note Type Note Provider Name and Address Organization Details Recorded Time 08/11/2025 text/html Generic HPI TemplateReported by Patient Alysia ELaura Santos, SARA [address], [place], [address], [facility] 08/11/2025 14:48:35 OBGyn Episode Ob Episode Information Episode Created Date Number of Fetuses Patient Bloodtype Patient rh Status Prepregnancy Weight lbs Domestic Partner Domestic Partner Phone Father Name Brim Stiffener Status 05/19/20 25 1 O Positive 173 OPEN Fetus Data First Name Last Name Admitted to NICU Weight (g) Sex Living Outcome Pediatric Complications Fetus ID Race Codes Race Delivery Type [id number] Problems Problem Notes Problem Name Start Date End Date Resolution Snomed Code Not e Hypertensive disorder 05/19/2025 [id number] 3 labetalol 200mg bidbASA dailyserial growth us , weekly testing @ 24clc59/ 300mg bid rpt labs Past history of gestational hypertension 05/19/2025 [id number] vs preeclampsia delivered at 37 weeks Marijuana user 08/18/2025 [id number] Pt d ecreased. Continued use is causing family issues and pt is experiencing increased anxiety and depression symptoms. Mixed anxiety and depressive disorder 05/19/2025 [id number] buspiron e 10mglexapro 20 mg daily Pablito [...] Date Ultra Sound Latest Days Gestation 0 [id number] 05/19/2025 11/27/19 26 0 Pre-la nena Flowsheet Flowsheet Date 05/19/2025 Yoder Score Blood Edema Fundus Height Fundus Units Glucose Ketones Leukocytes Nitrite Labor Signs Protein Cervic Dilation Cervic Effacement Cervic Station Type Weight in lbs Pre/Post Dialysis Refused Weight 169.278728801799 BP Diastolic BP Location Tested BP Systolic [...] Weight in lbs Pre/Post Dialysis Refused Weight 173.216163811114 BP Diastolic BP Location Tested BP Systolic [...] Weight in lbs Pre/Post Dialysis Refused Weight 179.622246741122 BP Diastolic BP Location Tested BP Systolic [...] Weight in lbs Pre/Post Dialysis Refused Weight 188.092197101484 BP Diastolic BP Location Tested BP Systolic [...] Type Weight in lbs Pre/Post Dialysis Refused 189.416882291240 BP Diastolic BP Location Tested BP Systolic [...] Weight in lbs Pre/Post Dialysis Refused Weight 188.415960353491 BP Diastolic BP Location Tested BP Systolic BP Type 73 L arm 111 sitting Fetus Heart Rate Present A 138 Fetus Movement A Yes Comments lots of cntx gone now but in creased pressure, cervix closed, urine for culture, +FM labor precautions, already scheduled preadmit, planning delivery around nov 06. saw laurel [facility]ua in chart f/u 2 weeks Flowsheet Date 10/08/2025 Yoder Score Blood Edema Fundus Height Fundus Units Glucose Ketones Leukocytes Nitrite Labor Signs Protein Cervic Dilation Cervic Effacement Cervic Station Type Weight in lbs Pre/Post Dialysis Refused Weight 190.715312777066 BP Diastolic BP Location Tested BP Systolic [...] Type Weight in lbs Pre/Post Dialysis Refused 191.217379247155 BP Diastolic BP Location Tested BP Systolic [...] Type Weight in lbs Pre/Post Dialysis Refused 189.336869659023 BP Diastolic BP Location Tested BP Systolic BP Type 80 L arm 119 sitting Fetus Heart Rate Present Fetus Movement A Yes Comments Flowsheet Date 10/13/2025 Yoder Score Blood Edema Fundus Height Fundus Units Glucose Ketones Leukocytes Nitrite Labor Signs Protein Cervic Dilation Cervic Effacement Cervic Station Type Weight in lbs Pre/Post Dialysis Refused Weight 189.756392493751 BP Diastolic BP Location Tested BP Systolic [...] Weight in lbs Pre/Post Dialysis Refused Weight 192.746760670501 BP Diastolic BP Location Tested BP Systolic BP Type 79 L arm 128 sitting Fetus Heart Rate Present Fetus Movement A Yes Comments Flowsheet Date 10/22/2025 Yoder Score Blood Edema Fundus Height Fundus Units Glucose Ketones Leukocytes Nitrite Labor Signs Protein Cervic Dilation Cervic Effacement Cervic Station Type Weight in lbs Pre/Post Dialysis Refused 192.310935282202 BP Diastolic BP Location Tested BP Systolic [...]
--- OUTSIDE RECORDS SUMMARY | 2025-11-01 06:20 | XMS_ITS | Continuity of Care Document ---
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 Discussed plan. Not available 10/08/2025 12:50:16 Plan of Treatment Reminders Order Date Submit [...] Not available Not available Not available Lab CBC w/ auto diff 2024 025 [facility] (Lab), [address] [facility], [place], [address], 10/10/2025 00:09:55 CMP, serum or plasma 2024 025 [facility] (Lab), [address] [facility], [place], [address], 10/10/2025 00:09:56 uric acid, serum or plasma 2024 025 [facility] (Lab), [address] [facility], [place], [address], 10/10/2025 00:09:55 protein :creati nine ratio, urine 2024 025 [facility] (Lab), [address] [facility], [place], [address], 10/10/2025 00:09:55 culture , urine 2024 025 [facility] (Lab), [address] [facility], [place], [address], 10/10/2025 00:09:56 Referral None recorde d. Procedures None recorde d. Surgeries None recorde d. Imaging None recorde d. Medication Orders None recorde d. Patient TargetsNo targets recorded. Patient InstructionsNo instructions recorded. Reason for Referral None Reported. Results Created Date Observation Date Name Description Value Unit Range Abnormal Flag Note LastModifiedBy Organization Detail LastModifiedTime 05/27/2005/27/2025 [UNIT Y] ANEUP LOIDY NIPT fraction 10.2% normal Not Available [facility] [address], [place], [address], 05/27/2025 02:56:04 05/27/20 25 05/27/2025 [UNIT Y] ANEUP LOIDY NIPT 22Q11.2 microdeletio n LOW RISK <1 in 10,000 normal Not Available [facility] [address], [place], [address], 05/27/2025 02:56:04 05/27/20 25 05/27/2025 [UNIT Y] ANEUP LOIDY NIPT sex chromosome aneuploidy NOT DETECT ED normal Not Available [facility] [address], [place], [address], 05/27/2025 02:56:04 05/27/20 25 05/27/2025 [UNIT Y] ANEUP LOIDY NIPT monosomy X LOW RISK <1 in 10,000 normal Not Available [facility] [address], [place], [address], 05/27/2025 02:56:04 05/27/20 25 05/27/2025 [UNIT Y] ANEUP LOIDY NIPT trisomy 13 LOW RISK <1 in 10,000 normal Not Available [facility] [address], [place], [address], 05/27/2025 02:56:04 05/27/20 25 05/27/2025 [UNIT Y] ANEUP LOIDY NIPT trisomy 18 LOW RISK <1 in 10,000 normal Not Available [facility] [address], [place], [address], 05/27/2025 02:56:04 05/27/20 25 05/27/2025 [UNIT Y] ANEUP LOIDY NIPT trisomy 21 LOW RISK <1 in 10,000 normal Not Available [facility] [address], [place], [address], 05/27/2025 02:56:04 05/27/20 25 05/27/2025 [UNIT Y] ANEUP LOIDY NIPT sex FEMALE normal Not Available [facility] [address], [place], [address], 05/27/2025 02:56:04 05/27/20 25 05/27/2025 [UNIT Y] ANEUP LOIDY NIPT gestation SINGLE TON normal Not Available [facility] [address], [place], [address], 05/27/2025 02:56:04 05/27/20 25 05/27/2025 [UNIT Y] ANEUP LOIDY NIPT for detailed report, see pdf See PDF normal Not Available [facility] [address], [place], [address], 05/27/2025 02:56:04 06/03/20 25 06/03/2025 [UNIT Y] LORIN Morocho sickle cell disease/beta -thalassemia /hemoglobino pathies carrier screen NEGATI VE normal Not Available [facility] [address], [place], [address], 06/03/2025 09:08:22 06/03/20 25 06/03/2025 [UNIT Y] LORIN Morocho alpha-thalas semia carrier screen NEGATI VE normal Not Available [facility] [address], [place], [address], 06/03/2025 09:08:22 06/03/20 25 06/03/2025 [UNIT Y] LORIN Morocho cystic fibrosis carrier screen NEGATI VE normal Not Available [facility] [address], [place], [address], 06/03/2025 09:08:22 06/03/20 25 06/03/2025 [UNIT Y] LORIN Morocho spinal muscular atrophy carrier screen NEGATI VE 2 SMN1 copies , SNP not presen t normal Not Available [facility] [address], [place], [address], 06/03/2025 09:08:22 06/03/20 25 06/03/2025 [UNIT Y] LORIN Morocho for detailed report, see pdf See PDF normal Not Available [facility] [address], [place], [address], 06/03/2025 09:08:22 05/19/2005/19/2025 CBC W/DIF F WBC 9.6 10'3/ uL 3.5-10 .5 Not Available [facility] (Lab) [address], [place], [address], 05/20/2025 10:56:36 05/19/20 25 05/19/2025 CBC W/DIF F RBC 4.49 10'6/ uL (based on docume nted legal sex) 3.80-5 .20 Not Available [facility] (Lab) [address], [place], [address], 05/20/2025 10:56:36 05/19/20 25 05/19/2025 CBC W/DIF F HGB 12.5 g/dL (based on docume nted legal sex) 11.6-1 5.4 Not Available [facility] (Lab) [address], [place], [address], 05/20/2025 10:56:36 05/19/20 25 05/19/2025 CBC W/DIF F HCT 38.2 % (based on docume nted legal sex) 34.0-4 5.0 Not Available [facility] (Lab) [address], [place], [address], 05/20/2025 10:56:36 05/19/20 25 05/19/2025 CBC W/DIF F MCV 85.1 fL 80.0-9 9.0 Not Available [facility] (Lab) [address] [place], [address], 05/20/2025 10:56:36 05/19/20 25 05/19/2025 CBC W/DIF F MCH 27.8 pg 27.0-3 4.0 Not Available [facility] (Lab) [address], [place], [address], 05/20/2025 10:56:36 05/19/20 25 05/19/2025 CBC W/DIF F MCHC 32.7 g/dL 32.0-3 5.5 Not Available [facility] (Lab) [address] [facility], [place], [address], 05/20/2025 10:56:36 05/19/20 25 05/19/2025 CBC W/DIF F RDW 13.2 % 11.0-1 5.0 Not Available [facility] (Lab) [address] [facility], [place], [address], 05/20/2025 10:56:36 05/19/20 25 05/19/2025 CBC W/DIF F plt 301 10'3/ uL 150-40 0 Not Available [facility] (Lab) [address] [facility], [place], [address], 05/20/2025 10:56:36 05/19/20 25 05/19/2025 CBC W/DIF F MPV 11.9 fL 8.8-12 .1 Not Available [facility] (Lab) [address] [facility], [place], [address], 05/20/2025 10:56:36 05/19/20 25 05/19/2025 CBC W/DIF F NRBC's 0.0 % 0.0 Not Available [facility] (Lab) [address] [facility], [place], [address], 05/20/2025 10:56:36 05/19/20 25 05/19/2025 CBC W/DIF F absolute NRBCs 0.0 10'3/ uL no refere nce range establ ished Not Available [facility] (Lab) [address], [place], [address], 05/20/2025 10:56:36 05/19/20 25 05/19/2025 CBC W/DIF F neutrophils 71.0 % 34.0-7 3.0 Not Available [facility] (Lab) [address] [facility], [place], [address], 05/20/2025 10:56:36 05/19/20 25 05/19/2025 CBC W/DIF F lymphocytes 22.5 % 15.0-5 0.0 Not Available [facility] (Lab) [address], [place], [address], 05/20/2025 10:56:36 05/19/20 25 05/19/2025 CBC W/DIF F monocytes 5.3 % 1.0-15 .0 Not Available [facility] (Lab) [address] [facility], [place], [address], 05/20/2025 10:56:36 05/19/20 25 05/19/2025 CBC W/DIF F eosinophils 0.6 % 0.0-8. 0 Not Available [facility] (Lab) [address] [facility], [place], [address], 05/20/2025 10:56:36 05/19/20 25 05/19/2025 CBC W/DIF F basophils 0.3 % 0.0-2. 0 Not Available [facility] (Lab) [address], [place], [address], 05/20/2025 10:56:36 05/19/20 25 05/19/2025 CBC W/DIF [...] Available [facility] (Lab) [address], [place], [address], 05/20/2025 10:56:36 05/19/20 25 05/19/2025 CBC W/DIF F absolute neutrophils 6.8 10'3/ uL 1.5-8. 0 Not Available [facility] (Lab) [address], [place], [address], 05/20/2025 10:56:36 05/19/20 25 05/19/2025 CBC W/DIF F absolute lymphocytes 2.2 10'3/ uL 1.0-4. 0 Not Available [facility] (Lab) [address], [place], [address], 05/20/2025 10:56:36 05/19/20 25 05/19/2025 CBC W/DIF F absolute monocytes 0.5 10'3/ uL 0.2-1. 0 Not Available [facility] (Lab) [address], [place], [address], 05/20/2025 10:56:36 05/19/20 25 05/19/2025 CBC W/DIF F absolute eosinophils 0.1 10'3/ uL 0.0-0. 6 Not Available [facility] (Lab) [address], [place], [address], 05/20/2025 10:56:36 05/19/20 25 05/19/2025 CBC W/DIF F absolute basophils 0.0 10'3/ uL 0.0-0. 3 Not Available [facility] (Lab) [address] [place], [address], 05/20/2025 10:56:36 05/19/20 25 05/19/2025 CBC W/DIF F absolute immature granulocytes 0.0 10'3/ uL 0.00-0 .10 Refer ence range s for nonbi nary/ inter sex or unspe cifie d gende r patie nts have not been estab lishe d. Pleas e [facility] for range s estab lishe d for cisge nder patie nts and evalu ate in the clini sam padmini xt of the indiv idual patie nt: https ://angelique dennis book. nm.or g/gen derx Not Available [facility] (Lab) [address], [place], [address], 05/20/2025 10:56:36 05/19/2005/19/2025 HEPAT ITIS B SURFA CE ANTIG EN hepatitis B surface antigen Non-re active non-re active This assay was perfo rmed using [employer] ratio n reage nts and test kits. Value s obtai erica with other assay metho ds or kits canno t be used inter melton eably . Not Available [facility] (Lab) [address], [place], [address], 05/20/2025 10:56:37 05/19/2005/19/2025 HIV 1/2 ANTIG EN/AN TIBOD Y, REFLE X CONFI RMATI ON HIV antigen/anti body Nonrea ctive nonrea ctive HIV-1 antig en and HIV-1 /HIV- 2 antib odies were not detec tashi. No labor atory evide nce of HIV infec tion. Not Available [facility] (Lab) [address], [place], [address], 05/20/2025 10:56:37 05/19/20 25 05/19/2025 HEPAT ITIS C ANTIB NEPTALI SCREE N, REFLE X TO CONFI RMATI ON hepatitis C antibody Non-re active non-re active Antib odies to HCV Not Detec tashi, does not exclu de the possi bilit y of expos ure to HCV. Not Available [facility] (Lab) [address], [place], [address], 05/20/2025 10:56:38 05/19/20 25 05/19/2025 VITAM IN D, 25-OH (TOTA L D2/D3 ) vitamin D, 25-hydroxy, total 59.5 NG/mL 30.0-1 00.0 Sugge stive of Defic iency : <20 ng/mL Sugge stive of Insuf ficie ncy: 20-29 ng/mL Sugge stive of Suffi cienc y: 30-10 0 ng/mL Sugge stive of Toxic ity: >150 ng/mL Not Available [facility] (Lab) [address], [place], [address], 05/20/2025 10:56:38 05/19/20 25 05/19/2025 TYPE/ RH/SC REEN ABO/Rh type O POS Not Available [facility] (Lab) [address], [place], [address], 05/20/2025 10:56:39 05/19/20 25 05/19/2025 TYPE/ RH/SC REEN antibody screen NEG Not Available [facility] (Lab) [address], [place], [address], 05/20/2025 10:56:39 05/19/20 25 05/19/2025 TYPE/ RH/SC REEN exp date 2024 23:59 Not Available [facility] (Lab) [address], [place], [address], 05/20/2025 10:56:39 05/19/20 25 05/19/2025 RUBEL LA IGG ANTIB NEPTALI, QUANT rubella antibodies, IgG Reacti ve reacti ve Not Available [facility] (Lab) [address], [place], [address], 05/20/2025 10:56:39 05/19/20 25 05/19/2025 RUBEL LA IGG ANTIB NEPTALI, QUANT rubella antibodies, IgG quant 13.6 IU/mL >=10 Non-r eacti ve (Non- Immun e) <10 IU/mL React dwight (Immu ne) > or = 10 IU/mL Not Available [facility] (Lab) [address], [place], [address], 05/20/2025 10:56:39 05/19/20 25 05/19/2025 HEMOG LOBIN [...] Available [facility] (Lab) [address], [place], [address], 05/20/2025 10:56:40 05/19/2005/19/2025 RPR SCREE N, REFLE X TITER /CONF IRMAT ION RPR qualitative Nonrea ctive nonrea ctive Not Available [facility] (Lab) [address], [place], [address], 05/20/2025 10:56:41 05/19/2005/19/2025 CULTU RE: URINE result report SEE RESULT S BELOW Test: Cultu re: Urine Speci men Sourc e: Urine Voide d Speci men Type: Urine Speci men Date: 1413 Resul t Date: 3 Resul t Statu s: Final resul t Abnor mal: No Resul ting Lab: [facility] [address] [facility] [address] Tel: CULTU RE ----- ----- ----- --- No growt h in 1 day (dete ction level of 10,00 0 colon ies / ml.) Not Available [facility] (Lab) [address], [place], [address], 05/20/2025 22:47:16 05/19/20 25 05/19/2025 IMAGE GUIDE D PAP, REFLE X HPV IF ASCUS ONLY image guided Pap, reflex HPV ASCUS only SEE RESULT S BELOW CASE REPOR T: Cytol ogy Gynec ologi sam Repor t Case: [id number] Autho alexi verma Provi kiah: Alysia Mohr NP Colle cted: 05/19 1409 Order ing Locat ion: [place] [facility] Recei [place]: 05/20 1144 First Carter n: Wong Jimenez , CT Rescr een: Joseph Deleon, CT Speci men: Carter rubio Pap - Image d, Cervi x STATE MENT OF ADEQU ACY: Satis facto ry for evalu ation Trans forma tion zone compo nent prese nt ----- ----- ----- ----- ----- ----- ----- ----- ----- ----- ----- ----- ----- ----- ----- ----- ----- ---- FINAL DIAGN OSIS: Negat dwight for Intra epith elial Vini morocho or Jose Antonio ribeiro (NIL) . [...] [facility] ([facility] [address], [place], [address], 05/24/2025 18:43:29 05/19/20 25 05/19/2025 CT/GC (CAT) , THINP REP VIAL chlamydia trachomatis, PCR Negati ve negati ve Not Available [facility] (Lab) [address], [place], [address], 05/24/2025 18:43:30 05/19/20 25 05/19/2025 CT/GC (CAT) , THINP REP VIAL neisseria gonorrhoeae, PCR Negati ve negati ve Not Available [facility] (Lab) [address] [place], [address], 05/24/2025 18:43:30 05/19/20 25 05/19/2025 drug scree n, urine Cannabinoids : positi ve Not Available [address] [place], [address], 05/19/2025 13:35:34 05/19/20 25 05/19/2025 drug scree n, urine Other: positi ve Not Available [address], [place], [address], 05/19/2025 13:35:34 09/10/2009/10/2025 HEMAT OCRIT (HCT) HCT 39.4 % (based on docume nted legal sex) 34.0-4 5.0 Not Available [facility] (Lab) [address] [place], [address], 09/11/2025 12:57:34 09/10/2009/10/2025 HEMOG LOBIN (HGB) HGB 12.7 g/dL (based on docume nted legal sex) 11.6-1 5.4 Not Available [facility] (Lab) [address] [place], [address], 09/11/2025 12:57:34 09/10/2009/10/2025 CMP/C BC/UR IC ACID WBC 10.8 10'3/ uL 3.5-10 .5 high Not Available [facility] (Lab) [address] [facility], [place], [address], 09/11/2025 12:57:34 09/10/2009/10/2025 CMP/C BC/UR IC ACID RBC 4.59 10'6/ uL (based on docume nted legal sex) 3.80-5 .20 Not Available [facility] (Lab) [address] [place], [address], 09/11/2025 12:57:34 09/10/2009/10/2025 CMP/C BC/UR IC ACID HGB 12.7 g/dL (based on docume nted legal sex) 11.6-1 5.4 Not Available [facility] (Lab) [address] [place], [address], 09/11/2025 12:57:34 09/10/20 25 09/10/2025 CMP/C BC/UR IC ACID HCT 39.4 % (based on docume nted legal sex) 34.0-4 5.0 Not Available [facility] (Lab) [address] [facility], [place], [address], 09/11/2025 12:57:34 09/10/2009/10/2025 CMP/C BC/UR IC ACID MCV 85.8 fL 80.0-9 9.0 Not Available [facility] (Lab) [address] [facility], [place], [address], 09/11/2025 12:57:34 09/10/2009/10/2025 CMP/C BC/UR IC ACID MCH 27.7 pg 27.0-3 4.0 Not Available [facility] (Lab) [address] [facility], [place], [address], 09/11/2025 12:57:34 09/10/2009/10/2025 CMP/C BC/UR IC ACID MCHC 32.2 g/dL 32.0-3 5.5 Not Available [facility] (Lab) [address], [place], [address], 09/11/2025 12:57:34 09/10/2009/10/2025 CMP/C BC/UR IC ACID RDW 12.7 % 11.0-1 5.0 Not Available [facility] (Lab) [address] [facility], [place], [address], 09/11/2025 12:57:34 09/10/2009/10/2025 CMP/C BC/UR IC ACID plt 252 10'3/ uL 150-40 0 Not Available [facility] (Lab) [address] [facility], [place], [address], 09/11/2025 12:57:34 09/10/2009/10/2025 CMP/C BC/UR IC ACID MPV 11.7 fL 8.8-12 .1 Not Available [facility] (Lab) [address], [place], [address], 09/11/2025 12:57:34 09/10/2009/10/2025 CMP/C BC/UR IC ACID NRBC's 0.0 % 0.0 Not Available [facility] (Lab) [address], [place], [address], 09/11/2025 12:57:34 09/10/20 25 09/10/2025 CMP/C BC/UR IC ACID absolute NRBCs 0.0 10'3/ uL no refere nce range establ ished Not Available [facility] (Lab) [address] [facility], [place], [address], 09/11/2025 12:57:34 09/10/2009/10/2025 CMP/C BC/UR IC ACID neutrophils 74.4 % 34.0-7 3.0 high Not Available [facility] (Lab) [address] [facility], [place], [address], 09/11/2025 12:57:34 09/10/20 25 09/10/2025 CMP/C BC/UR IC ACID lymphocytes 18.6 % 15.0-5 0.0 Not Available [facility] (Lab) [address], [place], [address], 09/11/2025 12:57:34 09/10/20 25 09/10/2025 CMP/C BC/UR IC ACID monocytes 5.9 % 1.0-15 .0 Not Available [facility] (Lab) [address] [place], [address], 09/11/2025 12:57:34 09/10/20 25 09/10/2025 CMP/C BC/UR IC ACID eosinophils 0.5 % 0.0-8. 0 Not Available [facility] (Lab) [address] [place], [address], 09/11/2025 12:57:34 09/10/20 25 09/10/2025 CMP/C BC/UR IC ACID basophils 0.1 % 0.0-2. 0 Not Available [facility] (Lab) [address] [facility], [place], [address], 09/11/2025 12:57:34 09/10/2009/10/2025 CMP/C BC/UR IC ACID [...] Available [facility] (Lab) [address] [facility], [place], [address], 09/11/2025 12:57:34 09/10/20 25 09/10/2025 CMP/C BC/UR IC ACID absolute neutrophils 8.1 10'3/ uL 1.5-8. 0 high Not Available [facility] (Lab) [address] [facility], [place], [address], 09/11/2025 12:57:34 09/10/20 25 09/10/2025 CMP/C BC/UR IC ACID absolute lymphocytes 2.0 10'3/ uL 1.0-4. 0 Not Available [facility] (Lab) [address] [facility], [place], [address], 09/11/2025 12:57:34 09/10/20 25 09/10/2025 CMP/C BC/UR IC ACID absolute monocytes 0.6 10'3/ uL 0.2-1. 0 Not Available [facility] (Lab) [address] [place], [address], 09/11/2025 12:57:34 09/10/2009/10/2025 CMP/C BC/UR IC ACID absolute eosinophils 0.1 10'3/ uL 0.0-0. 6 Not Available [facility] (Lab) [address] [place], [address], 09/11/2025 12:57:34 09/10/2009/10/2025 CMP/C BC/UR IC ACID absolute basophils 0.0 10'3/ uL 0.0-0. 3 Not Available [facility] (Lab) [address] [facility], [place], [address], 09/11/2025 12:57:34 09/10/20 25 09/10/2025 CMP/C BC/UR [...] Available [facility] (Lab) [address] [facility], [place], [address], 09/11/2025 12:57:34 09/10/20 25 09/10/2025 CMP/C BC/UR IC ACID uric acid 3.0 mg/dL 2.3-6. 6 Not Available [facility] (Lab) [address] [place], [address], 09/11/2025 12:57:34 09/10/2009/10/2025 CMP/C BC/UR IC ACID sodium 136 mmol/ L 133-14 6 Not Available [facility] (Lab) [address] [place], [address], 09/11/2025 12:57:34 09/10/20 25 09/10/2025 CMP/C BC/UR IC ACID potassium 3.9 mmol/ L 3.5-5. 1 Not Available [facility] (Lab) [address] [place], [address], 09/11/2025 12:57:34 09/10/2009/10/2025 CMP/C BC/UR IC ACID chloride 102 mmol/ L 98-107 Not Available [facility] (Lab) [address] [facility], [place], [address], 09/11/2025 12:57:34 09/10/2009/10/2025 CMP/C BC/UR IC ACID carbon dioxide 26 mmol/ L 21-31 Not Available [facility] (Lab) [address] [facility], [place], [address], 09/11/2025 12:57:34 09/10/2009/10/2025 CMP/C BC/UR IC ACID anion gap 8 mmol/ L 4-13 Not Available [facility] (Lab) [address] [facility], [place], [address], 09/11/2025 12:57:34 09/10/2009/10/2025 CMP/C BC/UR IC ACID blood urea nitrogen 5 mg/dL 7-25 low Not Available [facility] (Lab) [address] [facility], [place], [address], 09/11/2025 12:57:34 09/10/2009/10/2025 CMP/C BC/UR IC ACID creatinine 0.55 mg/dL 0.60-1 .30 low Not Available [facility] (Lab) [address] [facility], [place], [address], 09/11/2025 12:57:34 09/10/2009/10/2025 CMP/C BC/UR IC ACID egfrcr (CKD-epi 2020) >90 mL/mi n/1.7 3_m2 >=60 Not Available [facility] (Lab) [address] [facility], [place], [address], 09/11/2025 12:57:34 09/10/2009/10/2025 CMP/C BC/UR IC ACID calcium 8.8 mg/dL 8.3-10 .5 Not Available [facility] (Lab) [address] [place], [address], 09/11/2025 12:57:34 09/10/20 25 09/10/2025 CMP/C BC/UR IC ACID glucose 113 mg/dL 70-100 high Not Available [facility] (Lab) [address] [facility], [place], [address], 09/11/2025 12:57:34 09/10/2009/10/2025 CMP/C BC/UR IC ACID protein, total 6.1 g/dL 6.4-8. 3 low Not Available [facility] (Lab) [address] [facility], [place], [address], 09/11/2025 12:57:34 09/10/2009/10/2025 CMP/C BC/UR IC ACID albumin 3.6 g/dL 3.5-5. 0 Not Available [facility] (Lab) [address] [facility], [place], [address], 09/11/2025 12:57:34 09/10/2009/10/2025 CMP/C BC/UR IC ACID ALT 17 units /L 9-43 Not Available [facility] (Lab) [address] [facility], [place], [address], 09/11/2025 12:57:34 09/10/20 25 09/10/2025 CMP/C BC/UR IC ACID alkaline phosphatase 61 units /L 34-104 Not Available [facility] (Lab) [address] [facility], [place], [address], 09/11/2025 12:57:34 09/10/20 25 09/10/2025 CMP/C BC/UR IC ACID AST 15 units /L 13-39 Not Available [facility] (Lab) [address] [facility], [place], [address], 09/11/2025 12:57:34 09/10/20 25 09/10/2025 CMP/C BC/UR IC ACID bilirubin, total 0.3 mg/dL 0.2-1. 2 Not Available [facility] (Lab) [address] [facility], [place], [address], 09/11/2025 12:57:34 09/10/20 25 09/10/2025 GTT - GESTA JANELL L SCREE N, ACOG OB glucose, 1 hour screen 107 mg/dL 70-135 Not Available [facility] (Lab) [address], [place], [address], 09/11/2025 12:57:35 09/10/2009/10/2025 HIV 1/2 ANTIG EN/AN TIBOD Y, REFLE X CONFI RMATI ON HIV antigen/anti body Nonrea ctive nonrea ctive HIV-1 antig en and HIV-1 /HIV- 2 antib odies were not detec tashi. No labor atory evide nce of HIV infec tion. Not Available [facility] (Lab) [address], [place], [address], 09/11/2025 12:57:35 09/10/2009/10/2025 RPR SCREE N, REFLE X TITER /CONF IRMAT ION RPR qualitative Nonrea ctive nonrea ctive Not Available [facility] (Lab) [address], [place], [address], 09/11/2025 12:57:35 09/24/2009/24/2025 CULTU RE: URINE result report SEE RESULT S BELOW Test: Cultu re: Urine Speci men Sourc e: Urine - Clean Catch Speci men Type: Urine Speci men Date: 2024 1332 Resul t Date: 2024 1203 Resul t Statu s: Final resul t Abnor mal: No Resul ting Lab: [facility] [address] [facility] [address] Tel: [phone] CULTU RE ----- ----- ----- --- Cultu re resul t (>=3 organ isms prese nt) indic ates possi ble conta minat ion. Repea t cultu re if sympt oms indic ate. Not Available [facility] (Lab) [address], [place], [address], 09/26/2025 13:06:06 09/24/20 25 09/24/2025 urina lysis , dipst ick Leukocytes ++ Not Available [facility] [address], [place], [address], 09/24/2025 13:05:12 09/24/20 25 09/24/2025 urina lysis , dipst ick Protein + Not Available [facility] [address], [place], [address], 09/24/2025 13:05:12 09/24/20 25 09/24/2025 urina lysis , dipst ick pH 5 Not Available [facility] [address], [place], [address], 09/24/2025 13:05:12 09/24/20 25 09/24/2025 urina lysis , dipst ick Blood +++ Not Available [facility] [address], [place], [address], 09/24/2025 13:05:12 09/24/20 25 09/24/2025 urina lysis , dipst ick Specific [place] 1.015 Not Available [facility] [address], [place], [address], 09/24/2025 13:05:12 09/24/20 25 09/24/2025 urina lysis , dipst ick Appearance cloudy Not Available [facility] [address], [place], [address], 09/24/2025 13:05:12 09/24/20 25 09/24/2025 urina lysis , dipst ick Color yellow Not Available [facility] [address], [place], [address], 09/24/2025 13:05:12 10/08/20 25 10/08/2025 CBC W/DIF F WBC 12.3 10'3/ uL 3.5-10 .5 high Not Available [facility] (Lab) [address], [place], [address], 10/10/2025 00:09:54 10/08/20 25 10/08/2025 CBC W/DIF F RBC 4.69 10'6/ uL (based on docume nted legal sex) 3.80-5 .20 Not Available [facility] (Lab) [address], [place], [address], 10/10/2025 00:09:54 10/08/20 25 10/08/2025 CBC W/DIF F HGB 12.7 g/dL (based on docume nted legal sex) 11.6-1 5.4 Not Available [facility] (Lab) [address], [place], [address], 10/10/2025 00:09:54 10/08/20 25 10/08/2025 CBC W/DIF F HCT 39.8 % (based on docume nted legal sex) 34.0-4 5.0 Not Available [facility] (Lab) [address], [place], [address], 10/10/2025 00:09:54 10/08/20 25 10/08/2025 CBC W/DIF F MCV 84.9 fL 80.0-9 9.0 Not Available [facility] (Lab) [address], [place], [address], 10/10/2025 00:09:54 10/08/20 25 10/08/2025 CBC W/DIF F MCH 27.1 pg 27.0-3 4.0 Not Available [facility] (Lab) [address], [place], [address], 10/10/2025 00:09:54 10/08/20 25 10/08/2025 CBC W/DIF F MCHC 31.9 g/dL 32.0-3 5.5 low Not Available [facility] (Lab) [address], [place], [address], 10/10/2025 00:09:54 10/08/20 25 10/08/2025 CBC W/DIF F RDW 13.2 % 11.0-1 5.0 Not Available [facility] (Lab) [address], [place], [address], 10/10/2025 00:09:54 10/08/20 25 10/08/2025 CBC W/DIF F plt 239 10'3/ uL 150-40 0 Not Available [facility] (Lab) [address], [place], [address], 10/10/2025 00:09:54 10/08/20 25 10/08/2025 CBC W/DIF F MPV 11.9 fL 8.8-12 .1 Not Available [facility] (Lab) [address], [place], [address], 10/10/2025 00:09:54 10/08/20 25 10/08/2025 CBC W/DIF F NRBC's 0.0 % 0.0 Not Available [facility] (Lab) [address], [place], [address], 10/10/2025 00:09:54 10/08/20 25 10/08/2025 CBC W/DIF F absolute NRBCs 0.0 10'3/ uL no refere nce range establ ished Not Available [facility] (Lab) [address] [place] [address], [address], 10/10/2025 00:09:54 10/08/20 25 10/08/2025 CBC W/DIF F neutrophils 70.7 % 34.0-7 3.0 Not Available [facility] (Lab) [address], [place], [address], 10/10/2025 00:09:54 10/08/20 25 10/08/2025 CBC W/DIF F lymphocytes 22.0 % 15.0-5 0.0 Not Available [facility] (Lab) [address] [facility], [place], [address], 10/10/2025 00:09:54 10/08/20 25 10/08/2025 CBC W/DIF F monocytes 6.1 % 1.0-15 .0 Not Available [facility] (Lab) [address] [facility], [place], [address], 10/10/2025 00:09:54 10/08/20 25 10/08/2025 CBC W/DIF F eosinophils 0.5 % 0.0-8. 0 Not Available [facility] (Lab) [address] [facility], [place], [address], 10/10/2025 00:09:54 10/08/20 25 10/08/2025 CBC W/DIF F basophils 0.2 % 0.0-2. 0 Not Available [facility] (Lab) [address] [facility], [place], [address], 10/10/2025 00:09:54 10/08/20 25 10/08/2025 CBC W/DIF [...] Available [facility] (Lab) [address] [facility], [place], [address], 10/10/2025 00:09:54 10/08/20 25 10/08/2025 CBC W/DIF F absolute neutrophils 8.7 10'3/ uL 1.5-8. 0 high Not Available [facility] (Lab) [address] [facility], [place], [address], 10/10/2025 00:09:54 10/08/20 25 10/08/2025 CBC W/DIF F absolute lymphocytes 2.7 10'3/ uL 1.0-4. 0 Not Available [facility] (Lab) [address] [facility], [place], [address], 10/10/2025 00:09:54 10/08/20 25 10/08/2025 CBC W/DIF F absolute monocytes 0.8 10'3/ uL 0.2-1. 0 Not Available [facility] (Lab) [address] [facility], [place], [address], 10/10/2025 00:09:54 10/08/20 25 10/08/2025 CBC W/DIF F absolute eosinophils 0.1 10'3/ uL 0.0-0. 6 Not Available [facility] (Lab) [address] [facility], [place], [address], 10/10/2025 00:09:54 10/08/20 25 10/08/2025 CBC W/DIF F absolute basophils 0.0 10'3/ uL 0.0-0. 3 Not Available [facility] (Lab) [address] [facility], [place], [address], 10/10/2025 00:09:54 10/08/20 25 10/08/2025 CBC W/DIF F absolute immature granulocytes 0.1 10'3/ uL 0.00-0 .10 Refer ence range s for nonbi nary/ inter sex or unspe cifie d gende r patie nts have not been estab lishe d. Garth e refer to the marko wing table for range s estab lishe d for cisge nder patie nts and evalu ate in the clini sam padmini xt of the indiv idual patie nt: https ://angelique dennis book. nm.or g/gen derx Not Available [facility] (Lab) [address] [facility], [place], [address], 10/10/2025 00:09:54 10/08/20 25 10/08/2025 PROTE IN/CR EATIN INE RATIO , URINE creatinine, urine 34.6 mg/dL R-No refer ence range estab lishe d for this assay Not Available [facility] (Lab) [address] [facility], [place], [address], 10/10/2025 00:09:55 10/08/20 25 10/08/2025 PROTE IN/CR EATIN INE RATIO , URINE protein, urine <4 mg/dL R-No refer ence range estab lishe d for this assay Not Available [facility] (Lab) [address] [facility], [place], [address], 10/10/2025 00:09:55 10/08/20 25 10/08/2025 PROTE IN/CR [...] fican t prote inuri a. Not Available [facility] (Lab) [address] [facility], [place], [address], 10/10/2025 00:09:55 10/08/20 25 10/08/2025 URIC ACID uric acid 3.5 mg/dL 2.3-6. 6 Not Available [facility] (Lab) [address] [place], [address], 10/10/2025 00:09:55 10/08/20 25 10/08/2025 CMP(C OMPRE HENSI VE METAB OLIC PANEL ) sodium 135 mmol/ L 133-14 6 Not Available [facility] (Lab) [address] [place], [address], 10/10/2025 00:09:56 10/08/20 25 10/08/2025 CMP(C OMPRE HENSI VE METAB OLIC PANEL ) potassium 3.8 mmol/ L 3.5-5. 1 Not Available [facility] (Lab) [address] [facility], [place], [address], 10/10/2025 00:09:56 10/08/20 25 10/08/2025 CMP(C OMPRE HENSI VE METAB OLIC PANEL ) chloride 102 mmol/ L 98-107 Not Available [facility] (Lab) [address] [facility], [place], [address], 10/10/2025 00:09:56 10/08/20 25 10/08/2025 CMP(C OMPRE HENSI VE METAB OLIC PANEL ) carbon dioxide 22 mmol/ L 21-31 Not Available [facility] (Lab) [address] [facility], [place], [address], 10/10/2025 00:09:56 10/08/20 25 10/08/2025 CMP(C OMPRE HENSI VE METAB OLIC PANEL ) anion gap 11 mmol/ L 4-13 Not Available [facility] (Lab) [address] [place], [address], 10/10/2025 00:09:56 10/08/20 25 10/08/2025 CMP(C OMPRE HENSI VE METAB OLIC PANEL ) blood urea nitrogen 5 mg/dL 7-25 low Not Available [facility] (Lab) [address] [place], [address], 10/10/2025 00:09:56 10/08/20 25 10/08/2025 CMP(C OMPRE HENSI VE METAB OLIC PANEL ) creatinine 0.53 mg/dL 0.60-1 .30 low Not Available [facility] (Lab) [address] [place], [address], 10/10/2025 00:09:56 10/08/20 25 10/08/2025 CMP(C OMPRE HENSI VE METAB OLIC PANEL ) egfrcr (CKD-epi 2020) >90 mL/mi n/1.7 3_m2 >=60 Not Available [facility] (Lab) [address] [facility], [place], [address], 10/10/2025 00:09:56 10/08/20 25 10/08/2025 CMP(C OMPRE HENSI VE METAB OLIC PANEL ) calcium 8.6 mg/dL 8.3-10 .5 Not Available [facility] (Lab) [address] [facility], [place], [address], 10/10/2025 00:09:56 10/08/20 25 10/08/2025 CMP(C OMPRE HENSI VE METAB OLIC PANEL ) glucose 92 mg/dL 70-100 Not Available [facility] (Lab) [address] [facility], [place], [address], 10/10/2025 00:09:56 10/08/20 25 10/08/2025 CMP(C OMPRE HENSI VE METAB OLIC PANEL ) protein, total 5.9 g/dL 6.4-8. 3 low Not Available [facility] (Lab) [address] [place], [address], 10/10/2025 00:09:56 10/08/20 25 10/08/2025 CMP(C OMPRE HENSI VE METAB OLIC PANEL ) albumin 3.5 g/dL 3.5-5. 0 Not Available [facility] (Lab) [address] [facility], [place], [address], 10/10/2025 00:09:56 10/08/20 25 10/08/2025 CMP(C OMPRE HENSI VE METAB OLIC PANEL ) ALT 17 units /L 9-43 Not Available [facility] (Lab) [address] [place], [address], 10/10/2025 00:09:56 10/08/20 25 10/08/2025 CMP(C OMPRE HENSI VE METAB OLIC PANEL ) alkaline phosphatase 81 units /L 34-104 Not Available [facility] (Lab) [address] [facility], [place], [address], 10/10/2025 00:09:56 10/08/20 25 10/08/2025 CMP(C OMPRE HENSI VE METAB OLIC PANEL ) AST 16 units /L 13-39 Not Available [facility] (Lab) [address] [facility], [place], [address], 10/10/2025 00:09:56 10/08/20 25 10/08/2025 CMP(C OMPRE HENSI VE METAB OLIC PANEL ) bilirubin, total 0.5 mg/dL 0.2-1. 2 Not Available [facility] (Lab) [address] [facility], [place], [address], 10/10/2025 00:09:56 10/08/20 25 10/08/2025 CULTU RE: URINE result report SEE RESULT S BELOW Test: Cultu re: Urine Speci men Sourc e: Urine - Clean Catch Speci men Type: Urine Speci men Date: 10/08 1152 Resul t Date: 10/09 2305 Resul t Statu s: Final resul t Abnor mal: No Resul ting Lab: [facility] [address] [facility] [address] Tel: CULTU RE ----- ----- ----- --- No growt h in 1 day (dete ction level of 10,00 0 colon ies / ml.) Not Available [facility] (Lab) [address] [facility], [place], [address], 10/10/2025 00:09:56 07/14/2007/14/2025 US, obste tric, 2nd or 3rd trime ster No observ ation record ed. [email or web address] [facility] [address], [place], [address], 07/14/2025 11:48:13 07/14/20 25 07/14/2025 US, obste tric, follo w-up No observ ation record ed. [email or web address] [facility] [address], [place], [address], 07/14/2025 16:09:19 08/11/20 25 08/11/2025 US, obste tric, follo w-up No observ ation record ed. [facility] [address], [place], [address], 08/11/2025 18:35:48 08/11/2008/11/2025 US, obste tric, follo w-up No observ ation record ed. [facility] [address], [place], [address], 08/13/2025 07:06:41 09/10/20 25 09/10/2025 US, obste tric, follo w-up No observ ation record ed. [facility] [address], [place], [address], 09/10/2025 14:42:43 09/10/2009/10/2025 US, obste tric, follo w-up No observ ation record ed. [email or web address] [facility] [address], [place], [address], 09/14/2025 14:46:19 10/08/20 25 10/08/2025 US, obste tric, follo w-up No observ ation record ed. [email or web address] [facility] [address], [place], [address], 10/11/2025 11:55:36 10/08/20 25 10/08/2025 non-s tress test No observ ation record ed. [address], [place], [address], 10/08/2025 13:48:06 10/08/20 non-s tress test No observ ation record ed. [address], [place], [address], 10/08/2025 12:32:22 10/08/20 25 10/08/2025 US, obste tric, follo w-up No observ ation record ed. [facility] [address], [place], [address], 10/08/2025 16:57:13 10/08/20 25 10/08/2025 US, obste tric, bioph ysica l profi le + non-s tress test No observ ation record ed. [facility] [address], [place], [address], 10/08/2025 16:57:23 10/13/20 25 10/13/2025 US, obste tric, bioph ysica l profi le + non-s tress test No observ ation record ed. [email or web address] [facility] [address], [place], [address], 10/13/2025 11:51:09 10/13/20 25 10/13/2025 US, obste tric, bioph ysica l profi le + non-s tress test No observ ation record ed. [email or web address] [facility] [address], [place], [address], 10/20/2025 11:47:34 10/13/20 25 10/13/2025 non-s tress test No observ ation record ed. [address], [place], [address], 10/13/2025 17:57:16 10/13/20 non-s tress test No observ ation record ed. [address], [place], [address], 10/13/2025 17:34:36 10/22/20 25 10/22/2025 US, obste tric, bioph ysica l profi le No observ ation record ed. [email or web address] [facility] [address], [place], [address], 10/29/2025 11:35:15 10/22/20 25 10/22/2025 US, obste tric, bioph ysica l profi le + non-s tress test No observ ation record ed. [facility] [address], [place], [address], 10/22/2025 13:51:55 10/22/20 25 10/22/2025 non-s tress test No observ ation record ed. [address], [place], [address], 10/27/2025 18:38:42 10/22/20 non-s tress test No observ ation record ed. [address], [place], [address], 10/22/2025 12:42:25 10/29/20 25 10/29/2025 US, obste tric, follo w-up No observ ation record ed. [email or web address] [facility] [address], [place], [address], 10/30/2025 01:33:53 10/29/20 25 10/29/2025 US, obste tric, follo w-up No observ ation record ed. [facility] [address], [place], [address], 10/29/2025 17:16:32 10/29/20 25 10/29/2025 US, obste tric, bioph ysica l profi le + non-s tress test No observ ation record ed. [email or web address] [facility] [address], [place], [address], 10/29/2025 17:16:42 Result Notes None recorded. Problems Name Problem SNOMED Code Status Onset Date Resolution Date Notes Provider Name and Address Organization Details Recorded Time 50482074 Active 2024 Linda Auguste [facility], [facility] 10:53:18 Hypertens dwight disorder 24430688 Active 2024 labetalol 200mg bid bASA daily serial growth us , weekly testing @ 32wks 10/08/25 300mg bid rpt labs Alysia Santos CNM [address], [place], [address], [facility] 12:52:39 Mixed anxiety and depressiv e disorder 139712817 Active 2024 buspirone 10mg lexapro 20 mg daily Alysia Santos CNM [address], [place], [address], [facility] 5 12:01:06 Past history of gestation al hypertens ion 340942335 Active 2024 vs preeclamp deirdre delivered at 37 weeks Alysia Santos CNM [address], [place], [address], [facility] 12:01:27 Marijuana user 281813924 Active 2024 Pt decreased . Continued use is causing family issues and pt is experienc ing increased anxiety and depressio n symptoms. Nina conway [facility], [facility] 16:48:10 Marijuana user 991723613 Active 2024 Pt decreased . Continued use is causing family issues and pt is experienc ing increased anxiety and depressio n symptoms. Nina Olivares er null, [facility] 5 16:48:11 Problem Notes None [...] Name and Address Organization Details Recorded Time 10848 amoxicill in medicatio n hives Not available Not available 10/08/20252016 723 RxNorm Not Available [employer] - prod 5 03:06:32 65759 clindamyc in Not available hives Not available Not available 10/08/20252018 2582 RxNorm Not Available [employer] - prod 5 03:06:32 Medications Name [...] 4 times a day by oral route. 08/11 /2025 completed Not Available Not Available Not Available escitalopra m 20 mg tablet TAKE 1 TABLET BY MOUTH EVERY DAY 2024 active Not Available Not Available Not Avai lable Pepcid active Not Available Not Availa ble Not Available active Not Available Not Avai lable Not Available Vitals Date Recorded Body weight Provider Name an d Address Organization Details Last Updated DateTime 10/08/2025 83573.53288 g Krysta Ordaz [facility] 10/08/2025 12:37:53 Date Recorded Body height Body mass index (BMI) Body weight Systolic And Diastolic Provider Name and Address Organization Details Last Updated DateTime 10/08/2025 162.56 cm 32.6 kg/m2 59790.55 g 122/79 mm[Hg] Cami Merida [facility] 10/08/2025 12:29:55 Social History Question Answer Notes LastModified by Organizat ion Details LastModified Time Do You Have An Advance Directive? No Information n ot available 04/22/2025 How Many Years Have You Consumed Alcohol? 8 [email or web address] Information not available 08/11/2025 Are You Blind [...] Or The Highest Degree You Have Received? [id number] Information not available 04/22/2025 Are There Any Guns Present In Your Home? Yes Information not available 04/22/2025 Have You Ever Been Counseled For Unhealthy Alcohol Use? No Information not available 06/16/2025 Do You Use Protection During Sex? No Information not available 04/22/2025 Do You Use Your Seat Belt Or Car Seat Routinely? Yes Information not available 04/22/2025 Are You Sexually Active? Yes [email or web address] Information not available 06/16/2025 Do You Have Smoke And Carbon Monoxide Detectors In Your Home? Yes Information not available 04/22/2025 At What Age Did You Start Smoking Tobacco? 19 Information not available 04/22/2025 How Much Tobacco Do You Smoke? No Information not available 04/22/2025 Do You Use Sunscreen Routinely? No Information not available 04/22/2025 Has Tobacco Cessation Counseling Been Provided? No [email or web address] Information not available 06/16/2025 How Many Years Have You Smoked Tobacco? 4 [email or web address] Information not available 08/11/2025 Have You Used IV Drugs? No Information not available 04/22/2025 Do You Have Difficulty Walking Or Climbing Stairs? No [email or web address] Information not available 06/16/2025 Sex: Unknown Functional Status Question Answer Note LastModified by Organizat ion Details LastModified Time Do you use any illicit or recreational drugs? Yes Information not available 04/22/2025 Do you or have you ever used any other forms of tobacco or nicotine? No [email or web address] Information not available 06/16/2025 What is your level of alcohol consumption? Occasional [email or web address] Information not available 08/11/2025 Are you currently employed? Yes Information not available 06/16/2025 Are you able to walk independently without assistance or assistive devices? [email or web address] Information not available 04/22/2025 Are you able to care for yourself independently? 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 No Information not available 06/16/2025 What is your exercise level? Occasional Information not available 04/22/2025 Mental Status Question Answer Note LastModified by Organization D etails LastModified Time Do you feel stressed (tense, restless, nervous, or anxious, or unable to sleep at night)? [id number] [email or web address] Information not available 08/11/2025 Family History Relationship [...] ICD10 Code Diagnosis IMO Codes Diagnosis Note [id number] Norris Jordan MD [facility] [address] [address] 09/10/2025 09:35:51 09/10/2025 10:12:45 Maternal hypertension 004083362 O16.3 Z3A.28 7458830 [id number] [facility] [address],[place] [address] 09/10/2025 09:36:28 09/10/2025 11:14:34 Gestation period, 28 weeks 97496813 Z3A.28 9144578 337251 Alysia Santos [facility] [address],[place] [address] 09/24/2025 11:20:09 09/24/2025 12:02:06 Gestation period, 30 weeks 64530963 Z3A.30 2555732 Acute urin shamir tract infection 437082072 N39.0 734891 [id number] Alysia Santos [facility] [address],[place] [address] 10/08/2025 11:01:42 10/08/2025 12:33:16 Chronic hypertension complicating AND/OR reason for care during 58238268 O10.919 46579689 [id number] Norris Jordan MD [facility] [address],[place] [address] 10/08/2025 11:02:16 10/08/2025 13:23:40 Hypertension complicating 7224040556 9102 O16.3 Z3A.32 56216752 669704 Alysia Santos [facility] [address],[place] [address] 10/08/2025 11:02:36 10/08/2025 12:56:56 -induced hypertension 08829573 O13.9 Hypertensive disorder 38 076972 I10 25032986 History of urinary tract infection 1049066508 107 Z87.710 [id number] Health Concerns Section Related Observation LastModified by Organization Detai ls LastModified Time None Recorded Concern Status LastModified by Organization Details LastModified Time None Recorded Payers Encounter Date Sequence Insurance Name Policy Number Policy Sarah Covered Member ID Sarah Member ID Guarantor Name 10/08/2025 1 [employer] [id number] Artem Dora [id number] Artem Dora Notes Date Note Type Note Provider Name and Address Organization Details Recorded Time 10/08/2025 text/html Generic HPI TemplateReported by Patient Alysia Hay Danielle, SARA [address], [place], [address], [place] [facility] 10/08/2025 12:55:06 OBGyn Episode Ob Episode Information Episode Created Date Number of Fetuses Patient Bloodtype Patient rh Status Prepregnancy Weight lbs Domestic Partner Domestic Partner Phone Father Name Intensive Care Specialist Status 05/19/20 25 1 O Positive 173 OPEN Fetus Data First Name Last Name Admitted to NICU Weight (g) Sex Living Outcome Pediatric Complications Fetus ID Race Codes Race Delivery Type [id number] Problems Problem Notes Problem Name Start Date End Date Resolution Snomed Code Not e Hypertensive disorder 05/19/2025 3725954 3 labetalol 200mg bidbASA dailyserial growth us , weekly testing @ 02uit5310/08/25 300mg bid rpt labs Past history of gestational hypertension 05/19/2025 942880893 vs preeclampsia delivered at 37 weeks Marijuana user 08/18/2025 778340148 Pt d ecreased. Continued use is causing family issues and pt is experiencing increased anxiety and depression symptoms. Mixed anxiety and depressive disorder 05/19/2025 544298555 buspiron e 10mglexapro 20 mg daily Pablito [...] Date Ultra Sound Latest Days Gestation 0 [email or web address] 05/19/2025 11/27/19 26 0 Pre-la nena Flowsheet Flowsheet Date 05/19/2025 Yoder Score Blood Edema Fundus Height Fundus Units Glucose Ketones Leukocytes Nitrite Labor Signs Protein Cervic Dilation Cervic Effacement Cervic Station Type Weight in lbs Pre/Post Dialysis Refused Weight 169.738724947087 BP Diastolic BP Location Tested BP Systolic [...] Weight in lbs Pre/Post Dialysis Refused Weight 173.474119211274 BP Diastolic BP Location Tested BP Systolic [...] Weight in lbs Pre/Post Dialysis Refused Weight 179.582880676288 BP Diastolic BP Location Tested BP Systolic [...] Weight in lbs Pre/Post Dialysis Refused Weight 188.014752138686 BP Diastolic BP Location Tested BP Systolic [...] Type Weight in lbs Pre/Post Dialysis Refused 189.264101919369 BP Diastolic BP Location Tested BP Systolic [...] Weight in lbs Pre/Post Dialysis Refused Weight 188.999838989098 BP Diastolic BP Location Tested BP Systolic [...] Weight in lbs Pre/Post Dialysis Refused Weight 190.705679210958 BP Diastolic BP Location Tested BP Systolic [...] Type Weight in lbs Pre/Post Dialysis Refused 191.266011348379 BP Diastolic BP Location Tested BP Systolic [...] Type Weight in lbs Pre/Post Dialysis Refused 189.963400230757 BP Diastolic BP Location Tested BP Systolic BP Type 80 L arm 119 sitting Fetus Heart Rate Present Fetus Movement A Yes Comments Flowsheet Date 10/13/2025 Yoder Score Blood Edema Fundus Height Fundus Units Glucose Ketones Leukocytes Nitrite Labor Signs Protein Cervic Dilation Cervic Effacement Cervic Station Type Weight in lbs Pre/Post Dialysis Refused Weight 189.709462875196 BP Diastolic BP Location Tested BP Systolic [...] Weight in lbs Pre/Post Dialysis Refused Weight 192.658574146044 BP Diastolic BP Location Tested BP Systolic BP Type 79 L arm 128 sitting Fetus Heart Rate Present Fetus Movement A Yes Comments Flowsheet Date 10/22/2025 Yoder Score Blood Edema Fundus Height Fundus Units Glucose Ketones Leukocytes Nitrite Labor Signs Protein Cervic Dilation Cervic Effacement Cervic Station Type Weight in lbs Pre/Post Dialysis Refused 192.064876185406 BP Diastolic BP Location Tested BP Systolic [...]
--- OUTSIDE RECORDS SUMMARY | 2025-11-01 06:20 | XMS_ITS | Encounter Summary ---
Author Organization [facility] Address [address] [place] [id number] Care Team Providers Care Finance Administrator Name Role Phone Mallorie Kitchen NP Primary Care Provider [phone] Encounter Details Date Type Department Care Team (Late st Contact Info) Description 03/20/2025 [employer] Message Enc [facility] Family [facility] - [place] [address] [place] [address] Mallorie Kitchen NP [address] [place] [id number] Ointment for pink eye Social History Tobacco Use Types Packs/Day Years Used Date Smoking Tobacco: Former Cigarettes 0.3 5 0 01/27/2019 - 01/28/2024 Passive Smoke Exposure: Past Smokeless Tobacco: Never Comments:Stopped smoking cig gerretes and vape wirh low nicotine levels with hope to one day get completely of Alcohol Use Standard Drinks/Week Comments Yes 3.3 (1 standard drink = 0.6 oz p ure alcohol) Couple glasses when stressed PHQ-2 Answer Date Recorded Patient Health Questionnaire-2 Score 0 03/17/2025 Comments No Sex and Gender Information Value Date Recorded Sex Assigned at Female 09/23/2023 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 Patient stated she was feeling better and would contact if she needed anything else. documented in this encounter Plan of Treatment Not on file documented as of this encounter Visit Diagnoses Not on filedocumented in this encounter Additional Health Concerns Assessment Noted Time PHQ-9 Depression Total Score: 17 025 1:16 PM CDT documented as of this encounter Care Teams Finance Administrator Relationship Specialty Start Date End Date [place] [address] PCP - General NURSE PRACTITIONER 04/22/20 documented as of this encounter
--- OUTSIDE RECORDS SUMMARY | 2025-11-01 06:20 | XMS_ITS | Continuity of Care Document ---
Author Organization [facility] Address [address] [place] [address] Care Team Providers Care Disaster Or Damage Control Specialist Name Role Phone TIANNA ALESHA Primary Care Provider [phone] Assessment No assessment recorded. Plan of Treatment [...] + non-str ess test 2024 025 [email or web address] [facility], [address], [address], [place], [address], 10/22/2025 14:22:06 Medication Orders None recorde d. Patient TargetsNo targets recorded. Patient InstructionsNo instructions recorded. Reason for Referral None Reported. Results Created Date Observation Date Name Description Value Unit Range Abnormal Flag Note LastModifiedBy Organization Detail LastModifiedTime 05/27/2005/27/2025 [UNIT Y] ANEUP LOIDY NIPT fraction 10.2% normal Not Available [facility] [address], [place], [address], 05/27/2025 02:56:04 05/27/20 25 05/27/2025 [UNIT Y] ANEUP LOIDY NIPT 22Q11.2 microdeletio n LOW RISK <1 in 10,000 normal Not Available [facility] [address], [place], [address], 05/27/2025 02:56:04 05/27/20 25 05/27/2025 [UNIT Y] ANEUP LOIDY NIPT sex chromosome aneuploidy NOT DETECT ED normal Not Available [facility] [address], [place], [address], 05/27/2025 02:56:04 05/27/20 25 05/27/2025 [UNIT Y] ANEUP LOIDY NIPT monosomy X LOW RISK <1 in 10,000 normal Not Available [facility] [address], [place], [address], 05/27/2025 02:56:04 05/27/20 25 05/27/2025 [UNIT Y] ANEUP LOIDY NIPT trisomy 13 LOW RISK <1 in 10,000 normal Not Available [facility] [address], [place], [address], 05/27/2025 02:56:04 05/27/20 25 05/27/2025 [UNIT Y] ANEUP LOIDY NIPT trisomy 18 LOW RISK <1 in 10,000 normal Not Available [facility] [address], [place], [address], 05/27/2025 02:56:04 05/27/20 25 05/27/2025 [UNIT Y] ANEUP LOIDY NIPT trisomy 21 LOW RISK <1 in 10,000 normal Not Available [facility] [address], [place], [address], 05/27/2025 02:56:04 05/27/20 25 05/27/2025 [UNIT Y] ANEUP LOIDY NIPT sex FEMALE normal Not Available [facility] [address], [place], [address], 05/27/2025 02:56:04 05/27/20 25 05/27/2025 [UNIT Y] ANEUP LOIDY NIPT gestation SINGLE TON normal Not Available [facility] [address], [place], [address], 05/27/2025 02:56:04 05/27/20 25 05/27/2025 [UNIT Y] ANEUP LOIDY NIPT for detailed report, see pdf See PDF normal Not Available [facility] [address], [place], [address], 05/27/2025 02:56:04 06/03/20 25 06/03/2025 [UNIT Y] LORIN RAMY Morocho sickle cell disease/beta -thalassemia /hemoglobino pathies carrier screen NEGATI VE normal Not Available [facility] [address], [place], [address], 06/03/2025 09:08:22 06/03/20 25 06/03/2025 [UNIT Y] LORIN RAMY RICO N alpha-thalas semia carrier screen NEGATI VE normal Not Available [facility] [address], [place], [address], 06/03/2025 09:08:22 06/03/20 25 06/03/2025 [UNIT Y] LORIN RAMY Morocho cystic fibrosis carrier screen NEGATI VE normal Not Available [facility] [address], [place], [address], 06/03/2025 09:08:22 06/03/20 25 06/03/2025 [UNIT Y] LORIN RAMY Morocho spinal muscular atrophy carrier screen NEGATI VE 2 SMN1 copies , SNP not presen t normal Not Available [facility] [address], [place], [address], 06/03/2025 09:08:22 06/03/20 25 06/03/2025 [UNIT Y] LORIN RAMY Morocho for detailed report, see pdf See PDF normal Not Available [facility] [address], [place], [address], 06/03/2025 09:08:22 05/19/20 25 05/19/2025 CBC W/DIF F WBC 9.6 10'3/ uL 3.5-10 .5 Not Available [facility] (Lab) [address], [place], [address], 05/20/2025 10:56:36 05/19/20 25 05/19/2025 CBC W/DIF F RBC 4.49 10'6/ uL (based on docume nted legal sex) 3.80-5 .20 Not Available [facility] (Lab) [address], [place], [address], 05/20/2025 10:56:36 05/19/20 25 05/19/2025 CBC W/DIF F HGB 12.5 g/dL (based on docume nted legal sex) 11.6-1 5.4 Not Available [facility] (Lab) [address], [place], [address], 05/20/2025 10:56:36 05/19/20 25 05/19/2025 CBC W/DIF F HCT 38.2 % (based on docume nted legal sex) 34.0-4 5.0 Not Available [facility] (Lab) [address], [place], [address], 05/20/2025 10:56:36 05/19/20 25 05/19/2025 CBC W/DIF F MCV 85.1 fL 80.0-9 9.0 Not Available [facility] (Lab) [address], [place], [address], 05/20/2025 10:56:36 05/19/20 25 05/19/2025 CBC W/DIF F MCH 27.8 pg 27.0-3 4.0 Not Available [facility] (Lab) [address], [place], [address], 05/20/2025 10:56:36 05/19/20 25 05/19/2025 CBC W/DIF F MCHC 32.7 g/dL 32.0-3 5.5 Not Available [facility] (Lab) [address], [place], [address], 05/20/2025 10:56:36 05/19/20 25 05/19/2025 CBC W/DIF F RDW 13.2 % 11.0-1 5.0 Not Available [facility] (Lab) [address], [place], [address], 05/20/2025 10:56:36 05/19/20 25 05/19/2025 CBC W/DIF F plt 301 10'3/ uL 150-40 0 Not Available [facility] (Lab) [address], [place], [address], 05/20/2025 10:56:36 05/19/20 25 05/19/2025 CBC W/DIF F MPV 11.9 fL 8.8-12 .1 Not Available [facility] (Lab) [address], [place], [address], 05/20/2025 10:56:36 05/19/20 25 05/19/2025 CBC W/DIF F NRBC's 0.0 % 0.0 Not Available [facility] (Lab) [address], [place], [address], 05/20/2025 10:56:36 05/19/20 25 05/19/2025 CBC W/DIF F absolute NRBCs 0.0 10'3/ uL no refere nce range establ ished Not Available [facility] (Lab) [address], [place], [address], 05/20/2025 10:56:36 05/19/20 25 05/19/2025 CBC W/DIF F neutrophils 71.0 % 34.0-7 3.0 Not Available [facility] (Lab) [address], [place], [address], 05/20/2025 10:56:36 05/19/20 25 05/19/2025 CBC W/DIF F lymphocytes 22.5 % 15.0-5 0.0 Not Available [facility] (Lab) [address], [place], [address], 05/20/2025 10:56:36 05/19/20 25 05/19/2025 CBC W/DIF F monocytes 5.3 % 1.0-15 .0 Not Available [facility] (Lab) [address], [place], [address], 05/20/2025 10:56:36 05/19/20 25 05/19/2025 CBC W/DIF F eosinophils 0.6 % 0.0-8. 0 Not Available [facility] (Lab) [address], [place], [address], 05/20/2025 10:56:36 05/19/20 25 05/19/2025 CBC W/DIF F basophils 0.3 % 0.0-2. 0 Not Available [facility] (Lab) [address], [place], [address], 05/20/2025 10:56:36 05/19/20 25 05/19/2025 CBC W/DIF [...] separ ately if prese nt. Not Available [facility] (Lab) [address], [place], [address], 05/20/2025 10:56:36 05/19/20 25 05/19/2025 CBC W/DIF F absolute neutrophils 6.8 10'3/ uL 1.5-8. 0 Not Available [facility] (Lab) [address], [place], [address], 05/20/2025 10:56:36 05/19/20 25 05/19/2025 CBC W/DIF F absolute lymphocytes 2.2 10'3/ uL 1.0-4. 0 Not Available [facility] (Lab) [address], [place], [address], 05/20/2025 10:56:36 05/19/20 25 05/19/2025 CBC W/DIF F absolute monocytes 0.5 10'3/ uL 0.2-1. 0 Not Available [facility] (Lab) [address], [place], [address], 05/20/2025 10:56:36 05/19/20 25 05/19/2025 CBC W/DIF F absolute eosinophils 0.1 10'3/ uL 0.0-0. 6 Not Available [facility] (Lab) [address], [place], [address], 05/20/2025 10:56:36 05/19/20 25 05/19/2025 CBC W/DIF F absolute basophils 0.0 10'3/ uL 0.0-0. 3 Not Available [facility] (Lab) [address], [place], [address], 05/20/2025 10:56:36 05/19/20 25 05/19/2025 CBC W/DIF [...] bhand book. nm.or g/gen derx Not Available [facility] (Lab) [address], [place], [address], 05/20/2025 10:56:36 05/19/20 25 05/19/2025 HEPAT ITIS B SURFA CE ANTIG EN hepatitis B surface antigen Non-re active non-re active This assay was perfo rmed using [employer] ratio n reage nts and test kits. Value s obtai erica with other assay metho ds or kits canno t be used inter melton eably . Not Available [facility] (Lab) [address], [place], [address], 05/20/2025 10:56:37 05/19/20 25 05/19/2025 HIV 1/2 ANTIG EN/AN TIBOD Y, REFLE X CONFI RMATI ON HIV antigen/anti body Nonrea ctive nonrea ctive HIV-1 antig en and HIV-1 /HIV- 2 antib odies were not detec tashi. No labor atory evide nce of HIV infec tion. Not Available [facility] (Lab) [address], [place], [address], 05/20/2025 10:56:37 05/19/20 25 05/19/2025 HEPAT ITIS C ANTIB NEPTALI SCREE N, REFLE X TO CONFI RMATI ON hepatitis C antibody Non-re active non-re active Antib odies to HCV Not Detec tashi, does not exclu de the possi bilit y of expos ure to HCV. Not Available [facility] (Lab) [address], [place], [address], 05/20/2025 10:56:38 05/19/20 25 05/19/2025 VITAM IN D, 25-OH (TOTA L D2/D3 ) vitamin D, 25-hydroxy, total 59.5 NG/mL 30.0-1 00.0 Sugge stive of Defic iency : <20 ng/mL Sugge stive of Insuf ficie ncy: 20-29 ng/mL Sugge stive of Suffi cienc y: 30-10 0 ng/mL Sugge stive of Toxic ity: >150 ng/mL Not Available [facility] (Lab) [address], [place], [address], 05/20/2025 10:56:38 05/19/20 25 05/19/2025 TYPE/ RH/SC REEN ABO/Rh type O POS Not Available [facility] (Lab) [address], [place], [address], 05/20/2025 10:56:39 05/19/20 25 05/19/2025 TYPE/ RH/SC REEN antibody screen NEG Not Available [facility] (Lab) [address], [place], [address], 05/20/2025 10:56:39 05/19/20 25 05/19/2025 TYPE/ RH/SC REEN exp date 2024 23:59 Not Available [facility] (Lab) [address], [place], [address], 05/20/2025 10:56:39 05/19/20 25 05/19/2025 RUBEL LA IGG ANTIB NEPTALI, QUANT rubella antibodies, IgG Reacti ve reacti ve Not Available [facility] (Lab) [address] [place], [address], 05/20/2025 10:56:39 05/19/20 25 05/19/2025 RUBEL LA IGG ANTIB NEPTALI, QUANT rubella antibodies, IgG quant 13.6 IU/mL >=10 Non-r eacti ve (Non- Immun e) <10 IU/mL React dwight (Immu ne) > or = 10 IU/mL Not Available [facility] (Lab) [address], [place], [address], 05/20/2025 10:56:39 05/19/20 25 05/19/2025 HEMOG LOBIN [...] >8.0% Actio n sugge sted Not Available [facility] (Lab) [address], [place], [address], 05/20/2025 10:56:40 05/19/20 25 05/19/2025 RPR SCREE N, REFLE X TITER /CONF IRMAT ION RPR qualitative Nonrea ctive nonrea ctive Not Available [facility] (Lab) [address], [place], [address], 05/20/2025 10:56:41 05/19/20 25 05/19/2025 CULTU RE: URINE result report SEE RESULT S BELOW Test: Cultu re: Urine Speci men Sourc e: Urine Voide d Speci men Type: Urine Speci men Date: 1413 Resul t Date: 2143 Resul t Statu s: Final resul t Abnor mal: No Resul nelsong Lab: [facility] [address] [facility] [address] Tel: CULTU RE ----- ----- ----- --- No growt h in 1 day (dete ction level of 10,00 0 colon ies / ml.) Not Available [facility] (Lab) [address], [place], [address], 05/20/2025 22:47:16 05/19/20 25 05/19/2025 IMAGE GUIDE [...] domingoi luis eduardo camp nted. Not Available [facility] (Lab) [address] [place], [address], 05/24/2025 18:43:29 05/19/20 25 05/19/2025 CT/GC (CAT) , THINP REP VIAL chlamydia trachomatis, PCR Negati ve negati ve Not Available [facility] (Lab) [address], [place], [address], 05/24/2025 18:43:30 05/19/20 25 05/19/2025 CT/GC (CAT) , THINP REP VIAL neisseria gonorrhoeae, PCR Negati ve negati ve Not Available [facility] (Lab) [address], [place], [address], 05/24/2025 18:43:30 05/19/20 25 05/19/2025 drug scree n, urine Cannabinoids : positi ve Not Available [facility] [address], [place], [address], 05/19/2025 13:35:34 05/19/20 25 05/19/2025 drug scree n, urine Other: positi ve Not Available [facility] [address], [place], [address], 05/19/2025 13:35:34 09/10/20 25 09/10/2025 HEMAT OCRIT (HCT) HCT 39.4 % (based on docume nted legal sex) 34.0-4 5.0 Not Available [facility] (Lab) [address], [place], [address], 09/11/2025 12:57:34 09/10/20 25 09/10/2025 HEMOG LOBIN (HGB) HGB 12.7 g/dL (based on docume nted legal sex) 11.6-1 5.4 Not Available [facility] (Lab) [address], [place], [address], 09/11/2025 12:57:34 09/10/20 25 09/10/2025 CMP/C BC/UR IC ACID WBC 10.8 10'3/ uL 3.5-10 .5 high Not Available [facility] (Lab) [address], [place], [address], 09/11/2025 12:57:34 10/2409/10/2025 CMP/C BC/UR IC ACID RBC 4.59 10'6/ uL (based on docume nted legal sex) 3.80-5 .20 Not Available [facility] (Lab) [address], [place], [address], 09/11/2025 12:57:34 09/10/2009/10/2025 CMP/C BC/UR IC ACID HGB 12.7 g/dL (based on docume nted legal sex) 11.6-1 5.4 Not Available [facility] (Lab) [address], [place], [address], 09/11/2025 12:57:34 09/10/2009/10/2025 CMP/C BC/UR IC ACID HCT 39.4 % (based on docume nted legal sex) 34.0-4 5.0 Not Available [facility] (Lab) [address], [place], [address], 09/11/2025 12:57:34 09/10/2009/10/2025 CMP/C BC/UR IC ACID MCV 85.8 fL 80.0-9 9.0 Not Available [facility] (Lab) [address], [place], [address], 09/11/2025 12:57:34 09/10/2009/10/2025 CMP/C BC/UR IC ACID MCH 27.7 pg 27.0-3 4.0 Not Available [facility] (Lab) [address], [place], [address], 09/11/2025 12:57:34 09/10/2009/10/2025 CMP/C BC/UR IC ACID MCHC 32.2 g/dL 32.0-3 5.5 Not Available [facility] (Lab) [address] [place], [address], 09/11/2025 12:57:34 09/10/2009/10/2025 CMP/C BC/UR IC ACID RDW 12.7 % 11.0-1 5.0 Not Available [facility] (Lab) [address], [place], [address], 09/11/2025 12:57:34 09/10/2009/10/2025 CMP/C BC/UR IC ACID plt 252 10'3/ uL 150-40 0 Not Available [facility] (Lab) [address], [place], [address], 09/11/2025 12:57:34 09/10/2009/10/2025 CMP/C BC/UR IC ACID MPV 11.7 fL 8.8-12 .1 Not Available [facility] (Lab) [address], [place], [address], 09/11/2025 12:57:34 09/10/2009/10/2025 CMP/C BC/UR IC ACID NRBC's 0.0 % 0.0 Not Available [facility] (Lab) [address], [place], [address], 09/11/2025 12:57:34 09/10/2009/10/2025 CMP/C BC/UR IC ACID absolute NRBCs 0.0 10'3/ uL no refere nce range establ ished Not Available [facility] (Lab) [address], [place], [address], 09/11/2025 12:57:34 09/10/2009/10/2025 CMP/C BC/UR IC ACID neutrophils 74.4 % 34.0-7 3.0 high Not Available [facility] (Lab) [address], [place], [address], 09/11/2025 12:57:34 09/10/20 25 09/10/2025 CMP/C BC/UR IC ACID lymphocytes 18.6 % 15.0-5 0.0 Not Available [facility] (Lab) [address], [place], [address], 09/11/2025 12:57:34 09/10/2009/10/2025 CMP/C BC/UR IC ACID monocytes 5.9 % 1.0-15 .0 Not Available [facility] (Lab) [address], [place], [address], 09/11/2025 12:57:34 09/10/2009/10/2025 CMP/C BC/UR IC ACID eosinophils 0.5 % 0.0-8. 0 Not Available [facility] (Lab) [address], [place], [address], 09/11/2025 12:57:34 09/10/2009/10/2025 CMP/C BC/UR IC ACID basophils 0.1 % 0.0-2. 0 Not Available [facility] (Lab) [address], [place], [address], 09/11/2025 12:57:34 09/10/2009/10/2025 CMP/C BC/UR IC ACID immature granulocytes 0.5 % no define d refere nce range Immat ure Granu locyt es (IG) repre sents autom ated enume ratio n of Metam yeloc ytes, Myelo cytes and Promy elocy claudia when IG is < 5%. Blast s are not inclu ded in IG and repor tashi separ ately if prese nt. Not Available [facility] (Lab) [address], [place], [address], 09/11/2025 12:57:34 09/10/2009/10/2025 CMP/C BC/UR IC ACID absolute neutrophils 8.1 10'3/ uL 1.5-8. 0 high Not Available [facility] (Lab) [address], [place], [address], 09/11/2025 12:57:34 09/10/20 25 09/10/2025 CMP/C BC/UR IC ACID absolute lymphocytes 2.0 10'3/ uL 1.0-4. 0 Not Available [facility] (Lab) [address], [place], [address], 09/11/2025 12:57:34 09/10/20 25 09/10/2025 CMP/C BC/UR IC ACID absolute monocytes 0.6 10'3/ uL 0.2-1. 0 Not Available [facility] (Lab) [address], [place], [address], 09/11/2025 12:57:34 09/10/20 25 09/10/2025 CMP/C BC/UR IC ACID absolute eosinophils 0.1 10'3/ uL 0.0-0. 6 Not Available [facility] (Lab) [address], [place], [address], 09/11/2025 12:57:34 09/10/2009/10/2025 CMP/C BC/UR IC ACID absolute basophils 0.0 10'3/ uL 0.0-0. 3 Not Available [facility] (Lab) [address], [place], [address], 09/11/2025 12:57:34 09/10/20 25 09/10/2025 CMP/C BC/UR IC ACID absolute immature granulocytes 0.1 10'3/ uL 0.00-0 .10 Refer ence range s for nonbi nary/ inter sex or unspe cifie d gende r patie nts have not been estab lishe d. Pleas e [facility] for range s estab lishe d for cisge nder patie nts and evalu ate in the clini jennifer padmini xt of the indiv idual patie nt: https ://angelique dennis book. nm.or g/gen derx Not Available [facility] (Lab) [address], [place], [address], 09/11/2025 12:57:34 09/10/2009/10/2025 CMP/C BC/UR IC ACID uric acid 3.0 mg/dL 2.3-6. 6 Not Available [facility] (Lab) [address], [place], [address], 09/11/2025 12:57:34 09/10/2009/10/2025 CMP/C BC/UR IC ACID sodium 136 mmol/ L 133-14 6 Not Available [facility] (Lab) [address], [place], [address], 09/11/2025 12:57:34 09/10/2009/10/2025 CMP/C BC/UR IC ACID potassium 3.9 mmol/ L 3.5-5. 1 Not Available [facility] (Lab) [address], [place], [address], 09/11/2025 12:57:34 09/10/2009/10/2025 CMP/C BC/UR IC ACID chloride 102 mmol/ L 98-107 Not Available [facility] (Lab) [address], [place], [address], 09/11/2025 12:57:34 09/10/2009/10/2025 CMP/C BC/UR IC ACID carbon dioxide 26 mmol/ L 21-31 Not Available [facility] (Lab) [address], [place], [address], 09/11/2025 12:57:34 09/10/2009/10/2025 CMP/C BC/UR IC ACID anion gap 8 mmol/ L 4-13 Not Available [facility] (Lab) [address] [place], [address], 09/11/2025 12:57:34 09/10/2009/10/2025 CMP/C BC/UR IC ACID blood urea nitrogen 5 mg/dL 7-25 low Not Available [facility] (Lab) [address] [place], [address], 09/11/2025 12:57:34 10/24/09/10/2025 CMP/C BC/UR IC ACID creatinine 0.55 mg/dL 0.60-1 .30 low Not Available [facility] (Lab) [address], [place], [address], 09/11/2025 12:57:34 09/10/2009/10/2025 CMP/C BC/UR IC ACID egfrcr (CKD-epi 2020) >90 mL/mi n/1.7 3_m2 >=60 Not Available [facility] (Lab) [address], [place], [address], 09/11/2025 12:57:34 09/10/2009/10/2025 CMP/C BC/UR IC ACID calcium 8.8 mg/dL 8.3-10 .5 Not Available [facility] (Lab) [address], [place], [address], 09/11/2025 12:57:34 09/10/20 25 09/10/2025 CMP/C BC/UR IC ACID glucose 113 mg/dL 70-100 high Not Available [facility] (Lab) [address], [place], [address], 09/11/2025 12:57:34 09/10/20 25 09/10/2025 CMP/C BC/UR IC ACID protein, total 6.1 g/dL 6.4-8. 3 low Not Available [facility] (Lab) [address] [place], [address], 09/11/2025 12:57:34 09/10/20 25 09/10/2025 CMP/C BC/UR IC ACID albumin 3.6 g/dL 3.5-5. 0 Not Available [facility] (Lab) [address], [place], [address], 09/11/2025 12:57:34 09/10/20 25 09/10/2025 CMP/C BC/UR IC ACID ALT 17 units /L 9-43 Not Available [facility] (Lab) [address] [place], [address], 09/11/2025 12:57:34 09/10/2009/10/2025 CMP/C BC/UR IC ACID alkaline phosphatase 61 units /L 34-104 Not Available [facility] (Lab) [address], [place], [address], 09/11/2025 12:57:34 09/10/2009/10/2025 CMP/C BC/UR IC ACID AST 15 units /L 13-39 Not Available [facility] (Lab) [address] [place], [address], 09/11/2025 12:57:34 09/10/2009/10/2025 CMP/C BC/UR IC ACID bilirubin, total 0.3 mg/dL 0.2-1. 2 Not Available [facility] (Lab) [address] [place], [address], 09/11/2025 12:57:34 09/10/2009/10/2025 GTT - GESTA JANELL L TRISHA Morocho, ACOG OB glucose, 1 hour screen 107 mg/dL 70-[address] [facility] (Lab) [address] [place], [address], 09/11/2025 12:57:35 09/10/2009/10/2025 HIV 1/2 ANTIG EN/AN TIBOD Y, REFLE X CONFI RMATI ON HIV antigen/anti body Nonrea ctive nonrea ctive HIV-1 antig en and HIV-1 /HIV- 2 antib odies were not detec tashi. No labor atory evide nce of HIV infec tion. Not Available [facility] (Lab) [address] [place], [address], 09/11/2025 12:57:35 09/10/2009/10/2025 RPR SCREE N, REFLE X TITER /CONF IRMAT ION RPR qualitative Nonrea ctive nonrea ctive Not Available [facility] (Lab) [address] [place], [address], 09/11/2025 12:57:35 09/24/2009/24/2025 CULTU RE: URINE result report SEE RESULT S BELOW Test: Cultu re: Urine Speci men Sourc e: Urine - Clean Catch Speci men Type: Urine Speci men Date: 2024 1332 Resul t Date: 2024 1203 Resul t Statu s: Final resul t Abnor mal: No Resul ting Lab: [facility] [address] [facility] [address] Tel: CULTU RE ----- ----- ----- --- Cultu re resul t (>=3 organ isms prese nt) indic ates possi ble conta minat ion. Repea t cultu re if sympt oms indic ate. Not Available [facility] (Lab) [address], [place], [address], 09/26/2025 13:06:06 09/24/20 25 09/24/2025 urina lysis , dipst ick Leukocytes ++ Not Available [facility] [address], [place], [address], 09/24/2025 13:05:12 09/24/20 25 09/24/2025 urina lysis , dipst ick Protein + Not Available [facility] [address], [place], [address], 09/24/2025 13:05:12 09/24/20 25 09/24/2025 urina lysis , dipst ick pH 5 Not Available [facility] [address], [place], [address], 09/24/2025 13:05:12 09/24/20 25 09/24/2025 urina lysis , dipst ick Blood +++ Not Available [facility] [address], [place], [address], 09/24/2025 13:05:12 09/24/20 25 09/24/2025 urina lysis , dipst ick Specific Hamel 1.015 Not Available [facility] [address], [place], [address], 09/24/2025 13:05:12 09/24/20 25 09/24/2025 urina lysis , dipst ick Appearance cloudy Not Available [facility] [address], [place], [address], 09/24/2025 13:05:12 09/24/20 25 09/24/2025 urina lysis , dipst ick Color yellow Not Available [facility] [address], [place], [address], 09/24/2025 13:05:12 10/08/20 25 10/08/2025 CBC W/DIF F WBC 12.3 10'3/ uL 3.5-10 .5 high Not Available [facility] (Lab) [address] [place], [address], 10/10/2025 00:09:54 10/08/20 25 10/08/2025 CBC W/DIF F RBC 4.69 10'6/ uL (based on docume nted legal sex) 3.80-5 .20 Not Available [facility] (Lab) [address], [place], [address], 10/10/2025 00:09:54 10/08/20 25 10/08/2025 CBC W/DIF F HGB 12.7 g/dL (based on docume nted legal sex) 11.6-1 5.4 Not Available [facility] (Lab) [address] [place], [address], 10/10/2025 00:09:54 10/08/20 25 10/08/2025 CBC W/DIF F HCT 39.8 % (based on docume nted legal sex) 34.0-4 5.0 Not Available [facility] (Lab) [address], [place], [address], 10/10/2025 00:09:54 10/08/20 25 10/08/2025 CBC W/DIF F MCV 84.9 fL 80.0-9 9.0 Not Available [facility] (Lab) [address], [place], [address], 10/10/2025 00:09:54 10/08/20 25 10/08/2025 CBC W/DIF F MCH 27.1 pg 27.0-3 4.0 Not Available [facility] (Lab) [address], [place], [address], 10/10/2025 00:09:54 10/08/20 25 10/08/2025 CBC W/DIF F MCHC 31.9 g/dL 32.0-3 5.5 low Not Available [facility] (Lab) [address], [place], [place], [address], 10/10/2025 00:09:54 10/08/20 25 10/08/2025 CBC W/DIF F RDW 13.2 % 11.0-1 5.0 Not Available [facility] (Lab) [address], [place], [address], 10/10/2025 00:09:54 10/08/20 25 10/08/2025 CBC W/DIF F plt 239 10'3/ uL 150-40 0 Not Available [facility] (Lab) [address], [place], [address], 10/10/2025 00:09:54 10/08/20 25 10/08/2025 CBC W/DIF F MPV 11.9 fL 8.8-12 .1 Not Available [facility] (Lab) [address], [place], [address], 10/10/2025 00:09:54 10/08/20 25 10/08/2025 CBC W/DIF F NRBC's 0.0 % 0.0 Not Available [facility] (Lab) [address], [place], [address], 10/10/2025 00:09:54 10/08/20 25 10/08/2025 CBC W/DIF F absolute NRBCs 0.0 10'3/ uL no refere nce range establ ished Not Available [facility] (Lab) [address], [place], [address], 10/10/2025 00:09:54 10/08/20 25 10/08/2025 CBC W/DIF F neutrophils 70.7 % 34.0-7 3.0 Not Available [facility] (Lab) [address], [place], [address], 10/10/2025 00:09:54 10/08/20 25 10/08/2025 CBC W/DIF F lymphocytes 22.0 % 15.0-5 0.0 Not Available [facility] (Lab) [address], [place], [address], 10/10/2025 00:09:54 10/08/20 25 10/08/2025 CBC W/DIF F monocytes 6.1 % 1.0-15 .0 Not Available [facility] (Lab) [address], [place], [address], 10/10/2025 00:09:54 10/08/20 25 10/08/2025 CBC W/DIF F eosinophils 0.5 % 0.0-8. 0 Not Available [facility] (Lab) [address], [place], [address], 10/10/2025 00:09:54 10/08/20 25 10/08/2025 CBC W/DIF F basophils 0.2 % 0.0-2. 0 Not Available [facility] (Lab) [address], [place], [address], 10/10/2025 00:09:54 10/08/20 25 10/08/2025 CBC W/DIF [...] separ ately if prese nt. Not Available [facility] (Lab) [address] [facility], [place], [address], 10/10/2025 00:09:54 10/08/20 25 10/08/2025 CBC W/DIF F absolute neutrophils 8.7 10'3/ uL 1.5-8. 0 high Not Available [facility] (Lab) [address] [facility], [place], [address], 10/10/2025 00:09:54 10/08/20 25 10/08/2025 CBC W/DIF F absolute lymphocytes 2.7 10'3/ uL 1.0-4. 0 Not Available [facility] (Lab) [address] [facility], [place], [address], 10/10/2025 00:09:54 10/08/20 25 10/08/2025 CBC W/DIF F absolute monocytes 0.8 10'3/ uL 0.2-1. 0 Not Available [facility] (Lab) [address] [facility], [place], [address], 10/10/2025 00:09:54 10/08/20 25 10/08/2025 CBC W/DIF F absolute eosinophils 0.1 10'3/ uL 0.0-0. 6 Not Available [facility] (Lab) [address] [facility], [place], [address], 10/10/2025 00:09:54 10/08/20 25 10/08/2025 CBC W/DIF F absolute basophils 0.0 10'3/ uL 0.0-0. 3 Not Available [facility] (Lab) [address] [facility], [place], [address], 10/10/2025 00:09:54 10/08/20 25 10/08/2025 CBC W/DIF [...] dennis book. nm.or g/gen derx Not Available [facility] (Lab) [address] [facility], [place], [address], 10/10/2025 00:09:54 10/08/20 25 10/08/2025 PROTE IN/CR EATIN INE RATIO , URINE creatinine, urine 34.6 mg/dL R-No refer ence range estab lishe d for this assay Not Available [facility] (Lab) [address] [place], [address], 10/10/2025 00:09:55 10/08/20 25 10/08/2025 PROTE IN/CR EATIN INE RATIO , URINE protein, urine <4 mg/dL R-No refer ence range estab lishe d for this assay Not Available [facility] (Lab) [address] [place], [address], 10/10/2025 00:09:55 10/08/20 25 10/08/2025 PROTE IN/CR [...] fican t prote inuri a. Not Available [facility] (Lab) [address] [facility], [place], [address], 10/10/2025 00:09:55 10/08/20 25 10/08/2025 URIC ACID uric acid 3.5 mg/dL 2.3-6. 6 Not Available [facility] (Lab) [address] [facility], [place], [address], 10/10/2025 00:09:55 10/08/20 25 10/08/2025 CMP(C OMPRE HENSI VE METAB OLIC PANEL ) sodium 135 mmol/ L 133-14 6 Not Available [facility] (Lab) [address] [facility], [place], [address], 10/10/2025 00:09:56 10/08/20 25 10/08/2025 CMP(C OMPRE HENSI VE METAB OLIC PANEL ) potassium 3.8 mmol/ L 3.5-5. 1 Not Available [facility] (Lab) [address] [place], [address], 10/10/2025 00:09:56 10/08/20 25 10/08/2025 CMP(C OMPRE HENSI VE METAB OLIC PANEL ) chloride 102 mmol/ L 98-107 Not Available [facility] (Lab) [address] [place], [address], 10/10/2025 00:09:56 10/08/20 25 10/08/2025 CMP(C OMPRE HENSI VE METAB OLIC PANEL ) carbon dioxide 22 mmol/ L 21-31 Not Available [facility] (Lab) [address] [place], [address], 10/10/2025 00:09:56 10/08/20 25 10/08/2025 CMP(C OMPRE HENSI VE METAB OLIC PANEL ) anion gap 11 mmol/ L 4-13 Not Available [facility] (Lab) [address] [facility], [place], [address], 10/10/2025 00:09:56 10/08/20 25 10/08/2025 CMP(C OMPRE HENSI VE METAB OLIC PANEL ) blood urea nitrogen 5 mg/dL 7-25 low Not Available [facility] (Lab) [address] [facility], [place], [address], 10/10/2025 00:09:56 10/08/20 25 10/08/2025 CMP(C OMPRE HENSI VE METAB OLIC PANEL ) creatinine 0.53 mg/dL 0.60-1 .30 low Not Available [facility] (Lab) [address] [facility], [place], [address], 10/10/2025 00:09:56 10/08/20 25 10/08/2025 CMP(C OMPRE HENSI VE METAB OLIC PANEL ) egfrcr (CKD-epi 2020) >90 mL/mi n/1.7 3_m2 >=60 Not Available [facility] (Lab) [address] [facility], [place], [address], 10/10/2025 00:09:56 10/08/20 25 10/08/2025 CMP(C OMPRE HENSI VE METAB OLIC PANEL ) calcium 8.6 mg/dL 8.3-10 .5 Not Available [facility] (Lab) [address] [facility], [place], [address], 10/10/2025 00:09:56 10/08/20 25 10/08/2025 CMP(C OMPRE HENSI VE METAB OLIC PANEL ) glucose 92 mg/dL 70-100 Not Available [facility] (Lab) [address] [facility], [place], [address], 10/10/2025 00:09:56 10/08/20 25 10/08/2025 CMP(C OMPRE HENSI VE METAB OLIC PANEL ) protein, total 5.9 g/dL 6.4-8. 3 low Not Available [facility] (Lab) [address] [facility], [place], [address], 10/10/2025 00:09:56 10/08/20 25 10/08/2025 CMP(C OMPRE HENSI VE METAB OLIC PANEL ) albumin 3.5 g/dL 3.5-5. 0 Not Available [facility] (Lab) [address] [facility], [place], [address], 10/10/2025 00:09:56 10/08/20 25 10/08/2025 CMP(C OMPRE HENSI VE METAB OLIC PANEL ) ALT 17 units /L 9-43 Not Available [facility] (Lab) [address] [facility], [place], [address], 10/10/2025 00:09:56 10/08/20 25 10/08/2025 CMP(C OMPRE HENSI VE METAB OLIC PANEL ) alkaline phosphatase 81 units /L 34-104 Not Available [facility] (Lab) [address] [facility], [place], [address], 10/10/2025 00:09:56 10/08/20 25 10/08/2025 CMP(C OMPRE HENSI VE METAB OLIC PANEL ) AST 16 units /L 13-39 Not Available [facility] (Lab) [address] [facility], [place], [address], 10/10/2025 00:09:56 10/08/20 25 10/08/2025 CMP(C OMPRE HENSI VE METAB OLIC PANEL ) bilirubin, total 0.5 mg/dL 0.2-1. 2 Not Available [facility] (Lab) [address] [place], [address], 10/10/2025 00:09:56 10/08/20 25 10/08/2025 CULTU RE: URINE result report SEE RESULT S BELOW Test: Cultu re: Urine Speci men Sourc e: Urine - Clean Catch Speci men Type: Urine Speci men Date: 10/08 1152 Resul t Date: 10/09 2305 Resul t Statu s: Final resul t Abnor mal: No Resul ting Lab: [facility] [address] [facility] [address] Tel: CULTU RE ----- ----- ----- --- No growt h in 1 day (dete ction level of 10,00 0 colon ies / ml.) Not Available [facility] (Lab) [address] [facility], [place], [address], 10/10/2025 00:09:56 07/14/20 25 07/14/2025 US, obste tric, 2nd or 3rd trime ster No observ ation record ed. [email or web address], [place], [address], 07/14/2025 11:48:13 07/14/2007/14/2025 US, obste tric, follo w-up No observ ation record ed. [email or web address] [address], [place], [address], 07/14/2025 16:09:19 08/11/2008/11/2025 US, obste tric, follo w-up No observ ation record ed. [facility] [address], [place], [address], 08/11/2025 18:35:48 08/11/20 25 08/11/2025 US, obste tric, follo w-up No observ ation record ed. [email or web address] [address], [place], [address], 08/13/2025 07:06:41 09/10/20 25 09/10/2025 US, obste tric, follo w-up No observ ation record ed. [facility] [address], [place], [address], 09/10/2025 14:42:43 09/10/2009/10/2025 US, obste tric, follo w-up No observ ation record ed. [email or web address] [address], [place], [address], 09/14/2025 14:46:19 10/08/20 25 10/08/2025 US, obste tric, follo w-up No observ ation record ed. [email or web address] [address], [place], [address], 10/11/2025 11:55:36 10/08/2010/08/2025 non-s tress test No observ ation record ed. [email or web address] [facility] [address], [place], [address], 10/08/2025 13:48:06 10/08/20 non-s tress test No observ ation record ed. [email or web address] [facility] [address], [place], [address], 10/08/2025 12:32:22 10/08/2010/08/2025 US, obste tric, follo w-up No observ ation record ed. [facility] [address], [place], [address], 10/08/2025 16:57:13 10/08/20 25 10/08/2025 US, dominic tric, bioph ysica l profi le + non-s tress test No observ ation record ed. [facility] [address], [place], [address], 10/08/2025 16:57:23 10/13/20 25 10/13/2025 US, obste tric, bioph ysica l profi le + non-s tress test No observ ation record ed. [email or web address] [facility] [address], [place], [address], 10/13/2025 11:51:09 10/13/2010/13/2025 US, obste tric, bioph ysica l profi le + non-s tress test No observ ation record ed. [email or web address] [address], [place], [address], 10/20/2025 11:47:34 10/13/2010/13/2025 non-s tress test No observ ation record ed. [address], [place], [address], 10/13/2025 17:57:16 10/13/20 non-s tress test No observ ation record ed. [address], [place], [address], 10/13/2025 17:34:36 10/22/20 25 10/22/2025 US, obste tric, bioph ysica l profi le No observ ation record ed. [email or web address] [address], [place], [address], 10/29/2025 11:35:15 10/22/20 25 10/22/2025 US, obste tric, bioph ysica l profi le + non-s tress test No observ ation record ed. [facility] [address], [place], [address], 10/22/2025 13:51:55 10/22/20 25 10/22/2025 non-s tress test No observ ation record ed. [address], [place], [address], 10/27/2025 18:38:42 10/22/20 non-s tress test No observ ation record ed. [email or web address] [facility] [address], [place], [address], 10/22/2025 12:42:25 10/29/20 25 10/29/2025 US, obste tric, follo w-up No observ ation record ed. [email or web address] [address], [place], [address], 10/30/2025 01:33:53 10/29/20 25 10/29/2025 US, obste tric, follo w-up No observ ation record ed. [facility] [address], [place], [address], 10/29/2025 17:16:32 10/29/20 25 10/29/2025 US, obste tric, bioph ysica l profi le + non-s tress test No observ ation record ed. [facility] [address], [place], [address], 10/29/2025 17:16:42 Result Notes None recorded. Problems Name Problem SNOMED Code Status Onset Date Resolution Date Notes Provider Name and Address Organization Details Recorded Time 70843038 Active 2024 Linda mcgill, [facility] 10:53:18 Hypertens dwight disorder 75785337 Active 2024 labetalol 200mg bid bASA daily serial growth us , weekly testing @ 32wks 10/08/25 300mg bid rpt labs Alysia Santos CNM [address], [place], [address], [facility] 12:52:39 Mixed anxiety and depressiv e disorder 309380439 Active 2024 buspirone 10mg lexapro 20 mg daily Alysia Santos CNM [address], [place], [address], [place] [facility] 5 12:01:06 Past history of gestation al hypertens ion 436035679 Active 2024 vs preeclamp deirdre delivered at 37 weeks Alysia Santos, SARA [address], [place], [address], [facility] 5 12:01:27 Marijuana user 926547887 Active 2024 Pt decreased . Continued use is causing family issues and pt is experienc ing increased anxiety and depressio n symptoms. Nina Olivares er null, [facility] 5 16:48:10 Marijuana user 838595793 Active 2024 Pt decreased . Continued use is causing family issues and pt is experienc ing increased anxiety and depressio n symptoms. Nina conway null, [facility] 5 16:48:11 Problem Notes None recorded. Procedures Surgical History Date Name Laterality Status Provider Name and Address Organization Details Recorded Time 11/18/2021 Date of Last Pap Smear completed Kim Monson [facility] 08/11/2025 14:32:13 Imaging Results None recorded. Procedure Notes None recorded. Medical Equipment None Reported. Allergies Allergen ID Allergen Name Allergen Category Reaction Reaction Severity Criticality Documentation Date Start Date Code Code System Note Provider Name and Address Organization Details Recorded Time 09099 amoxicill in medicatio n hives Not available Not available 10/08/20252016 723 RxNorm Not Available [email or web address] - prod 5 03:06:32 53368 clindamyc in Not available hives Not available Not available 10/08/20252018 2582 RxNorm Not Available [email or web address] - prod 5 03:06:32 Medications [...] Address Organization Details Last Updated DateTime 5 50217.7 3504 g 33 kg/m2 162.56 cm 162.56 cm 33 kg/m2 35687.7 4 g 128/79 mm[Hg] 128/79 mm[Hg] Cami Merida [facility] 5 12:38:07 Social History Question Answer Notes LastModified by Organizat ion Details LastModified Time Do You Have An Advance Directive? No Information n ot available 04/22/2025 How Many Years Have You Consumed Alcohol? 8 [email or web address] Information not available 08/11/2025 Are You Blind [...] Or The Highest Degree You Have Received? [id number] Information not available 04/22/2025 Are There Any Guns Present In Your Home? Yes Information not available 04/22/2025 Have You Ever Been Counseled For Unhealthy Alcohol Use? No [email or web address] Information not available 06/16/2025 Do You Use Protection During Sex? No Information not available 04/22/2025 Do You Use Your Seat Belt Or Car Seat Routinely? Yes Information not available 04/22/2025 Are You Sexually Active? Yes [email or web address] Information not available 06/16/2025 Do You Have Smoke And Carbon Monoxide Detectors In Your Home? Yes Information not available 04/22/2025 At What Age Did You Start Smoking Tobacco? 19 Information not available 04/22/2025 How Much Tobacco Do You Smoke? No Information not available 04/22/2025 Do You Use Sunscreen Routinely? No Information not available 04/22/2025 Has Tobacco Cessation Counseling Been Provided? No [email or web address] Information not available 06/16/2025 How Many Years Have You Smoked Tobacco? 4 [email or web address] Information not available 08/11/2025 Have You Used IV Drugs? No Information not available 04/22/2025 Do You Have Difficulty Walking Or Climbing Stairs? No [email or web address] Information not available 06/16/2025 Sex: Unknown Functional [...] able to care for yourself independently? 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 No [email or web address] Information not available 06/16/2025 What is your exercise level? Occasional Information not available 04/22/2025 Mental Status Question Answer Note LastModified by Organization D etails LastModified Time Do you feel stressed (tense, restless, nervous, or anxious, or unable to sleep at night)? [id number] [email or web address] Information not available 08/11/2025 Family History Relationship [...] ICD10 Code Diagnosis IMO Codes Diagnosis Note [id number] Alysia Santos [facility] [address] [address] 09/24/2025 11:20:09 09/24/2025 12:02:06 Gestation period, 30 weeks 00789518 Z3A.30 4843372 Acute urin shamir tract infection 920889443 N39.0 677492 [id number] Alysia Santos [facility] [address],[place] [address] 10/08/2025 11:01:42 10/08/2025 12:33:16 Chronic hypertension complicating AND/OR reason for care during 55798714 O10.919 70356947 [id number] Norris Jordan MD [facility] [address] [place] [address] 10/08/2025 11:02:16 10/08/2025 13:23:40 Hypertension complicating 3505651138 9102 O16.3 Z3A.32 23991927 [id number] Alysia Santos [facility] [address],[place] [address] 10/08/2025 11:02:36 10/08/2025 12:56:56 -induced hypertension 77987434 O13.9 Hypertensive disorder 38 640055 I10 60936102 History of urinary tract infection 7705702229 107 Z87.501 4531432 [id number] Norris Jordan MD [facility] [address] [place] [address] 10/13/2025 10:48:37 10/13/2025 11:35:45 Essential hypertension complicating AND/OR reason for care during 36041101 O10.013 Z3A.33 5089738 285954 Alysia Santos [facility] [address] 1 10/13/2025 10:48:51 10/13/2025 17:36:59 Chronic hypertension complicating AND/OR reason for care during 02962872 O10.919 19724546 [id number] Alysia Santos [facility] [address],[place] [address] 10/13/2025 10:49:32 10/13/2025 11:51:38 Gestation period, 33 weeks 58741441 Z3A.33 0712918 [id number] Norris Jordan MD [facility] [address],[place] [address] 10/22/2025 10:36:47 10/22/2025 13:37:48 Maternal hypertension 675878970 O16.3 Z3A.34 9165386 [id number] Alysia Santos [facility] [address],[place] [address] 10/22/2025 10:37:30 10/22/2025 13:37:30 Chronic hypertension complicating AND/OR reason for care during 88960976 O10.919 11752537 [id number] Alysia Santos [facility] [address],[place] [address] 10/22/2025 10:37:44 10/22/2025 13:34:57 Gestation period, 34 weeks 97725672 Z3A.34 8166968 Health Concerns Section Related Observation LastModified by Organization Detai ls LastModified Time None Recorded Concern Status LastModified by Organization Details LastModified Time None Recorded Payers Encounter Date Sequence Insurance Name Policy Number Policy Sarah Covered Member ID Sarah Member ID Guarantor Name 10/22/2025 1 [place] [id number] Artem Greenview [id number] Artem Dora Notes Date Note Type Note Provider Name and Address Organization Details Recorded Time 10/22/2025 text/html Generic HPI TemplateReported by Patient Alysia Reddygle, CNM [address], [place], [address], [place] [facility] 10/22/2025 12:39:00 OBGyn Episode Ob Episode Information Episode Created Date Number of Fetuses Patient Bloodtype Patient rh Status Prepregnancy Weight lbs Domestic Partner Domestic Partner Phone Father Name Indian Blanket Weaver Status 05/19/20 25 1 O Positive 173 OPEN Fetus Data First Name Last Name Admitted to NICU Weight (g) Sex Living Outcome Pediatric Complications Fetus ID Race Codes Race Delivery Type [id number] Problems Problem Notes Problem Name Start Date End Date Resolution Snomed Code Not e Hypertensive disorder 05/19/2025 6415307 3 labetalol 200mg bidbASA dailyserial growth us , weekly testing @ 65ewd9110/08/25 300mg bid rpt labs Past history of gestational hypertension 05/19/2025 454357738 vs preeclampsia delivered at 37 weeks Marijuana user 08/18/2025 860982720 Pt d ecreased. Continued use is causing family issues and pt is experiencing increased anxiety and depression symptoms. Mixed anxiety and depressive disorder 05/19/2025 070390259 buspiron e 10mglexapro 20 mg daily Pablito [...] Date Ultra Sound Latest Days Gestation 0 [email or web address] 05/19/2025 11/27/19 26 0 Pre- Flowsheet Flowsheet Date 05/19/2025 Yoder Score Blood Edema Fundus Height Fundus Units Glucose Ketones Leukocytes Nitrite Labor Signs Protein Cervic Dilation Cervic Effacement Cervic Station Type Weight in lbs Pre/Post Dialysis Refused Weight 169.548279586312 BP Diastolic BP Location Tested BP Systolic [...] Weight in lbs Pre/Post Dialysis Refused Weight 173.644308773285 BP Diastolic BP Location Tested BP Systolic [...] Weight in lbs Pre/Post Dialysis Refused Weight 179.454922290022 BP Diastolic BP Location Tested BP Systolic [...] Weight in lbs Pre/Post Dialysis Refused Weight 188.518934500699 BP Diastolic BP Location Tested BP Systolic [...] Type Weight in lbs Pre/Post Dialysis Refused 189.827400888258 BP Diastolic BP Location Tested BP Systolic BP Type 78 L arm 125 sitting Fetus Heart Rate Present Fetus Movement A Yes Comments +FM, very tearful today anxi et high, meds usually work when not but having some issues at home and with family. growth good, eating ok, precautions and education. discussed anxiety and will plan referral to laurel diaz airline reservation agent for management. gct today reviewed us Flowsheet Date 09/24/2025 Yoder Score Blood Edema Fundus Height Fundus Units Glucose Ketones Leukocytes Nitrite Labor Signs Protein Cervic Dilation Cervic Effacement Cervic Station 0cm Type Weight in lbs Pre/Post Dialysis Refused Weight 188.915507116142 BP Diastolic BP Location Tested BP Systolic [...] Weight in lbs Pre/Post Dialysis Refused Weight 190.263191650018 BP Diastolic BP Location Tested BP Systolic [...] Type Weight in lbs Pre/Post Dialysis Refused 191.627960378408 BP Diastolic BP Location Tested BP Systolic [...] Type Weight in lbs Pre/Post Dialysis Refused 189.038776647150 BP Diastolic BP Location Tested BP Systolic BP Type 80 L arm 119 sitting Fetus Heart Rate Present Fetus Movement A Yes Comments Flowsheet Date 10/13/2025 Yoder Score Blood Edema Fundus Height Fundus Units Glucose Ketones Leukocytes Nitrite Labor Signs Protein Cervic Dilation Cervic Effacement Cervic Station Type Weight in lbs Pre/Post Dialysis Refused Weight 189.311622603780 BP Diastolic BP Location Tested BP Systolic [...] Weight in lbs Pre/Post Dialysis Refused Weight 192.829428047489 BP Diastolic BP Location Tested BP Systolic BP Type 79 L arm 128 sitting Fetus Heart Rate Present Fetus Movement A Yes Comments Flowsheet Date 10/22/2025 Yoder Score Blood Edema Fundus Height Fundus Units Glucose Ketones Leukocytes Nitrite Labor Signs Protein Cervic Dilation Cervic Effacement Cervic Station Type Weight in lbs Pre/Post Dialysis Refused 192.575953240712 BP Diastolic BP Location Tested BP Systolic [...]
--- OUTSIDE RECORDS SUMMARY | 2025-11-01 06:20 | XMS_ITS | Data Portability ---
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 She states this has been going on for 2 weeks straight. Period this month lasted a day and it was super light. She would like to check Quant today. RTC TVUS; PA sent. [email or web address] Not available 12/14/2022 20:10:21 12/26/2022 12/26/2022 TVUS today: Small amount of free fluid in culdesac. Rt ovary WNL. Hemmorhagic cyst on lt ovary measuring 3.5 cm. Trace amount of Free fluid. Trace amount of free fluid adjacent to lt ovary. Pain management Prevention: hormonal contraception may prevent recurrence, denies wanting to start at this time. <5cm no follow up Ibuprofen Cyst relief measures provided [email or web address] Not available 12/27/2022 15:04:50 03/20/2023 03/20/2023 Pt comes in today with a new information on her family history. She has a strong family history of ovarian cancer: Paternal Aunt Mother Maternal Aunt; she also had endometrial and uterine cancer Discussed this information in detailed and offered MyRisk testing. Pt accepted. Recommended OCP when trying not to conceive, pt agreed. Will send rx. [email or web address] Not available 03/21/2023 13:33:50 Plan of Treatment Reminders Order Date Submit Date Provider Last Modified By Organization Details Last Modified Time Details Appointments None recorded. Lab beta-HCG, quantitativ e, serum or plasma 2022 023 [facility], [address] [place], [address], 3 10:18:06 Referral None recorded. Procedures None recorded. Surgeries None recorded. Imaging US, transvagina l 2022 023 [facility], [address] [place], [address], 3 17:05:31 US, pelvis 2021 022 [email or web address] 6 [facility], [facility] [place], [address], 2 12:04:25 Medication Orders Nextstellis 3 mg-14.2 mg (28) tablet 2022 023 [facility], [address] [place] [address], [address], 3 13:28:23 ibuprofen 800 mg tablet 2022 023 [id number], [address], [place], [id number], 3 11:38:37 fluconazole 150 mg tablet 2021 022 [email or web address] 643 [id number], [address], [place], [id number], 3 11:15:18 Patient TargetsNo targets recorded. Patient InstructionsNo instructions recorded. Reason for Referral None Reported. Results Created Date Observation Date Name Description Value Unit Range Abnormal Flag Note LastModifiedBy Organization Detail LastModifiedTime 06/12/20 22 06/14/2022 CULTU RE, URINE , ROUTI NE culture, urine, routine SEE NOTE CULTU RE, URINE , ROUTI NE Micro Numbe r: [id number] Test Statu s: Final Speci men Sourc e: Urine , clean catch Speci men Quali ty: Adequ ate Resul t: No Growt h Not Available [employer] [facility] [address] [place], [address], 06/14/2022 01:29:52 12/14/19 23 12/15/2022 HCG, TOTAL , QUANT HCG, total, quant < 2 mIU/m L < 5 Refer ence Range s are for femal es aged 18 years - Adult Nonpr egnan t or preme nopau ayesha <5 Postm enopa usal <10 Value s from diffe rent assay metho ds may vary. The use of this assay to monit or or to diagn ose patie nts with cance r or any other condi tion unrel ated to pregn brandi has not been valid ated by the [facility] actur er of this assay . Not Available [address], [address], 12/15/2022 10:18:06 06/27/20 22 US, pelvi s No observ ation record ed. BRIANA [facility] [address] [place], [address], 06/28/2022 10:09:33 07/07/20 22 06/28/2022 US, pelvi s No observ ation record ed. [email or web address] Chiara [address], [place], [address], 07/08/2022 06:36:21 12/27/19 23 12/26/2022 US, trans vagin al No observ ation record ed. [email or web address] Chiara [address], [place], [address], 12/28/2022 23:52:23 Result Notes None recorded. Problems Name Problem SNOMED Code Status Onset Date Resolution Date Notes Provider Name and Address Organization Details Recorded Time Atypical glandula r cells on cervical Papanico laou smear [id number] Completed 201603/26/2019 Abnormal Pap; Location : None Progress : Stable Added By: Rosita Sanderson Add to Current Problems : YES ProblemS tatus: Current Abnormal Pap; Progress : Stable Added By: Rosita Sanderson Add to Current Problems : NO ProblemS tatus: Resolve Not Available [facility] 2 16:46:46 Tobacco dependen ce syndrome 62712191 Completed 201611/22/2017 Tobacco abuse; Progress : Stable Added By: Rosita Sanderson Add to Current Problems : NO ProblemS tatus: Resolve Not Available [facility] 2 16:46:45 Evaluati on finding Completed 201603/25/2020 Unspecif ied abnormal cytologi sam findings in specimen s from cervix uteri; Progress : Stable Added By: Rosita Sanderson Add to Current Problems : NO ProblemS tatus: Resolve Not Available [facility] 2 16:46:58 Nicotine dependen ce 50985647 Completed 201611/22/2017 Nicotine dependen ce, unspecif ied, uncompli cated; Progress : Stable Added By: Rosita Sanderson Add to Current Problems : NO ProblemS tatus: Resolve Not Available [facility] 2 16:46:54 Disorder of hair AND/OR hair follicle Completed 201709/14/2018 Follicul itis; Progress : Stable Added By: Sangita Marques Add to Current Problems : NO ProblemS tatus: Resolve Not Available [facility] 2 16:46:57 Gestatio n period, 8 weeks 97874732 Completed 201808/26/2019 8 weeks gestatio n of pregnanc y; Progress : Stable Added By: Alysia Keen Add to Current Problems : NO ProblemS tatus: Resolve Not Available [facility] 2 21:34:40 Pregnanc y, childbir th and puerperi um finding Completed 201808/26/2019 Enio r for supervis ion of normal first pregnanc y, first trimeste r; Progress : Stable Added By: Cheryle Zabala Add to Current Problems : NO ProblemS tatus: Resolve Not Available [facility] 2 16:46:49 Gestatio n period, 12 weeks 15790785 Completed 201808/26/2019 12 weeks gestatio n of pregnanc y; Progress : Stable Added By: Cheryle Zabala Add to Current Problems : NO ProblemS tatus: Resolve Not Available [facility] 2 16:46:57 Pregnanc y, childbir th and puerperi um finding Completed 201808/26/2019 Encounte r for supervis ion of normal first pregnanc y, second trimeste r; Progress : Stable Added By: Alpa Vazquez Add to Current Problems : NO ProblemS tatus: Resolve Not Available [facility] 2 16:46:45 Gestatio n period, 16 weeks 09287302 Completed 201808/26/2019 16 weeks gestatio n of pregnanc y; Progress : Stable Added By: Lakhwinder Scott Add to Current Problems : NO ProblemS tatus: Resolve Not Available [facility] 2 16:46:50 Pelvic and perineal pain 121484255 Completed 201803/25/2020 Pelvic and perineal pain; Progress : Stable Added By: Marva Mike Add to Current Problems : NO ProblemS tatus: Resolve Not Available [facility] 2 16:47:02 Gestatio n period, 20 weeks 33070410 Completed 201808/26/2019 20 weeks gestatio n of pregnanc y; Progress : Stable Added By: Marva Mike Add to Current Problems : NO ProblemS tatus: Resolve Not Available [facility] 2 16:46:45 Antenata l screenin g for malforma tion Completed 201808/26/2019 Encounte r for antenata l screenin g for malforma tions; Progress : Stable Added By: Marva Mike Add to Current Problems : NO ProblemS tatus: Resolve Not Available [facility] 2 16:46:58 Gestatio n period, 24 weeks 555246313 Completed 201808/26/2019 24 weeks gestatio n of pregnanc y; Progress : Stable Added By: Alpa Vazquez Add to Current Problems : NO ProblemS tatus: Resolve Not Available [facility] 2 16:46:58 Pregnanc y, childbir th and puerperi um finding Completed 201803/25/2020 Encounte r for supervis ion of normal first pregnanc y, third trimeste r; Progress : Stable Added By: Kathryn Nunez Add to Current Problems : NO ProblemS tatus: Resolve Not Available [facility] 2 16:46:49 Gestatio n period, 28 weeks 85866638 Completed 201808/26/2019 28 weeks gestatio n of pregnanc y; Progress : Stable Added By: Susannah Almonte Add to Current Problems : NO ProblemS tatus: Resolve Not Available [facility] 2 16:46:57 Gestatio n period, 30 weeks 22355370 Completed 201808/26/2019 30 weeks gestatio n of pregnanc y; Progress : Stable Added By: Marva Mike Add to Current Problems : NO ProblemS tatus: Resolve Not Available [facility] 2 16:46:56 Gestatio n period, 32 weeks 9272725 Completed 201808/26/2019 32 weeks gestatio n of pregnanc y; Progress : Stable Added By: Marva Mike Add to Current Problems : NO ProblemS tatus: Resolve Not Available [facility] 2 16:46:57 Gestatio n period, 34 weeks 31237360 Completed 201803/25/2020 34 weeks gestatio n of pregnanc y; Progress : Stable Added By: Tish Diaz Add to Current Problems : NO ProblemS tatus: Resolve Not Available [facility] 2 16:46:45 Gestatio n period, 36 weeks 12684588 Completed 201803/25/2020 36 weeks gestatio n of pregnanc y; Progress : Stable Added By: Susannah Almonte Add to Current Problems : NO ProblemS tatus: Resolve Not Available [facility] 2 16:46:50 Antenata l screenin g Completed 201803/25/2020 Encounte r for antenata l screenin g for Streptoc occus B; Progress : Stable Added By: Susannah Almonte Add to Current Problems : NO ProblemS tatus: Resolve Encounte r for other specifie d antenata l screenin g; Progress : Stable Added By: Kathryn Nunez Add to Current Problems : NO ProblemS tatus: Resolve; Start Date : 02/27/20 19 Not Available [facility] 2 21:34:40 Gestatio n period, 37 weeks 40026016 Completed 201803/25/2020 37 weeks gestatio n of pregnanc y; Progress : Stable Added By: Kathryn Nunez Add to Current Problems : NO ProblemS tatus: Resolve Not Available [facility] 2 16:47:02 Lochia finding Completed 201806/28/2022 Encounte r for routine postpart um follow-u p; Progress : Stable Added By: Mackenzie Heard Add to Current Problems : YES ProblemS tatus: Current Rosa Witt, [address] [place], [address] , [facility] [employer] [facility] 2 10:59:37 Laura ry postpart um mood disturba nce 21363044 Completed 201906/28/2022 Postpart um mood disturba nce; Progress : Stable Added By: Susannah Almonte Add to Current Problems : YES ProblemS tatus: Current Rosa Witt, [address] [place], [address] , [facility] [employer] [facility] 2 10:59:37 Problem Notes None recorded. Procedures Surgical History Date Name Laterality Status Provider Name and Address Organization Details Recorded Time Date of Last Pap Smear completed Lilia Bullard [place] [email or web address] [facility] 12/14/2021 22:08:50 Imaging Results None recorded. Procedure Notes None recorded. Medical Equipment None Reported. Allergies Allergen ID Allergen Name Allergen Category Reaction Reaction Severity Criticality Documentation Date Start Date Code Code System Note Provider Name and Address Organization Details Recorded Time 051307 amoxicill in medicatio n Not available Not available Not available 09/08/20212016 723 RxNorm Sever ity: Moder ate; Not Available [facility] 01:07:16 Medications Name Sig Start Date Stop Date Status Note LastModified by Organization Details LastModified Time ibuprofen 800 mg tablet Take 1 tablet 3 times a day by oral route. 05/28 completed Not Available Not Available Not Available fluconazo le 150 mg tablet Take one tablet today and repeat in 72 hours as needed 12/26 completed Not Available Not Available Not Available sertralin e 100 mg tablet take 1 tablet (100 mg) by oral route once daily 01/20 completed sertrali ne 100 mg oral tablet RxNorm: 955889 Allow Substitu tion: True Refill Denied: No Edited by: Madonna Arteaga ) on 01/21/20 Stopped by: Madonna Arteaga ) on 01/21/20 Not Available Not Available Not Available ciproflox acin 250 mg tablet 06/12 completed Not Available Not Available Not Available Mircette (28) 0.15 mg-0.02 mg (21)/0.01 mg (5) tablet take 1 tablet by oral route once daily 01/20 completed Mircette (28) 0.15-0.0 2 mgx21 /0.01 mg x 5 oral tablet RxNorm: 112181 Allow Substitu tion: True Refill Denied: No Edited by: Madonna Arteaga ) on 01/21/20 Stopped by: Madonna Arteaga ) on 01/21/20 Not Available Not Available Not Available Vitamin tablet 10/05 completed Multivit robert RxNorm: 0 Allow Substitu tion: True Refill Denied: No Refill DateOccu rred: 02/27/20 Edited by: Leah Olsen ) on 10/05/20 Stopped by: Leah Olsen ) on 10/05/20 19 Not Available Not Available Not Available buspirone 30 mg tablet Take 1 tab Twice a day 02/20 completed Buspiron e HCl 7.5mg Tablet Allow Substitu tion: True Refill Denied: No Edited by: Rosita Del Rosario) on 09/23/20 17 Stopped by: Rosita Del Rosario) on 02/21/20 18 Not Available Not Available Not Available buspirone 10 mg tablet Take 1 tab Twice a day 02/20 completed Buspiron e HCl 7.5mg Tablet Allow Substitu tion: True Refill Denied: No Edited by: Rosita Del Rosario) on 09/23/20 17 Stopped by: Rosita Del Rosario) on 02/21/20 18 Not Available Not Available Not Available ergocalci ferol (vitamin D2) 1,250 mcg (50,000 unit) capsule 06/12 completed Not Available Not Available Not Available sertralin e 50 mg tablet 12/15 completed Not Available Not Available Not Available Bactrim DS 800 mg-160 mg tablet 1 po BID 09/14 completed Bactrim DS 160mg/80 0mg Tablet RxNorm: 914083 Allow Substitu tion: True Refill Denied: No For Problem: Follicul itis Not Available Not Available Not Available escitalop prince 10 mg tablet Take 1 tablet every day by oral route. 05/28 completed Not Available Not Available Not Available Sprintec (28) 0.25 mg-0.035 mg tablet 1 tab po daily 12/27 completed Sprintec 35mcg/0. 25mg Tablet RxNorm: 397745 Allow Substitu tion: True Refill Denied: No Edited by: Nancy Boland) on 12/27/19 18 Stopped by: Nancy Boland) on 12/27/19 18 Not Available Not Available Not Available nitrofura ntoin monohydra te/macroc rystals 100 mg capsule Take 1 capsule every 12 hours by oral route for 14 days. 06/28 completed Not Available Not Available Not Available Nextstell is 3 mg-14.2 mg (28) tablet Take 1 tablet every day by oral route for 21 days. active Not Available Not Available No t Available Vitals Date Recorded Body height Body mass index (BMI) Body weight Body temperature Systolic And Diastolic Provider Name and Address Organization Details Last Updated DateTime 12/14/2022 162.56 cm 25.5 kg/m2 96279.5 4 g 98.2 [degF] 124/80 mm[Hg] Paige Paige [place] [employer] [facility] 3 11:08:04 Date Recorded Body height Body mass index (BMI) Body weight Body temperature Systolic And Diastolic Provider Name and Address Organization Details Last Updated DateTime 12/26/2022 162.56 cm 26.1 kg/m2 21466.0 4 g 98.1 [degF] 125/80 mm[Hg] Karen Pablo [facility] [employer] [facility] 3 11:14:54 Date Recorded Body height Body mass index (BMI) Body weight Body temperature Systolic And Diastolic Provider Name and Address Organization Details Last Updated DateTime 03/20/2023 162.56 cm 26.8 kg/m2 04489.8 5 g 98.2 [degF] 120/82 mm[Hg] Paige BrunoRoyal [place] [email or web address] [facility] 3 14:29:01 Date Recorded Body height Body mass index (BMI) Body weight Body temperature Systolic And Diastolic Provider Name and Address Organization Details Last Updated DateTime 05/28/2023 162.56 cm 26.8 kg/m2 90511.1 3 g 97.6 [degF] 122/80 mm[Hg] Ayanna Britrichard [place] [employer] [facility] 3 11:33:42 Date Recorded Body height Body temperature Body mass index (BMI) Body weight Systolic And Diastolic Provider Name and Address Organization Details Last Updated DateTime 06/28/2022 162.56 cm 97.3 [degF] 24.6 kg/m2 26567.4 3 g 108/68 mm[Hg] Ayanna Britrichard [employer] [facility] 2 10:48:49 Social History Question Answer Notes LastModified by Organizat ion Details LastModified Time Tobacco Smoking Status Never Smoker Ayanna Gus mcgill [place] [employer] 06/28/2022 10:41:55 Are You Blind Or Do You Have Difficulty Seeing? No [email or web address] Information not available 06/12/2022 Are You Deaf Or Do You Have Serious Difficulty Hearing? No [email or web address] Information not available 06/12/2022 What Type Of Diet Are You Following? REGULAR Information not available 06/28/2022 Which Illicit Or Recreational Drugs Have You Used? Marijuana Information not available 12/15/2021 How Many Children Do You Have? 1 Information not available 12/15/2021 What Is Your Relationship Status? Other Engaged And 130 Days ( As Of 03-30-22)get ting Information not available 03/30/2022 Are You Sexually Active? Yes Information not available 12/15/2021 Have You Used IV Drugs? No Information not available 06/28/2022 Sex: Unknown Functional Status Question Answer Note LastModified by Organizat ion Details LastModified Time Do you use any illicit or recreational drugs? Yes Information not available 12/15/2021 Do you or have you ever used any other forms of tobacco or nicotine? No Information not available 06/28/2022 Are you currently employed? 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 None Information not available 06/28/2022 Mental Status None recorded. Family History Relationship Description Onset Age of this Age Resolved Age Notes LastModified by Organization Details LastModified Time Paternal Aunt Malignant neoplasm of ovary 25 [email or web address] Not available 14:30:43 Mother Malignant neoplasm of ovary 48 [email or web address] Not available 2022 14:59:03 Maternal Aunt Malignant neoplasm of ovary 30 Endome trial cancer , Uterin e cancer [email or web address] Not available 03/20/2023 14:56:27 Maternal Aunt Endometrial carcinoma 35 [email or web address] Not available 2022 14:56:51 Maternal Aunt Malignant neoplasm of uterus 35 [email or web address] Not available 2022 14:57:11 Maternal Aunt Family history of endometriosi s PCOS. Report s ovaria n torsio n with a large cyst- had to get that ovary remove d. [email or web address] Not available 03/21/2023 13:35:17 Notes:depression in the fami ly Medical History Condition Response Other Cancer N High Blood Pressure N Colon Cancer N Cytomegalovirus N Hyperthyroidism N Breast Cancer N MRSA N Herpes (HSV) N Blood Transfusion N Lung Cancer N Depression N Hypothyroidism N Incontinence N Panic Attacks N Neurological Disorder N Deep Vein Thrombosis N Anxiety Disorder N Autoimmune disease N Arthritis N Tuberculosis/Positive PPD N Shingles N Polycystic Ovarian Syndrome N Cervical Cancer N Hematuria N Chlamydia N Stroke N Varicosities N Seasonal allergies N Crohn's Disease N Alzheimer's/Dementia N COPD/Emphysema N Endometriosis N HPV/Genital Warts N IBS (Irritable Bowel Syndrome) N History of Abnormal Pap N High Cholesterol N Liver Disease N Kidney Infection N Fibromyalgia N Ulcer N Kidney Disease N HIV N Gallbladder disease N Sickle Cell Disease/Trait N Von Willebrand disease N ADD/ADHD N Eating Disorder N Anemia N Diabetes Mellitus (non-insulin dependent ) N Multiple Sclerosis N Ovarian Problems N Gonorrhea N Frequent Urinary Tract infections N Osteopenia N Headaches/migraines N GERD (reflux) N Ovarian Cancer N Diabetes (insulin dependent) N Seizures/Epilepsy N Fibroids N Asthma N Heart Attack N Lupus N Endometrial Cancer N Rubella N Blood Clotting Disorder N Bipolar Disorder N Diabetes Mellitus (during ) N Ulcerative Colitis N Hepatitis N Heart Disease N Pulmonary Embolism N RPR N Chicken Pox N Osteoporosis N Gynecological History Statement/Question Response Date of Last Colonoscopy Flow Moderate Date of last HPV Date of LMP 12/06/2022 Most Recent Bone Density HPV Vaccine N Date of Last Pap Smear 01/20/2021 Most Recent Mammogram Current Control Method BCPs Age at Menarche 12 Obstetrics History GPAL:G 2 P 1 0 1 1 Type Value Full Term 1 Spontaneous 1 Living 1 Total 2 Past Encounters Encounter ID Performer Location Encounter Start Date Encounter Closed Date Diagnosis/Indication Diagnosis SNOMED-CT Code Diagnosis ICD10 Code Diagnosis IMO Codes Diagnosis Note [id number] Ly Mckeon DO [facility] [address] [place] [address] 12/15/2021 16:29:03 12/15/2021 17:08:19 Complete miscarriage 773385315 O03.9 [id number] Dick Christensen MD [facility] [address] [place] [address] 03/30/2022 16:18:55 04/09/2022 15:19:17 Urinary tract infectious disease 13021224 N39.0 and she gibbs pain with intercours e just recentlyCO UNSELING was provided today regarding the following topics: healthy eating habits. Patient education given on weight management . . Demolition Expert Specific: She was instructed in fundamenta ls of an IC Diet, and specifical y avoiding caffeine and carbonatio n. , and discussed prelief as well as fdc antbxs RECOMMENDA TIONS given include: increase fluid intake and begin Kegel exercises . FOLLOW-UP: Schedule a follow-up appointmen t in 8 weeks. to perform exam and reasess depression 58 895973 F53.0 EPDS: Pt educated on normal EPDS scoring, and discussed depression precaution s and when to notify HCP/go to ER. Discussed at length medication options and discussed with them they may feel more depressed for the first week secondary to increased REM sleep and sleep adjustment s. Patient is not suicidal and has no suicidal ideations. we will need to see her back in 3-4 weeks for a follow up and stressed the importance of close follow up as well as benefits of having a counselor. We discussed a healthy diet and exercise. We discussed length of time to be on medication s as well as to start slow with the medication and take 1/2 the dose for 6 days before increasing to full dose as well as tapering off slowly as well over a 1 month period of time Irregular periods 796277 07 N92.6 Trigonitis 30232190 N30. 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 1cm non-septed cyst in right ovary. Discussed US findings w/pt. She is feeling better but still feels occasional pain but now that she has finished abx, less frequently . Encouraged her to f/u if pain becomes more intense, constant, or if new symptoms develop. 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 1 cm non-septed cyst in right ovary. Discussed US findings w/pt. She is feeling better but still feels occasional pain but now that she has finished abx, less frequently . Encouraged her to f/u if pain becomes more intense, constant, or if new symptoms develop. 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 1 cm non-septed cyst in right ovary. Discussed US findings w/pt. She is feeling better but still feels occasional pain but now that she has finished abx, less frequently . Encouraged her to f/u if pain becomes more intense, constant, or if new symptoms develop. Cyst of ovary 85024874 N 83.684 [id number] SALLY MACIAS [facility] [address] [place] [address] 03/20/2023 13:57:28 03/21/2023 14:58:39 Pain in pelvis 06297420 R10.2 Pt has a PMH of cysts- she is not on Control. Discussed in detail last time relief measures on ovarian cysts. She doesn't report new or worsening pain, it is the same.Last time we talked about pain with ovulation and to track her cycles and when she was getting her pain. She reported she did this and she noticed that her pain was with ovulation. TVUS on 12/2022:Sma ll amount of free fluid in culdesac. Rt ovary WNL. Hemmorhagi c cyst on lt ovary measuring 3.5 cm. Trace amount of Free fluid. 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 1 cm non-septed cyst in right ovary. Discussed US findings w/pt. She is feeling better but still feels occasional pain but now that she has finished abx, less frequently . Encouraged her to f/u if pain becomes more intense, constant, or if new symptoms develop. Contracept ion care education [id number] Z30.09 Contracept dwight counseling : Discussed options including OCPs, NuvaRing, Nexplanon, hormonal and copper IUDs. Discussed risks, efficacy, noncontrac eptive benefits, and side effects of each option, including risk of VTE with hormonal contracept ion and uterine perforatio n, expulsion, infection with IUD. Family his tory of malignant neoplasm of ovary [id number] Z80.41 Family his tory of malignant neoplasm of endometrium [id number] Z80.49 Family his tory of malignant neoplasm of uterus [id number] Z80.49 Family his tory of procedure on ovary [id number] Z84.89 Maternal Aunt- Reports ovarian torsion with a large cyst- had to get that ovary removed. [id number] DOM [facility] [address] [place] [address] 05/28/2023 11:27:17 05/28/2023 17:38:23 Surveillance of contraception [id number] Z30.40 Pt reports that she has been on Nextstelli s since March. Reports pain with ovulation has significan tly decreased. Reports pain was typically a 7/8 out of 10 and it is now a 2/3 out of 10. Reports some facial hair- she will continue [place]. Will RTC and discuss options if this continues. Family his tory of malignant neoplasm of ovary [id number] Z80.41 Patient presents today for follow up on recent [facility] Genetic testing. Discussed plan with patient, who expressed understand ing. -- Negative for any Significan t Gene-- Discussed lifetime cancer risks.-- Discussed recommende d follow up and treatment guidelines .-- Provided informatio n and instructio ns for patient to make a free follow up appointgiana t with the [facility] Genetic counselor. -- [facility] folder/syl ntout given to patient.-P t voiced understand ing, no further questions. Health Concerns Section Related Observation LastModified by Organization Detai ls LastModified Time None Recorded Concern Status LastModified by Organization Details LastModified Time None Recorded Advance Directives Directive None Recorded Payers Insurance Date Sequence Insurance Name Policy Number Policy Sarah Covered Member ID Sarah Member ID Guarantor Name 12/14/2022 1 [facility] (O) [id number] Sheryl Bunn [id number] Sheryl Bunn 08/13/2023 1 [employer] [id number] Sheryl Bunn [id number] Sheryl Bunn 05/25/2023 1 [facility] (O) [id number] Sheryl Bunn [id number] Sheryl Bunn Notes Date Note Type Note Provider Name and Address Organization Details Recorded Time 2 text/html Pelvic PainReported by PatientHPIFor associated symptoms, patient reportsabdominal painandback painbut reportsno chills,no constipation,no diarrhea,no vaginal discharge,no pain with urination,normal emptying of bladder,no feelings of urgency,no blood in the urine,normal libido,no fever,no nausea,no vomiting,no nocturia,no sexual abuse,no ectopic pregnancies,no endometriosis,no urinary frequency,no vaginal itching or irritation, andno dyspareunia. For location, patient reportslower back.Sheryl states she is having lower back pain that radiates to her uterustook antibiotic and states they helped but is still having painROS as noted in the HPI Rosa Witt, SARA [address], [place], [address], [facility] [employer] 06/28/2022 20:49:13 3 text/html Pelvic PainReported by PatientHPIFor associated symptoms, patient reportsabdominal painandback painbut reportsno chills,no constipation,no diarrhea,no vaginal discharge,no pain with urination,normal emptying of bladder,no feelings of urgency,no blood in the urine,normal libido,no fever,no nausea,no vomiting,no nocturia,no sexual abuse,no ectopic pregnancies,no endometriosis,no urinary frequency,no vaginal itching or irritation, andno dyspareunia. For location, patient reportsabdominalandlower back. For onset/timing, patient reports3-6 months. For duration, patient reportspersistent. For quality, patient reportssharp,dull,acute, andlike menstrual cramps. For severity, patient reportsmoderate. For context, patient reportsoccurs with menstrual cycle,menstruating, andhistory of ovarian cysts. Abnormal BleedingReported by PatientROS as noted in the HPI Sheryl 27 y/o presents for Follow up for ovarian cyst.Pt reports that pelvic pain still present and it gets more intense with beginning of her cycle and with brown and pink blood color. XIOMARA ROBLES [facility], [place], [address], [employer] 12/14/2022 20:10:36 3 text/html ROS as noted in the HPI Pt have been having a consistent amount of left pelvic side pain for about a month. The pain can last up to 5 minutes it comes out of nowhere. XIOMARA ROBLES [facility], [place], [address], [employer] [facility] 12/27/2022 15:05:05 3 text/html Pelvic Pain/PressureReported by PatientHPIFor associated symptoms, patient reportsabdominal pain. For location, patient reportsleft. For quality, patient reportspainandcontinuous . For duration, patient reportspresent for 2-3 weeks.ROS as noted in the HPI Pt presents for a follow up for ovarian cyst. Pt LLQ pain. XIOMARA ROBLES [facility], [place], [address], [employer] 03/21/2023 13:36:47 3 text/html Stared BC here for follow upShe had the my risk blood test taken on 03/20/2023 and was wanting to check on results XIOMARA ROBLES [facility], [place], [address], [facility] [employer] 05/28/2023 12:03:57 OBGyn Episode Ob Episode Information Episode Created Date Number of Fetuses Patient Bloodtype Patient rh Status Prepregnancy Weight lbs Domestic Partner Domestic Partner Phone Father Name Vp Project Status 12/14/19 22 1 CLOSED Fetus Data First Name Last Name Admitted to NICU Weight (g) Sex Living Outcome Pediatric Complications Fetus ID Race Codes Race Delivery Type 3316.66 4704 M Full Term [id number] Assisted VD - forceps, vacuum Pablito Calculation Initial Pablito Date Initial Exam [...] Complications Tubal Sterilization Discharge Date Comments 9 Discharge Information Feeding Method Contraceptive Method Maternal HG B and HCT Levels
--- OUTSIDE RECORDS SUMMARY | 2025-11-01 06:20 | XMS_ITS | Clinical Summary ---
Author Organization [facility] Address [address] [place] [address] Care Team Providers Care Dermatology Specialist Name Role Phone Samantha Kitchena JAYSON Primary Care Provider [phone] Allergies Active Allergy Reactions Criticality Noted Date Comments Amoxicillin Hives 10/31/2017 Clindamycin Hives 01/20/2019 Medications triamcinolone (KENALOG) 0.1 % creamIndications: Poison elliot Apply topically 2 (two) times daily. 28.4 g 1 4 Active hydroCHLOROthiazi de (MICROZIDE) 12.5 MG capsuleIndication s:Primary hypertension Take 1 capsule (12.5 mg total) by mouth every morning. 90 capsule 1 5 Active busPIRone (BUSPAR) 10 MG tablet Take 1 tablet (10 mg total) by mouth daily. 5 Active vitamin D3 (CHOLECALCIFEROL) 125 mcg Tab Take 1 tablet (125 mcg total) by mouth daily. Active escitalopram (LEXAPRO) 20 MG tabletIndications :Anxiety TAKE 1 TABLET(20 MG) BY MOUTH DAILY 90 tablet 1 5 Active busPIRone (BUSPAR) 10 MG tabletIndications :Anxiety TAKE 1 TABLET(10 MG) BY MOUTH TWICE DAILY 90 tablet 1 5 Active Active Problems Problem Noted Date Diagnosed Date Rotator cuff impingement syndrome, left 06/03/20 20 Left shoulder pain 01/31/2018 Comments Yes Family History Medical History Relation Comments Cancer Father Blacder cancer Diabetes Father Type 2 Psoriasis Father Depression Maternal Grandmother Diabetes Mother Type 2 Heart Disease Mother Congestive heart failure Hypertension Mother On medication Cancer Paternal Grandmother Colon maryamce r-8inch tumor, spread to liver Diabetes Paternal Grandmother Type 2 Stroke Paternal Grandmother 5 plus stro kes Relation Status Comments Father Alive Maternal Grandmother Mother Alive Paternal Grandmother Social History Tobacco Use Types Packs/Day Years Used Date Smoking Tobacco: Former Cigarettes 0.3 5 0 01/27/2019 - 01/28/2024 Passive Smoke Exposure: Past Smokeless Tobacco: Never Tobacco Cessation:Counseling Given: No Comments:Stopped smoking ciggerretes and vape wirh low nicotine levels with hope to one day get completely of Alcohol Use Standard Drinks/Week Comments Not Currently 3.3 (1 standard drin k = 0.6 oz pure alcohol) Couple glasses when stressed PHQ-2 Answer Date Recorded Patient Health Questionnaire-2 Score 0 03/17/2025 Comments Yes Sex and Gender Information Value Date Recorded Sex Assigned at Female 09/23/2023 8:20 AM INSURANCE BILLING CLERK Legal Sex Female 5:40 PM CDT Gender Identity Female 09/23/2023 8:20 AM INSURANCE BILLING CLERK Sexual Orientation Not on file Last Filed Vital Signs Vital Sign Reading Time Taken Comments Blood Pressure 110/78 04/15/2025 11:38 AM CDT Pulse 61 04/15/2025 11:38 AM CDT Temperature 36.7 C (98 F) 04/15/2025 10:02 AM CDT Respiratory Rate 18 04/15/2025 11:38 AM CDT Oxygen Saturation 100% 04/15/2025 11:38 AM CDT Inhaled Oxygen Concentration - - Weight 77.1 kg (170 lb) 04/15/2025 10:02 AM CDT Height 160 cm (5' 3) 04/15/2025 10:02 AM CDT Body Mass Index 30.11 04/15/2025 10:02 AM CDT Plan of Treatment Health Maintenance Due Date Last Done Comments Cervical Cancer Screening Pa p Smear (Age 21 to 29) Every 3 Years 1996 Cervical Cancer Screening 1996 DTaP, Tdap and Td Vaccines ( 1 - Tdap) 2015 Hepatitis B Vaccines (1 of 3 - 19+ 3-dose series) 2015 HPV Vaccines (1 - 3-dose SCD M series) 2023 Annual Physical 09/23/2024 09/23/2023, 03/17/2021 COVID-19 Vaccine (3 - 2024-2 6 season) 2025 08/21/2021, 07/24/2021 Influenza Adult (#1) 2025 RSV Immunization or 60+ Years (1 - 1-dose 75+ series) 2071 Hepatitis C Completed 01/26/2022 PHQ-2 (Physician [place]) Completed 03/17/2025 Hepatitis A Vaccines Aged Out No long er eligible based on patient's age to complete this topic Meningococcal B Vaccine Aged Out No l onger eligible based on patient's age to complete this topic Meningococcal Vaccine Aged Out No carlos eduardo dione eligible based on patient's age to complete this topic Pneumococcal Vaccine: Pediatrics (0 to 5 Years) and At-Risk Patients (6 to 49 Years) Aged Out No longer eligible b ased on patient's age to complete this topic RSV Immunizations Under 20 Months Aged Out No longer eligible b ased on patient's age to complete this topic Procedures Procedure Name Priority Date/Time Associated Diagnosis Comments HEPATITIS C ANTIBODY W/RFX TO HCV RNA Routine 01/26/2022 10:42 AM INSURANCE BILLING CLERK from Last 3 Months or Most Recently Relevant to Health Maintenance Results * HEPATITIS C ANTIBODY W/RFX TO HCV RNA (01/26/2022 10:42 AM INSURANCE BILLING CLERK) HEPATITIS C AB NON-REACTI VE NON-REACT [place] [facility] SIGNAL TO CUTOFF 0.01 <[address] [facility] Comment: HCV antibody was non-reactive. There is no laboratory evidence of HCV infection. In most cases, no further action is required. However, if recent HCV exposure is suspected, a test for HCV RNA (test code 26661) is suggested. For additional information please refer to http://education.[employer]/faq/ZSF18m6 (This link is being provided for informational/ educational purposes only.) 01/26/2022 10:4 2 AM INSURANCE BILLING CLERK 01/26/2022 10:50 AM INSURANCE BILLING CLERK Narrative [facility] - 02/01/2022 2:52 AM CDT FASTING:NO FASTING: NO Mallorie Kitchen [facility] Final Result [facility] [address] [id number] from Last 3 Months or Most Recently Relevant to Health Maintenance Insurance [address] [id number] [facility] Care Teams Dermatology Specialist Relationship Specialty Start Date End Date [place] [address] PCP - General NURSE PRACTITIONER 04/22/20
--- OUTSIDE RECORDS SUMMARY | 2025-11-01 06:20 | XMS_ITS | Encounter Summary ---
Author Organization [facility] Address [address] [place] [address] Care Team Providers Care Sales Force Developer Name Role Phone Mallorie Kitchen NP Primary Care Provider [phone] Encounter Details Date Type Department Care Team (Latest Contact Info) Description 02/23/2025 Storenvyt Message Enc [facility] [place] [address] [place] [address] Mallorie Kitchen NP [address] [place] [address] Fence Laborer Referral Social History Tobacco Use Types Packs/Day Years [...] Answer Date Recorded Patient Health Questionnaire-2 Score 2 02/04/2025 Comments No Sex and Gender Information Value Date Recorded Sex Assigned at Female 09/23/2023 8:20 AM LOADER TECHNICIAN Legal Sex Female 5:40 PM CDT Gender Identity Female 09/23/2023 8:20 AM LOADER TECHNICIAN Sexual Orientation Not on file documented as of this encounter Plan of Treatment Not on file documented as of this encounter Visit Diagnoses Not on filedocumented in this encounter Additional Health Concerns Assessment Noted Time PHQ-9 Depression Total Score: 17 02/04/ 025 1:16 PM CDT documented as of this encounter Care Teams Sales Force Developer Relationship Specialty Start Date End Date Mallorie Kitchen NP [address] [place] [address] PCP - General NURSE PRACTITIONER 04/22/20 documented as of this encounter
--- OUTSIDE RECORDS SUMMARY | 2025-11-01 06:21 | XMS_ITS | Continuity of Care Document ---
Author Organization [facility] [address] [place] [address] Care Team Providers Care Academic Associate Name Role Phone TIANNA ALESHA Primary Care [...] obstetr ic, follow- up 2024 025 [email or web address] [place], [address], [address], [place], [address], 09/10/2025 14:13:06 Medication Orders None recorde d. Patient TargetsNo targets recorded. Patient InstructionsNo instructions recorded. Reason for Referral None Reported. Results Created Date Observation Date Name Description Value Unit Range Abnormal Flag Note LastModifiedBy Organization Detail LastModifiedTime 05/27/20 25 05/27/2025 [UNIT Y] ANEUP LOIDY NIPT fraction 10.2% normal Not Available [facility] [address], [place], [address], 05/27/2025 02:56:04 05/27/20 25 05/27/2025 [UNIT Y] ANEUP LOIDY NIPT 22Q11.2 microdeletio n LOW RISK <1 in 10,000 normal Not Available [facility] [address], [place], [address], 05/27/2025 02:56:04 05/27/20 25 05/27/2025 [UNIT Y] ANEUP LOIDY NIPT sex chromosome aneuploidy NOT DETECT ED normal Not Available [facility] [address], [place], [address], 05/27/2025 02:56:04 05/27/20 25 05/27/2025 [UNIT Y] ANEUP LOIDY NIPT monosomy X LOW RISK <1 in 10,000 normal Not Available [facility] [address], [place], [address], 05/27/2025 02:56:04 05/27/20 25 05/27/2025 [UNIT Y] ANEUP LOIDY NIPT trisomy 13 LOW RISK <1 in 10,000 normal Not Available [facility] [address], [place], [address], 05/27/2025 02:56:04 05/27/20 25 05/27/2025 [UNIT Y] ANEUP LOIDY NIPT trisomy 18 LOW RISK <1 in 10,000 normal Not Available [facility] [address], [place], [address], 05/27/2025 02:56:04 05/27/20 25 05/27/2025 [UNIT Y] ANEUP LOIDY NIPT trisomy 21 LOW RISK <1 in 10,000 normal Not Available [facility] [address], [place], [address], 05/27/2025 02:56:04 05/27/20 25 05/27/2025 [UNIT Y] ANEUP LOIDY NIPT sex FEMALE normal Not Available [facility] [address], [place], [address], 05/27/2025 02:56:04 05/27/20 25 05/27/2025 [UNIT Y] ANEUP LOIDY NIPT gestation SINGLE TON normal Not Available [facility] [address], [place], [address], 05/27/2025 02:56:04 05/27/20 25 05/27/2025 [UNIT Y] ANEUP LOIDY NIPT for detailed report, see pdf See PDF normal Not Available [facility] [address], [place], [address], 05/27/2025 02:56:04 06/03/20 25 06/03/2025 [UNIT Y] LORIN Hull sickle cell disease/beta -thalassemia /hemoglobino pathies carrier screen NEGATI VE normal Not Available [facility] [address], [place], [address], 06/03/2025 09:08:22 06/03/20 25 06/03/2025 [UNIT Y] LORIN RAMY Hull alpha-thalas semia carrier screen NEGATI VE normal Not Available [facility] [address], [place], [address], 06/03/2025 09:08:22 06/03/20 25 06/03/2025 [UNIT Y] LORIN RAMY Hull cystic fibrosis carrier screen NEGATI VE normal Not Available [facility] [address], [place], [address], 06/03/2025 09:08:22 06/03/20 25 06/03/2025 [UNIT Y] LORIN Hull spinal muscular atrophy carrier screen NEGATI VE 2 SMN1 copies , SNP not presen t normal Not Available [facility] [address], [place], [address], 06/03/2025 09:08:22 06/03/20 25 06/03/2025 [UNIT Y] LORIN Hull for detailed report, see pdf See PDF normal Not Available [facility] [address], [place], [address], 06/03/2025 09:08:22 05/19/20 25 05/19/2025 CBC W/DIF F WBC 9.6 10'3/ uL 3.5-10 .5 Not Available [facility] (Lab) [address], [place], [address], 05/20/2025 10:56:36 05/19/20 25 05/19/2025 CBC W/DIF F RBC 4.49 10'6/ uL (based on docume nted legal sex) 3.80-5 .20 Not Available [facility] (Lab) [address], [place], [address], 05/20/2025 10:56:36 05/19/20 25 05/19/2025 CBC W/DIF F HGB 12.5 g/dL (based on docume nted legal sex) 11.6-1 5.4 Not Available [facility] (Lab) [address], [place], [address], 05/20/2025 10:56:36 05/19/20 25 05/19/2025 CBC W/DIF F HCT 38.2 % (based on docume nted legal sex) 34.0-4 5.0 Not Available [facility] (Lab) [address], [place], [address], 05/20/2025 10:56:36 05/19/20 25 05/19/2025 CBC W/DIF F MCV 85.1 fL 80.0-9 9.0 Not Available [facility] (Lab) [address], [place], [address], 05/20/2025 10:56:36 05/19/20 25 05/19/2025 CBC W/DIF F MCH 27.8 pg 27.0-3 4.0 Not Available [facility] (Lab) [address], [place], [address], 05/20/2025 10:56:36 05/19/20 25 05/19/2025 CBC W/DIF F MCHC 32.7 g/dL 32.0-3 5.5 Not Available [facility] (Lab) [address], [place], [address], 05/20/2025 10:56:36 05/19/20 25 05/19/2025 CBC W/DIF F RDW 13.2 % 11.0-1 5.0 Not Available [facility] (Lab) [address], [place], [address], 05/20/2025 10:56:36 05/19/20 25 05/19/2025 CBC W/DIF F plt 301 10'3/ uL 150-40 0 Not Available [facility] (Lab) [address], [place], [address], 05/20/2025 10:56:36 05/19/20 25 05/19/2025 CBC W/DIF F MPV 11.9 fL 8.8-12 .1 Not Available [facility] (Lab) [address] [facility], [place], [address], 05/20/2025 10:56:36 05/19/20 25 05/19/2025 CBC W/DIF F NRBC's 0.0 % 0.0 Not Available [facility] (Lab) [address] [facility], [place], [address], 05/20/2025 10:56:36 05/19/20 25 05/19/2025 CBC W/DIF F absolute NRBCs 0.0 10'3/ uL no refere nce range establ ished Not Available [facility] (Lab) [address] [facility], [place], [address], 05/20/2025 10:56:36 05/19/20 25 05/19/2025 CBC W/DIF F neutrophils 71.0 % 34.0-7 3.0 Not Available [facility] (Lab) [address] [facility], [place], [address], 05/20/2025 10:56:36 05/19/20 25 05/19/2025 CBC W/DIF F lymphocytes 22.5 % 15.0-5 0.0 Not Available [facility] (Lab) [address] [facility], [place], [address], 05/20/2025 10:56:36 05/19/20 25 05/19/2025 CBC W/DIF F monocytes 5.3 % 1.0-15 .0 Not Available [facility] (Lab) [address] [facility], [place], [address], 05/20/2025 10:56:36 05/19/20 25 05/19/2025 CBC W/DIF F eosinophils 0.6 % 0.0-8. 0 Not Available [facility] (Lab) [address] [facility], [place], [address], 05/20/2025 10:56:36 05/19/20 25 05/19/2025 CBC W/DIF F basophils 0.3 % 0.0-2. 0 Not Available [facility] (Lab) [address] [facility], [place], [address], 05/20/2025 10:56:36 05/19/2005/19/2025 CBC W/DIF F immature granulocytes 0.3 % no define d refere nce range Immat ure Granu locyt es (IG) repre sents autom ated enume ratio n of Metam yeloc ytes, Myelo cytes and Promy elocy claudia when IG is < 5%. Blast s are not inclu ded in IG and repor tashi separ ately if prese nt. Not Available [facility] (Lab) [address] [facility], [place], [address], 05/20/2025 10:56:36 05/19/20 25 05/19/2025 CBC W/DIF F absolute neutrophils 6.8 10'3/ uL 1.5-8. 0 Not Available [facility] (Lab) [address] [facility], [place], [address], 05/20/2025 10:56:36 05/19/20 25 05/19/2025 CBC W/DIF F absolute lymphocytes 2.2 10'3/ uL 1.0-4. 0 Not Available [facility] (Lab) [address] [facility], [place], [address], 05/20/2025 10:56:36 05/19/20 25 05/19/2025 CBC W/DIF F absolute monocytes 0.5 10'3/ uL 0.2-1. 0 Not Available [facility] (Lab) [address] [facility], [place], [address], 05/20/2025 10:56:36 05/19/20 25 05/19/2025 CBC W/DIF F absolute eosinophils 0.1 10'3/ uL 0.0-0. 6 Not Available [facility] (Lab) [address] [facility], [place], [address], 05/20/2025 10:56:36 05/19/20 25 05/19/2025 CBC W/DIF F absolute basophils 0.0 10'3/ uL 0.0-0. 3 Not Available [facility] (Lab) [address], [place], [address], 05/20/2025 10:56:36 05/19/20 25 05/19/2025 CBC W/DIF [...] and book. nm.or g/gen derx Not Available [facility] (Lab) [address], [place], [address], 05/20/2025 10:56:36 05/19/20 25 05/19/2025 HEPAT ITIS B SURFA CE ANTIG EN hepatitis B surface antigen Non-re active non-re active This assay was perfo rmed using [employer] ratio n reage nts and test kits. Value s obtai erica with other assay metho ds or kits canno t be used inter melton eably . Not Available [facility] (Lab) [address], [place], [address], 05/20/2025 10:56:37 05/19/20 25 05/19/2025 HIV 1/2 ANTIG EN/AN TIBOD Y, REFLE X CONFI RMATI ON HIV antigen/anti body Nonrea ctive nonrea ctive HIV-1 antig en and HIV-1 /HIV- 2 antib odies were not detec tashi. No labor atory evide nce of HIV infec tion. Not Available [facility] (Lab) [address], [place], [address], 05/20/2025 10:56:37 05/19/20 25 05/19/2025 HEPAT ITIS C ANTIB NEPTALI SCREE N, REFLE X TO CONFI RMATI ON hepatitis C antibody Non-re active non-re active Antib odies to HCV Not Detec atshi, does not exclu de the possi bilit y of expos ure to HCV. Not Available [facility] (Lab) [address] [facility], [place], [address], 05/20/2025 10:56:38 05/19/20 25 05/19/2025 VITAM IN D, 25-OH (TOTA L D2/D3 ) vitamin D, 25-hydroxy, total 59.5 NG/mL 30.0-1 00.0 Sugge stive of Defic iency : <20 ng/mL Sugge stive of Insuf ficie ncy: 20-29 ng/mL Sugge stive of Suffi cienc y: 30-10 0 ng/mL Sugge stive of Toxic ity: >150 ng/mL Not Available [facility] (Lab) [address] [facility], [place], [address], 05/20/2025 10:56:38 05/19/20 25 05/19/2025 TYPE/ RH/SC REEN ABO/Rh type O POS Not Available [facility] (Lab) [address] [place], [address], 05/20/2025 10:56:39 05/19/20 25 05/19/2025 TYPE/ RH/SC REEN antibody screen NEG Not Available [facility] (Lab) [address] [place], [address], 05/20/2025 10:56:39 05/19/20 25 05/19/2025 TYPE/ RH/SC REEN exp date 2024 23:59 Not Available [facility] (Lab) [address] [place], [address], 05/20/2025 10:56:39 05/19/20 25 05/19/2025 RUBEL LA IGG ANTIB NEPTALI, QUANT rubella antibodies, IgG Reacti ve reacti ve Not Available [facility] (Lab) [address] [facility], [place], [address], 05/20/2025 10:56:39 05/19/20 25 05/19/2025 RUBEL LA IGG ANTIB NEPTALI, QUANT rubella antibodies, IgG quant 13.6 IU/mL >=10 Non-r eacti ve (Non- Immun e) <10 IU/mL React dwight (Immu ne) > or = 10 IU/mL Not Available [facility] (Lab) [address] [facility], [place], [address], 05/20/2025 10:56:39 05/19/20 25 05/19/2025 HEMOG LOBIN [...] >8.0% Actio n sugge sted Not Available [facility] (Lab) [address] [facility], [place], [address], 05/20/2025 10:56:40 05/19/20 25 05/19/2025 RPR SCREE N, REFLE X TITER /CONF IRMAT ION RPR qualitative Nonrea ctive nonrea ctive Not Available [facility] (Lab) [address] [facility], [place], [address], 05/20/2025 10:56:41 05/19/20 25 05/19/2025 CULTU RE: URINE result report SEE RESULT S BELOW Test: Cultu re: Urine Speci men Sourc e: Urine Voide d Speci men Type: Urine Speci men Date: 1413 Resul t Date: 2143 Resul t Statu s: Final resul t Abnor mal: No Resul ting Lab: [facility] [address] [facility] [address] Tel: CULTU RE ----- ----- ----- --- No growt h in 1 day (dete ction level of 10,00 0 colon ies / ml.) Not Available [facility] (Lab) [address] [facility], [place], [address], 05/20/2025 22:47:16 05/19/20 25 05/19/2025 IMAGE GUIDE [...] elial Lesimani n or Jose Antonio ribeiro ([facility]) . Elect sapphire becker d [...] recom minal d, as clini luis eduardo cmap nted. Not Available [facility] (Lab) [address], [place], [address], 05/24/2025 18:43:29 05/19/20 25 05/19/2025 CT/GC (CAT) , THINP REP VIAL chlamydia trachomatis, PCR Negati ve negati ve Not Available [facility] (Lab) [address] [place] [address], [address], 05/24/2025 18:43:30 05/19/20 25 05/19/2025 CT/GC (CAT) , THINP REP VIAL neisseria gonorrhoeae, PCR Negati ve negati ve Not Available [facility] (Lab) [address], [place], [address], 05/24/2025 18:43:30 05/19/20 25 05/19/2025 drug scree n, urine Cannabinoids : positi ve Not Available [facility] [address], [place], [address], 05/19/2025 13:35:34 05/19/20 25 05/19/2025 drug scree n, urine Other: positi ve Not Available [place] [address], [place], [address], 05/19/2025 13:35:34 09/10/20 25 09/10/2025 HEMAT OCRIT (HCT) HCT 39.4 % (based on docume nted legal sex) 34.0-4 5.0 Not Available [facility] (Lab) [address] [place], [address], 09/11/2025 12:57:34 09/10/20 25 09/10/2025 HEMOG LOBIN (HGB) HGB 12.7 g/dL (based on docume nted legal sex) 11.6-1 5.4 Not Available [facility] (Lab) [address], [place], [address], 09/11/2025 12:57:34 09/10/20 25 09/10/2025 CMP/C BC/UR IC ACID WBC 10.8 10'3/ uL 3.5-10 .5 high Not Available [facility] (Lab) [address], [place], [address], 09/11/2025 12:57:34 09/10/20 25 09/10/2025 CMP/C BC/UR IC ACID RBC 4.59 10'6/ uL (based on docume nted legal sex) 3.80-5 .20 Not Available [facility] (Lab) [address] [facility], [place], [address], 09/11/2025 12:57:34 09/10/2009/10/2025 CMP/C BC/UR IC ACID HGB 12.7 g/dL (based on docume nted legal sex) 11.6-1 5.4 Not Available [facility] (Lab) [address] [facility], [place], [address], 09/11/2025 12:57:34 09/10/2009/10/2025 CMP/C BC/UR IC ACID HCT 39.4 % (based on docume nted legal sex) 34.0-4 5.0 Not Available [facility] (Lab) [address] [facility], [place], [address], 09/11/2025 12:57:34 09/10/2009/10/2025 CMP/C BC/UR IC ACID MCV 85.8 fL 80.0-9 9.0 Not Available [facility] (Lab) [address] [facility], [place], [address], 09/11/2025 12:57:34 09/10/2009/10/2025 CMP/C BC/UR IC ACID MCH 27.7 pg 27.0-3 4.0 Not Available [facility] (Lab) [address] [facility], [place], [address], 09/11/2025 12:57:34 09/10/2009/10/2025 CMP/C BC/UR IC ACID MCHC 32.2 g/dL 32.0-3 5.5 Not Available [facility] (Lab) [address] [place], [address], 09/11/2025 12:57:34 09/10/20 25 09/10/2025 CMP/C BC/UR IC ACID RDW 12.7 % 11.0-1 5.0 Not Available [facility] (Lab) [address] [facility], [place], [address], 09/11/2025 12:57:34 09/10/2009/10/2025 CMP/C BC/UR IC ACID plt 252 10'3/ uL 150-40 0 Not Available [facility] (Lab) [address] [facility], [place], [address], 09/11/2025 12:57:34 09/10/2009/10/2025 CMP/C BC/UR IC ACID MPV 11.7 fL 8.8-12 .1 Not Available [facility] (Lab) [address] [facility], [place], [address], 09/11/2025 12:57:34 09/10/2009/10/2025 CMP/C BC/UR IC ACID NRBC's 0.0 % 0.0 Not Available [facility] (Lab) [address] [facility], [place], [address], 09/11/2025 12:57:34 09/10/2009/10/2025 CMP/C BC/UR IC ACID absolute NRBCs 0.0 10'3/ uL no refere nce range establ ished Not Available [facility] (Lab) [address] [place], [address], 09/11/2025 12:57:34 09/10/2009/10/2025 CMP/C BC/UR IC ACID neutrophils 74.4 % 34.0-7 3.0 high Not Available [facility] (Lab) [address] [place], [address], 09/11/2025 12:57:34 09/10/2009/10/2025 CMP/C BC/UR IC ACID lymphocytes 18.6 % 15.0-5 0.0 Not Available [facility] (Lab) [address] [place], [address], 09/11/2025 12:57:34 09/10/2009/10/2025 CMP/C BC/UR IC ACID monocytes 5.9 % 1.0-15 .0 Not Available [facility] (Lab) [address] [facility], [place], [address], 09/11/2025 12:57:34 09/10/2009/10/2025 CMP/C BC/UR IC ACID eosinophils 0.5 % 0.0-8. 0 Not Available [facility] (Lab) [address] [facility], [place], [address], 09/11/2025 12:57:34 09/10/2009/10/2025 CMP/C BC/UR IC ACID basophils 0.1 % 0.0-2. 0 Not Available [facility] (Lab) [address] [place], [address], 09/11/2025 12:57:34 09/10/2009/10/2025 CMP/C BC/UR IC ACID immature granulocytes 0.5 % no define d refere nce range Immat ure Granu locyt es (IG) repre sents autom ated enume ratio n of Metam yeloc ytes, Myelo cytes and Promy elocy claudia when IG is < 5%. Blast s are not inclu ded in IG and repor tashi separ ately if prese nt. Not Available [facility] (Lab) [address] [facility], [place], [address], 09/11/2025 12:57:34 09/10/20 25 09/10/2025 CMP/C BC/UR IC ACID absolute neutrophils 8.1 10'3/ uL 1.5-8. 0 high Not Available [facility] (Lab) [address] [facility], [place], [address], 09/11/2025 12:57:34 09/10/20 25 09/10/2025 CMP/C BC/UR IC ACID absolute lymphocytes 2.0 10'3/ uL 1.0-4. 0 Not Available [facility] (Lab) [address] [facility], [place], [address], 09/11/2025 12:57:34 09/10/2009/10/2025 CMP/C BC/UR IC ACID absolute monocytes 0.6 10'3/ uL 0.2-1. 0 Not Available [facility] (Lab) [address] [facility], [place], [address], 09/11/2025 12:57:34 09/10/2009/10/2025 CMP/C BC/UR IC ACID absolute eosinophils 0.1 10'3/ uL 0.0-0. 6 Not Available [facility] (Lab) [address] [facility], [place], [address], 09/11/2025 12:57:34 09/10/2009/10/2025 CMP/C BC/UR IC ACID absolute basophils 0.0 10'3/ uL 0.0-0. 3 Not Available [facility] (Lab) [address] [facility], [place], [address], 09/11/2025 12:57:34 09/10/2009/10/2025 CMP/C BC/UR IC ACID [...] dennis book. nm.or g/gen derx Not Available [facility] (Lab) [address] [facility], [place], [address], 09/11/2025 12:57:34 09/10/2009/10/2025 CMP/C BC/UR IC ACID uric acid 3.0 mg/dL 2.3-6. 6 Not Available [facility] (Lab) [address] [facility], [place], [address], 09/11/2025 12:57:34 09/10/2009/10/2025 CMP/C BC/UR IC ACID sodium 136 mmol/ L 133-14 6 Not Available [facility] (Lab) [address] [facility], [place], [address], 09/11/2025 12:57:34 09/10/2009/10/2025 CMP/C BC/UR IC ACID potassium 3.9 mmol/ L 3.5-5. 1 Not Available [facility] (Lab) [address] [place], [address], 09/11/2025 12:57:34 09/10/2009/10/2025 CMP/C BC/UR IC ACID chloride 102 mmol/ L 98-107 Not Available [facility] (Lab) [address] [place], [address], 09/11/2025 12:57:34 09/10/2009/10/2025 CMP/C BC/UR IC ACID carbon dioxide 26 mmol/ L 21-31 Not Available [facility] (Lab) [address] [facility], [place], [address], 09/11/2025 12:57:34 09/10/2009/10/2025 CMP/C BC/UR IC ACID anion gap 8 mmol/ L 4-13 Not Available [facility] (Lab) [address] [place], [address], 09/11/2025 12:57:34 09/10/2009/10/2025 CMP/C BC/UR IC ACID blood urea nitrogen 5 mg/dL 7-25 low Not Available [facility] (Lab) [address] [place], [address], 09/11/2025 12:57:34 10/24/20 25 09/10/2025 CMP/C BC/UR IC ACID creatinine 0.55 mg/dL 0.60-1 .30 low Not Available [facility] (Lab) [address] [facility], [place], [address], 09/11/2025 12:57:34 09/10/2009/10/2025 CMP/C BC/UR IC ACID egfrcr (CKD-epi 2020) >90 mL/mi n/1.7 3_m2 >=60 Not Available [facility] (Lab) [address] [facility], [place], [address], 09/11/2025 12:57:34 09/10/2009/10/2025 CMP/C BC/UR IC ACID calcium 8.8 mg/dL 8.3-10 .5 Not Available [facility] (Lab) [address] [facility], [place], [address], 09/11/2025 12:57:34 09/10/2009/10/2025 CMP/C BC/UR IC ACID glucose 113 mg/dL 70-100 high Not Available [facility] (Lab) [address] [facility], [place], [address], 09/11/2025 12:57:34 09/10/20 25 09/10/2025 CMP/C BC/UR IC ACID protein, total 6.1 g/dL 6.4-8. 3 low Not Available [facility] (Lab) [address] [place], [address], 09/11/2025 12:57:34 09/10/2009/10/2025 CMP/C BC/UR IC ACID albumin 3.6 g/dL 3.5-5. 0 Not Available [facility] (Lab) [address] [place], [address], 09/11/2025 12:57:34 09/10/20 25 09/10/2025 CMP/C BC/UR IC ACID ALT 17 units /L 9-43 Not Available [facility] (Lab) [address] [place], [address], 09/11/2025 12:57:34 09/10/2009/10/2025 CMP/C BC/UR IC ACID alkaline phosphatase 61 units /L 34-104 Not Available [facility] (Lab) [address] [facility], [place], [address], 09/11/2025 12:57:34 09/10/2009/10/2025 CMP/C BC/UR IC ACID AST 15 units /L 13-39 Not Available [facility] (Lab) [address] [facility], [place], [address], 09/11/2025 12:57:34 09/10/2009/10/2025 CMP/C BC/UR IC ACID bilirubin, total 0.3 mg/dL 0.2-1. 2 Not Available [facility] (Lab) [address] [facility], [place], [address], 09/11/2025 12:57:34 09/10/2009/10/2025 GTT - GESTA JANELL L TRISHA Hull, ACOG OB glucose, 1 hour screen 107 mg/dL 70-135 Not Available [facility] (Lab) [address] [facility], [place], [address], 09/11/2025 12:57:35 09/10/2009/10/2025 HIV 1/2 ANTIG EN/AN TIBOD Y, REFLE X CONFI RMATI ON HIV antigen/anti body Nonrea ctive nonrea ctive HIV-1 antig en and HIV-1 /HIV- 2 antib odies were not detec tashi. No labor atory evide nce of HIV infec tion. Not Available [facility] (Lab) [address], [place], [address], 09/11/2025 12:57:35 09/10/20 25 09/10/2025 RPR SCREE N, REFLE X TITER /CONF IRMAT ION RPR qualitative Nonrea ctive nonrea ctive Not Available [facility] (Lab) [address], [place], [address], 09/11/2025 12:57:35 07/14/2007/14/2025 US, obste tric, 2nd or 3rd trime ster No observ ation record ed. [email or web address] [place] [address], [place], [address], 07/14/2025 11:48:13 07/14/20 25 07/14/2025 US, obste tric, follo w-up No observ ation record ed. [email or web address] [place] [address], [place], [address], 07/14/2025 16:09:19 08/11/20 25 08/11/2025 US, obste tric, follo w-up No observ ation record ed. [facility] [address], [place], [address], 08/11/2025 18:35:48 08/11/20 25 08/11/2025 US, obste tric, follo w-up No observ ation record ed. [email or web address] [place] [address], [place], [address], 08/13/2025 07:06:41 09/10/2009/10/2025 US, obste tric, follo w-up No observ ation record ed. [facility] [address], [place], [address], 09/10/2025 14:42:43 09/10/2009/10/2025 US, obste tric, follo w-up No observ ation record ed. [email or web address] [place] [address], [place], [address], 09/14/2025 14:46:19 10/08/20 25 10/08/2025 US, obste tric, follo w-up No observ ation record ed. [email or web address] [place] [address], [place], [address], 10/11/2025 11:55:36 10/08/20 25 10/08/2025 non-s tress test No observ ation record ed. [email or web address] [place] [address], [place], [address], 10/08/2025 13:48:06 10/08/20 non-s tress test No observ ation record ed. [email or web address] [place] [address], [place], [address], 10/08/2025 12:32:22 10/08/20 25 10/08/2025 US, dominic tric, follo w-up No observ ation record ed. [facility] [address], [place], [address], 10/08/2025 16:57:13 10/08/2010/08/2025 US, dominic juárez, bioph ysica l profi le + non-s tress test No observ ation record ed. [facility] [address], [place], [address], 10/08/2025 16:57:23 10/13/20 25 10/13/2025 US, dominic juárez, bioph ysica l profi le + non-s tress test No observ ation record ed. [email or web address] [place] [address], [place], [address], 10/13/2025 11:51:09 10/13/20 25 10/13/2025 US, dominic tric, bioph ysica l profi le + non-s tress test No observ ation record ed. [email or web address] [address], [place], [address], 10/20/2025 11:47:34 10/13/20 25 10/13/2025 non-s tress test No observ ation record ed. [email or web address] [place] [address], [place], [address], 10/13/2025 17:57:16 10/13/20 25 non-s tress test No observ ation record ed. [address], [place], [address], 10/13/2025 17:34:36 10/22/20 25 10/22/2025 US, obste tric, bioph ysica l profi le No observ ation record ed. [email or web address] Juáreze [address], [place], [address], 10/29/2025 11:35:15 10/22/20 25 10/22/2025 US, obste tric, bioph ysica l profi le + non-s tress test No observ ation record ed. [facility] [address], [place], [address], 10/22/2025 13:51:55 10/22/20 25 10/22/2025 non-s tress test No observ ation record ed. [address], [place], [address], 10/27/2025 18:38:42 10/22/20 non-s tress test No observ ation record ed. [address], [place], [address], 10/22/2025 12:42:25 10/29/20 25 10/29/2025 US, obste tric, follo w-up No observ ation record ed. [email or web address] Chiara [address], [place], [address], 10/30/2025 01:33:53 10/29/2010/29/2025 US, obste tric, follo w-up No observ ation record ed. [facility] [address], [place], [address], 10/29/2025 17:16:32 10/29/20 25 10/29/2025 US, obste tric, bioph ysica l profi le + non-s tress test No observ ation record ed. [facility] [address], [place], [address], 10/29/2025 17:16:42 Result Notes None recorded. Problems Name Problem SNOMED Code Status Onset Date Resolution Date Notes Provider Name and Address Organization Details Recorded Time 47317964 Active 2024 Linda mcgill, [facility] 10:53:18 Hypertens dwight disorder 18965852 Active 2024 labetalol 200mg bid bASA daily serial growth us , weekly testing @ 32wks 10/08/25 300mg bid rpt labs Alysia Santos CNM [address], [place], [address], [facility] 5 12:52:39 Mixed anxiety and depressiv e disorder 156944009 Active 2024 buspirone 10mg lexapro 20 mg daily Alysia Santos CNM [address], [place], [address], [facility] 5 12:01:06 Past history of gestation al hypertens ion 438288381 Active 2024 vs preeclamp deirdre delivered at 37 weeks Alysia Santos CNM [address], [place], [address], [facility] 5 12:01:27 Marijuana user 009762182 Active 2024 Pt decreased . Continued use is causing family issues and pt is experienc ing increased anxiety and depressio n symptoms. Nina conway null, [facility] 5 16:48:10 Marijuana user 888492213 Active 2024 Pt decreased . Continued use is causing family issues and pt is experienc ing increased anxiety and depressio n symptoms. Nina conway null, [facility] 5 16:48:11 Problem Notes None recorded. Procedures Surgical History Date Name Laterality Status Provider Name and Address Organization Details Recorded Time 11/18/2021 Date of Last Pap Smear completed Kim Monson [facility] 08/11/2025 14:32:13 Imaging Results None recorded. Procedure Notes None recorded. Medical Equipment None Reported. Allergies Allergen ID Allergen Name Allergen Category Reaction Reaction Severity Criticality Documentation Date Start Date Code Code System Note Provider Name and Address Organization Details Recorded Time 07956 amoxicill in medicatio n hives Not available Not available 10/08/20252016 723 RxNorm Not Available [employer] - prod 5 03:06:32 93154 clindamyc in Not available hives Not available Not available 10/08/20252018 2582 RxNorm Not Available [employer] - prod 5 03:06:32 Medications [...] Address Organization Details Last Updated DateTime 09/10/2025 07109.56689 g 125/78 mm[Hg] Linda Auguste [facility] 09/10/2025 10:26:36 Social History Question Answer Notes LastModified by Organizat ion Details LastModified Time Do You Have An Advance Directive? No Information n ot available 04/22/2025 How Many Years Have You Consumed Alcohol? 8 [email or web address] Information not available 08/11/2025 Are You Blind [...] Or The Highest Degree You Have Received? [id number] Information not available 04/22/2025 Are There Any Guns Present In Your Home? Yes Information not available 04/22/2025 Have You Ever Been Counseled For Unhealthy Alcohol Use? No [email or web address] Information not available 06/16/2025 Do You Use Protection During Sex? No Information not available 04/22/2025 Do You Use Your Seat Belt Or Car Seat Routinely? Yes Information not available 04/22/2025 Are You Sexually Active? Yes [email or web address] Information not available 06/16/2025 Do You Have Smoke And Carbon Monoxide Detectors In Your Home? Yes Information not available 04/22/2025 At What Age Did You Start Smoking Tobacco? 19 Information not available 04/22/2025 How Much Tobacco Do You Smoke? No Information not available 04/22/2025 Do You Use Sunscreen Routinely? No Information not available 04/22/2025 Has Tobacco Cessation Counseling Been Provided? No [email or web address] Information not available 06/16/2025 How Many Years Have You Smoked Tobacco? 4 [email or web address] Information not available 08/11/2025 Have You Used [...] is your level of alcohol consumption? Occasional [email or web address] Information not available 08/11/2025 Are you currently employed? Yes [email or web address] Information not available 06/16/2025 Are you able to walk independently without assistance or assistive devices? [email or web address] Information not available 04/22/2025 Are you able to care for yourself independently? 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 No [email or web address] Information not available 06/16/2025 What is your exercise level? Occasional Information not available 04/22/2025 Mental Status Question Answer Note LastModified by Organization D etails LastModified Time Do you feel stressed (tense, restless, nervous, or anxious, or unable to sleep at night)? [id number] Information not available 08/11/2025 Family History Relationship [...] ICD10 Code Diagnosis IMO Codes Diagnosis Note [id number] Norris Jordan MD [facility] [address] [address] 08/11/2025 13:50:59 08/11/2025 14:30:57 Chronic hypertension complicating AND/OR reason for care during 93328397 O10.912 Z3A.24 [id number] [id number] Alysia Santos CNM [place] [address],[place] [address] 08/11/2025 13:51:12 08/11/2025 14:48:47 Gestation period, 24 weeks 068133679 Z3A.24 [id number] Norris Jordan MD [place] [address],[place] [address] 09/10/2025 09:35:51 09/10/2025 10:12:45 Maternal hypertension 968898086 O16.3 Z3A.28 1972264 [id number] Alysia Santos CNM [place] [address],[place] [address] 09/10/2025 09:36:28 09/10/2025 11:14:34 Gestation period, 28 weeks 22985533 Z3A.28 [id number] Health Concerns Section Related Observation LastModified by Organization Detai ls LastModified Time None Recorded Concern Status LastModified by Organization Details LastModified Time None Recorded Payers Encounter Date Sequence Insurance Name Policy Number Policy Sarah Covered Member ID Sarah Member ID Guarantor Name 09/10/2025 1 [employer] [id number] Artem Dora [id number] Artem Collins Notes Date Note Type Note Provider Name and Address Organization Details Recorded Time 09/10/2025 text/html Generic HPI TemplateReported by Patient Alysia Santos CNM [address], [place], [address], [facility] 09/10/2025 11:13:18 OBGyn Episode Ob Episode Information Episode Created Date Number of Fetuses Patient Bloodtype Patient rh Status Prepregnancy Weight lbs Domestic Partner Domestic Partner Phone Father Name [employer] Status 05/19/20 25 1 O Positive 173 OPEN Fetus Data First Name Last Name Admitted to NICU Weight (g) Sex Living Outcome Pediatric Complications Fetus ID Race Codes Race Delivery Type [id number] Problems Problem Notes Problem Name Start Date End Date Resolution Snomed Code Not e Hypertensive disorder 05/19/2025 9025539 3 labetalol 200mg bidbASA dailyserial growth us , weekly testing @ [id number]/08/25 300mg bid rpt labs Past history of gestational hypertension 05/19/2025 617030434 vs preeclampsia delivered at 37 weeks Marijuana user 08/18/2025 056853603 Pt d ecreased. Continued use is causing family issues and pt is experiencing increased anxiety and depression symptoms. Mixed anxiety and depressive disorder 05/19/2025 [id number] buspiron e 10mglexapro 20 mg daily Pablito [...] Date Ultra Sound Latest Days Gestation 0 [email or web address] 05/19/2025 11/27/19 26 0 Pre- Flowsheet Flowsheet Date 05/19/2025 Yoder Score Blood Edema Fundus Height Fundus Units Glucose Ketones Leukocytes Nitrite Labor Signs Protein Cervic Dilation Cervic Effacement Cervic Station Type Weight in lbs Pre/Post Dialysis Refused Weight 169.533061794796 BP Diastolic BP Location Tested BP Systolic [...] Weight in lbs Pre/Post Dialysis Refused Weight 173.348482121544 BP Diastolic BP Location Tested BP Systolic [...] Weight in lbs Pre/Post Dialysis Refused Weight 179.552893955338 BP Diastolic BP Location Tested BP Systolic [...] Weight in lbs Pre/Post Dialysis Refused Weight 188.363296388781 BP Diastolic BP Location Tested BP Systolic [...] Type Weight in lbs Pre/Post Dialysis Refused 189.357465450337 BP Diastolic BP Location Tested BP Systolic [...] Weight in lbs Pre/Post Dialysis Refused Weight 188.532116181912 BP Diastolic BP Location Tested BP Systolic [...] Weight in lbs Pre/Post Dialysis Refused Weight 190.447018810686 BP Diastolic BP Location Tested BP Systolic [...] Type Weight in lbs Pre/Post Dialysis Refused 191.786515851903 BP Diastolic BP Location Tested BP Systolic [...] Type Weight in lbs Pre/Post Dialysis Refused 189.553922663315 BP Diastolic BP Location Tested BP Systolic BP Type 80 L arm 119 sitting Fetus Heart Rate Present Fetus Movement A Yes Comments Flowsheet Date 10/13/2025 Yoder Score Blood Edema Fundus Height Fundus Units Glucose Ketones Leukocytes Nitrite Labor Signs Protein Cervic Dilation Cervic Effacement Cervic Station Type Weight in lbs Pre/Post Dialysis Refused Weight 189.097734838529 BP Diastolic BP Location Tested BP Systolic BP Type 80 L arm 119 sitting Fetus Heart Rate Present Fetus Movement A Yes Comments +FM bpp 8 iOL nov 09, 2025 at 0600. precautions [...] Weight in lbs Pre/Post Dialysis Refused Weight 192.441712483939 BP Diastolic BP Location Tested BP Systolic BP Type 79 L arm 128 sitting Fetus Heart Rate Present Fetus Movement A Yes Comments Flowsheet Date 10/22/2025 Yoder Score Blood Edema Fundus Height Fundus Units Glucose Ketones Leukocytes Nitrite Labor Signs Protein Cervic Dilation Cervic Effacement Cervic Station Type Weight in lbs Pre/Post Dialysis Refused 192.554889260394 BP Diastolic BP Location Tested BP Systolic [...]
--- OUTSIDE RECORDS SUMMARY | 2025-11-01 06:21 | XMS_ITS | Continuity of Care Document ---
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 Name Role Phone ALESHA WYNN Primary [...] Not Available [facility] [address], [place], [address], 05/27/2025 02:56:04 05/27/2005/27/2025 [UNIT Y] ANEUP LOIDY NIPT 22Q11.2 microdeletio n LOW RISK <1 in 10,000 normal Not Available [facility] [address], [place], [address], 05/27/2025 02:56:04 05/27/2005/27/2025 [UNIT Y] ANEUP LOIDY NIPT sex chromosome aneuploidy NOT DETECT ED normal Not Available [facility] [address], [place], [address], 05/27/2025 02:56:04 05/27/20 25 05/27/2025 [UNIT Y] ANEUP LOIDY NIPT monosomy X LOW RISK <1 in 10,000 normal Not Available [facility] [address], [place], [address], 05/27/2025 02:56:04 05/27/20 25 05/27/2025 [UNIT Y] ANEUP LOIDY NIPT trisomy 13 LOW RISK <1 in 10,000 normal Not Available [facility] [address], [place], [address], 05/27/2025 02:56:04 05/27/20 25 05/27/2025 [UNIT Y] ANEUP LOIDY NIPT trisomy 18 LOW RISK <1 in 10,000 normal Not Available [facility] [address], [place], [address], 05/27/2025 02:56:04 05/27/20 25 05/27/2025 [UNIT Y] ANEUP LOIDY NIPT trisomy 21 LOW RISK <1 in 10,000 normal Not Available [facility] [address], [place], [address], 05/27/2025 02:56:04 05/27/20 25 05/27/2025 [UNIT Y] ANEUP LOIDY NIPT sex FEMALE normal Not Available [facility] [address], [place], [address], 05/27/2025 02:56:04 05/27/20 25 05/27/2025 [UNIT Y] ANEUP LOIDY NIPT gestation SINGLE TON normal Not Available [facility] [address], [place], [address], 05/27/2025 02:56:04 05/27/20 25 05/27/2025 [UNIT Y] ANEUP LOIDY NIPT for detailed report, see pdf See PDF normal Not Available [facility] [address], [place], [address], 05/27/2025 02:56:04 06/03/20 25 06/03/2025 [UNIT Y] LORIN Morocho sickle cell disease/beta -thalassemia /hemoglobino pathies carrier screen NEGATI VE normal Not Available [facility] [address], [place], [address], 06/03/2025 09:08:22 06/03/20 25 06/03/2025 [UNIT Y] LORIN Morocho alpha-thalas semia carrier screen NEGATI VE normal Not Available [facility] [address], [place], [address], 06/03/2025 09:08:22 06/03/20 25 06/03/2025 [UNIT Y] LORIN RICO Kurtis cystic fibrosis carrier screen NEGATI VE normal Not Available [facility] [address], [place], [address], 06/03/2025 09:08:22 06/03/20 25 06/03/2025 [UNIT Y] LORIN RICO Kurtis spinal muscular atrophy carrier screen NEGATI VE 2 SMN1 copies , SNP not presen t normal Not Available [facility] [address], [place], [address], 06/03/2025 09:08:22 06/03/20 25 06/03/2025 [UNIT Y] LORIN MCCANN TRISHA Morocho for detailed report, see pdf See PDF normal Not Available [facility] [address], [place], [address], 06/03/2025 09:08:22 05/19/20 25 05/19/2025 CBC W/DIF F WBC 9.6 10'3/ uL 3.5-10 .5 Not Available [facility] (Lab) [address], [place], [address], 05/20/2025 10:56:36 05/19/20 25 05/19/2025 CBC W/DIF F RBC 4.49 10'6/ uL (based on docume nted legal sex) 3.80-5 .20 Not Available [facility] (Lab) [address], [place], [address], 05/20/2025 10:56:36 05/19/20 25 05/19/2025 CBC W/DIF F HGB 12.5 g/dL (based on docume nted legal sex) 11.6-1 5.4 Not Available [facility] (Lab) [address], [place], [address], 05/20/2025 10:56:36 05/19/20 25 05/19/2025 CBC W/DIF F HCT 38.2 % (based on docume nted legal sex) 34.0-4 5.0 Not Available [facility] (Lab) [address], [place], [address], 05/20/2025 10:56:36 05/19/20 25 05/19/2025 CBC W/DIF F MCV 85.1 fL 80.0-9 9.0 Not Available [facility] (Lab) [address], [place], [address], 05/20/2025 10:56:36 05/19/20 25 05/19/2025 CBC W/DIF F MCH 27.8 pg 27.0-3 4.0 Not Available [facility] (Lab) [address], [place], [address], 05/20/2025 10:56:36 05/19/20 25 05/19/2025 CBC W/DIF F MCHC 32.7 g/dL 32.0-3 5.5 Not Available [facility] (Lab) [address], [place], [address], 05/20/2025 10:56:36 05/19/20 25 05/19/2025 CBC W/DIF F RDW 13.2 % 11.0-1 5.0 Not Available [facility] (Lab) [address], [place], [address], 05/20/2025 10:56:36 05/19/20 25 05/19/2025 CBC W/DIF F plt 301 10'3/ uL 150-40 0 Not Available [facility] (Lab) [address], [place], [address], 05/20/2025 10:56:36 05/19/20 25 05/19/2025 CBC W/DIF F MPV 11.9 fL 8.8-12 .1 Not Available [facility] (Lab) [address], [place], [address], 05/20/2025 10:56:36 05/19/20 25 05/19/2025 CBC W/DIF F NRBC's 0.0 % 0.0 Not Available [facility] (Lab) [address] [facility], [place], [address], 05/20/2025 10:56:36 05/19/20 25 05/19/2025 CBC W/DIF F absolute NRBCs 0.0 10'3/ uL no refere nce range establ ished Not Available [facility] (Lab) [address] [facility], [place], [address], 05/20/2025 10:56:36 05/19/20 25 05/19/2025 CBC W/DIF F neutrophils 71.0 % 34.0-7 3.0 Not Available [facility] (Lab) [address] [facility], [place], [address], 05/20/2025 10:56:36 05/19/20 25 05/19/2025 CBC W/DIF F lymphocytes 22.5 % 15.0-5 0.0 Not Available [facility] (Lab) [address] [facility], [place], [address], 05/20/2025 10:56:36 05/19/20 25 05/19/2025 CBC W/DIF F monocytes 5.3 % 1.0-15 .0 Not Available [facility] (Lab) [address] [facility], [place], [address], 05/20/2025 10:56:36 05/19/20 25 05/19/2025 CBC W/DIF F eosinophils 0.6 % 0.0-8. 0 Not Available [facility] (Lab) [address] [facility], [place], [address], 05/20/2025 10:56:36 05/19/20 25 05/19/2025 CBC W/DIF F basophils 0.3 % 0.0-2. 0 Not Available [facility] (Lab) [address] [facility], [place], [address], 05/20/2025 10:56:36 05/19/20 25 05/19/2025 CBC W/DIF [...] separ ately if prese nt. Not Available [facility] (Lab) [address] [facility], [place], [address], 05/20/2025 10:56:36 05/19/20 25 05/19/2025 CBC W/DIF F absolute neutrophils 6.8 10'3/ uL 1.5-8. 0 Not Available [facility] (Lab) [address] [facility], [place], [address], 05/20/2025 10:56:36 05/19/20 25 05/19/2025 CBC W/DIF F absolute lymphocytes 2.2 10'3/ uL 1.0-4. 0 Not Available [facility] (Lab) [address] [facility], [place], [address], 05/20/2025 10:56:36 05/19/20 25 05/19/2025 CBC W/DIF F absolute monocytes 0.5 10'3/ uL 0.2-1. 0 Not Available [facility] (Lab) [address] [facility], [place], [address], 05/20/2025 10:56:36 05/19/20 25 05/19/2025 CBC W/DIF F absolute eosinophils 0.1 10'3/ uL 0.0-0. 6 Not Available [facility] (Lab) [address] [facility], [place], [address], 05/20/2025 10:56:36 05/19/20 25 05/19/2025 CBC W/DIF F absolute basophils 0.0 10'3/ uL 0.0-0. 3 Not Available [facility] (Lab) [address], [place], [address], 05/20/2025 10:56:36 05/19/20 25 05/19/2025 CBC W/DIF [...] resendizand book. nm.or g/gen derx Not Available [facility] (Lab) [address], [place], [address], 05/20/2025 10:56:36 05/19/20 25 05/19/2025 HEPAT ITIS B SURFA CE ANTIG EN hepatitis B surface antigen Non-re active non-re active This assay was perfo rmed using [employer] ratio n reage nts and test kits. Value s obtai erica with other assay metho ds or kits canno t be used inter melton eably . Not Available [facility] (Lab) [address], [place], [address], 05/20/2025 10:56:37 05/19/2005/19/2025 HIV 1/2 ANTIG EN/AN TIBOD Y, REFLE X CONFI RMATI ON HIV antigen/anti body Nonrea ctive nonrea ctive HIV-1 antig en and HIV-1 /HIV- 2 antib odies were not detec tashi. No labor atory evide nce of HIV infec tion. Not Available [facility] (Lab) [address], [place], [address], 05/20/2025 10:56:37 05/19/20 25 05/19/2025 HEPAT ITIS C ANTIB NEPTALI SCREE N, REFLE X TO CONFI RMATI ON hepatitis C antibody Non-re active non-re active Antib odies to HCV Not Detec tashi, does not exclu de the possi bilit y of expos ure to HCV. Not Available [facility] (Lab) [address] [facility], [place], [address], 05/20/2025 10:56:38 05/19/20 25 05/19/2025 VITAM IN D, 25-OH (TOTA L D2/D3 ) vitamin D, 25-hydroxy, total 59.5 NG/mL 30.0-1 00.0 Sugge stive of Defic iency : <20 ng/mL Sugge stive of Insuf ficie ncy: 20-29 ng/mL Sugge stive of Suffi cienc y: 30-10 0 ng/mL Sugge stive of Toxic ity: >150 ng/mL Not Available [facility] (Lab) [address] [facility], [place], [address], 05/20/2025 10:56:38 05/19/20 25 05/19/2025 TYPE/ RH/SC REEN ABO/Rh type O POS Not Available [facility] (Lab) [address] [facility], [place], [address], 05/20/2025 10:56:39 05/19/20 25 05/19/2025 TYPE/ RH/SC REEN antibody screen NEG Not Available [facility] (Lab) [address] [facility], [place], [address], 05/20/2025 10:56:39 05/19/20 25 05/19/2025 TYPE/ RH/SC REEN exp date 2024 23:59 Not Available [facility] (Lab) [address] [facility], [place], [address], 05/20/2025 10:56:39 05/19/20 25 05/19/2025 RUBEL LA IGG ANTIB NEPTALI, QUANT rubella antibodies, IgG Reacti ve reacti ve Not Available [facility] (Lab) [address] [facility], [place], [address], 05/20/2025 10:56:39 05/19/20 25 05/19/2025 RUBEL LA IGG ANTIB NEPTALI, QUANT rubella antibodies, IgG quant 13.6 IU/mL >=10 Non-r eacti ve (Non- Immun e) <10 IU/mL React dwight (Immu ne) > or = 10 IU/mL Not Available [facility] (Lab) [address] [facility], [place], [address], 05/20/2025 10:56:39 05/19/20 25 05/19/2025 HEMOG LOBIN [...] >8.0% Actio n sugge sted Not Available [facility] (Lab) [address] [facility], [place], [address], 05/20/2025 10:56:40 05/19/20 25 05/19/2025 RPR SCREE N, REFLE X TITER /CONF IRMAT ION RPR qualitative Nonrea ctive nonrea ctive Not Available [facility] (Lab) [address] [facility], [place], [address], 05/20/2025 10:56:41 05/19/20 25 05/19/2025 CULTU RE: URINE result report SEE RESULT S BELOW Test: Cultu re: Urine Speci men Sourc e: Urine Voide d Speci men Type: Urine Speci men Date: 7/2/2 025 1413 Resul t Date: 2142 Resul t Statu s: Final resul t Abnor mal: No Resul ting Lab: [facility] [address] [facility] [address] Tel: CULTU RE ----- ----- ----- --- No growt h in 1 day (dete ction level of 10,00 0 colon ies / ml.) Not Available [facility] (Lab) [address] [facility], [place], [address], 05/20/2025 22:47:16 05/19/20 25 05/19/2025 IMAGE GUIDE [...] elial Lesimani morocho or Jose Antonio ribeiro ([facility]) . Elect sapphire becker d by [...] clini luis eduardo camp nted. Not Available [facility] (Lab) [address], [place], [address], 05/24/2025 18:43:29 05/19/20 25 05/19/2025 CT/GC (CAT) , THINP REP VIAL chlamydia trachomatis, PCR Negati ve negati ve Not Available [facility] (Lab) [address], [place], [address], 05/24/2025 18:43:30 05/19/20 25 05/19/2025 CT/GC (CAT) , THINP REP VIAL neisseria gonorrhoeae, PCR Negati ve negati ve Not Available [facility] (Lab) [address], [place], [address], 05/24/2025 18:43:30 05/19/20 25 05/19/2025 drug scree n, urine Cannabinoids : positi ve Not Available [facility] [address], [place], [address], 05/19/2025 13:35:34 05/19/20 25 05/19/2025 drug scree n, urine Other: positi ve Not Available [facility] [address], [place], [address], 05/19/2025 13:35:34 09/10/20 25 09/10/2025 HEMAT OCRIT (HCT) HCT 39.4 % (based on docume nted legal sex) 34.0-4 5.0 Not Available [facility] (Lab) [address] [place], [address], 09/11/2025 12:57:34 09/10/20 25 09/10/2025 HEMOG LOBIN (HGB) HGB 12.7 g/dL (based on docume nted legal sex) 11.6-1 5.4 Not Available [facility] (Lab) [address] [place], [address], 09/11/2025 12:57:34 09/10/20 25 09/10/2025 CMP/C BC/UR IC ACID WBC 10.8 10'3/ uL 3.5-10 .5 high Not Available [facility] (Lab) [address], [place], [address], 09/11/2025 12:57:34 09/10/20 25 09/10/2025 CMP/C BC/UR IC ACID RBC 4.59 10'6/ uL (based on docume nted legal sex) 3.80-5 .20 Not Available [facility] (Lab) [address] [facility], [place], [address], 09/11/2025 12:57:34 09/10/2009/10/2025 CMP/C BC/UR IC ACID HGB 12.7 g/dL (based on docume nted legal sex) 11.6-1 5.4 Not Available [facility] (Lab) [address] [facility], [place], [address], 09/11/2025 12:57:34 09/10/2009/10/2025 CMP/C BC/UR IC ACID HCT 39.4 % (based on docume nted legal sex) 34.0-4 5.0 Not Available [facility] (Lab) [address] [facility], [place], [address], 09/11/2025 12:57:34 09/10/2009/10/2025 CMP/C BC/UR IC ACID MCV 85.8 fL 80.0-9 9.0 Not Available [facility] (Lab) [address] [facility], [place], [address], 09/11/2025 12:57:34 09/10/2009/10/2025 CMP/C BC/UR IC ACID MCH 27.7 pg 27.0-3 4.0 Not Available [facility] (Lab) [address] [place], [address], 09/11/2025 12:57:34 09/10/2009/10/2025 CMP/C BC/UR IC ACID MCHC 32.2 g/dL 32.0-3 5.5 Not Available [facility] (Lab) [address] [place], [address], 09/11/2025 12:57:34 09/10/2009/10/2025 CMP/C BC/UR IC ACID RDW 12.7 % 11.0-1 5.0 Not Available [facility] (Lab) [address] [facility], [place], [address], 09/11/2025 12:57:34 09/10/2009/10/2025 CMP/C BC/UR IC ACID plt 252 10'3/ uL 150-40 0 Not Available [facility] (Lab) [address] [facility], [place], [address], 09/11/2025 12:57:34 09/10/2009/10/2025 CMP/C BC/UR IC ACID MPV 11.7 fL 8.8-12 .1 Not Available [facility] (Lab) [address] [facility], [place], [address], 09/11/2025 12:57:34 09/10/2009/10/2025 CMP/C BC/UR IC ACID NRBC's 0.0 % 0.0 Not Available [facility] (Lab) [address] [facility], [place], [address], 09/11/2025 12:57:34 09/10/2009/10/2025 CMP/C BC/UR IC ACID absolute NRBCs 0.0 10'3/ uL no refere nce range establ ished Not Available [facility] (Lab) [address] [facility], [place], [address], 09/11/2025 12:57:34 09/10/2009/10/2025 CMP/C BC/UR IC ACID neutrophils 74.4 % 34.0-7 3.0 high Not Available [facility] (Lab) [address] [place], [address], 09/11/2025 12:57:34 09/10/2009/10/2025 CMP/C BC/UR IC ACID lymphocytes 18.6 % 15.0-5 0.0 Not Available [facility] (Lab) [address] [place], [address], 09/11/2025 12:57:34 09/10/2009/10/2025 CMP/C BC/UR IC ACID monocytes 5.9 % 1.0-15 .0 Not Available [facility] (Lab) [address] [facility], [place], [address], 09/11/2025 12:57:34 09/10/2009/10/2025 CMP/C BC/UR IC ACID eosinophils 0.5 % 0.0-8. 0 Not Available [facility] (Lab) [address] [facility], [place], [address], 09/11/2025 12:57:34 09/10/2009/10/2025 CMP/C BC/UR IC ACID basophils 0.1 % 0.0-2. 0 Not Available [facility] (Lab) [address] [facility], [place], [address], 09/11/2025 12:57:34 09/10/20 25 09/10/2025 CMP/C BC/UR [...] separ ately if prese nt. Not Available [facility] (Lab) [address] [facility], [place], [address], 09/11/2025 12:57:34 09/10/2009/10/2025 CMP/C BC/UR IC ACID absolute neutrophils 8.1 10'3/ uL 1.5-8. 0 high Not Available [facility] (Lab) [address] [facility], [place], [address], 09/11/2025 12:57:34 09/10/20 25 09/10/2025 CMP/C BC/UR IC ACID absolute lymphocytes 2.0 10'3/ uL 1.0-4. 0 Not Available [facility] (Lab) [address] [facility], [place], [address], 09/11/2025 12:57:34 09/10/2009/10/2025 CMP/C BC/UR IC ACID absolute monocytes 0.6 10'3/ uL 0.2-1. 0 Not Available [facility] (Lab) [address] [facility], [place], [address], 09/11/2025 12:57:34 09/10/20 25 09/10/2025 CMP/C BC/UR IC ACID absolute eosinophils 0.1 10'3/ uL 0.0-0. 6 Not Available [facility] (Lab) [address] [facility], [place], [address], 09/11/2025 12:57:34 09/10/2009/10/2025 CMP/C BC/UR IC ACID absolute basophils 0.0 10'3/ uL 0.0-0. 3 Not Available [facility] (Lab) [address] [facility], [place], [address], 09/11/2025 12:57:34 09/10/2009/10/2025 CMP/C BC/UR IC ACID [...] dennis book. nm.or g/gen derx Not Available [facility] (Lab) [address] [facility], [place], [address], 09/11/2025 12:57:34 09/10/20 25 09/10/2025 CMP/C BC/UR IC ACID uric acid 3.0 mg/dL 2.3-6. 6 Not Available [facility] (Lab) [address] [address], [place], [address], 09/11/2025 12:57:34 09/10/2009/10/2025 CMP/C BC/UR IC ACID sodium 136 mmol/ L 133-14 6 Not Available [facility] (Lab) [address] [facility], [place], [address], 09/11/2025 12:57:34 09/10/2009/10/2025 CMP/C BC/UR IC ACID potassium 3.9 mmol/ L 3.5-5. 1 Not Available [facility] (Lab) [address] [facility], [place], [address], 09/11/2025 12:57:34 09/10/2009/10/2025 CMP/C BC/UR IC ACID chloride 102 mmol/ L 98-107 Not Available [facility] (Lab) [address] [place], [address], 09/11/2025 12:57:34 09/10/2009/10/2025 CMP/C BC/UR IC ACID carbon dioxide 26 mmol/ L 21-31 Not Available [facility] (Lab) [address] [facility], [place], [address], 09/11/2025 12:57:34 09/10/20 25 09/10/2025 CMP/C BC/UR IC ACID anion gap 8 mmol/ L 4-13 Not Available [facility] (Lab) [address] [place], [address], 09/11/2025 12:57:34 09/10/2009/10/2025 CMP/C BC/UR IC ACID blood urea nitrogen 5 mg/dL 7-[address] [facility] (Lab) [address] [place], [address], 09/11/2025 12:57:34 09/10/20 25 09/10/2025 CMP/C BC/UR IC ACID creatinine 0.55 mg/dL 0.60-1 .30 low Not Available [facility] (Lab) [address] [facility], [place], [address], 09/11/2025 12:57:34 09/10/2009/10/2025 CMP/C BC/UR IC ACID egfrcr (CKD-epi 2020) >90 mL/mi n/1.7 3_m2 >=60 Not Available [facility] (Lab) [address] [facility], [place], [address], 09/11/2025 12:57:34 09/10/2009/10/2025 CMP/C BC/UR IC ACID calcium 8.8 mg/dL 8.3-10 .5 Not Available [facility] (Lab) [address] [facility], [place], [address], 09/11/2025 12:57:34 09/10/2009/10/2025 CMP/C BC/UR IC ACID glucose 113 mg/dL 70-100 high Not Available [facility] (Lab) [address] [facility], [place], [address], 09/11/2025 12:57:34 09/10/2009/10/2025 CMP/C BC/UR IC ACID protein, total 6.1 g/dL 6.4-8. 3 low Not Available [facility] (Lab) [address] [place], [address], 09/11/2025 12:57:34 09/10/2009/10/2025 CMP/C BC/UR IC ACID albumin 3.6 g/dL 3.5-5. 0 Not Available [facility] (Lab) [address] [place], [address], 09/11/2025 12:57:34 09/10/2009/10/2025 CMP/C BC/UR IC ACID ALT 17 units /L 9-43 Not Available [facility] (Lab) [address] [place], [address], 09/11/2025 12:57:34 09/10/2009/10/2025 CMP/C BC/UR IC ACID alkaline phosphatase 61 units /L 34-104 Not Available [facility] (Lab) [address] [facility] [address], [place], [address], 09/11/2025 12:57:34 09/10/2009/10/2025 CMP/C BC/UR IC ACID AST 15 units /L 13-39 Not Available [facility] (Lab) [address] [facility], [place], [address], 09/11/2025 12:57:34 09/10/2009/10/2025 CMP/C BC/UR IC ACID bilirubin, total 0.3 mg/dL 0.2-1. 2 Not Available [facility] (Lab) [address] [place], [address], 09/11/2025 12:57:34 09/10/20 25 09/10/2025 GTT - GESTA JANELL L TRISHA Morocho, ACOG OB glucose, 1 hour screen 107 mg/dL 70-[address] [facility] (Lab) [address] [place], [address], 09/11/2025 12:57:35 09/10/2009/10/2025 HIV 1/2 ANTIG EN/AN TIBOD Y, REFLE X CONFI RMATI ON HIV antigen/anti body Nonrea ctive nonrea ctive HIV-1 antig en and HIV-1 /HIV- 2 antib odies were not detec tashi. No labor atory evide nce of HIV infec tion. Not Available [facility] (Lab) [address] [place], [address], 09/11/2025 12:57:35 09/10/2009/10/2025 RPR SCREE N, REFLE X TITER /CONF IRMAT ION RPR qualitative Nonrea ctive nonrea ctive Not Available [facility] (Lab) [address] [place], [address], 09/11/2025 12:57:35 09/24/2009/24/2025 CULTU RE: URINE result report SEE RESULT S BELOW Test: Cultu re: Urine Speci men Sourc e: Urine - Clean Catch Speci men Type: Urine Speci men Date: 2024 1332 Resul t Date: 2024 1203 Resul t Statu s: Final resul t Abnor mal: No Resul ting Lab: [facility] [address] [facility] [address] Tel: CULTU RE ----- ----- ----- --- Cultu re resul t (>=3 organ isms prese nt) indic ates possi ble conta minat ion. Repea t cultu re if sympt oms indic ate. Not Available [facility] (Lab) [address] , [place], [address], 09/26/2025 13:06:06 09/24/20 25 09/24/2025 urina lysis , dipst ick Leukocytes ++ Not Available [facility] [address], [place], [address], 09/24/2025 13:05:12 09/24/20 25 09/24/2025 urina lysis , dipst ick Protein + Not Available [place] [address], [place], [address], 09/24/2025 13:05:12 09/24/20 25 09/24/2025 urina lysis , dipst ick pH 5 Not Available [place] [address], [place], [address], 09/24/2025 13:05:12 09/24/20 25 09/24/2025 urina lysis , dipst ick Blood +++ Not Available [place] [address], [place], [address], 09/24/2025 13:05:12 09/24/20 25 09/24/2025 urina lysis , dipst ick Specific [place] 1.015 Not Available [facility] [address], [place], [address], 09/24/2025 13:05:12 09/24/20 25 09/24/2025 urina lysis , dipst ick Appearance cloudy Not Available [facility] [address], [place], [address], 09/24/2025 13:05:12 09/24/20 25 09/24/2025 urina lysis , dipst ick Color yellow Not Available [place] [address], [place], [address], 09/24/2025 13:05:12 10/08/20 25 10/08/2025 CBC W/DIF F WBC 12.3 10'3/ uL 3.5-10 .5 high Not Available [facility] (Lab) [address], [address], 10/10/2025 00:09:54 10/08/20 25 10/08/2025 CBC W/DIF F RBC 4.69 10'6/ uL (based on docume nted legal sex) 3.80-5 .20 Not Available [facility] (Lab) [address] , [place], [address], 10/10/2025 00:09:54 10/08/20 25 10/08/2025 CBC W/DIF F HGB 12.7 g/dL (based on docume nted legal sex) 11.6-1 5.4 Not Available [facility] (Lab) [address], [address], 10/10/2025 00:09:54 10/08/20 25 10/08/2025 CBC W/DIF F HCT 39.8 % (based on docume nted legal sex) 34.0-4 5.0 Not Available [facility] (Lab) [address], [place], [address], 10/10/2025 00:09:54 10/08/20 25 10/08/2025 CBC W/DIF F MCV 84.9 fL 80.0-9 9.0 Not Available [facility] (Lab) [address], [place], [address], 10/10/2025 00:09:54 10/08/20 25 10/08/2025 CBC W/DIF F MCH 27.1 pg 27.0-3 4.0 Not Available [facility] (Lab) [address], [place], [address], 10/10/2025 00:09:54 10/08/20 25 10/08/2025 CBC W/DIF F MCHC 31.9 g/dL 32.0-3 5.5 low Not Available [facility] (Lab) [address], [place], [address], 10/10/2025 00:09:54 10/08/20 25 10/08/2025 CBC W/DIF F RDW 13.2 % 11.0-1 5.0 Not Available [facility] (Lab) [address], [place], [address], 10/10/2025 00:09:54 10/08/20 25 10/08/2025 CBC W/DIF F plt 239 10'3/ uL 150-40 0 Not Available [facility] (Lab) [address], [place], [address], 10/10/2025 00:09:54 10/08/20 25 10/08/2025 CBC W/DIF F MPV 11.9 fL 8.8-12 .1 Not Available [facility] (Lab) [address], [place], [address], 10/10/2025 00:09:54 10/08/20 25 10/08/2025 CBC W/DIF F NRBC's 0.0 % 0.0 Not Available [facility] (Lab) [address], [place], [address], 10/10/2025 00:09:54 10/08/20 25 10/08/2025 CBC W/DIF F absolute NRBCs 0.0 10'3/ uL no refere nce range establ ished Not Available [facility] (Lab) [address], [place], [address], 10/10/2025 00:09:54 10/08/20 25 10/08/2025 CBC W/DIF F neutrophils 70.7 % 34.0-7 3.0 Not Available [facility] (Lab) [address], [place], [address], 10/10/2025 00:09:54 10/08/20 25 10/08/2025 CBC W/DIF F lymphocytes 22.0 % 15.0-5 0.0 Not Available [facility] (Lab) [address] [facility], [place], [address], 10/10/2025 00:09:54 10/08/20 25 10/08/2025 CBC W/DIF F monocytes 6.1 % 1.0-15 .0 Not Available [facility] (Lab) [address], [place], [address], 10/10/2025 00:09:54 10/08/20 25 10/08/2025 CBC W/DIF F eosinophils 0.5 % 0.0-8. 0 Not Available [facility] (Lab) [address], [place], [address], 10/10/2025 00:09:54 10/08/20 25 10/08/2025 CBC W/DIF F basophils 0.2 % 0.0-2. 0 Not Available [facility] (Lab) [address], [address], 10/10/2025 00:09:54 10/08/20 25 10/08/2025 CBC W/DIF [...] separ ately if prese nt. Not Available [facility] (Lab) [address] , [place], [address], 10/10/2025 00:09:54 10/08/20 25 10/08/2025 CBC W/DIF F absolute neutrophils 8.7 10'3/ uL 1.5-8. 0 high Not Available [facility] (Lab) [address], [place], [address], 10/10/2025 00:09:54 10/08/20 25 10/08/2025 CBC W/DIF F absolute lymphocytes 2.7 10'3/ uL 1.0-4. 0 Not Available [facility] (Lab) [address] , [place], [address], 10/10/2025 00:09:54 10/08/20 25 10/08/2025 CBC W/DIF F absolute monocytes 0.8 10'3/ uL 0.2-1. 0 Not Available [facility] (Lab) [address] , [place], [address], 10/10/2025 00:09:54 10/08/20 25 10/08/2025 CBC W/DIF F absolute eosinophils 0.1 10'3/ uL 0.0-0. 6 Not Available [facility] (Lab) [address], [place], [address], 10/10/2025 00:09:54 10/08/20 25 10/08/2025 CBC W/DIF F absolute basophils 0.0 10'3/ uL 0.0-0. 3 Not Available [facility] (Lab) [address] [facility], [place], [address], 10/10/2025 00:09:54 10/08/20 25 10/08/2025 CBC W/DIF [...] dennis book. nm.or g/gen derx Not Available [facility] (Lab) [address] [facility], [place], [address], 10/10/2025 00:09:54 10/08/20 25 10/08/2025 PROTE IN/CR EATIN INE RATIO , URINE creatinine, urine 34.6 mg/dL R-No refer ence range estab lishe d for this assay Not Available [facility] (Lab) [address] [facility], [place], [address], 10/10/2025 00:09:55 10/08/20 25 10/08/2025 PROTE IN/CR EATIN INE RATIO , URINE protein, urine <4 mg/dL R-No refer ence range estab lishe d for this assay Not Available [facility] (Lab) [address] [place], [address], 10/10/2025 00:09:55 10/08/20 25 10/08/2025 PROTE IN/CR [...] <0.14 can rule out signi fican t jos gamble a. Not Available [facility] (Lab) [address] [facility], [place], [address], 10/10/2025 00:09:55 10/08/20 25 10/08/2025 URIC ACID uric acid 3.5 mg/dL 2.3-6. 6 Not Available [facility] (Lab) [address] [place], [address], 10/10/2025 00:09:55 10/08/20 25 10/08/2025 CMP(C OMPRE HENSI VE METAB OLIC PANEL ) sodium 135 mmol/ L 133-14 6 Not Available [facility] (Lab) [address] [place], [address], 10/10/2025 00:09:56 10/08/20 25 10/08/2025 CMP(C OMPRE HENSI VE METAB OLIC PANEL ) potassium 3.8 mmol/ L 3.5-5. 1 Not Available [facility] (Lab) [address] [place], [address], 10/10/2025 00:09:56 10/08/20 25 10/08/2025 CMP(C OMPRE HENSI VE METAB OLIC PANEL ) chloride 102 mmol/ L 98-107 Not Available [facility] (Lab) [address] [place], [address], 10/10/2025 00:09:56 10/08/20 25 10/08/2025 CMP(C OMPRE HENSI VE METAB OLIC PANEL ) carbon dioxide 22 mmol/ L 21-31 Not Available [facility] (Lab) [address] [place], [address], 10/10/2025 00:09:56 10/08/20 25 10/08/2025 CMP(C OMPRE HENSI VE METAB OLIC PANEL ) anion gap 11 mmol/ L 4-13 Not Available [facility] (Lab) [address] [place], [address], 10/10/2025 00:09:56 10/08/20 25 10/08/2025 CMP(C OMPRE HENSI VE METAB OLIC PANEL ) blood urea nitrogen 5 mg/dL 7-[address] [facility] (Lab) [address] [facility], [place], [address], 10/10/2025 00:09:56 10/08/20 25 10/08/2025 CMP(C OMPRE HENSI VE METAB OLIC PANEL ) creatinine 0.53 mg/dL 0.60-1 .30 low Not Available [facility] (Lab) [address] [facility], [place], [address], 10/10/2025 00:09:56 10/08/20 25 10/08/2025 CMP(C OMPRE HENSI VE METAB OLIC PANEL ) egfrcr (CKD-epi 2020) >90 mL/mi n/1.7 3_m2 >=60 Not Available [facility] (Lab) [address] [facility], [place], [address], 10/10/2025 00:09:56 10/08/20 25 10/08/2025 CMP(C OMPRE HENSI VE METAB OLIC PANEL ) calcium 8.6 mg/dL 8.3-10 .5 Not Available [facility] (Lab) [address] [place], [address], 10/10/2025 00:09:56 10/08/20 25 10/08/2025 CMP(C OMPRE HENSI VE METAB OLIC PANEL ) glucose 92 mg/dL 70-100 Not Available [facility] (Lab) [address] [place], [address], 10/10/2025 00:09:56 10/08/20 25 10/08/2025 CMP(C OMPRE HENSI VE METAB OLIC PANEL ) protein, total 5.9 g/dL 6.4-8. 3 low Not Available [facility] (Lab) [address] [place], [address], 10/10/2025 00:09:56 10/08/20 25 10/08/2025 CMP(C OMPRE HENSI VE METAB OLIC PANEL ) albumin 3.5 g/dL 3.5-5. 0 Not Available [facility] (Lab) [address] [facility], [place], [address], 10/10/2025 00:09:56 10/08/20 25 10/08/2025 CMP(C OMPRE HENSI VE METAB OLIC PANEL ) ALT 17 units /L 9-43 Not Available [facility] (Lab) [address] [facility], [place], [address], 10/10/2025 00:09:56 10/08/20 25 10/08/2025 CMP(C OMPRE HENSI VE METAB OLIC PANEL ) alkaline phosphatase 81 units /L 34-104 Not Available [facility] (Lab) [address] [facility], [place], [address], 10/10/2025 00:09:56 10/08/20 25 10/08/2025 CMP(C OMPRE HENSI VE METAB OLIC PANEL ) AST 16 units /L 13-39 Not Available [facility] (Lab) [address] [facility], [place], [address], 10/10/2025 00:09:56 10/08/20 25 10/08/2025 CMP(C OMPRE HENSI VE METAB OLIC PANEL ) bilirubin, total 0.5 mg/dL 0.2-1. 2 Not Available [facility] (Lab) [address] [facility], [place], [address], 10/10/2025 00:09:56 10/08/20 25 10/08/2025 CULTU RE: URINE result report SEE RESULT S BELOW Test: Cultu re: Urine Speci men Sourc e: Urine - Clean Catch Speci men Type: Urine Speci men Date: 10/08 1152 Resul t Date: 10/09 2305 Resul t Statu s: Final resul t Abnor mal: No Resul ting Lab: [facility] [address] [facility] [address] Tel: CULTU RE ----- ----- ----- --- No growt h in 1 day (dete ction level of 10,00 0 colon ies / ml.) Not Available [facility] (Lab) [address] [facility], [place], [address], 10/10/2025 00:09:56 07/14/2007/14/2025 US, obste tric, 2nd or 3rd trime ster No observ ation record ed. [email or web address], [place], [address], 07/14/2025 11:48:13 07/14/20 25 07/14/2025 US, obste tric, follo w-up No observ ation record ed. [email or web address] [address], [place], [address], 07/14/2025 16:09:19 08/11/20 25 08/11/2025 US, obste tric, follo w-up No observ ation record ed. [facility] [address], [place], [address], 08/11/2025 18:35:48 08/11/20 25 08/11/2025 , obste tric, follo w-up No observ ation record ed. [email or web address] [address], [place], [address], 08/13/2025 07:06:41 09/10/20 25 09/10/2025 , obste tric, follo w-up No observ ation record ed. [facility] [address], [place], [address], 09/10/2025 14:42:43 10/24/09/10/2025 US, obste tric, follo w-up No observ ation record ed. [email or web address] [address], [place], [address], 09/14/2025 14:46:19 10/08/20 25 10/08/2025 US, obste tric, follo w-up No observ ation record ed. [address], [place], [address], 10/11/2025 11:55:36 10/08/20 25 10/08/2025 non-s tress test No observ ation record ed. [email or web address] [place] [address], [place], [address], 10/08/2025 13:48:06 10/08/20 non-s tress test No observ ation record ed. [email or web address] [place] [address], [place], [address], 10/08/2025 12:32:22 10/08/2010/08/2025 US, obste tric, follo w-up No observ ation record ed. [facility] [address], [place], [address], 10/08/2025 16:57:13 10/08/20 25 10/08/2025 , dominic tric, bioph ysica l profi le + non-s tress test No observ ation record ed. [facility] [address], [place], [address], 10/08/2025 16:57:23 10/13/20 25 10/13/2025 US, dominic tric, bioph ysica l profi le + non-s tress test No observ ation record ed. [email or web address] [place] [address], [place], [address], 10/13/2025 11:51:09 10/13/20 25 10/13/2025 US, obste tric, bioph ysica l profi le + non-s tress test No observ ation record ed. [email or web address] [address], [place], [address], 10/20/2025 11:47:34 10/13/20 25 10/13/2025 non-s tress test No observ ation record ed. [email or web address] [place] [address] [address], [place], [address], 10/13/2025 17:57:16 10/13/20 non-s tress test No observ ation record ed. [address], [place], [address], 10/13/2025 17:34:36 10/22/20 25 10/22/2025 US, obste tric, bioph ysica l profi le No observ ation record ed. [email or web address] [address], [place], [address], 10/29/2025 11:35:15 10/22/20 25 10/22/2025 US, obste tric, bioph ysica l profi le + non-s tress test No observ ation record ed. [facility] [address], [place], [address], 10/22/2025 13:51:55 10/22/2010/22/2025 non-s tress test No observ ation record ed. [address], [place], [address], 10/27/2025 18:38:42 10/22/20 non-s tress test No observ ation record ed. [address], [place], [address], 10/22/2025 12:42:25 10/29/20 25 10/29/2025 US, obste tric, follo w-up No observ ation record ed. [email or web address] [address], [place], [address], 10/30/2025 01:33:53 10/29/20 25 10/29/2025 US, obste tric, follo w-up No observ ation record ed. [facility] [address], [place], [address], 10/29/2025 17:16:32 10/29/20 25 10/29/2025 US, obste tric, bioph ysica l profi le + non-s tress test No observ ation record ed. [facility] [address], [place], [address], 10/29/2025 17:16:42 Result Notes None recorded. Problems Name Problem SNOMED Code Status Onset Date Resolution Date Notes Provider Name and Address Organization Details Recorded Time 75607300 Active 2024 Linda mcgill [facility] 10:53:18 Hypertens dwight disorder 86098110 Active 2024 labetalol 200mg bid bASA daily serial growth us , weekly testing @ 32wks 10/08/25 300mg bid rpt labs Alysia Santos CNM [address], [place], [address], [facility] 5 12:52:39 Mixed anxiety and depressiv e disorder 374826726 Active 2024 buspirone 10mg lexapro 20 mg daily Alysia Santos CNM [address], [place], [address], [facility] 5 12:01:06 Past history of gestation al hypertens ion 931119354 Active 2024 vs preeclamp deirdre delivered at 37 weeks Alysia Santos CNM [address], [place], [address], [facility] 5 12:01:27 Marijuana user 515488701 Active 2024 Pt decreased . Continued use is causing family issues and pt is experienc ing increased anxiety and depressio n symptoms. Nina Olivares er null, [facility] 5 16:48:10 Marijuana user 093713304 Active 2024 Pt decreased . Continued use is causing family issues and pt is experienc ing increased anxiety and depressio n symptoms. Nina Olivares er null, [facility] 5 16:48:11 Problem Notes None recorded. Procedures Surgical History Date Name Laterality Status Provider Name and Address Organization Details Recorded Time 11/18/2021 Date of Last Pap Smear completed Kim Monson [facility] 08/11/2025 14:32:13 Imaging Results None recorded. Procedure Notes None recorded. Medical Equipment None Reported. Allergies Allergen ID Allergen Name Allergen Category Reaction Reaction Severity Criticality Documentation Date Start Date Code Code System Note Provider Name and Address Organization Details Recorded Time 96751 amoxicill in medicatio n hives Not available Not available 10/08/20252016 723 RxNorm Not Available [employer] - prod 5 03:06:32 90113 clindamyc in Not available hives Not available Not available 10/08/20252018 2582 RxNorm Not Available [employer] - prod 5 03:06:32 Medications [...] Address Organization Details Last Updated DateTime 5 37641.7 3504 g 33 kg/m2 162.56 cm 162.56 cm 33 kg/m2 94940.7 4 g 128/79 mm[Hg] 128/79 mm[Hg] Cami Merida [facility] 5 12:38:07 Social History Question [...] Or The Highest Degree You Have Received? [id number] Information not available 04/22/2025 Are There Any Guns Present In Your Home? Yes Information not available 04/22/2025 Have You Ever Been Counseled For Unhealthy Alcohol Use? No [email or web address] Information not available 06/16/2025 Do You Use Protection During Sex? No Information not available 04/22/2025 Do You Use Your Seat Belt Or Car Seat Routinely? Yes Information not available 04/22/2025 Are You Sexually Active? Yes [email or web address] Information not available 06/16/2025 Do You Have Smoke And Carbon Monoxide Detectors In Your Home? Yes Information not available 04/22/2025 At What Age Did You Start Smoking Tobacco? 19 Information not available 04/22/2025 How Much Tobacco Do You Smoke? No Information not available 04/22/2025 Do You Use Sunscreen Routinely? No Information not available 04/22/2025 Has Tobacco Cessation Counseling Been Provided? No [email or web address] Information not available 06/16/2025 How Many Years Have You Smoked Tobacco? 4 [email or web address] Information not available 08/11/2025 Have You Used IV Drugs? No Information not available 04/22/2025 Do You Have Difficulty Walking Or Climbing Stairs? No [email or web address] Information not available 06/16/2025 Sex: Unknown Functional Status Question Answer Note LastModified by Organizat ion Details LastModified Time Do you use any illicit or recreational drugs? Yes Information not available 04/22/2025 Do you or have you ever used any other forms of tobacco or nicotine? No [email or web address] Information not available 06/16/2025 What is your level of alcohol consumption? Occasional Information not available 08/11/2025 Are you currently employed? Yes Information not available 06/16/2025 Are you able to walk independently without assistance or assistive devices? [email or web address] Information not available 04/22/2025 Are you able to care for yourself independently? 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 No Information not available 06/16/2025 What is your exercise level? Occasional Information not available 04/22/2025 Mental Status Question Answer Note LastModified by Organization D etails LastModified Time Do you feel stressed (tense, restless, nervous, or anxious, or unable to sleep at night)? [id number] [email or web address] Information not available 08/11/2025 Family History Relationship [...] ICD10 Code Diagnosis IMO Codes Diagnosis Note [id number] Alysia Santos [facility] [address],[place] [address] 09/24/2025 11:20:09 09/24/2025 12:02:06 Gestation period, 30 weeks 96693768 Z3A.30 4038116 Acute urin shamir tract infection 132345128 N39.0 482403 [id number] Alysia Santos [facility] [address],[place] [address] 10/08/2025 11:01:42 10/08/2025 12:33:16 Chronic hypertension complicating AND/OR reason for care during 62303100 O10.919 53577603 011862 Norris Jordan MD [place] [address] [place] [address] 10/08/2025 11:02:16 10/08/2025 13:23:40 Hypertension complicating 4380596355 9102 O16.3 Z3A.32 43252309 [id number] Alysia Santos [facility] [address],[place] [address] 10/08/2025 11:02:36 10/08/2025 12:56:56 -induced hypertension 41462916 O13.9 Hypertensive disorder 38 397821 I10 12933455 History of urinary tract infection 6791055975 107 Z87.945 [id number] 553803 Norris Jordan MD [place] [address] [place] [address] 10/13/2025 10:48:37 10/13/2025 11:35:45 Essential hypertension complicating AND/OR reason for care during 79965009 O10.013 Z3A.33 9996371 [id number] Alysia Santos [facility] [address] 1 10/13/2025 10:48:51 10/13/2025 17:36:59 Chronic hypertension complicating AND/OR reason for care during 55452944 O10.919 15223859 797470 Alysia Santos [facility] [address],[place] [address] 1 10/13/2025 10:49:32 10/13/2025 11:51:38 Gestation period, 33 weeks 56671866 Z3A.33 1896690 [id number] Norris Jordan MD [place] [address],[place] [address] 1 10/22/2025 10:36:47 10/22/2025 13:37:48 Maternal hypertension 573161582 O16.3 Z3A.34 5182576 633352 Alysia Santos [facility] [address],[place] [address] 1 10/22/2025 10:37:30 10/22/2025 13:37:30 Chronic hypertension complicating AND/OR reason for care during 40057502 O10.919 54067185 [id number] Alysia Santos [place] [address],[place] [address] 1 10/22/2025 10:37:44 10/22/2025 13:34:57 Gestation period, 34 weeks 77616189 Z3A.34 8355116 Health Concerns Section Related Observation LastModified by Organization Detai ls LastModified Time None Recorded Concern Status LastModified by Organization Details LastModified Time None Recorded Payers Encounter Date Sequence Insurance Name Policy Number Policy Sarah Covered Member ID Sarah Member ID Guarantor Name 10/22/2025 1 [employer] [id number] Artem Dora [id number] Artem Dora Notes Date Note Type Note Provider Name and Address Organization Details Recorded Time 10/22/2025 text/html Generic HPI TemplateReported by Patient Alysia Santos [facility] [address], [place], [address], [place] [facility] 10/22/2025 12:39:00 OBGyn Episode Ob Episode Information Episode Created Date Number of Fetuses Patient Bloodtype Patient rh Status Prepregnancy Weight lbs Domestic Partner Domestic Partner Phone Father Name Manager Wealth Management Status 05/19/20 25 1 O Positive 173 OPEN Fetus Data First Name Last Name Admitted to NICU Weight (g) Sex Living Outcome Pediatric Complications Fetus ID Race Codes Race Delivery Type [id number] Problems Problem Notes Problem Name Start Date End Date Resolution Snomed Code Not e Hypertensive disorder 05/19/2025 2894520 3 labetalol 200mg bidbASA dailyserial growth us , weekly testing @ 04sia2710/08/25 300mg bid rpt labs Past history of gestational hypertension 05/19/2025 962873283 vs preeclampsia delivered at 37 weeks Marijuana user 08/18/2025 409959049 Pt d ecreased. Continued use is causing family issues and pt is experiencing increased anxiety and depression symptoms. Mixed anxiety and depressive disorder 05/19/2025 208293238 buspiron e 10mglexapro 20 mg daily Pablito [...] Date Ultra Sound Latest Days Gestation 0 [email or web address] 05/19/2025 11/27/19 26 0 Pre-la nena Flowsheet Flowsheet Date 05/19/2025 Yoder Score Blood Edema Fundus Height Fundus Units Glucose Ketones Leukocytes Nitrite Labor Signs Protein Cervic Dilation Cervic Effacement Cervic Station Type Weight in lbs Pre/Post Dialysis Refused Weight 169.718633507967 BP Diastolic BP Location Tested BP Systolic [...] Weight in lbs Pre/Post Dialysis Refused Weight 173.392654621405 BP Diastolic BP Location Tested BP Systolic [...] Weight in lbs Pre/Post Dialysis Refused Weight 179.927057515885 BP Diastolic BP Location Tested BP Systolic [...] Weight in lbs Pre/Post Dialysis Refused Weight 188.162425030266 BP Diastolic BP Location Tested BP Systolic [...] Type Weight in lbs Pre/Post Dialysis Refused 189.706593250455 BP Diastolic BP Location Tested BP Systolic BP Type 78 L arm 125 sitting Fetus Heart Rate Present Fetus Movement A Yes Comments +FM, very tearful today anxi et high, meds usually work when not but having some issues at home and with family. growth good, eating ok, precautions and education. discussed anxiety and will plan referral to laurel diaz carousel operator for management. gct today reviewed us Flowsheet Date 09/24/2025 Yoder Score Blood Edema Fundus Height Fundus Units Glucose Ketones Leukocytes Nitrite Labor Signs Protein Cervic Dilation Cervic Effacement Cervic Station 0cm Type Weight in lbs Pre/Post Dialysis Refused Weight 188.459294963481 BP Diastolic BP Location Tested BP Systolic [...] Weight in lbs Pre/Post Dialysis Refused Weight 190.645556788409 BP Diastolic BP Location Tested BP Systolic [...] Type Weight in lbs Pre/Post Dialysis Refused 191.710507084799 BP Diastolic BP Location Tested BP Systolic [...] Type Weight in lbs Pre/Post Dialysis Refused 189.861419906128 BP Diastolic BP Location Tested BP Systolic BP Type 80 L arm 119 sitting Fetus Heart Rate Present Fetus Movement A Yes Comments Flowsheet Date 10/13/2025 Yoder Score Blood Edema Fundus Height Fundus Units Glucose Ketones Leukocytes Nitrite Labor Signs Protein Cervic Dilation Cervic Effacement Cervic Station Type Weight in lbs Pre/Post Dialysis Refused Weight 189.798661398433 BP Diastolic BP Location Tested BP Systolic [...] Weight in lbs Pre/Post Dialysis Refused Weight 192.526602923227 BP Diastolic BP Location Tested BP Systolic BP Type 79 L arm 128 sitting Fetus Heart Rate Present Fetus Movement A Yes Comments Flowsheet Date 10/22/2025 Yoder Score Blood Edema Fundus Height Fundus Units Glucose Ketones Leukocytes Nitrite Labor Signs Protein Cervic Dilation Cervic Effacement Cervic Station Type Weight in lbs Pre/Post Dialysis Refused 192.630847305518 BP Diastolic BP Location Tested BP Systolic [...]
--- OUTSIDE RECORDS SUMMARY | 2025-11-01 06:21 | XMS_ITS | Continuity of Care Document ---
Author Organization [facility] Address [address] [place] [address] Care Team Providers Care Alcohol Still Operator Name Role Phone TIANNA ALESHA Primary Care [...] available OB ROUTINE 2025 10:00A M Alysia Santso CNM Not available Not available Not available Lab None recorde d. Referral None recorde d. Procedures None recorde d. Surgeries None recorde d. Imaging non-str ess test 2024 025 [email or web address] Ramona, [facility] [address], [address], [place], [address], 10/13/2025 17:36:59 Medication Orders None recorde d. Patient TargetsNo targets recorded. Patient InstructionsNo instructions recorded. Reason for Referral None Reported. Results Created Date Observation Date Name Description Value Unit Range Abnormal Flag Note LastModifiedBy Organization Detail LastModifiedTime 05/27/2005/27/2025 [UNIT Y] ANEUP LOIDY NIPT fraction 10.2% normal Not Available [facility] [address], [place], [address], 05/27/2025 02:56:04 05/27/20 25 05/27/2025 [UNIT Y] ANEUP LOIDY NIPT 22Q11.2 microdeletio n LOW RISK <1 in 10,000 normal Not Available [facility] [address], [place], [address], 05/27/2025 02:56:04 05/27/20 25 05/27/2025 [UNIT Y] ANEUP LOIDY NIPT sex chromosome aneuploidy NOT DETECT ED normal Not Available [facility] [address], [place], [address], 05/27/2025 02:56:04 05/27/20 25 05/27/2025 [UNIT Y] ANEUP LOIDY NIPT monosomy X LOW RISK <1 in 10,000 normal Not Available [facility] [address], [place], [address], 05/27/2025 02:56:04 05/27/20 25 05/27/2025 [UNIT Y] ANEUP LOIDY NIPT trisomy 13 LOW RISK <1 in 10,000 normal Not Available [facility] [address], [place], [address], 05/27/2025 02:56:04 05/27/20 25 05/27/2025 [UNIT Y] ANEUP LOIDY NIPT trisomy 18 LOW RISK <1 in 10,000 normal Not Available [facility] [address], [place], [address], 05/27/2025 02:56:04 05/27/20 25 05/27/2025 [UNIT Y] ANEUP LOIDY NIPT trisomy 21 LOW RISK <1 in 10,000 normal Not Available [facility] [address], [place], [address], 05/27/2025 02:56:04 05/27/20 25 05/27/2025 [UNIT Y] ANEUP LOIDY NIPT sex FEMALE normal Not Available [facility] [address], [place], [address], 05/27/2025 02:56:04 05/27/20 25 05/27/2025 [UNIT Y] ANEUP LOIDY NIPT gestation SINGLE TON normal Not Available [facility] [address], [place], [address], 05/27/2025 02:56:04 05/27/20 25 05/27/2025 [UNIT Y] ANEUP LOIDY NIPT for detailed report, see pdf See PDF normal Not Available [facility] [address], [place], [address], 05/27/2025 02:56:04 06/03/20 25 06/03/2025 [UNIT Y] LORIN RAMY Morocho sickle cell disease/beta -thalassemia /hemoglobino pathies carrier screen NEGATI VE normal Not Available [facility] [address], [place], [address], 06/03/2025 09:08:22 06/03/20 25 06/03/2025 [UNIT Y] LORIN RAMY RICO N alpha-thalas semia carrier screen NEGATI VE normal Not Available [facility] [address], [place], [address], 06/03/2025 09:08:22 06/03/20 25 06/03/2025 [UNIT Y] LORIN MCCANN TRISHA Morocho cystic fibrosis carrier screen NEGATI VE normal Not Available [facility] [address], [place], [address], 06/03/2025 09:08:22 06/03/20 25 06/03/2025 [UNIT Y] LORIN RAMY Morocho spinal muscular atrophy carrier screen NEGATI VE 2 SMN1 copies , SNP not presen t normal Not Available [facility] [address], [place], [address], 06/03/2025 09:08:22 06/03/20 25 06/03/2025 [UNIT Y] LORIN RAMY Morocho for detailed report, see pdf See PDF normal Not Available [facility] [address], [place], [address], 06/03/2025 09:08:22 05/19/20 25 05/19/2025 CBC W/DIF F WBC 9.6 10'3/ uL 3.5-[address] [facility] (Lab) [address], [place], [address], 05/20/2025 10:56:36 05/19/20 25 05/19/2025 CBC W/DIF F RBC 4.49 10'6/ uL (based on docume nted legal sex) 3.80-[address] [facility] (Lab) [address], [place], [address], 05/20/2025 10:56:36 05/19/20 25 05/19/2025 CBC W/DIF F HGB 12.5 g/dL (based on docume nted legal sex) 11.6-[address] [facility] (Lab) [address], [place], [address], 05/20/2025 10:56:36 05/19/20 25 05/19/2025 CBC W/DIF F HCT 38.2 % (based on docume nted legal sex) 34.0-[address] [facility] (Lab) [address], [place], [address], 05/20/2025 10:56:36 05/19/20 25 05/19/2025 CBC W/DIF F MCV 85.1 fL 80.0-[address] [facility] (Lab) [address], [place], [address], 05/20/2025 10:56:36 05/19/20 25 05/19/2025 CBC W/DIF F MCH 27.8 pg 27.0-[address] [facility] (Lab) [address], [place], [address], 05/20/2025 10:56:36 05/19/20 25 05/19/2025 CBC W/DIF F MCHC 32.7 g/dL 32.0-[address] [facility] (Lab) [address], [place], [address], 05/20/2025 10:56:36 05/19/20 25 05/19/2025 CBC W/DIF F RDW 13.2 % 11.0-[address] [facility] (Lab) [address], [place], [address], 05/20/2025 10:56:36 05/19/20 25 05/19/2025 CBC W/DIF F plt 301 10'3/ uL 150-[address] [facility] (Lab) [address] [place] [address], [address], 05/20/2025 10:56:36 05/19/20 25 05/19/2025 CBC W/DIF F MPV 11.9 fL 8.8-[address] [facility] (Lab) [address], [place], [address], 05/20/2025 10:56:36 05/19/20 25 05/19/2025 CBC W/DIF F NRBC's 0.0 % 0.[address] [facility] (Lab) [address] [facility], [place], [address], 05/20/2025 10:56:36 05/19/20 25 05/19/2025 CBC W/DIF F absolute NRBCs 0.0 10'3/ uL no refere nce range establ ished Not Available [facility] (Lab) [address] [facility], [place], [address], 05/20/2025 10:56:36 05/19/20 25 05/19/2025 CBC W/DIF F neutrophils 71.0 % 34.0-[address] [facility] (Lab) [address] [facility], [place], [address], 05/20/2025 10:56:36 05/19/20 25 05/19/2025 CBC W/DIF F lymphocytes 22.5 % 15.0-[address] [facility] (Lab) [address] [facility], [place], [address], 05/20/2025 10:56:36 05/19/20 25 05/19/2025 CBC W/DIF F monocytes 5.3 % 1.0-[address] [facility] (Lab) [address] [facility], [place], [address], 05/20/2025 10:56:36 05/19/20 25 05/19/2025 CBC W/DIF F eosinophils 0.6 % 0.0-8. [address] [facility] (Lab) [address] [facility], [place], [address], 05/20/2025 10:56:36 05/19/20 25 05/19/2025 CBC W/DIF F basophils 0.3 % 0.0-2. [address] [facility] (Lab) [address] [facility], [place], [address], 05/20/2025 10:56:36 05/19/20 25 05/19/2025 CBC W/DIF [...] separ ately if prese nt. Not Available [facility] (Lab) [address] [facility], [place], [address], 05/20/2025 10:56:36 05/19/20 25 05/19/2025 CBC W/DIF F absolute neutrophils 6.8 10'3/ uL 1.5-8. [address] [facility] (Lab) [address] [facility], [place], [address], 05/20/2025 10:56:36 05/19/20 25 05/19/2025 CBC W/DIF F absolute lymphocytes 2.2 10'3/ uL 1.0-4. [address] [facility] (Lab) [address] [facility], [place], [address], 05/20/2025 10:56:36 05/19/20 25 05/19/2025 CBC W/DIF F absolute monocytes 0.5 10'3/ uL 0.2-1. [address] [facility] (Lab) [address] [facility], [place], [address], 05/20/2025 10:56:36 05/19/20 25 05/19/2025 CBC W/DIF F absolute eosinophils 0.1 10'3/ uL 0.0-0. [address] [facility] (Lab) [address] [facility], [place], [address], 05/20/2025 10:56:36 05/19/20 25 05/19/2025 CBC W/DIF F absolute basophils 0.0 10'3/ uL 0.0-0. [address] [facility] (Lab) [address], [place], [address], 05/20/2025 10:56:36 05/19/20 25 05/19/2025 CBC W/DIF [...] and book. nm.or g/gen derx Not Available [facility] (Lab) [address], [place], [address], 05/20/2025 10:56:36 05/19/20 25 05/19/2025 HEPAT ITIS B SURFA CE ANTIG EN hepatitis B surface antigen Non-re active non-re active This assay was perfo rmed using [employer] ratio n reage nts and test kits. Value s obtai erica with other assay metho ds or kits canno t be used inter melton eably . Not Available [facility] (Lab) [address], [place], [address], 05/20/2025 10:56:37 05/19/20 25 05/19/2025 HIV 1/2 ANTIG EN/AN TIBOD Y, REFLE X CONFI RMATI ON HIV antigen/anti body Nonrea ctive nonrea ctive HIV-1 antig en and HIV-1 /HIV- 2 antib odies were not detec tashi. No labor atory evide nce of HIV infec tion. Not Available [facility] (Lab) [address], [place], [address], 05/20/2025 10:56:37 05/19/20 25 05/19/2025 HEPAT ITIS C ANTIB NEPTALI SCREE N, REFLE X TO CONFI RMATI ON hepatitis C antibody Non-re active non-re active Antib odies to HCV Not Detec tashi, does not exclu de the possi bilit y of expos ure to HCV. Not Available [facility] (Lab) [address] [facility], [place], [address], 05/20/2025 10:56:38 05/19/20 25 05/19/2025 VITAM IN D, 25-OH (TOTA L D2/D3 ) vitamin D, 25-hydroxy, total 59.5 NG/mL 30.0-1 00.0 Sugge stive of Defic iency : <20 ng/mL Sugge stive of Insuf ficie ncy: 20-29 ng/mL Sugge stive of Suffi cienc y: 30-10 0 ng/mL Sugge stive of Toxic ity: >150 ng/mL Not Available [facility] (Lab) [address] [facility], [place], [address], 05/20/2025 10:56:38 05/19/20 25 05/19/2025 TYPE/ RH/SC REEN ABO/Rh type O POS Not Available [facility] (Lab) [address] [place], [address], 05/20/2025 10:56:39 05/19/20 25 05/19/2025 TYPE/ RH/SC REEN antibody screen NEG Not Available [facility] (Lab) [address] [place], [address], 05/20/2025 10:56:39 05/19/20 25 05/19/2025 TYPE/ RH/SC REEN exp date 2024 23:[address] [facility] (Lab) [address] [place], [address], 05/20/2025 10:56:39 05/19/20 25 05/19/2025 RUBEL LA IGG ANTIB NEPTALI, QUANT rubella antibodies, IgG Reacti ve reacti ve Not Available [facility] (Lab) [address] [facility], [place], [address], 05/20/2025 10:56:39 05/19/20 25 05/19/2025 RUBEL LA IGG ANTIB NEPTALI, QUANT rubella antibodies, IgG quant 13.6 IU/mL >=10 Non-r eacti ve (Non- Immun e) <10 IU/mL React dwight (Immu ne) > or = 10 IU/mL Not Available [facility] (Lab) [address] [facility], [place], [address], 05/20/2025 10:56:39 05/19/20 25 05/19/2025 HEMOG LOBIN [...] >8.0% Actio n sugge sted Not Available [facility] (Lab) [address] [facility], [place], [address], 05/20/2025 10:56:40 05/19/20 25 05/19/2025 RPR SCREE N, REFLE X TITER /CONF IRMAT ION RPR qualitative Nonrea ctive nonrea ctive Not Available [facility] (Lab) [address] [facility], [place], [address], 05/20/2025 10:56:41 05/19/20 25 05/19/2025 CULTU RE: URINE result report SEE RESULT S BELOW Test: Cultu re: Urine Speci men Sourc e: Urine Voide d Speci men Type: Urine Speci men Date: 1413 Resul t Date: 2142 Resul t Statu s: Final resul t Abnor mal: No Resul ting Lab: [facility] [address] [facility] [address] Tel: CULTU RE ----- ----- ----- --- No growt h in 1 day (dete ction level of 10,00 0 colon ies / ml.) Not Available [facility] (Lab) [address] [facility], [place], [address], 05/20/2025 22:47:16 05/19/20 25 05/19/2025 IMAGE GUIDE [...] elial Lesimani morocho or Jose Antonio ribeiro ([facility]) . Elect sapphire becker d by Joseph [...] clini luis eduardo cmap nted. Not Available [facility] (Lab) [address], [place], [address], 05/24/2025 18:43:29 05/19/20 25 05/19/2025 CT/GC (CAT) , THINP REP VIAL chlamydia trachomatis, PCR Negati ve negati ve Not Available [facility] (Lab) [address], [place], [address], 05/24/2025 18:43:30 05/19/20 25 05/19/2025 CT/GC (CAT) , THINP REP VIAL neisseria gonorrhoeae, PCR Negati ve negati ve Not Available [facility] (Lab) [address] [place], [address], 05/24/2025 18:43:30 05/19/20 25 05/19/2025 drug scree n, urine Cannabinoids : positi ve Not Available [facility] [address], [place], [address], 05/19/2025 13:35:34 05/19/20 25 05/19/2025 drug scree n, urine Other: positi ve Not Available [facility] [address], [place], [address], 05/19/2025 13:35:34 09/10/20 25 09/10/2025 HEMAT OCRIT (HCT) HCT 39.4 % (based on docume nted legal sex) 34.0-[address] [facility] (Lab) [address], [place], [address], 09/11/2025 12:57:34 09/10/20 25 09/10/2025 HEMOG LOBIN (HGB) HGB 12.7 g/dL (based on docume nted legal sex) 11.6-[address] [facility] (Lab) [address] [place], [address], 09/11/2025 12:57:34 09/10/20 25 09/10/2025 CMP/C BC/UR IC ACID WBC 10.8 10'3/ uL 3.5-10 .[address] [facility] (Lab) [address] [place], [address], 09/11/2025 12:57:34 09/10/20 25 09/10/2025 CMP/C BC/UR IC ACID RBC 4.59 10'6/ uL (based on docume nted legal sex) 3.80-[address] [facility] (Lab) [address] [facility], [place], [address], 09/11/2025 12:57:34 09/10/2009/10/2025 CMP/C BC/UR IC ACID HGB 12.7 g/dL (based on docume nted legal sex) 11.6-[address] [facility] (Lab) [address] [facility], [place], [address], 09/11/2025 12:57:34 09/10/2009/10/2025 CMP/C BC/UR IC ACID HCT 39.4 % (based on docume nted legal sex) 34.0-[address] [facility] (Lab) [address] [facility], [place], [address], 09/11/2025 12:57:34 09/10/2009/10/2025 CMP/C BC/UR IC ACID MCV 85.8 fL 80.0-[address] [facility] (Lab) [address] [facility], [place], [address], 09/11/2025 12:57:34 09/10/2009/10/2025 CMP/C BC/UR IC ACID MCH 27.7 pg 27.0-[address] [facility] (Lab) [address] [place], [address], 09/11/2025 12:57:34 09/10/2009/10/2025 CMP/C BC/UR IC ACID MCHC 32.2 g/dL 32.0-[address] [facility] (Lab) [address] [place], [address], 09/11/2025 12:57:34 09/10/20 25 09/10/2025 CMP/C BC/UR IC ACID RDW 12.7 % 11.0-[address] [facility] (Lab) [address] [facility], [place], [address], 09/11/2025 12:57:34 09/10/2009/10/2025 CMP/C BC/UR IC ACID plt 252 10'3/ uL 150-[address] [facility] (Lab) [address] [facility], [place], [address], 09/11/2025 12:57:34 09/10/2009/10/2025 CMP/C BC/UR IC ACID MPV 11.7 fL 8.8-[address] [facility] (Lab) [address] [facility], [place], [address], 09/11/2025 12:57:34 09/10/2009/10/2025 CMP/C BC/UR IC ACID NRBC's 0.0 % 0.[address] [facility] (Lab) [address] [place], [address], 09/11/2025 12:57:34 09/10/2009/10/2025 CMP/C BC/UR IC ACID absolute NRBCs 0.0 10'3/ uL no refere nce range establ ished Not Available [facility] (Lab) [address] [place], [address], 09/11/2025 12:57:34 09/10/2009/10/2025 CMP/C BC/UR IC ACID neutrophils 74.4 % 34.0-7 3.[address] [facility] (Lab) [address] [place], [address], 09/11/2025 12:57:34 09/10/2009/10/2025 CMP/C BC/UR IC ACID lymphocytes 18.6 % 15.0-[address] [facility] (Lab) [address] [place], [address], 09/11/2025 12:57:34 09/10/2009/10/2025 CMP/C BC/UR IC ACID monocytes 5.9 % 1.0-[address] [facility] (Lab) [address] [facility], [place], [address], 09/11/2025 12:57:34 09/10/2009/10/2025 CMP/C BC/UR IC ACID eosinophils 0.5 % 0.0-8. [address] [facility] (Lab) [address] [facility], [place], [address], 09/11/2025 12:57:34 09/10/2009/10/2025 CMP/C BC/UR IC ACID basophils 0.1 % 0.0-2. [address] [facility] (Lab) [address] [facility], [place], [address], 09/11/2025 12:57:34 09/10/2009/10/2025 CMP/C BC/UR IC ACID immature granulocytes 0.5 % no define d refere nce range Immat ure Granu locyt es (IG) repre sents autom ated enume ratio n of Metam yeloc ytes, Myelo cytes and Promy elocy claudia when IG is < 5%. Blast s are not inclu ded in IG and repor tashi separ ately if prese nt. Not Available [facility] (Lab) [address] [facility], [place], [address], 09/11/2025 12:57:34 09/10/2009/10/2025 CMP/C BC/UR IC ACID absolute neutrophils 8.1 10'3/ uL 1.5-8. [address] [facility] (Lab) [address] [place], [address], 09/11/2025 12:57:34 09/10/2009/10/2025 CMP/C BC/UR IC ACID absolute lymphocytes 2.0 10'3/ uL 1.0-4. [address] [facility] (Lab) [address] [facility], [place], [address], 09/11/2025 12:57:34 09/10/2009/10/2025 CMP/C BC/UR IC ACID absolute monocytes 0.6 10'3/ uL 0.2-1. [address] [facility] (Lab) [address] [facility], [place], [address], 09/11/2025 12:57:34 09/10/2009/10/2025 CMP/C BC/UR IC ACID absolute eosinophils 0.1 10'3/ uL 0.0-0. [address] [facility] (Lab) [address] [facility], [place], [address], 09/11/2025 12:57:34 09/10/2009/10/2025 CMP/C BC/UR IC ACID absolute basophils 0.0 10'3/ uL 0.0-0. [address] [facility] (Lab) [address] [facility], [place], [address], 09/11/2025 12:57:34 09/10/2009/10/2025 CMP/C BC/UR IC ACID [...] dennis book. nm.or g/gen derx Not Available [facility] (Lab) [address] [facility], [place], [address], 09/11/2025 12:57:34 09/10/2009/10/2025 CMP/C BC/UR IC ACID uric acid 3.0 mg/dL 2.3-6. [address] [facility] (Lab) [address] [facility], [place], [address], 09/11/2025 12:57:34 09/10/2009/10/2025 CMP/C BC/UR IC ACID sodium 136 mmol/ L 133-[address] [facility] (Lab) [address] [facility], [place], [address], 09/11/2025 12:57:34 09/10/2009/10/2025 CMP/C BC/UR IC ACID potassium 3.9 mmol/ L 3.5-5. [address] [facility] (Lab) [address] [facility], [place], [address], 09/11/2025 12:57:34 09/10/2009/10/2025 CMP/C BC/UR IC ACID chloride 102 mmol/ L 98-[address] [facility] (Lab) [address] [facility], [place], [address], 09/11/2025 12:57:34 09/10/2009/10/2025 CMP/C BC/UR IC ACID carbon dioxide 26 mmol/ L 21-[address] [facility] (Lab) [address] [facility], [place], [address], 09/11/2025 12:57:34 09/10/2009/10/2025 CMP/C BC/UR IC ACID anion gap 8 mmol/ L 4-[address] [facility] (Lab) [address] [place], [address], 09/11/2025 12:57:34 09/10/2009/10/2025 CMP/C BC/UR IC ACID blood urea nitrogen 5 mg/dL 7-25 low Not Available [facility] (Lab) [address] [place], [address], 09/11/2025 12:57:34 09/10/20 25 09/10/2025 CMP/C BC/UR IC ACID creatinine 0.55 mg/dL 0.60-1 [address] [facility] (Lab) [address] [facility], [place], [address], 09/11/2025 12:57:34 09/10/2009/10/2025 CMP/C BC/UR IC ACID egfrcr (CKD-epi 2020) >90 mL/mi n/1.7 3_m2 >=[address] [facility] (Lab) [address] [facility], [place], [address], 09/11/2025 12:57:34 09/10/2009/10/2025 CMP/C BC/UR IC ACID calcium 8.8 mg/dL 8.3-[address] [facility] (Lab) [address] [facility], [place], [address], 09/11/2025 12:57:34 09/10/2009/10/2025 CMP/C BC/UR IC ACID glucose 113 mg/dL 70-[address] [facility] (Lab) [address] [facility], [place], [address], 09/11/2025 12:57:34 09/10/20 25 09/10/2025 CMP/C BC/UR IC ACID protein, total 6.1 g/dL 6.4-8. [address] [facility] (Lab) [address] [facility], [place], [address], 09/11/2025 12:57:34 09/10/2009/10/2025 CMP/C BC/UR IC ACID albumin 3.6 g/dL 3.5-5. [address] [facility] (Lab) [address] [place], [address], 09/11/2025 12:57:34 09/10/20 25 09/10/2025 CMP/C BC/UR IC ACID ALT 17 units /L 9-[address] [facility] (Lab) [address] [place], [address], 09/11/2025 12:57:34 09/10/2009/10/2025 CMP/C BC/UR IC ACID alkaline phosphatase 61 units /L 34-[address] [facility] (Lab) [address] [facility], [place], [address], 09/11/2025 12:57:34 09/10/2009/10/2025 CMP/C BC/UR IC ACID AST 15 units /L 13-[address] [facility] (Lab) [address] [facility], [place], [address], 09/11/2025 12:57:34 09/10/2009/10/2025 CMP/C BC/UR IC ACID bilirubin, total 0.3 mg/dL 0.2-1. [address] [facility] (Lab) [address] [facility], [place], [address], 09/11/2025 12:57:34 09/10/2009/10/2025 GTT - GESTA JANELL L TRISHA Morocho, ACOG OB glucose, 1 hour screen 107 mg/dL 70-135 Not Available [facility] (Lab) [address] [facility], [place], [address], 09/11/2025 12:57:35 09/10/2009/10/2025 HIV 1/2 ANTIG EN/AN TIBOD Y, REFLE X CONFI RMATI ON HIV antigen/anti body Nonrea ctive nonrea ctive HIV-1 antig en and HIV-1 /HIV- 2 antib odies were not detec tashi. No labor atory evide nce of HIV infec tion. Not Available [facility] (Lab) [address], [place], [address], 09/11/2025 12:57:35 09/10/20 25 09/10/2025 RPR SCREE N, REFLE X TITER /CONF IRMAT ION RPR qualitative Nonrea ctive nonrea ctive Not Available [facility] (Lab) [address], [place], [address], 09/11/2025 12:57:35 09/24/2009/24/2025 CULTU RE: URINE result report SEE RESULT S BELOW Test: Cultu re: Urine Speci men Sourc e: Urine - Clean Catch Speci men Type: Urine Speci men Date: 2024 1332 Resul t Date: 2024 1203 Resul t Statu s: Final resul t Abnor mal: No Resul ting Lab: [facility] [address] [facility] [address] Tel: CULTU RE ----- ----- ----- --- Cultu re resul t (>=3 organ isms prese nt) indic ates possi ble conta minat ion. Repea t cultu re if sympt oms indic ate. Not Available [facility] (Lab) [address], [place], [address], 09/26/2025 13:06:06 09/24/20 25 09/24/2025 urina lysis , dipst ick Leukocytes ++ Not Available Briana bain [address], [place], [address], 09/24/2025 13:05:12 09/24/20 25 09/24/2025 urina lysis , dipst ick Protein + Not Available Ramona [address], [place], [address], 09/24/2025 13:05:12 09/24/20 25 09/24/2025 urina lysis , dipst ick pH 5 Not Available Ramona [address], [place], [address], 09/24/2025 13:05:12 09/24/20 25 09/24/2025 urina lysis , dipst ick Blood +++ Not Available Ramona [address], [place], [address], 09/24/2025 13:05:12 09/24/20 25 09/24/2025 urina lysis , dipst ick Specific [place] 1.015 Not Available [facility] [address], [place], [address], 09/24/2025 13:05:12 09/24/20 25 09/24/2025 urina lysis , dipst ick Appearance cloudy Not Available [facility] [address], [place], [address], 09/24/2025 13:05:12 09/24/20 25 09/24/2025 urina lysis , dipst ick Color yellow Not Available Ramona [address], [place], [address], 09/24/2025 13:05:12 10/08/20 25 10/08/2025 CBC W/DIF F WBC 12.3 10'3/ uL 3.5-10 [address] [facility] (Lab) [address], [place], [address], 10/10/2025 00:09:54 10/08/20 25 10/08/2025 CBC W/DIF F RBC 4.69 10'6/ uL (based on docume nted legal sex) 3.80-[address] [facility] (Lab) [address], [place], [address], 10/10/2025 00:09:54 10/08/20 25 10/08/2025 CBC W/DIF F HGB 12.7 g/dL (based on docume nted legal sex) 11.6-[address] [facility] (Lab) [address], [place], [address], 10/10/2025 00:09:54 10/08/20 25 10/08/2025 CBC W/DIF F HCT 39.8 % (based on docume nted legal sex) 34.0-[address] [facility] (Lab) [address], [place], [address], 10/10/2025 00:09:54 10/08/20 25 10/08/2025 CBC W/DIF F MCV 84.9 fL 80.0-[address] [facility] (Lab) [address], [place], [address], 10/10/2025 00:09:54 10/08/20 25 10/08/2025 CBC W/DIF F [facility] 27.1 pg 27.0-[address] [facility] (Lab) [address], [place], [address], 10/10/2025 00:09:54 10/08/20 25 10/08/2025 CBC W/DIF F MCHC 31.9 g/dL 32.0-[address] [facility] (Lab) [address], [place], [address], 10/10/2025 00:09:54 10/08/20 25 10/08/2025 CBC W/DIF F RDW 13.2 % 11.0-[address] [facility] (Lab) [address], [place], [address], 10/10/2025 00:09:54 10/08/20 25 10/08/2025 CBC W/DIF F plt 239 10'3/ uL 150-[address] [facility] (Lab) [address], [place], [address], 10/10/2025 00:09:54 10/08/20 25 10/08/2025 CBC W/DIF F MPV 11.9 fL 8.8-[address] [facility] (Lab) [address], [place], [address], 10/10/2025 00:09:54 10/08/20 25 10/08/2025 CBC W/DIF F NRBC's 0.0 % 0.[address] [facility] (Lab) [address], [place], [address], 10/10/2025 00:09:54 10/08/20 25 10/08/2025 CBC W/DIF F absolute NRBCs 0.0 10'3/ uL no refere nce range establ ished Not Available [facility] (Lab) [address], [place], [address], 10/10/2025 00:09:54 10/08/20 25 10/08/2025 CBC W/DIF F neutrophils 70.7 % 34.0-[address] [facility] (Lab) [address], [place], [address], 10/10/2025 00:09:54 10/08/20 25 10/08/2025 CBC W/DIF F lymphocytes 22.0 % 15.0-[address] [facility] (Lab) [address], [place], [address], 10/10/2025 00:09:54 10/08/20 25 10/08/2025 CBC W/DIF F monocytes 6.1 % 1.0-[address] [facility] (Lab) [address] [place], [address], 10/10/2025 00:09:54 10/08/20 25 10/08/2025 CBC W/DIF F eosinophils 0.5 % 0.0-8. [address] [facility] (Lab) [address] [place], [address], 10/10/2025 00:09:54 10/08/20 25 10/08/2025 CBC W/DIF F basophils 0.2 % 0.0-2. [address] [facility] (Lab) [address] [place], [address], 10/10/2025 00:09:54 10/08/20 25 10/08/2025 CBC W/DIF [...] separ ately if prese nt. Not Available [facility] (Lab) [address] , [place], [address], 10/10/2025 00:09:54 10/08/20 25 10/08/2025 CBC W/DIF F absolute neutrophils 8.7 10'3/ uL 1.5-8. [address] [facility] (Lab) [address] [facility], [place], [address], 10/10/2025 00:09:54 10/08/20 25 10/08/2025 CBC W/DIF F absolute lymphocytes 2.7 10'3/ uL 1.0-4. [address] [facility] (Lab) [address], [place], [address], 10/10/2025 00:09:54 10/08/20 25 10/08/2025 CBC W/DIF F absolute monocytes 0.8 10'3/ uL 0.2-1. [address] [facility] (Lab) [address] [facility], [place], [address], 10/10/2025 00:09:54 10/08/20 25 10/08/2025 CBC W/DIF F absolute eosinophils 0.1 10'3/ uL 0.0-0. [address] [facility] (Lab) [address], [place], [address], 10/10/2025 00:09:54 10/08/20 25 10/08/2025 CBC W/DIF F absolute basophils 0.0 10'3/ uL 0.0-0. [address] [facility] (Lab) [address] [facility], [place], [address], 10/10/2025 00:09:54 10/08/20 25 10/08/2025 CBC W/DIF F absolute immature granulocytes 0.1 10'3/ uL 0.00-0 .10 Refer ence range s for nonbi nary/ inter sex or unspe cifie d gende r patie nts have not been estab lishe d. Pleas e [facility] for range s estab lishe d for cisge nder patie nts and evalu ate in the clini jennifer padmini xt of the indiv idual patie nt: https ://angelique dennis book. nm.or g/gen derx Not Available [facility] (Lab) [address] [facility], [place], [address], 10/10/2025 00:09:54 10/08/20 25 10/08/2025 PROTE IN/CR EATIN INE RATIO , URINE creatinine, urine 34.6 mg/dL R-No refer ence range estab lishe d for this assay Not Available [facility] (Lab) [address] [facility], [place], [address], 10/10/2025 00:09:55 10/08/20 25 10/08/2025 PROTE IN/CR EATIN INE RATIO , URINE protein, urine <4 mg/dL R-No refer ence range estab lishe d for this assay Not Available [facility] (Lab) [address] [place], [address], 10/10/2025 00:09:55 10/08/20 25 10/08/2025 PROTE IN/CR [...] fican t prote inuri a. Not Available [facility] (Lab) [address] [facility], [place], [address], 10/10/2025 00:09:55 10/08/20 25 10/08/2025 URIC ACID uric acid 3.5 mg/dL 2.3-6. [address] [facility] (Lab) [address] [place], [address], 10/10/2025 00:09:55 10/08/20 25 10/08/2025 CMP(C OMPRE HENSI VE METAB OLIC PANEL ) sodium 135 mmol/ L 133-[address] [facility] (Lab) [address] [facility], [place], [address], 10/10/2025 00:09:56 10/08/20 25 10/08/2025 CMP(C OMPRE HENSI VE METAB OLIC PANEL ) potassium 3.8 mmol/ L 3.5-5. [address] [facility] (Lab) [address] [place], [address], 10/10/2025 00:09:56 10/08/20 25 10/08/2025 CMP(C OMPRE HENSI VE METAB OLIC PANEL ) chloride 102 mmol/ L 98-[address] [facility] (Lab) [address] [place], [address], 10/10/2025 00:09:56 10/08/20 25 10/08/2025 CMP(C OMPRE HENSI VE METAB OLIC PANEL ) carbon dioxide 22 mmol/ L 21-[address] [facility] (Lab) [address] [place], [address], 10/10/2025 00:09:56 10/08/20 25 10/08/2025 CMP(C OMPRE HENSI VE METAB OLIC PANEL ) anion gap 11 mmol/ L 4-[address] [facility] (Lab) [address] [place], [address], 10/10/2025 00:09:56 10/08/20 25 10/08/2025 CMP(C OMPRE HENSI VE METAB OLIC PANEL ) blood urea nitrogen 5 mg/dL 7-25 low Not Available [facility] (Lab) [address] [facility], [place], [address], 10/10/2025 00:09:56 10/08/20 25 10/08/2025 CMP(C OMPRE HENSI VE METAB OLIC PANEL ) creatinine 0.53 mg/dL 0.60-1 [address] [facility] (Lab) [address] [facility], [place], [address], 10/10/2025 00:09:56 10/08/20 25 10/08/2025 CMP(C OMPRE HENSI VE METAB OLIC PANEL ) egfrcr (CKD-epi 2020) >90 mL/mi n/1.7 3_m2 >=[address] [facility] (Lab) [address] [facility], [place], [address], 10/10/2025 00:09:56 10/08/20 25 10/08/2025 CMP(C OMPRE HENSI VE METAB OLIC PANEL ) calcium 8.6 mg/dL 8.3-[address] [facility] (Lab) [address] [place], [address], 10/10/2025 00:09:56 10/08/20 25 10/08/2025 CMP(C OMPRE HENSI VE METAB OLIC PANEL ) glucose 92 mg/dL 70-[address] [facility] (Lab) [address] [place], [address], 10/10/2025 00:09:56 10/08/20 25 10/08/2025 CMP(C OMPRE HENSI VE METAB OLIC PANEL ) protein, total 5.9 g/dL 6.4-8. [address] [facility] (Lab) [address] [place], [address], 10/10/2025 00:09:56 10/08/20 25 10/08/2025 CMP(C OMPRE HENSI VE METAB OLIC PANEL ) albumin 3.5 g/dL 3.5-5. [address] [facility] (Lab) [address] [facility], [place], [address], 10/10/2025 00:09:56 10/08/20 25 10/08/2025 CMP(C OMPRE HENSI VE METAB OLIC PANEL ) ALT 17 units /L 9-[address] [facility] (Lab) [address] [facility], [place], [address], 10/10/2025 00:09:56 10/08/20 25 10/08/2025 CMP(C OMPRE HENSI VE METAB OLIC PANEL ) alkaline phosphatase 81 units /L 34-[address] [facility] (Lab) [address] [facility], [place], [address], 10/10/2025 00:09:56 10/08/20 25 10/08/2025 CMP(C OMPRE HENSI VE METAB OLIC PANEL ) AST 16 units /L 13-[address] [facility] (Lab) [address] [facility], [place], [address], 10/10/2025 00:09:56 10/08/20 25 10/08/2025 CMP(C OMPRE HENSI VE METAB OLIC PANEL ) bilirubin, total 0.5 mg/dL 0.2-1. [address] [facility] (Lab) [address] [facility], [place], [address], 10/10/2025 00:09:56 10/08/20 25 10/08/2025 CULTU RE: URINE result report SEE RESULT S BELOW Test: Cultu re: Urine Speci men Sourc e: Urine - Clean Catch Speci men Type: Urine Speci men Date: 10/08 1152 Resul t Date: 10/09 2305 Resul t Statu s: Final resul t Abnor mal: No Resul ray Lab: [facility] [address] [facility] [address] Tel: [phone] CULTU RE ----- ----- ----- --- No growt h in 1 day (dete ction level of 10,00 0 colon ies / ml.) Not Available [facility] (Lab) [address] [facility], [place], [address], 10/10/2025 00:09:56 07/14/2007/14/2025 US, obste tric, 2nd or 3rd trime ster No observ ation record ed. [address], [place], [address], 07/14/2025 11:48:13 07/14/20 25 07/14/2025 US, obste tric, follo w-up No observ ation record ed. [email or web address] [address], [place], [address], 07/14/2025 16:09:19 08/11/20 25 08/11/2025 US, obste tric, follo w-up No observ ation record ed. [facility] [address], [place], [address], 08/11/2025 18:35:48 08/11/2008/11/2025 US, obste tric, follo w-up No observ ation record ed. [email or web address] [address], [place], [address], 08/13/2025 07:06:41 09/10/2009/10/2025 US, obste tric, follo w-up No observ ation record ed. [facility] [address], [place], [address], 09/10/2025 14:42:43 09/10/2009/10/2025 US, obste tric, follo w-up No observ ation record ed. [email or web address] [address], [place], [address], 09/14/2025 14:46:19 10/08/20 25 10/08/2025 US, obste tric, follo w-up No observ ation record ed. Chiara [address], [place], [address], 10/11/2025 11:55:36 10/08/2010/08/2025 non-s tress test No observ ation record ed. [email or web address] Ramona [address], [place], [address], 10/08/2025 13:48:06 10/08/20 non-s tress test No observ ation record ed. [email or web address] Ramona [address], [place], [address], 10/08/2025 12:32:22 10/08/20 25 10/08/2025 US, obste tric, follo w-up No observ ation record ed. [facility] [address], [place], [address], 10/08/2025 16:57:13 10/08/20 25 10/08/2025 US, dominic tric, bioph ysica l profi le + non-s tress test No observ ation record ed. [facility] [address], [place], [address], 10/08/2025 16:57:23 10/13/20 25 10/13/2025 US, obste tric, bioph ysica l profi le + non-s tress test No observ ation record ed. [email or web address] Ramona [address], [place], [address], 10/13/2025 11:51:09 10/13/20 25 10/13/2025 US, obste tric, bioph ysica l profi le + non-s tress test No observ ation record ed. [email or web address] Chiara [address], [place], [address], 10/20/2025 11:47:34 10/13/2010/13/2025 non-s tress test No observ ation record ed. [address], [place], [address], 10/13/2025 17:57:16 10/13/20 non-s tress test No observ ation record ed. [address], [place], [address], 10/13/2025 17:34:36 10/22/20 25 10/22/2025 US, obste tric, bioph ysica l profi le No observ ation record ed. [email or web address] Chiara [address], [place], [address], 10/29/2025 11:35:15 10/22/20 25 10/22/2025 US, obste tric, bioph ysica l profi le + non-s tress test No observ ation record ed. [facility] [address], [place], [address], 10/22/2025 13:51:55 10/22/2010/22/2025 non-s tress test No observ ation record ed. [address], [place], [address], 10/27/2025 18:38:42 10/22/20 non-s tress test No observ ation record ed. [address], [place], [address], 10/22/2025 12:42:25 10/29/20 25 10/29/2025 US, obste tric, follo w-up No observ ation record ed. [email or web address] Chiara [address], [place], [address], 10/30/2025 01:33:53 10/29/20 25 10/29/2025 US, obste tric, follo w-up No observ ation record ed. [facility] [address], [place], [address], 10/29/2025 17:16:32 10/29/20 25 10/29/2025 US, obste tric, bioph ysica l profi le + non-s tress test No observ ation record ed. [facility] [address], [place], [address], 10/29/2025 17:16:42 Result Notes None recorded. Problems Name Problem SNOMED Code Status Onset Date Resolution Date Notes Provider Name and Address Organization Details Recorded Time 85772776 Active 2024 Linda mcgill, [facility] 10:53:18 Hypertens dwight disorder 54540662 Active 2024 labetalol 200mg bid bASA daily serial growth us , weekly testing @ 32wks 10/08/25 300mg bid rpt labs Alysia Santos CNM [address], [place], [address], [facility] 5 12:52:39 Mixed anxiety and depressiv e disorder 771051529 Active 2024 buspirone 10mg lexapro 20 mg daily Alysia Santos CNM [address], [place], [address], [facility] 5 12:01:06 Past history of gestation al hypertens ion 906743688 Active 2024 vs preeclamp deirdre delivered at 37 weeks Alysia Santos CNM [address], [place], [address], [facility] 5 12:01:27 Marijuana user 972547855 Active 2024 Pt decreased . Continued use is causing family issues and pt is experienc ing increased anxiety and depressio n symptoms. Nina Olivares er null, [facility] 5 16:48:10 Marijuana user 397033130 Active 2024 Pt decreased . Continued use is causing family issues and pt is experienc ing increased anxiety and depressio n symptoms. Nina Olivares er null, [facility] [...] Name and Address Organization Details Recorded Time 00264 amoxicill in medicatio n hives Not available Not available 10/08/20252016 723 RxNorm Not Available [employer] - prod 5 03:06:32 [id number] [email or web address] in Not available hives Not available Not available 10/08/20252018 2582 RxNorm Not Available [employer] - prod 5 03:06:32 Medications [...] Address Organization Details Last Updated DateTime 10/13/2025 41752.32933 g 119/80 mm[Hg] Cami Merida [facility] 10/13/2025 17:32:53 Date Recorded Body height Body mass index (BMI) Body weight Systolic And Diastolic Provider Name and Address Organization Details Last Updated DateTime 10/13/2025 162.56 cm 32.4 kg/m2 16896.96 g 119/80 mm[Hg] LOREN DENNIS [facility] 10/13/2025 11:35:50 Social History Question Answer Notes LastModified by Organizat ion Details LastModified Time Do You Have An Advance Directive? No Information n ot available 04/22/2025 How Many Years Have You Consumed Alcohol? 8 [email or web address] Information not available 08/11/2025 Are You Blind [...] Or The Highest Degree You Have Received? [id number] Information not available 04/22/2025 Are There Any Guns Present In Your Home? Yes Information not available 04/22/2025 Have You Ever Been Counseled For Unhealthy Alcohol Use? No [email or web address] Information not available 06/16/2025 Do You Use Protection During Sex? No Information not available 04/22/2025 Do You Use Your Seat Belt Or Car Seat Routinely? Yes Information not available 04/22/2025 Are You Sexually Active? Yes [email or web address] Information not available 06/16/2025 Do You Have Smoke And Carbon Monoxide Detectors In Your Home? Yes Information not available 04/22/2025 At What Age Did You Start Smoking Tobacco? 19 Information not available 04/22/2025 How Much Tobacco Do You Smoke? No Information not available 04/22/2025 Do You Use Sunscreen Routinely? No Information not available 04/22/2025 Has Tobacco Cessation Counseling Been Provided? No [email or web address] Information not available 06/16/2025 How Many Years Have You Smoked Tobacco? 4 [email or web address] Information not available 08/11/2025 Have You Used IV Drugs? No Information not available 04/22/2025 Do You Have Difficulty Walking Or Climbing Stairs? No [email or web address] Information not available 06/16/2025 Sex: Unknown Functional [...] available 08/11/2025 Are you currently employed? Yes [email or web address] Information not available 06/16/2025 Are you able to walk independently without assistance or assistive devices? [email or web address] Information not available 04/22/2025 Are you able to care for yourself independently? 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 No Information not available 06/16/2025 What is your exercise level? Occasional Information not available 04/22/2025 Mental Status Question Answer Note LastModified by Organization D etails LastModified Time Do you feel stressed (tense, restless, nervous, or anxious, or unable to sleep at night)? [id number] Information not available 08/11/2025 Family History Relationship [...] ICD10 Code Diagnosis IMO Codes Diagnosis Note [id number] Alysia Santos [facility] [address] [address] 09/24/2025 11:20:09 09/24/2025 12:02:06 Gestation period, 30 weeks 74842557 Z3A.30 5014820 Acute urin shamir tract infection 394010253 N39.0 065517 [id number] Alysia Santos [facility] [address] [place] [address] 10/08/2025 11:01:42 10/08/2025 12:33:16 Chronic hypertension complicating AND/OR reason for care during 57311163 O10.919 39878974 642141 Norris Jordan MD [facility] [address] [place] [address] 10/08/2025 11:02:16 10/08/2025 13:23:40 Hypertension complicating 8691111945 9102 O16.3 Z3A.32 20859352 313661 Alysia Santos [facility] [address] [place] [address] 10/08/2025 11:02:36 10/08/2025 12:56:56 -induced hypertension 17345165 O13.9 Hypertensive disorder 38 819731 I10 05176172 History of urinary tract infection 6281255831 107 Z87.464 [id number] Norris Jordan MD [facility] [address] [place] [address] 10/13/2025 10:48:37 10/13/2025 11:35:45 Essential hypertension complicating AND/OR reason for care during 53492103 O10.013 Z3A.33 1182777 [id number] Alysia Santos CNM [facility] [address],[facility] [place] [address] 10/13/2025 10:48:51 10/13/2025 17:36:59 Chronic hypertension complicating AND/OR reason for care during 34711947 O10.919 30512647 [id number] Alysia Santos CNM [facility] [address],[facility] [address] 10/13/2025 10:49:32 10/13/2025 11:51:38 Gestation period, 33 weeks 33612684 Z3A.33 6410933 Health Concerns Section Related Observation LastModified by Organization Detai ls LastModified Time None Recorded Concern Status LastModified by Organization Details LastModified Time None Recorded Payers Encounter Date Sequence Insurance Name Policy Number Policy Sarah Covered Member ID Sarah Member ID Guarantor Name 10/13/2025 1 [place] [id number] Artem Dora [id number] Artem Dora Notes Date Note Type Note Provider Name and Address Organization Details Recorded Time 10/13/2025 text/html Generic HPI TemplateReported by Patient Alysia Santos CNM [address], [place], [address], [facility] 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 Continued use is causing family issues and pt is experiencing increased anxiety and depression symptoms. Mixed anxiety and depressive disorder 05/19/2025 137499257 buspiron e 10mglexapro 20 mg daily Pablito [...] Date Ultra Sound Latest Days Gestation 0 [email or web address] 05/19/2025 11/27/19 26 0 Pre- Flowsheet Flowsheet Date 05/19/2025 Yoder Score Blood Edema Fundus Height Fundus Units Glucose Ketones Leukocytes Nitrite Labor Signs Protein Cervic Dilation Cervic Effacement Cervic Station Type Weight in lbs Pre/Post Dialysis Refused Weight 169.271869916343 BP Diastolic BP Location Tested BP Systolic [...] Weight in lbs Pre/Post Dialysis Refused Weight 173.636220957942 BP Diastolic BP Location Tested BP Systolic [...] Weight in lbs Pre/Post Dialysis Refused Weight 179.572032128146 BP Diastolic BP Location Tested BP Systolic [...] Weight in lbs Pre/Post Dialysis Refused Weight 188.444412149653 BP Diastolic BP Location Tested BP Systolic [...] Type Weight in lbs Pre/Post Dialysis Refused 189.695647125236 BP Diastolic BP Location Tested BP Systolic [...] gct today reviewed us Flowsheet Date 09/24/2025 Ydoer Score Blood Edema Fundus Height Fundus Units Glucose Ketones Leukocytes Nitrite Labor Signs Protein Cervic Dilation Cervic Effacement Cervic Station 0cm Type Weight in lbs Pre/Post Dialysis Refused Weight 188.503998597089 BP Diastolic BP Location Tested BP Systolic [...] Weight in lbs Pre/Post Dialysis Refused Weight 190.479560448841 BP Diastolic BP Location Tested BP Systolic [...] Type Weight in lbs Pre/Post Dialysis Refused 191.048320371381 BP Diastolic BP Location Tested BP Systolic [...] Type Weight in lbs Pre/Post Dialysis Refused 189.508265444168 BP Diastolic BP Location Tested BP Systolic BP Type 80 L arm 119 sitting Fetus Heart Rate Present Fetus Movement A Yes Comments Flowsheet Date 10/13/2025 Yoder Score Blood Edema Fundus Height Fundus Units Glucose Ketones Leukocytes Nitrite Labor Signs Protein Cervic Dilation Cervic Effacement Cervic Station Type Weight in lbs Pre/Post Dialysis Refused Weight 189.322914765277 BP Diastolic BP Location Tested BP Systolic [...] Weight in lbs Pre/Post Dialysis Refused Weight 192.012716006859 BP Diastolic BP Location Tested BP Systolic BP Type 79 L arm 128 sitting Fetus Heart Rate Present Fetus Movement A Yes Comments Flowsheet Date 10/22/2025 Yoder Score Blood Edema Fundus Height Fundus Units Glucose Ketones Leukocytes Nitrite Labor Signs Protein Cervic Dilation Cervic Effacement Cervic Station Type Weight in lbs Pre/Post Dialysis Refused 192.471704013487 BP Diastolic BP Location Tested BP Systolic BP Type 79 L arm 128 sitting Fetus Heart Rate Present Fetus Movement A Yes Comments bpp /, +FM reviewed ptl precautions, doing well, education [...]
--- OUTSIDE RECORDS SUMMARY | 2025-11-01 06:21 | XMS_ITS | Continuity of Care Document ---
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 Patient TargetsNo targets recorded. Patient InstructionsNo instructions recorded. Reason for Referral None Reported. Results Created Date Observation Date Name Description Value Unit Range Abnormal Flag Note LastModifiedBy Organization Detail LastModifiedTime 05/27/2005/27/2025 [UNIT Y] ANEUP LOIDY NIPT fraction 10.2% normal Not Available [facility] [address], [place], [address], 05/27/2025 02:56:04 05/27/20 25 05/27/2025 [UNIT Y] ANEUP LOIDY NIPT 22Q11.2 microdeletio n LOW RISK <1 in 10,000 normal Not Available [facility] [address], [place], [address], 05/27/2025 02:56:04 05/27/20 25 05/27/2025 [UNIT Y] ANEUP LOIDY NIPT sex chromosome aneuploidy NOT DETECT ED normal Not Available [facility] [address], [place], [address], 05/27/2025 02:56:04 05/27/20 25 05/27/2025 [UNIT Y] ANEUP LOIDY NIPT monosomy X LOW RISK <1 in 10,000 normal Not Available [facility] [address], [place], [address], 05/27/2025 02:56:04 05/27/20 25 05/27/2025 [UNIT Y] ANEUP LOIDY NIPT trisomy 13 LOW RISK <1 in 10,000 normal Not Available [facility] [address], [place], [address], 05/27/2025 02:56:04 05/27/20 25 05/27/2025 [UNIT Y] ANEUP LOIDY NIPT trisomy 18 LOW RISK <1 in 10,000 normal Not Available [facility] [address], [place], [address], 05/27/2025 02:56:04 05/27/20 25 05/27/2025 [UNIT Y] ANEUP LOIDY NIPT trisomy 21 LOW RISK <1 in 10,000 normal Not Available [facility] [address], [place], [address], 05/27/2025 02:56:04 05/27/20 25 05/27/2025 [UNIT Y] ANEUP LOIDY NIPT sex FEMALE normal Not Available [facility] [address], [place], [address], 05/27/2025 02:56:04 05/27/20 25 05/27/2025 [UNIT Y] ANEUP LOIDY NIPT gestation SINGLE TON normal Not Available [facility] [address], [place], [address], 05/27/2025 02:56:04 05/27/20 25 05/27/2025 [UNIT Y] ANEUP LOIDY NIPT for detailed report, see pdf See PDF normal Not Available [facility] [address], [place], [address], 05/27/2025 02:56:04 06/03/20 25 06/03/2025 [UNIT Y] LORIN RAMY HOWELLE N sickle cell disease/beta -thalassemia /hemoglobino pathies carrier screen NEGATI VE normal Not Available [facility] [address] [place], [address], 06/03/2025 09:08:22 06/03/20 25 06/03/2025 [UNIT Y] LORIN RAMY [place] alpha-thalas semia carrier screen NEGATI VE normal Not Available [facility] [address], [place], [address], 06/03/2025 09:08:22 06/03/20 25 06/03/2025 [UNIT Y] LORIN RAMY [place] cystic fibrosis carrier screen NEGATI VE normal Not Available [facility] [address], [place], [address], 06/03/2025 09:08:22 06/03/20 25 06/03/2025 [UNIT Y] LORIN RAMY [place] spinal muscular atrophy carrier screen NEGATI VE 2 SMN1 copies , SNP not presen t normal Not Available [facility] [address], [place], [address], 06/03/2025 09:08:22 06/03/20 25 06/03/2025 [UNIT Y] LORIN RAMY [place] for detailed report, see pdf See PDF normal Not Available [facility] [address], [place], [address], 06/03/2025 09:08:22 05/19/20 25 05/19/2025 CBC W/DIF F WBC 9.6 10'3/ uL 3.5-10 .5 Not Available [facility] (Lab) [address], [place], [address], 05/20/2025 10:56:36 05/19/20 25 05/19/2025 CBC W/DIF F RBC 4.49 10'6/ uL (based on docume nted legal sex) 3.80-5 .20 Not Available [facility] (Lab) [address], [place], [address], 05/20/2025 10:56:36 05/19/20 25 05/19/2025 CBC W/DIF F HGB 12.5 g/dL (based on docume nted legal sex) 11.6-1 5.4 Not Available [facility] (Lab) [address], [place], [address], 05/20/2025 10:56:36 05/19/20 25 05/19/2025 CBC W/DIF F HCT 38.2 % (based on docume nted legal sex) 34.0-4 5.0 Not Available [facility] (Lab) [address], [place], [address], 05/20/2025 10:56:36 05/19/20 25 05/19/2025 CBC W/DIF F MCV 85.1 fL 80.0-9 9.0 Not Available [facility] (Lab) [address], [place], [address], 05/20/2025 10:56:36 05/19/20 25 05/19/2025 CBC W/DIF F MCH 27.8 pg 27.0-3 4.0 Not Available [facility] (Lab) [address], [place], [address], 05/20/2025 10:56:36 05/19/20 25 05/19/2025 CBC W/DIF F MCHC 32.7 g/dL 32.0-3 5.5 Not Available [facility] (Lab) [address], [place], [address], 05/20/2025 10:56:36 05/19/20 25 05/19/2025 CBC W/DIF F RDW 13.2 % 11.0-1 5.0 Not Available [facility] (Lab) [address], [place], [address], 05/20/2025 10:56:36 05/19/20 25 05/19/2025 CBC W/DIF F plt 301 10'3/ uL 150-40 0 Not Available [facility] (Lab) [address] [facility], [place], [address], 05/20/2025 10:56:36 05/19/20 25 05/19/2025 CBC W/DIF F MPV 11.9 fL 8.8-12 .1 Not Available [facility] (Lab) [address] [facility], [place], [address], 05/20/2025 10:56:36 05/19/20 25 05/19/2025 CBC W/DIF F NRBC's 0.0 % 0.0 Not Available [facility] (Lab) [address] [facility], [place], [address], 05/20/2025 10:56:36 05/19/20 25 05/19/2025 CBC W/DIF F absolute NRBCs 0.0 10'3/ uL no refere nce range establ ished Not Available [facility] (Lab) [address] [facility], [place], [address], 05/20/2025 10:56:36 05/19/20 25 05/19/2025 CBC W/DIF F neutrophils 71.0 % 34.0-7 3.0 Not Available [facility] (Lab) [address] [facility] [facility], [place], [address], 05/20/2025 10:56:36 05/19/20 25 05/19/2025 CBC W/DIF F lymphocytes 22.5 % 15.0-5 0.0 Not Available [facility] (Lab) [address] [facility], [place], [address], 05/20/2025 10:56:36 05/19/20 25 05/19/2025 CBC W/DIF F monocytes 5.3 % 1.0-15 .0 Not Available [facility] (Lab) [address] [facility], [place], [address], 05/20/2025 10:56:36 05/19/20 25 05/19/2025 CBC W/DIF F eosinophils 0.6 % 0.0-8. 0 Not Available [facility] (Lab) [address] [facility], [place], [address], 05/20/2025 10:56:36 05/19/20 25 05/19/2025 CBC W/DIF F basophils 0.3 % 0.0-2. 0 Not Available [facility] (Lab) [address] [facility], [place], [address], 05/20/2025 10:56:36 05/19/20 25 05/19/2025 CBC W/DIF [...] separ ately if prese nt. Not Available [facility] (Lab) [address] [facility], [place], [address], 05/20/2025 10:56:36 05/19/20 25 05/19/2025 CBC W/DIF F absolute neutrophils 6.8 10'3/ uL 1.5-8. 0 Not Available [facility] (Lab) [address] [facility], [place], [address], 05/20/2025 10:56:36 05/19/20 25 05/19/2025 CBC W/DIF F absolute lymphocytes 2.2 10'3/ uL 1.0-4. 0 Not Available [facility] (Lab) [address] [facility], [place], [address], 05/20/2025 10:56:36 05/19/20 25 05/19/2025 CBC W/DIF F absolute monocytes 0.5 10'3/ uL 0.2-1. 0 Not Available [facility] (Lab) [address] [facility], [place], [address], 05/20/2025 10:56:36 05/19/20 25 05/19/2025 CBC W/DIF F absolute eosinophils 0.1 10'3/ uL 0.0-0. 6 Not Available [facility] (Lab) [address], [place], [address], 05/20/2025 10:56:36 05/19/20 25 05/19/2025 CBC W/DIF F absolute basophils 0.0 10'3/ uL 0.0-0. 3 Not Available [facility] (Lab) [address], [place], [address], 05/20/2025 10:56:36 05/19/20 25 05/19/2025 CBC W/DIF F absolute immature granulocytes 0.0 10'3/ uL 0.00-0 .10 Refer ence range s for nonbi nary/ inter sex or unspe cifie d gende r patie nts have not been estab lishe d. Pleas e refer [facility] for range s estab lishe d for cisge nder patie nts and evalu ate in the clini jennifer padmini xt of the indiv idual patie nt: https ://la and book. nm.or g/gen derx Not Available [facility] (Lab) [address] [facility], [place], [address], 05/20/2025 10:56:36 05/19/20 25 05/19/2025 HEPAT ITIS B SURFA CE ANTIG EN hepatitis B surface antigen Non-re active non-re active This assay was perfo rmed using [employer] ratio n reage nts and test kits. Value s obtai erica with other assay metho ds or kits canno t be used inter melton eably . Not Available [facility] (Lab) [address], [place], [address], 05/20/2025 10:56:37 05/19/20 25 05/19/2025 HIV 1/2 ANTIG EN/AN TIBOD Y, REFLE X CONFI RMATI ON HIV antigen/anti body Nonrea ctive nonrea ctive HIV-1 antig en and HIV-1 /HIV- 2 antib odies were not detec tashi. No labor atory evide nce of HIV infec tion. Not Available [facility] (Lab) [address], [place], [address], 05/20/2025 10:56:37 05/19/20 25 05/19/2025 HEPAT ITIS C ANTIB NEPTALI SCREE N, REFLE X TO CONFI RMATI ON hepatitis C antibody Non-re active non-re active Antib odies to HCV Not Detec tashi, does not exclu de the possi bilit y of expos ure to HCV. Not Available [facility] (Lab) [address], [place], [address], 05/20/2025 10:56:38 05/19/20 25 05/19/2025 VITAM IN D, 25-OH (TOTA L D2/D3 ) vitamin D, 25-hydroxy, total 59.5 NG/mL 30.0-1 00.0 Sugge stive of Defic iency : <20 ng/mL Sugge stive of Insuf ficie ncy: 20-29 ng/mL Sugge stive of Suffi cienc y: 30-10 0 ng/mL Sugge stive of Toxic ity: >150 ng/mL Not Available [facility] (Lab) [address], [place], [address], 05/20/2025 10:56:38 05/19/20 25 05/19/2025 TYPE/ RH/SC REEN ABO/Rh type O POS Not Available [facility] (Lab) [address], [place], [address], 05/20/2025 10:56:39 05/19/20 25 05/19/2025 TYPE/ RH/SC REEN antibody screen NEG Not Available [facility] (Lab) [address], [place], [address], 05/20/2025 10:56:39 05/19/20 25 05/19/2025 TYPE/ RH/SC REEN exp date 2024 23:59 Not Available [facility] (Lab) [address], [place], [address], 05/20/2025 10:56:39 05/19/20 25 05/19/2025 RUBEL LA IGG ANTIB NEPTALI, QUANT rubella antibodies, IgG Reacti ve reacti ve Not Available [facility] (Lab) [address], [place], [address], 05/20/2025 10:56:39 05/19/20 25 05/19/2025 RUBEL LA IGG ANTIB NEPTALI, QUANT rubella antibodies, IgG quant 13.6 IU/mL >=10 Non-r eacti ve (Non- Immun e) <10 IU/mL React dwight (Immu ne) > or = 10 IU/mL Not Available [facility] (Lab) [address], [place], [address], 05/20/2025 10:56:39 05/19/20 25 05/19/2025 HEMOG LOBIN [...] >8.0% Actio n sugge sted Not Available [facility] (Lab) [address], [place], [address], 05/20/2025 10:56:40 05/19/20 25 05/19/2025 RPR SCREE N, REFLE X TITER /CONF IRMAT ION RPR qualitative Nonrea ctive nonrea ctive Not Available [facility] (Lab) [address], [place], [address], 05/20/2025 10:56:41 05/19/20 25 05/19/2025 CULTU RE: URINE result report SEE RESULT S BELOW Test: Cultu re: Urine Speci men Sourc e: Urine Voide d Speci men Type: Urine Speci men Date: 1413 Resul t Date: 2142 Resul t Statu s: Final resul t Abnor mal: No Resul ting Lab: [facility] [address] [facility] [address] Tel: [phone] CULTU RE ----- ----- ----- --- No growt h in 1 day (dete ction level of 10,00 0 colon ies / ml.) Not Available [facility] (Lab) [address] [facility], [place], [address], 05/20/2025 22:47:16 05/19/20 25 05/19/2025 IMAGE GUIDE [...] clini luis eduardo camp nted. Not Available [facility] (Lab) [address], [place], [address], 05/24/2025 18:43:29 05/19/20 25 05/19/2025 CT/GC (CAT) , THINP REP VIAL chlamydia trachomatis, PCR Negati ve negati ve Not Available [facility] (Lab) [address], [place], [address], 05/24/2025 18:43:30 05/19/20 25 05/19/2025 CT/GC (CAT) , THINP REP VIAL neisseria gonorrhoeae, PCR Negati ve negati ve Not Available [facility] (Lab) [address] [place], [address], 05/24/2025 18:43:30 05/19/20 25 05/19/2025 drug scree n, urine Cannabinoids : positi ve Not Available [place] [address], [place], [address], 05/19/2025 13:35:34 05/19/20 25 05/19/2025 drug scree n, urine Other: positi ve Not Available [place] [address], [place], [address], 05/19/2025 13:35:34 09/10/20 25 09/10/2025 HEMAT OCRIT (HCT) HCT 39.4 % (based on docume nted legal sex) 34.0-4 5.0 Not Available [facility] (Lab) [address] [place], [address], 09/11/2025 12:57:34 09/10/20 25 09/10/2025 HEMOG LOBIN (HGB) HGB 12.7 g/dL (based on docume nted legal sex) 11.6-1 5.4 Not Available [facility] (Lab) [address], [place], [address], 09/11/2025 12:57:34 09/10/20 25 09/10/2025 CMP/C BC/UR IC ACID WBC 10.8 10'3/ uL 3.5-10 .5 high Not Available [facility] (Lab) [address] [facility], [place], [address], 09/11/2025 12:57:34 09/10/2009/10/2025 CMP/C BC/UR IC ACID RBC 4.59 10'6/ uL (based on docume nted legal sex) 3.80-5 .20 Not Available [facility] (Lab) [address], [place], [address], 09/11/2025 12:57:34 09/10/2009/10/2025 CMP/C BC/UR IC ACID HGB 12.7 g/dL (based on docume nted legal sex) 11.6-1 5.4 Not Available [facility] (Lab) [address] [facility], [place], [address], 09/11/2025 12:57:34 09/10/2009/10/2025 CMP/C BC/UR IC ACID HCT 39.4 % (based on docume nted legal sex) 34.0-4 5.0 Not Available [facility] (Lab) [address] [facility], [place], [address], 09/11/2025 12:57:34 09/10/2009/10/2025 CMP/C BC/UR IC ACID MCV 85.8 fL 80.0-9 9.0 Not Available [facility] (Lab) [address] [place], [address], 09/11/2025 12:57:34 09/10/2009/10/2025 CMP/C BC/UR IC ACID MCH 27.7 pg 27.0-3 4.0 Not Available [facility] (Lab) [address] [place], [address], 09/11/2025 12:57:34 09/10/2009/10/2025 CMP/C BC/UR IC ACID MCHC 32.2 g/dL 32.0-3 5.5 Not Available [facility] (Lab) [address], [place], [address], 09/11/2025 12:57:34 09/10/2009/10/2025 CMP/C BC/UR IC ACID RDW 12.7 % 11.0-1 5.0 Not Available [facility] (Lab) [address], [place], [address], 09/11/2025 12:57:34 09/10/2009/10/2025 CMP/C BC/UR IC ACID plt 252 10'3/ uL 150-40 0 Not Available [facility] (Lab) [address], [place], [address], 09/11/2025 12:57:34 09/10/2009/10/2025 CMP/C BC/UR IC ACID MPV 11.7 fL 8.8-12 .1 Not Available [facility] (Lab) [address], [place], [address], 09/11/2025 12:57:34 09/10/2009/10/2025 CMP/C BC/UR IC ACID NRBC's 0.0 % 0.0 Not Available [facility] (Lab) [address] [facility], [place], [address], 09/11/2025 12:57:34 09/10/2009/10/2025 CMP/C BC/UR IC ACID absolute NRBCs 0.0 10'3/ uL no refere nce range establ ished Not Available [facility] (Lab) [address] [place], [address], 09/11/2025 12:57:34 09/10/2009/10/2025 CMP/C BC/UR IC ACID neutrophils 74.4 % 34.0-7 3.0 high Not Available [facility] (Lab) [address] [place], [address], 09/11/2025 12:57:34 09/10/20 25 09/10/2025 CMP/C BC/UR IC ACID lymphocytes 18.6 % 15.0-5 0.0 Not Available [facility] (Lab) [address] [facility], [place], [address], 09/11/2025 12:57:34 09/10/20 25 09/10/2025 CMP/C BC/UR IC ACID monocytes 5.9 % 1.0-15 .0 Not Available [facility] (Lab) [address] [facility], [place], [address], 09/11/2025 12:57:34 09/10/20 25 09/10/2025 CMP/C BC/UR IC ACID eosinophils 0.5 % 0.0-8. 0 Not Available [facility] (Lab) [address], [place], [address], 09/11/2025 12:57:34 09/10/20 25 09/10/2025 CMP/C BC/UR IC ACID basophils 0.1 % 0.0-2. 0 Not Available [facility] (Lab) [address] [facility], [place], [address], 09/11/2025 12:57:34 09/10/20 25 09/10/2025 CMP/C BC/UR [...] separ ately if prese nt. Not Available [facility] (Lab) [address] [facility], [place], [address], 09/11/2025 12:57:34 09/10/20 25 09/10/2025 CMP/C BC/UR IC ACID absolute neutrophils 8.1 10'3/ uL 1.5-8. 0 high Not Available [facility] (Lab) [address] [place], [address], 09/11/2025 12:57:34 09/10/2009/10/2025 CMP/C BC/UR IC ACID absolute lymphocytes 2.0 10'3/ uL 1.0-4. 0 Not Available [facility] (Lab) [address] [place], [address], 09/11/2025 12:57:34 09/10/2009/10/2025 CMP/C BC/UR IC ACID absolute monocytes 0.6 10'3/ uL 0.2-1. 0 Not Available [facility] (Lab) [address] [place], [address], 09/11/2025 12:57:34 09/10/20 25 09/10/2025 CMP/C BC/UR IC ACID absolute eosinophils 0.1 10'3/ uL 0.0-0. 6 Not Available [facility] (Lab) [address] [place], [address], 09/11/2025 12:57:34 09/10/2009/10/2025 CMP/C BC/UR IC ACID absolute basophils 0.0 10'3/ uL 0.0-0. 3 Not Available [facility] (Lab) [address] [place], [address], 09/11/2025 12:57:34 09/10/2009/10/2025 CMP/C BC/UR [...] dennis book. nm.or g/gen derx Not Available [facility] (Lab) [address] [facility], [place], [address], 09/11/2025 12:57:34 09/10/2009/10/2025 CMP/C BC/UR IC ACID uric acid 3.0 mg/dL 2.3-6. 6 Not Available [facility] (Lab) [address] [facility] [facility], [place], [address], 09/11/2025 12:57:34 09/10/2009/10/2025 CMP/C BC/UR IC ACID sodium 136 mmol/ L 133-14 6 Not Available [facility] (Lab) [address] [facility] [facility], [place], [address], 09/11/2025 12:57:34 09/10/2009/10/2025 CMP/C BC/UR IC ACID potassium 3.9 mmol/ L 3.5-5. 1 Not Available [facility] (Lab) [address], [place], [address], 09/11/2025 12:57:34 09/10/2009/10/2025 CMP/C BC/UR IC ACID chloride 102 mmol/ L 98-107 Not Available [facility] (Lab) [address] [facility], [place], [address], 09/11/2025 12:57:34 09/10/2009/10/2025 CMP/C BC/UR IC ACID carbon dioxide 26 mmol/ L 21-31 Not Available [facility] (Lab) [address] [facility] [facility], [place], [address], 09/11/2025 12:57:34 09/10/2009/10/2025 CMP/C BC/UR IC ACID anion gap 8 mmol/ L 4-13 Not Available [facility] (Lab) [address] [facility], [place], [address], 09/11/2025 12:57:34 09/10/2009/10/2025 CMP/C BC/UR IC ACID blood urea nitrogen 5 mg/dL 7-25 low Not Available [facility] (Lab) [address] [facility], [place], [address], 09/11/2025 12:57:34 09/10/20 25 09/10/2025 CMP/C BC/UR IC ACID creatinine 0.55 mg/dL 0.60-1 .30 low Not Available [facility] (Lab) [address] [facility] [facility], [place], [address], 09/11/2025 12:57:34 09/10/20 25 09/10/2025 CMP/C BC/UR IC ACID egfrcr (CKD-epi 2020) >90 mL/mi n/1.7 3_m2 >=60 Not Available [facility] (Lab) [address] [facility] [facility], [place], [address], 09/11/2025 12:57:34 09/10/2009/10/2025 CMP/C BC/UR IC ACID calcium 8.8 mg/dL 8.3-10 .5 Not Available [facility] (Lab) [address] [facility] [facility], [place], [address], 09/11/2025 12:57:34 09/10/20 25 09/10/2025 CMP/C BC/UR IC ACID glucose 113 mg/dL 70-100 high Not Available [facility] (Lab) [address] [place], [address], 09/11/2025 12:57:34 09/10/2009/10/2025 CMP/C BC/UR IC ACID protein, total 6.1 g/dL 6.4-8. 3 low Not Available [facility] (Lab) [address] [place], [address], 09/11/2025 12:57:34 09/10/20 25 09/10/2025 CMP/C BC/UR IC ACID albumin 3.6 g/dL 3.5-5. 0 Not Available [facility] (Lab) [address] [place] [facility] [place], [address], 09/11/2025 12:57:34 09/10/2009/10/2025 CMP/C BC/UR IC ACID ALT 17 units /L 9-43 Not Available [facility] (Lab) [address] [facility], [place], [address], 09/11/2025 12:57:34 09/10/2009/10/2025 CMP/C BC/UR IC ACID alkaline phosphatase 61 units /L 34-104 Not Available [facility] (Lab) [address] [facility] [facility], [place], [address], 09/11/2025 12:57:34 09/10/2009/10/2025 CMP/C BC/UR IC ACID AST 15 units /L 13-39 Not Available [facility] (Lab) [address] [facility] [facility], [place], [address], 09/11/2025 12:57:34 09/10/20 25 09/10/2025 CMP/C BC/UR IC ACID bilirubin, total 0.3 mg/dL 0.2-1. 2 Not Available [facility] (Lab) [address] [facility], [place], [address], 09/11/2025 12:57:34 09/10/20 25 09/10/2025 GTT - GESTA JANELL L SCREE N, ACOG OB glucose, 1 hour screen 107 mg/dL 70-[address] [facility] (Lab) [address] [place], [address], 09/11/2025 12:57:35 09/10/2009/10/2025 HIV 1/2 ANTIG EN/AN TIBOD Y, REFLE X CONFI RMATI ON HIV antigen/anti body Nonrea ctive nonrea ctive HIV-1 antig en and HIV-1 /HIV- 2 antib odies were not detec tashi. No labor atory evide nce of HIV infec tion. Not Available [facility] (Lab) [address], [place], [address], 09/11/2025 12:57:35 09/10/20 25 09/10/2025 RPR SCREE N, REFLE X TITER /CONF IRMAT ION RPR qualitative Nonrea ctive nonrea ctive Not Available [facility] (Lab) [address], [place], [address], 09/11/2025 12:57:35 09/24/20 25 09/24/2025 CULTU RE: URINE result report SEE RESULT S BELOW Test: Cultu re: Urine Speci men Sourc e: Urine - Clean Catch Speci men Type: Urine Speci men Date: 2024 1332 Resul t Date: 2024 1203 Resul t Statu s: Final resul t Abnor mal: No Resul ting Lab: [facility] [address] [facility] [address] Tel: CULTU RE ----- ----- ----- --- Cultu re resul t (>=3 organ isms prese nt) indic ates possi ble conta minat ion. Repea t cultu re if sympt oms indic ate. Not Available [facility] (Lab) [address], [place], [address], 09/26/2025 13:06:06 09/24/20 25 09/24/2025 urina lysis , dipst ick Leukocytes ++ Not Available [facility] [address], [place], [address], 09/24/2025 13:05:12 09/24/20 25 09/24/2025 urina lysis , dipst ick Protein + Not Available [place] [address], [place], [address], 09/24/2025 13:05:12 09/24/20 25 09/24/2025 urina lysis , dipst ick pH 5 Not Available [place] [address], [place], [address], 09/24/2025 13:05:12 09/24/20 25 09/24/2025 urina lysis , dipst ick Blood +++ Not Available [place] [address], [place], [address], 09/24/2025 13:05:12 09/24/20 25 09/24/2025 urina lysis , dipst ick Specific [place] 1.015 Not Available [facility] [address], [place], [address], 09/24/2025 13:05:12 09/24/20 25 09/24/2025 urina lysis , dipst ick Appearance cloudy Not Available [facility] [address], [place], [address], 09/24/2025 13:05:12 09/24/20 25 09/24/2025 urina lysis , dipst ick Color yellow Not Available [place] [address], [place], [address], 09/24/2025 13:05:12 10/08/20 25 10/08/2025 CBC W/DIF F WBC 12.3 10'3/ uL 3.5-10 .5 high Not Available [facility] (Lab) [address] , [place], [address], 10/10/2025 00:09:54 10/08/20 25 10/08/2025 CBC W/DIF F RBC 4.69 10'6/ uL (based on docume nted legal sex) 3.80-5 .20 Not Available [facility] (Lab) [address] , [place], [address], 10/10/2025 00:09:54 10/08/20 25 10/08/2025 CBC W/DIF F HGB 12.7 g/dL (based on docume nted legal sex) 11.6-1 5.4 Not Available [facility] (Lab) [address], [place], [address], 10/10/2025 00:09:54 10/08/20 25 10/08/2025 CBC W/DIF F HCT 39.8 % (based on docume nted legal sex) 34.0-4 5.0 Not Available [facility] (Lab) [address], [place], [address], 10/10/2025 00:09:54 10/08/20 25 10/08/2025 CBC W/DIF F MCV 84.9 fL 80.0-9 9.0 Not Available [facility] (Lab) [address], [place], [address], 10/10/2025 00:09:54 10/08/20 25 10/08/2025 CBC W/DIF F MCH 27.1 pg 27.0-3 4.0 Not Available [facility] (Lab) [address], [place], [address], 10/10/2025 00:09:54 10/08/20 25 10/08/2025 CBC W/DIF F MCHC 31.9 g/dL 32.0-3 5.5 low Not Available [facility] (Lab) [address], [address], 10/10/2025 00:09:54 10/08/20 25 10/08/2025 CBC W/DIF F RDW 13.2 % 11.0-1 5.0 Not Available [facility] (Lab) [address], [address], 10/10/2025 00:09:54 10/08/20 25 10/08/2025 CBC W/DIF F plt 239 10'3/ uL 150-40 0 Not Available [facility] (Lab) [address], [address], 10/10/2025 00:09:54 10/08/20 25 10/08/2025 CBC W/DIF F MPV 11.9 fL 8.8-12 .1 Not Available [facility] (Lab) [address], [place], [address], 10/10/2025 00:09:54 10/08/20 25 10/08/2025 CBC W/DIF F NRBC's 0.0 % 0.0 Not Available [facility] (Lab) [address], [place], [address], 10/10/2025 00:09:54 10/08/20 25 10/08/2025 CBC W/DIF F absolute NRBCs 0.0 10'3/ uL no refere nce range establ ished Not Available [facility] (Lab) [address], [place], [address], 10/10/2025 00:09:54 10/08/20 25 10/08/2025 CBC W/DIF F neutrophils 70.7 % 34.0-7 3.0 Not Available [facility] (Lab) [address] [facility], [place], [address], 10/10/2025 00:09:54 10/08/20 25 10/08/2025 CBC W/DIF F lymphocytes 22.0 % 15.0-5 0.0 Not Available [facility] (Lab) [address] [facility], [place], [address], 10/10/2025 00:09:54 10/08/20 25 10/08/2025 CBC W/DIF F monocytes 6.1 % 1.0-15 .0 Not Available [facility] (Lab) [address] [place], [address], 10/10/2025 00:09:54 10/08/20 25 10/08/2025 CBC W/DIF F eosinophils 0.5 % 0.0-8. 0 Not Available [facility] (Lab) [address], [place], [address], 10/10/2025 00:09:54 10/08/20 25 10/08/2025 CBC W/DIF F basophils 0.2 % 0.0-2. 0 Not Available [facility] (Lab) [address] [facility], [place], [address], 10/10/2025 00:09:54 10/08/20 25 10/08/2025 CBC W/DIF [...] separ ately if prese nt. Not Available [facility] (Lab) [address] [facility], [place], [address], 10/10/2025 00:09:54 10/08/20 25 10/08/2025 CBC W/DIF F absolute neutrophils 8.7 10'3/ uL 1.5-8. 0 high Not Available [facility] (Lab) [address] [facility], [place], [address], 10/10/2025 00:09:54 10/08/20 25 10/08/2025 CBC W/DIF F absolute lymphocytes 2.7 10'3/ uL 1.0-4. 0 Not Available [facility] (Lab) [address] [facility], [place], [address], 10/10/2025 00:09:54 10/08/20 25 10/08/2025 CBC W/DIF F absolute monocytes 0.8 10'3/ uL 0.2-1. 0 Not Available [facility] (Lab) [address] [facility], [place], [address], 10/10/2025 00:09:54 10/08/20 25 10/08/2025 CBC W/DIF F absolute eosinophils 0.1 10'3/ uL 0.0-0. 6 Not Available [facility] (Lab) [address] [facility], [place], [address], 10/10/2025 00:09:54 10/08/20 25 10/08/2025 CBC W/DIF F absolute basophils 0.0 10'3/ uL 0.0-0. 3 Not Available [facility] (Lab) [address], [place], [address], 10/10/2025 00:09:54 10/08/20 25 10/08/2025 CBC W/DIF F absolute immature granulocytes 0.1 10'3/ uL 0.00-0 .10 Refer ence range s for nonbi nary/ inter sex or unspe cifie d gende r patie nts have not been estab lishe d. Pleas e [facility] for range s estab lishe d for cisge nder patie nts and evalu ate in the clini jennifer padmini xt of the indiv idual patie nt: https ://angelique dennis book. nm.or g/gen derx Not Available [facility] (Lab) [address] [facility], [place], [address], 10/10/2025 00:09:54 10/08/20 25 10/08/2025 PROTE IN/CR EATIN INE RATIO , URINE creatinine, urine 34.6 mg/dL R-No refer ence range estab lishe d for this assay Not Available [facility] (Lab) [address] , [place], [address], 10/10/2025 00:09:55 10/08/20 25 10/08/2025 PROTE IN/CR EATIN INE RATIO , URINE protein, urine <4 mg/dL R-No refer ence range estab lishe d for this assay Not Available [facility] (Lab) [address], [place], [address], 10/10/2025 00:09:55 10/08/20 25 10/08/2025 PROTE IN/CR [...] fican t prote inuri a. Not Available [facility] (Lab) [address] [facility], [place], [address], 10/10/2025 00:09:55 10/08/20 25 10/08/2025 URIC ACID uric acid 3.5 mg/dL 2.3-6. 6 Not Available [facility] (Lab) [address] [facility], [place], [address], 10/10/2025 00:09:55 10/08/20 25 10/08/2025 CMP(C OMPRE HENSI VE METAB OLIC PANEL ) sodium 135 mmol/ L 133-14 6 Not Available [facility] (Lab) [address] [facility], [place], [address], 10/10/2025 00:09:56 10/08/20 25 10/08/2025 CMP(C OMPRE HENSI VE METAB OLIC PANEL ) potassium 3.8 mmol/ L 3.5-5. 1 Not Available [facility] (Lab) [address] [place], [address], 10/10/2025 00:09:56 10/08/20 25 10/08/2025 CMP(C OMPRE HENSI VE METAB OLIC PANEL ) chloride 102 mmol/ L 98-107 Not Available [facility] (Lab) [address] [place], [address], 10/10/2025 00:09:56 10/08/20 25 10/08/2025 CMP(C OMPRE HENSI VE METAB OLIC PANEL ) carbon dioxide 22 mmol/ L 21-31 Not Available [facility] (Lab) [address] [place], [address], 10/10/2025 00:09:56 10/08/20 25 10/08/2025 CMP(C OMPRE HENSI VE METAB OLIC PANEL ) anion gap 11 mmol/ L 4-13 Not Available [facility] (Lab) [address], [place], [address], 10/10/2025 00:09:56 10/08/20 25 10/08/2025 CMP(C OMPRE HENSI VE METAB OLIC PANEL ) blood urea nitrogen 5 mg/dL 7-25 low Not Available [facility] (Lab) [address], [place], [address], 10/10/2025 00:09:56 10/08/20 25 10/08/2025 CMP(C OMPRE HENSI VE METAB OLIC PANEL ) creatinine 0.53 mg/dL 0.60-1 .30 low Not Available [facility] (Lab) [address], [place], [address], 10/10/2025 00:09:56 10/08/20 25 10/08/2025 CMP(C OMPRE HENSI VE METAB OLIC PANEL ) egfrcr (CKD-epi 2020) >90 mL/mi n/1.7 3_m2 >=60 Not Available [facility] (Lab) [address] [facility], [place], [address], 10/10/2025 00:09:56 10/08/20 25 10/08/2025 CMP(C OMPRE HENSI VE METAB OLIC PANEL ) calcium 8.6 mg/dL 8.3-10 .5 Not Available [facility] (Lab) [address] [facility], [place], [address], 10/10/2025 00:09:56 10/08/20 25 10/08/2025 CMP(C OMPRE HENSI VE METAB OLIC PANEL ) glucose 92 mg/dL 70-100 Not Available [facility] (Lab) [address] [facility], [place], [address], 10/10/2025 00:09:56 10/08/20 25 10/08/2025 CMP(C OMPRE HENSI VE METAB OLIC PANEL ) protein, total 5.9 g/dL 6.4-8. 3 low Not Available [facility] (Lab) [address] [facility], [place], [address], 10/10/2025 00:09:56 10/08/20 25 10/08/2025 CMP(C OMPRE HENSI VE METAB OLIC PANEL ) albumin 3.5 g/dL 3.5-5. 0 Not Available [facility] (Lab) [address] [facility], [place], [address], 10/10/2025 00:09:56 10/08/20 25 10/08/2025 CMP(C OMPRE HENSI VE METAB OLIC PANEL ) ALT 17 units /L 9-43 Not Available [facility] (Lab) [address] [facility], [place], [address], 10/10/2025 00:09:56 10/08/20 25 10/08/2025 CMP(C OMPRE HENSI VE METAB OLIC PANEL ) alkaline phosphatase 81 units /L 34-104 Not Available [facility] (Lab) [address] [facility], [place], [address], 10/10/2025 00:09:56 10/08/20 25 10/08/2025 CMP(C OMPRE HENSI VE METAB OLIC PANEL ) AST 16 units /L 13-39 Not Available [facility] (Lab) [address] [place], [address], 10/10/2025 00:09:56 10/08/20 25 10/08/2025 CMP(C OMPRE HENSI VE METAB OLIC PANEL ) bilirubin, total 0.5 mg/dL 0.2-1. 2 Not Available [facility] (Lab) [address] [place], [address], 10/10/2025 00:09:56 10/08/2010/08/2025 CULTU RE: URINE result report SEE RESULT S BELOW Test: Cultu re: Urine Speci men Sourc e: Urine - Clean Catch Speci men Type: Urine Speci men Date: 10/08 1152 Resul t Date: 10/09 2305 Resul t Statu s: Final resul t Abnor mal: No Resul ting Lab: [facility] [address] [facility] [address] Tel: CULTU RE ----- ----- ----- --- No growt h in 1 day (dete ction level of 10,00 0 colon ies / ml.) Not Available [facility] (Lab) [address], [place], [address], 10/10/2025 00:09:56 07/14/20 25 07/14/2025 US, obste tric, 2nd or 3rd trime ster No observ ation record ed. [email or web address], [place], [address], 07/14/2025 11:48:13 07/14/20 25 07/14/2025 US, obste tric, follo w-up No observ ation record ed. [email or web address] [address], [place], [address], 07/14/2025 16:09:19 08/11/20 25 08/11/2025 US, obste tric, follo w-up No observ ation record ed. [email or web address] [address], [place], [address], 08/11/2025 18:35:48 08/11/20 25 08/11/2025 US, obste tric, follo w-up No observ ation record ed. [email or web address] [address], [place], [address], 08/13/2025 07:06:41 09/10/20 25 09/10/2025 US, obste tric, follo w-up No observ ation record ed. [facility] [address], [place], [address], 09/10/2025 14:42:43 09/10/20 25 09/10/2025 US, obste tric, follo w-up No observ ation record ed. [email or web address] [address], [place], [address], 09/14/2025 14:46:19 10/08/2010/08/2025 US, obste tric, follo w-up No observ ation record ed. [email or web address] [address], [place], [address], 10/11/2025 11:55:36 10/08/20 25 10/08/2025 non-s tress test No observ ation record ed. [address], [place], [address], 10/08/2025 13:48:06 10/08/20 non-s tress test No observ ation record ed. [email or web address] [place] [address], [place], [address], 10/08/2025 12:32:22 10/08/20 25 10/08/2025 , obste tric, follo w-up No observ ation record ed. [facility] [address], [place], [address], 10/08/2025 16:57:13 10/08/20 25 10/08/2025 , obste tric, biop ysica l profi le + non-s tress test No observ ation record ed. [facility] [address], [place], [address], 10/08/2025 16:57:23 10/13/20 25 10/13/2025 US, obste tric, bioph ysica l profi le + non-s tress test No observ ation record ed. [email or web address] [place] [address], [place], [address], 10/13/2025 11:51:09 10/13/20 25 10/13/2025 US, obste tric, bioph ysica l profi le + non-s tress test No observ ation record ed. [email or web address] [address], [place], [address], 10/20/2025 11:47:34 10/13/2010/13/2025 non-s tress test No observ ation record ed. [email or web address] [place] [address], [place], [address], 10/13/2025 17:57:16 10/13/20 non-s tress test No observ ation record ed. [email or web address] [place] [address], [place], [address], 10/13/2025 17:34:36 10/22/20 25 10/22/2025 US, dominic tric, bioph ysica l profi le No observ ation record ed. [email or web address] Guadarrama [address], [place], [address], 10/29/2025 11:35:15 10/22/20 25 10/22/2025 US, freddye tric, bioph ysica l profi le + non-s tress test No observ ation record ed. [facility] [address], [place], [address], 10/22/2025 13:51:55 10/22/20 25 10/22/2025 non-s tress test No observ ation record ed. [address], [place], [address], 10/27/2025 18:38:42 10/22/20 non-s tress test No observ ation record ed. [address], [place], [address], 10/22/2025 12:42:25 10/29/20 25 10/29/2025 US, obste tric, follo w-up No observ ation record ed. [email or web address] [address], [place], [address], 10/30/2025 01:33:53 10/29/20 25 10/29/2025 US, obste tric, follo w-up No observ ation record ed. [facility] [address], [place], [address], 10/29/2025 17:16:32 10/29/20 25 10/29/2025 US, obste tric, bioph ysica l profi le + non-s tress test No observ ation record ed. [facility] [address], [place], [address], 10/29/2025 17:16:42 Result Notes None recorded. Problems Name Problem SNOMED Code Status Onset Date Resolution Date Notes Provider Name and Address Organization Details Recorded Time 55482139 Active 2024 Linda Auguste [facility], [facility] 10:53:18 Hypertens dwight disorder 19845164 Active 2024 labetalol 200mg bid bASA daily serial growth us , weekly testing @ 32wks 10/08/25 300mg bid rpt labs Alysia Santos CNM [address], [place], [address], [facility] 12:52:39 Mixed anxiety and depressiv e disorder 614791220 Active 2024 buspirone 10mg lexapro 20 mg daily Alysia Santos CNM [address], [place], [address], [facility] 12:01:06 Past history of gestation al hypertens ion 351252010 Active 2024 vs preeclamp deirdre delivered at 37 weeks Alysia Santos CNM [address], [place], [address], [facility] 12:01:27 Marijuana user 117723405 Active 2024 Pt decreased . Continued use is causing family issues and pt is experienc ing increased anxiety and depressio n symptoms. Nina mcgill [facility] 16:48:10 Marijuana user 821519457 Active 2024 Pt decreased . Continued use is causing family issues and pt is experienc ing increased anxiety and depressio n symptoms. Nina Lestermarizolboom mcgill [facility] 16:48:11 Problem Notes None recorded. Procedures Surgical History Date Name Laterality Status Provider Name and Address Organization Details Recorded Time 11/18/2021 Date of Last Pap Smear completed Kim Monson [facility] 08/11/2025 14:32:13 Imaging Results None recorded. Procedure Notes None recorded. Medical Equipment None Reported. Allergies Allergen ID Allergen Name Allergen Category Reaction Reaction Severity Criticality Documentation Date Start Date Code Code System Note Provider Name and Address Organization Details Recorded Time 31219 amoxicill in medicatio n hives Not available Not available 10/08/20252016 723 RxNorm Not Available vanessa - External Data Service - prod 03:06:32 36088 clindamyc in Not available hives Not available Not available 10/08/20252018 2582 RxNorm Not Available pratts - External Data Service - prod 03:06:32 [...] Available Not Avai lable Not Available Vitals None Recorded Social History Question Answer Notes LastModified by Organizat ion Details LastModified Time Do You Have An Advance Directive? No Information n ot available 04/22/2025 How Many Years Have You Consumed Alcohol? 8 [email or web address] Information not available 08/11/2025 Are You Blind [...] Or The Highest Degree You Have Received? [id number] Information not available 04/22/2025 Are There Any Guns Present In Your Home? Yes Information not available 04/22/2025 Have You Ever Been Counseled For Unhealthy Alcohol Use? No [email or web address] Information not available 06/16/2025 Do You Use Protection During Sex? No Information not available 04/22/2025 Do You Use Your Seat Belt Or Car Seat Routinely? Yes Information not available 04/22/2025 Are You Sexually Active? Yes [email or web address] Information not available 06/16/2025 Do You Have Smoke And Carbon Monoxide Detectors In Your Home? Yes Information not available 04/22/2025 At What Age Did You Start Smoking Tobacco? 19 Information not available 04/22/2025 How Much Tobacco Do You Smoke? No Information not available 04/22/2025 Do You Use Sunscreen Routinely? No Information not available 04/22/2025 Has Tobacco Cessation Counseling Been Provided? No [email or web address] Information not available 06/16/2025 How Many Years Have You Smoked Tobacco? 4 [email or web address] Information not available 08/11/2025 Have You Used IV Drugs? No Information not available 04/22/2025 Do You Have Difficulty Walking Or Climbing Stairs? No [email or web address] Information not available 06/16/2025 Sex: Unknown Functional Status Question Answer Note LastModified by Organizat ion Details LastModified Time Do you use any illicit or recreational drugs? Yes Information not available 04/22/2025 Do you or have you ever used any other forms of tobacco or nicotine? No [email or web address] Information not available 06/16/2025 What is your level of alcohol consumption? Occasional [email or web address] Information not available 08/11/2025 Are you currently employed? Yes [email or web address] Information not available 06/16/2025 Are you able to walk independently without assistance or assistive devices? [email or web address] Information not available 04/22/2025 Are you able to care for yourself independently? 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 No Information not available 06/16/2025 What is your exercise level? Occasional Information not available 04/22/2025 Mental Status Question Answer Note LastModified by Organization D etails LastModified Time Do you feel stressed (tense, restless, nervous, or anxious, or unable to sleep at night)? [id number] [email or web address] Information not available 08/11/2025 Family History Relationship [...] ICD10 Code Diagnosis IMO Codes Diagnosis Note [id number] Alysia Santos [facility] [address] [address] 10/08/2025 11:01:42 10/08/2025 12:33:16 Chronic hypertension complicating AND/OR reason for care during 14884332 O10.919 47680950 [id number] Norris Jordan MD [place] [address] [place] [address] 10/08/2025 11:02:16 10/08/2025 13:23:40 Hypertension complicating 1480523292 9102 O16.3 Z3A.32 13567738 [id number] Alysia Santos [facility] [address] [address] 10/08/2025 11:02:36 10/08/2025 12:56:56 -induced hypertension 03769541 O13.9 Hypertensive disorder 38 896425 I10 28347254 History of urinary tract infection 1214178130 107 Z87.048 [id number] Norris Jordan MD [place] [address] [place] [address] 10/13/2025 10:48:37 10/13/2025 11:35:45 Essential hypertension complicating AND/OR reason for care during 44205735 O10.013 Z3A.33 6706794 [id number] Alysia Santos [facility] [address] [place] [address] 10/13/2025 10:48:51 10/13/2025 17:36:59 Chronic hypertension complicating AND/OR reason for care during 92826554 O10.9[id number] [facility] [address] [place] [address] 10/13/2025 10:49:32 10/13/2025 11:51:38 Gestation period, 33 weeks 90679598 Z3A.33 3323823 [id number] Norris Jordan MD [facility] [address] [address] 10/22/2025 10:36:47 10/22/2025 13:37:48 Maternal hypertension 739803657 O16.3 Z3A.34 6381854 [id number] Alysia Santos [facility] [address] [address] 10/22/2025 10:37:30 10/22/2025 13:37:30 Chronic hypertension complicating AND/OR reason for care during 58188416 O10.919 40657518 [id number] Alysia Santos [facility] [address] [address] 10/22/2025 10:37:44 10/22/2025 13:34:57 Gestation period, 34 weeks 10605992 Z3A.34 7147423 [id number] ELVIRA ZARAGOZA MD [place] [address] [address] 10/29/2025 10:58:06 10/29/2025 14:35:19 Chronic hypertension complicating AND/OR reason for care during 86923206 O10.913 Z3A.35 87646702 Health Concerns Section Related Observation LastModified by Organization Detai ls LastModified Time None Recorded Concern Status LastModified by Organization Details LastModified Time None Recorded Payers Encounter Date Sequence Insurance Name Policy Number Policy Sarah Covered Member ID Sarah Member ID Guarantor Name 10/29/2025 1 [employer] [id number] Artem John [id number] Artem John OBGyn Episode Ob Episode Information Episode Created Date Number of Fetuses Patient Bloodtype Patient rh Status Prepregnancy Weight lbs Domestic Partner Domestic Partner Phone Father Name Research Greenhouse 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 Continued use is causing family issues and pt is experiencing increased anxiety and depression symptoms. Mixed anxiety and depressive disorder 05/19/2025 675285373 buspiron e 10mglexapro 20 mg daily Pablito [...] Date Ultra Sound Latest Days Gestation 0 [email or web address] 05/19/2025 11/27/19 26 0 Pre-la nena Flowsheet Flowsheet Date 05/19/2025 Yoder Score Blood Edema Fundus Height Fundus Units Glucose Ketones Leukocytes Nitrite Labor Signs Protein Cervic Dilation Cervic Effacement Cervic Station Type Weight in lbs Pre/Post Dialysis Refused Weight 169.470423854124 BP Diastolic BP Location Tested BP Systolic [...] Weight in lbs Pre/Post Dialysis Refused Weight 173.820993773511 BP Diastolic BP Location Tested BP Systolic [...] Weight in lbs Pre/Post Dialysis Refused Weight 179.559382182853 BP Diastolic BP Location Tested BP Systolic [...] Weight in lbs Pre/Post Dialysis Refused Weight 188.490074374722 BP Diastolic BP Location Tested BP Systolic [...] Type Weight in lbs Pre/Post Dialysis Refused 189.365682779052 BP Diastolic BP Location Tested BP Systolic [...] Weight in lbs Pre/Post Dialysis Refused Weight 188.951512687819 BP Diastolic BP Location Tested BP Systolic [...] Weight in lbs Pre/Post Dialysis Refused Weight 190.386015119400 BP Diastolic BP Location Tested BP Systolic [...] Type Weight in lbs Pre/Post Dialysis Refused 191.942263839884 BP Diastolic BP Location Tested BP Systolic [...] Type Weight in lbs Pre/Post Dialysis Refused 189.332060551966 BP Diastolic BP Location Tested BP Systolic BP Type 80 L arm 119 sitting Fetus Heart Rate Present Fetus Movement A Yes Comments Flowsheet Date 10/13/2025 Yoder Score Blood Edema Fundus Height Fundus Units Glucose Ketones Leukocytes Nitrite Labor Signs Protein Cervic Dilation Cervic Effacement Cervic Station Type Weight in lbs Pre/Post Dialysis Refused Weight 189.208881428401 BP Diastolic BP Location Tested BP Systolic [...] Weight in lbs Pre/Post Dialysis Refused Weight 192.788767180040 BP Diastolic BP Location Tested BP Systolic BP Type 79 L arm 128 sitting Fetus Heart Rate Present Fetus Movement A Yes Comments Flowsheet Date 10/22/2025 Yoder Score Blood Edema Fundus Height Fundus Units Glucose Ketones Leukocytes Nitrite Labor Signs Protein Cervic Dilation Cervic Effacement Cervic Station Type Weight in lbs Pre/Post Dialysis Refused [id number] BP Diastolic BP Location Tested BP Systolic [...]
--- OUTSIDE RECORDS SUMMARY | 2025-11-01 06:21 | XMS_ITS | Continuity of Care Document ---
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 Discussed plan. Not available 10/13/2025 11:37:27 Plan of Treatment Reminders Order Date Submit [...] Not Available [facility] [address], [place], [address], 05/27/2025 02:56:04 05/27/2005/27/2025 [UNIT Y] ANEUP LOIDY NIPT 22Q11.2 microdeletio n LOW RISK <1 in 10,000 normal Not Available [facility] [address], [place], [address], 05/27/2025 02:56:04 05/27/2005/27/2025 [UNIT Y] ANEUP LOIDY NIPT sex chromosome aneuploidy NOT DETECT ED normal Not Available [facility] [address], [place], [address], 05/27/2025 02:56:04 05/27/20 25 05/27/2025 [UNIT Y] ANEUP LOIDY NIPT monosomy X LOW RISK <1 in 10,000 normal Not Available [facility] [address], [place], [address], 05/27/2025 02:56:04 05/27/20 25 05/27/2025 [UNIT Y] ANEUP LOIDY NIPT trisomy 13 LOW RISK <1 in 10,000 normal Not Available [facility] [address], [place], [address], 05/27/2025 02:56:04 05/27/20 25 05/27/2025 [UNIT Y] ANEUP LOIDY NIPT trisomy 18 LOW RISK <1 in 10,000 normal Not Available [facility] [address], [place], [address], 05/27/2025 02:56:04 05/27/20 25 05/27/2025 [UNIT Y] ANEUP LOIDY NIPT trisomy 21 LOW RISK <1 in 10,000 normal Not Available [facility] [address], [place], [address], 05/27/2025 02:56:04 05/27/20 25 05/27/2025 [UNIT Y] ANEUP LOIDY NIPT sex FEMALE normal Not Available [facility] [address], [place], [address], 05/27/2025 02:56:04 05/27/20 25 05/27/2025 [UNIT Y] ANEUP LOIDY NIPT gestation SINGLE TON normal Not Available [facility] [address], [place], [address], 05/27/2025 02:56:04 05/27/20 25 05/27/2025 [UNIT Y] ANEUP LOIDY NIPT for detailed report, see pdf See PDF normal Not Available [facility] [address], [place], [address], 05/27/2025 02:56:04 06/03/20 25 06/03/2025 [UNIT Y] LORIN Morocho sickle cell disease/beta -thalassemia /hemoglobino pathies carrier screen NEGATI VE normal Not Available [facility] [address], [place], [address], 06/03/2025 09:08:22 06/03/20 25 06/03/2025 [UNIT Y] LORIN Morocho alpha-thalas semia carrier screen NEGATI VE normal Not Available [facility] [address], [place], [address], 06/03/2025 09:08:22 06/03/20 25 06/03/2025 [UNIT Y] LORIN RICO Kurtis cystic fibrosis carrier screen NEGATI VE normal Not Available [facility] [address], [place], [address], 06/03/2025 09:08:22 06/03/20 25 06/03/2025 [UNIT Y] LORIN RICO Kurtis spinal muscular atrophy carrier screen NEGATI VE 2 SMN1 copies , SNP not presen t normal Not Available [facility] [address], [place], [address], 06/03/2025 09:08:22 06/03/20 25 06/03/2025 [UNIT Y] LORIN MCCANN TRISHA Morocho for detailed report, see pdf See PDF normal Not Available [facility] [address], [place], [address], 06/03/2025 09:08:22 05/19/20 25 05/19/2025 CBC W/DIF F WBC 9.6 10'3/ uL 3.5-10 .5 Not Available [facility] (Lab) [address], [place], [address], 05/20/2025 10:56:36 05/19/20 25 05/19/2025 CBC W/DIF F RBC 4.49 10'6/ uL (based on docume nted legal sex) 3.80-5 .20 Not Available [facility] (Lab) [address], [place], [address], 05/20/2025 10:56:36 05/19/20 25 05/19/2025 CBC W/DIF F HGB 12.5 g/dL (based on docume nted legal sex) 11.6-1 5.4 Not Available [facility] (Lab) [address], [place], [address], 05/20/2025 10:56:36 05/19/20 25 05/19/2025 CBC W/DIF F HCT 38.2 % (based on docume nted legal sex) 34.0-4 5.0 Not Available [facility] (Lab) [address], [place], [address], 05/20/2025 10:56:36 05/19/20 25 05/19/2025 CBC W/DIF F MCV 85.1 fL 80.0-9 9.0 Not Available [facility] (Lab) [address], [place], [address], 05/20/2025 10:56:36 05/19/20 25 05/19/2025 CBC W/DIF F MCH 27.8 pg 27.0-3 4.0 Not Available [facility] (Lab) [address], [place], [address], 05/20/2025 10:56:36 05/19/20 25 05/19/2025 CBC W/DIF F MCHC 32.7 g/dL 32.0-3 5.5 Not Available [facility] (Lab) [address], [place], [address], 05/20/2025 10:56:36 05/19/20 25 05/19/2025 CBC W/DIF F RDW 13.2 % 11.0-1 5.0 Not Available [facility] (Lab) [address], [place], [address], 05/20/2025 10:56:36 05/19/20 25 05/19/2025 CBC W/DIF F plt 301 10'3/ uL 150-40 0 Not Available [facility] (Lab) [address], [place], [address], 05/20/2025 10:56:36 05/19/20 25 05/19/2025 CBC W/DIF F MPV 11.9 fL 8.8-12 .1 Not Available [facility] (Lab) [address], [place], [address], 05/20/2025 10:56:36 05/19/20 25 05/19/2025 CBC W/DIF F NRBC's 0.0 % 0.0 Not Available [facility] (Lab) [address] [facility], [place], [address], 05/20/2025 10:56:36 05/19/20 25 05/19/2025 CBC W/DIF F absolute NRBCs 0.0 10'3/ uL no refere nce range establ ished Not Available [facility] (Lab) [address] [facility], [place], [address], 05/20/2025 10:56:36 05/19/20 25 05/19/2025 CBC W/DIF F neutrophils 71.0 % 34.0-7 3.0 Not Available [facility] (Lab) [address] [facility], [place], [address], 05/20/2025 10:56:36 05/19/20 25 05/19/2025 CBC W/DIF F lymphocytes 22.5 % 15.0-5 0.0 Not Available [facility] (Lab) [address] [facility], [place], [address], 05/20/2025 10:56:36 05/19/20 25 05/19/2025 CBC W/DIF F monocytes 5.3 % 1.0-15 .0 Not Available [facility] (Lab) [address] [facility], [place], [address], 05/20/2025 10:56:36 05/19/20 25 05/19/2025 CBC W/DIF F eosinophils 0.6 % 0.0-8. 0 Not Available [facility] (Lab) [address] [facility], [place], [address], 05/20/2025 10:56:36 05/19/20 25 05/19/2025 CBC W/DIF F basophils 0.3 % 0.0-2. 0 Not Available [facility] (Lab) [address] [facility], [place], [address], 05/20/2025 10:56:36 05/19/20 25 05/19/2025 CBC W/DIF [...] separ ately if prese nt. Not Available [facility] (Lab) [address] [facility], [place], [address], 05/20/2025 10:56:36 05/19/20 25 05/19/2025 CBC W/DIF F absolute neutrophils 6.8 10'3/ uL 1.5-8. 0 Not Available [facility] (Lab) [address] [facility], [place], [address], 05/20/2025 10:56:36 05/19/20 25 05/19/2025 CBC W/DIF F absolute lymphocytes 2.2 10'3/ uL 1.0-4. 0 Not Available [facility] (Lab) [address] [facility], [place], [address], 05/20/2025 10:56:36 05/19/20 25 05/19/2025 CBC W/DIF F absolute monocytes 0.5 10'3/ uL 0.2-1. 0 Not Available [facility] (Lab) [address] [facility], [place], [address], 05/20/2025 10:56:36 05/19/20 25 05/19/2025 CBC W/DIF F absolute eosinophils 0.1 10'3/ uL 0.0-0. 6 Not Available [facility] (Lab) [address] [facility], [place], [address], 05/20/2025 10:56:36 05/19/20 25 05/19/2025 CBC W/DIF F absolute basophils 0.0 10'3/ uL 0.0-0. 3 Not Available [facility] (Lab) [address], [place], [address], 05/20/2025 10:56:36 05/19/20 25 05/19/2025 CBC W/DIF [...] resendizand book. nm.or g/gen derx Not Available [facility] (Lab) [address], [place], [address], 05/20/2025 10:56:36 05/19/20 25 05/19/2025 HEPAT ITIS B SURFA CE ANTIG EN hepatitis B surface antigen Non-re active non-re active This assay was perfo rmed using [employer] ratio n reage nts and test kits. Value s obtai erica with other assay metho ds or kits canno t be used inter melton eably . Not Available [facility] (Lab) [address], [place], [address], 05/20/2025 10:56:37 05/19/2005/19/2025 HIV 1/2 ANTIG EN/AN TIBOD Y, REFLE X CONFI RMATI ON HIV antigen/anti body Nonrea ctive nonrea ctive HIV-1 antig en and HIV-1 /HIV- 2 antib odies were not detec tashi. No labor atory evide nce of HIV infec tion. Not Available [facility] (Lab) [address], [place], [address], 05/20/2025 10:56:37 05/19/20 25 05/19/2025 HEPAT ITIS C ANTIB NEPTALI SCREE N, REFLE X TO CONFI RMATI ON hepatitis C antibody Non-re active non-re active Antib odies to HCV Not Detec tashi, does not exclu de the possi bilit y of expos ure to HCV. Not Available [facility] (Lab) [address] [facility], [place], [address], 05/20/2025 10:56:38 05/19/20 25 05/19/2025 VITAM IN D, 25-OH (TOTA L D2/D3 ) vitamin D, 25-hydroxy, total 59.5 NG/mL 30.0-1 00.0 Sugge stive of Defic iency : <20 ng/mL Sugge stive of Insuf ficie ncy: 20-29 ng/mL Sugge stive of Suffi cienc y: 30-10 0 ng/mL Sugge stive of Toxic ity: >150 ng/mL Not Available [facility] (Lab) [address] [facility], [place], [address], 05/20/2025 10:56:38 05/19/20 25 05/19/2025 TYPE/ RH/SC REEN ABO/Rh type O POS Not Available [facility] (Lab) [address] [facility], [place], [address], 05/20/2025 10:56:39 05/19/20 25 05/19/2025 TYPE/ RH/SC REEN antibody screen NEG Not Available [facility] (Lab) [address] [facility], [place], [address], 05/20/2025 10:56:39 05/19/20 25 05/19/2025 TYPE/ RH/SC REEN exp date 2024 23:59 Not Available [facility] (Lab) [address] [facility], [place], [address], 05/20/2025 10:56:39 05/19/20 25 05/19/2025 RUBEL LA IGG ANTIB NEPTALI, QUANT rubella antibodies, IgG Reacti ve reacti ve Not Available [facility] (Lab) [address] [facility], [place], [address], 05/20/2025 10:56:39 05/19/20 25 05/19/2025 RUBEL LA IGG ANTIB NEPTALI, QUANT rubella antibodies, IgG quant 13.6 IU/mL >=10 Non-r eacti ve (Non- Immun e) <10 IU/mL React dwight (Immu ne) > or = 10 IU/mL Not Available [facility] (Lab) [address] [facility], [place], [address], 05/20/2025 10:56:39 05/19/20 25 05/19/2025 HEMOG LOBIN [...] >8.0% Actio n sugge sted Not Available [facility] (Lab) [address] [facility], [place], [address], 05/20/2025 10:56:40 05/19/20 25 05/19/2025 RPR SCREE N, REFLE X TITER /CONF IRMAT ION RPR qualitative Nonrea ctive nonrea ctive Not Available [facility] (Lab) [address] [facility], [place], [address], 05/20/2025 10:56:41 05/19/20 25 05/19/2025 CULTU RE: URINE result report SEE RESULT S BELOW Test: Cultu re: Urine Speci men Sourc e: Urine Voide d Speci men Type: Urine Speci men Date: 7/2/2 025 1413 Resul t Date: 2142 Resul t Statu s: Final resul t Abnor mal: No Resul ting Lab: [facility] [address] [facility] [address] Tel: CULTU RE ----- ----- ----- --- No growt h in 1 day (dete ction level of 10,00 0 colon ies / ml.) Not Available [facility] (Lab) [address] [facility], [place], [address], 05/20/2025 22:47:16 05/19/20 25 05/19/2025 IMAGE GUIDE [...] elial Lesimani morocho or Jose Antonio ribeiro ([facility]) . Elect sapphire becker d by Joseph [...] clini l[facility] nted. Not Available [facility] (Lab) [address], [place], [address], 05/24/2025 18:43:29 05/19/20 25 05/19/2025 CT/GC (CAT) , THINP REP VIAL chlamydia trachomatis, PCR Negati ve negati ve Not Available [facility] (Lab) [address], [place], [address], 05/24/2025 18:43:30 05/19/20 25 05/19/2025 CT/GC (CAT) , THINP REP VIAL neisseria gonorrhoeae, PCR Negati ve negati ve Not Available [facility] (Lab) [address], [place], [address], 05/24/2025 18:43:30 05/19/20 25 05/19/2025 drug scree n, urine Cannabinoids : positi ve Not Available [place] [address], [place], [address], 05/19/2025 13:35:34 05/19/20 25 05/19/2025 drug scree n, urine Other: positi ve Not Available [place] [address], [place], [address], 05/19/2025 13:35:34 09/10/20 25 09/10/2025 HEMAT OCRIT (HCT) HCT 39.4 % (based on docume nted legal sex) 34.0-4 5.0 Not Available [facility] (Lab) [address] [place], [address], 09/11/2025 12:57:34 09/10/20 25 09/10/2025 HEMOG LOBIN (HGB) HGB 12.7 g/dL (based on docume nted legal sex) 11.6-1 5.4 Not Available [facility] (Lab) [address] [place], [address], 09/11/2025 12:57:34 09/10/20 25 09/10/2025 CMP/C BC/UR IC ACID WBC 10.8 10'3/ uL 3.5-10 .5 high Not Available [facility] (Lab) [address], [place], [address], 09/11/2025 12:57:34 09/10/20 25 09/10/2025 CMP/C BC/UR IC ACID RBC 4.59 10'6/ uL (based on docume nted legal sex) 3.80-5 .20 Not Available [facility] (Lab) [address] [facility], [place], [address], 09/11/2025 12:57:34 09/10/2009/10/2025 CMP/C BC/UR IC ACID HGB 12.7 g/dL (based on docume nted legal sex) 11.6-1 5.4 Not Available [facility] (Lab) [address] [facility], [place], [address], 09/11/2025 12:57:34 09/10/2009/10/2025 CMP/C BC/UR IC ACID HCT 39.4 % (based on docume nted legal sex) 34.0-4 5.0 Not Available [facility] (Lab) [address] [facility], [place], [address], 09/11/2025 12:57:34 09/10/2009/10/2025 CMP/C BC/UR IC ACID MCV 85.8 fL 80.0-9 9.0 Not Available [facility] (Lab) [address] [facility], [place], [address], 09/11/2025 12:57:34 09/10/2009/10/2025 CMP/C BC/UR IC ACID MCH 27.7 pg 27.0-3 4.0 Not Available [facility] (Lab) [address] [place], [address], 09/11/2025 12:57:34 09/10/2009/10/2025 CMP/C BC/UR IC ACID MCHC 32.2 g/dL 32.0-3 5.5 Not Available [facility] (Lab) [address] [place], [address], 09/11/2025 12:57:34 09/10/2009/10/2025 CMP/C BC/UR IC ACID RDW 12.7 % 11.0-1 5.0 Not Available [facility] (Lab) [address] [facility], [place], [address], 09/11/2025 12:57:34 09/10/2009/10/2025 CMP/C BC/UR IC ACID plt 252 10'3/ uL 150-40 0 Not Available [facility] (Lab) [address] [facility], [place], [address], 09/11/2025 12:57:34 09/10/2009/10/2025 CMP/C BC/UR IC ACID MPV 11.7 fL 8.8-12 .1 Not Available [facility] (Lab) [address] [facility], [place], [address], 09/11/2025 12:57:34 09/10/2009/10/2025 CMP/C BC/UR IC ACID NRBC's 0.0 % 0.0 Not Available [facility] (Lab) [address] [facility], [place], [address], 09/11/2025 12:57:34 09/10/2009/10/2025 CMP/C BC/UR IC ACID absolute NRBCs 0.0 10'3/ uL no refere nce range establ ished Not Available [facility] (Lab) [address] [facility], [place], [address], 09/11/2025 12:57:34 09/10/2009/10/2025 CMP/C BC/UR IC ACID neutrophils 74.4 % 34.0-7 3.0 high Not Available [facility] (Lab) [address] [place], [address], 09/11/2025 12:57:34 09/10/2009/10/2025 CMP/C BC/UR IC ACID lymphocytes 18.6 % 15.0-5 0.0 Not Available [facility] (Lab) [address] [place], [address], 09/11/2025 12:57:34 09/10/2009/10/2025 CMP/C BC/UR IC ACID monocytes 5.9 % 1.0-15 .0 Not Available [facility] (Lab) [address] [facility], [place], [address], 09/11/2025 12:57:34 09/10/2009/10/2025 CMP/C BC/UR IC ACID eosinophils 0.5 % 0.0-8. 0 Not Available [facility] (Lab) [address] [facility], [place], [address], 09/11/2025 12:57:34 09/10/2009/10/2025 CMP/C BC/UR IC ACID basophils 0.1 % 0.0-2. 0 Not Available [facility] (Lab) [address] [facility], [place], [address], 09/11/2025 12:57:34 09/10/20 25 09/10/2025 CMP/C BC/UR [...] separ ately if prese nt. Not Available [facility] (Lab) [address] [facility], [place], [address], 09/11/2025 12:57:34 09/10/2009/10/2025 CMP/C BC/UR IC ACID absolute neutrophils 8.1 10'3/ uL 1.5-8. 0 high Not Available [facility] (Lab) [address] [facility], [place], [address], 09/11/2025 12:57:34 09/10/20 25 09/10/2025 CMP/C BC/UR IC ACID absolute lymphocytes 2.0 10'3/ uL 1.0-4. 0 Not Available [facility] (Lab) [address] [facility], [place], [address], 09/11/2025 12:57:34 09/10/2009/10/2025 CMP/C BC/UR IC ACID absolute monocytes 0.6 10'3/ uL 0.2-1. 0 Not Available [facility] (Lab) [address] [facility], [place], [address], 09/11/2025 12:57:34 09/10/20 25 09/10/2025 CMP/C BC/UR IC ACID absolute eosinophils 0.1 10'3/ uL 0.0-0. 6 Not Available [facility] (Lab) [address] [facility], [place], [address], 09/11/2025 12:57:34 09/10/2009/10/2025 CMP/C BC/UR IC ACID absolute basophils 0.0 10'3/ uL 0.0-0. 3 Not Available [facility] (Lab) [address] [facility], [place], [address], 09/11/2025 12:57:34 09/10/2009/10/2025 CMP/C BC/UR IC ACID [...] dennis book. nm.or g/gen derx Not Available [facility] (Lab) [address] [facility], [place], [address], 09/11/2025 12:57:34 09/10/20 25 09/10/2025 CMP/C BC/UR IC ACID uric acid 3.0 mg/dL 2.3-6. 6 Not Available [facility] (Lab) [address] [facility], [place], [address], 09/11/2025 12:57:34 09/10/2009/10/2025 CMP/C BC/UR IC ACID sodium 136 mmol/ L 133-14 6 Not Available [facility] (Lab) [address] [facility], [place], [address], 09/11/2025 12:57:34 09/10/2009/10/2025 CMP/C BC/UR IC ACID potassium 3.9 mmol/ L 3.5-5. 1 Not Available [facility] (Lab) [address] [facility], [place], [address], 09/11/2025 12:57:34 09/10/2009/10/2025 CMP/C BC/UR IC ACID chloride 102 mmol/ L 98-107 Not Available [facility] (Lab) [address] [place], [address], 09/11/2025 12:57:34 09/10/2009/10/2025 CMP/C BC/UR IC ACID carbon dioxide 26 mmol/ L 21-31 Not Available [facility] (Lab) [address] [facility], [place], [address], 09/11/2025 12:57:34 09/10/20 25 09/10/2025 CMP/C BC/UR IC ACID anion gap 8 mmol/ L 4-13 Not Available [facility] (Lab) [address] [place], [address], 09/11/2025 12:57:34 09/10/2009/10/2025 CMP/C BC/UR IC ACID blood urea nitrogen 5 mg/dL 7-25 low Not Available [facility] (Lab) [address] [place], [address], 09/11/2025 12:57:34 09/10/20 25 09/10/2025 CMP/C BC/UR IC ACID creatinine 0.55 mg/dL 0.60-1 .30 low Not Available [facility] (Lab) [address] [facility], [place], [address], 09/11/2025 12:57:34 09/10/2009/10/2025 CMP/C BC/UR IC ACID egfrcr (CKD-epi 2020) >90 mL/mi n/1.7 3_m2 >=60 Not Available [facility] (Lab) [address] [facility], [place], [address], 09/11/2025 12:57:34 09/10/2009/10/2025 CMP/C BC/UR IC ACID calcium 8.8 mg/dL 8.3-10 .5 Not Available [facility] (Lab) [address] [facility], [place], [address], 09/11/2025 12:57:34 09/10/2009/10/2025 CMP/C BC/UR IC ACID glucose 113 mg/dL 70-100 high Not Available [facility] (Lab) [address] [facility], [place], [address], 09/11/2025 12:57:34 09/10/2009/10/2025 CMP/C BC/UR IC ACID protein, total 6.1 g/dL 6.4-8. 3 low Not Available [facility] (Lab) [address] [place], [address], 09/11/2025 12:57:34 09/10/2009/10/2025 CMP/C BC/UR IC ACID albumin 3.6 g/dL 3.5-5. 0 Not Available [facility] (Lab) [address] [place], [address], 09/11/2025 12:57:34 09/10/2009/10/2025 CMP/C BC/UR IC ACID ALT 17 units /L 9-43 Not Available [facility] (Lab) [address] [place], [address], 09/11/2025 12:57:34 09/10/2009/10/2025 CMP/C BC/UR IC ACID alkaline phosphatase 61 units /L 34-104 Not Available [facility] (Lab) [address] [facility], [place], [address], 09/11/2025 12:57:34 09/10/2009/10/2025 CMP/C BC/UR IC ACID AST 15 units /L 13-39 Not Available [facility] (Lab) [address] [facility], [place], [address], 09/11/2025 12:57:34 09/10/2009/10/2025 CMP/C BC/UR IC ACID bilirubin, total 0.3 mg/dL 0.2-1. 2 Not Available [facility] (Lab) [address] [place], [address], 09/11/2025 12:57:34 09/10/20 25 09/10/2025 GTT - GESTA JANELL L TRISHA Morocho, ACOG OB glucose, 1 hour screen 107 mg/dL 70-135 Not Available [facility] (Lab) [address] [place], [address], 09/11/2025 12:57:35 09/10/2009/10/2025 HIV 1/2 ANTIG EN/AN TIBOD Y, REFLE X CONFI RMATI ON HIV antigen/anti body Nonrea ctive nonrea ctive HIV-1 antig en and HIV-1 /HIV- 2 antib odies were not detec tashi. No labor atory evide nce of HIV infec tion. Not Available [facility] (Lab) [address] [place], [address], 09/11/2025 12:57:35 09/10/2009/10/2025 RPR SCREE N, REFLE X TITER /CONF IRMAT ION RPR qualitative Nonrea ctive nonrea ctive Not Available [facility] (Lab) [address] [facility] [place], [address], 09/11/2025 12:57:35 09/24/2009/24/2025 CULTU RE: URINE result report SEE RESULT S BELOW Test: Cultu re: Urine Speci men Sourc e: Urine - Clean Catch Speci men Type: Urine Speci men Date: 2024 1332 Resul t Date: 2024 1203 Resul t Statu s: Final resul t Abnor mal: No Resul ting Lab: [facility] [address] [facility] [address] Tel: CULTU RE ----- ----- ----- --- Cultu re resul t (>=3 organ isms prese nt) indic ates possi ble conta minat ion. Repea t cultu re if sympt oms indic ate. Not Available [facility] (Lab) [address] , [place], [address], 09/26/2025 13:06:06 09/24/20 25 09/24/2025 urina lysis , dipst ick Leukocytes ++ Not Available [facility] [address], [place], [address], 09/24/2025 13:05:12 09/24/20 25 09/24/2025 urina lysis , dipst ick Protein + Not Available [place] [address], [place], [address], 09/24/2025 13:05:12 09/24/20 25 09/24/2025 urina lysis , dipst ick pH 5 Not Available [place] [address], [place], [address], 09/24/2025 13:05:12 09/24/20 25 09/24/2025 urina lysis , dipst ick Blood +++ Not Available [place] [address], [place], [address], 09/24/2025 13:05:12 09/24/20 25 09/24/2025 urina lysis , dipst ick Specific [place] 1.015 Not Available [facility] [address], [place], [address], 09/24/2025 13:05:12 09/24/20 25 09/24/2025 urina lysis , dipst ick Appearance cloudy Not Available [facility] [address], [place], [address], 09/24/2025 13:05:12 09/24/20 25 09/24/2025 urina lysis , dipst ick Color yellow Not Available [place] [address], [place], [address], 09/24/2025 13:05:12 10/08/20 25 10/08/2025 CBC W/DIF F WBC 12.3 10'3/ uL 3.5-10 .5 high Not Available [facility] [facility] [address] [place], [address], 10/10/2025 00:09:54 10/08/20 25 10/08/2025 CBC W/DIF F RBC 4.69 10'6/ uL (based on docume nted legal sex) 3.80-5 .20 Not Available [facility] (Lab) [address] , [place], [address], 10/10/2025 00:09:54 10/08/20 25 10/08/2025 CBC W/DIF F HGB 12.7 g/dL (based on docume nted legal sex) 11.6-1 5.4 Not Available [facility] (Lab) [address], [address], 10/10/2025 00:09:54 10/08/20 25 10/08/2025 CBC W/DIF F HCT 39.8 % (based on docume nted legal sex) 34.0-4 5.0 Not Available [facility] (Lab) [address], [place], [address], 10/10/2025 00:09:54 10/08/20 25 10/08/2025 CBC W/DIF F MCV 84.9 fL 80.0-9 9.0 Not Available [facility] (Lab) [address], [place], [address], 10/10/2025 00:09:54 10/08/20 25 10/08/2025 CBC W/DIF F MCH 27.1 pg 27.0-3 4.0 Not Available [facility] (Lab) [address], [place], [address], 10/10/2025 00:09:54 10/08/20 25 10/08/2025 CBC W/DIF F MCHC 31.9 g/dL 32.0-3 5.5 low Not Available [facility] (Lab) [address], [place], [address], 10/10/2025 00:09:54 10/08/20 25 10/08/2025 CBC W/DIF F RDW 13.2 % 11.0-1 5.0 Not Available [facility] (Lab) [address], [place], [address], 10/10/2025 00:09:54 10/08/20 25 10/08/2025 CBC W/DIF F plt 239 10'3/ uL 150-40 0 Not Available [facility] (Lab) [address], [place], [address], 10/10/2025 00:09:54 10/08/20 25 10/08/2025 CBC W/DIF F MPV 11.9 fL 8.8-12 .1 Not Available [facility] (Lab) [address], [place], [address], 10/10/2025 00:09:54 10/08/20 25 10/08/2025 CBC W/DIF F NRBC's 0.0 % 0.0 Not Available [facility] (Lab) [address], [place], [address], 10/10/2025 00:09:54 10/08/20 25 10/08/2025 CBC W/DIF F absolute NRBCs 0.0 10'3/ uL no refere nce range establ ished Not Available [facility] (Lab) [address], [place], [address], 10/10/2025 00:09:54 10/08/20 25 10/08/2025 CBC W/DIF F neutrophils 70.7 % 34.0-7 3.0 Not Available [facility] (Lab) [address], [place], [address], 10/10/2025 00:09:54 10/08/20 25 10/08/2025 CBC W/DIF F lymphocytes 22.0 % 15.0-5 0.0 Not Available [facility] (Lab) [address] [facility], [place], [address], 10/10/2025 00:09:54 10/08/20 25 10/08/2025 CBC W/DIF F monocytes 6.1 % 1.0-15 .0 Not Available [facility] (Lab) [address], [place], [address], 10/10/2025 00:09:54 10/08/20 25 10/08/2025 CBC W/DIF F eosinophils 0.5 % 0.0-8. 0 Not Available [facility] (Lab) [address], [place], [address], 10/10/2025 00:09:54 10/08/20 25 10/08/2025 CBC W/DIF F basophils 0.2 % 0.0-2. 0 Not Available [facility] (Lab) [address], [address], 10/10/2025 00:09:54 10/08/20 25 10/08/2025 CBC W/DIF [...] separ ately if prese nt. Not Available [facility] (Lab) [address] , [place], [address], 10/10/2025 00:09:54 10/08/20 25 10/08/2025 CBC W/DIF F absolute neutrophils 8.7 10'3/ uL 1.5-8. 0 high Not Available [facility] (Lab) [address], [place], [address], 10/10/2025 00:09:54 10/08/20 25 10/08/2025 CBC W/DIF F absolute lymphocytes 2.7 10'3/ uL 1.0-4. 0 Not Available [facility] (Lab) [address] , [place], [address], 10/10/2025 00:09:54 10/08/20 25 10/08/2025 CBC W/DIF F absolute monocytes 0.8 10'3/ uL 0.2-1. 0 Not Available [facility] (Lab) [address] , [place], [address], 10/10/2025 00:09:54 10/08/20 25 10/08/2025 CBC W/DIF F absolute eosinophils 0.1 10'3/ uL 0.0-0. 6 Not Available [facility] (Lab) [address], [place], [address], 10/10/2025 00:09:54 10/08/20 25 10/08/2025 CBC W/DIF F absolute basophils 0.0 10'3/ uL 0.0-0. 3 Not Available [facility] (Lab) [address] [facility], [place], [address], 10/10/2025 00:09:54 10/08/20 25 10/08/2025 CBC W/DIF [...] dennis book. nm.or g/gen derx Not Available [facility] (Lab) [address] [facility], [place], [address], 10/10/2025 00:09:54 10/08/20 25 10/08/2025 PROTE IN/CR EATIN INE RATIO , URINE creatinine, urine 34.6 mg/dL R-No refer ence range estab lishe d for this assay Not Available [facility] (Lab) [address] [facility], [place], [address], 10/10/2025 00:09:55 10/08/20 25 10/08/2025 PROTE IN/CR EATIN INE RATIO , URINE protein, urine <4 mg/dL R-No refer ence range estab lishe d for this assay Not Available [facility] (Lab) [address] [place], [address], 10/10/2025 00:09:55 10/08/20 25 10/08/2025 PROTE IN/CR [...] fican t jos gamble a. Not Available [facility] (Lab) [address] [facility], [place], [address], 10/10/2025 00:09:55 10/08/20 25 10/08/2025 URIC ACID uric acid 3.5 mg/dL 2.3-6. 6 Not Available [facility] (Lab) [address] [place], [address], 10/10/2025 00:09:55 10/08/20 25 10/08/2025 CMP(C OMPRE HENSI VE METAB OLIC PANEL ) sodium 135 mmol/ L 133-14 6 Not Available [facility] (Lab) [address] [place], [address], 10/10/2025 00:09:56 10/08/20 25 10/08/2025 CMP(C OMPRE HENSI VE METAB OLIC PANEL ) potassium 3.8 mmol/ L 3.5-5. 1 Not Available [facility] (Lab) [address] [place], [address], 10/10/2025 00:09:56 10/08/20 25 10/08/2025 CMP(C OMPRE HENSI VE METAB OLIC PANEL ) chloride 102 mmol/ L 98-107 Not Available [facility] (Lab) [address] [place], [address], 10/10/2025 00:09:56 10/08/20 25 10/08/2025 CMP(C OMPRE HENSI VE METAB OLIC PANEL ) carbon dioxide 22 mmol/ L 21-31 Not Available [facility] (Lab) [address] [place], [address], 10/10/2025 00:09:56 10/08/20 25 10/08/2025 CMP(C OMPRE HENSI VE METAB OLIC PANEL ) anion gap 11 mmol/ L 4-13 Not Available [facility] (Lab) [address] [place], [address], 10/10/2025 00:09:56 10/08/20 25 10/08/2025 CMP(C OMPRE HENSI VE METAB OLIC PANEL ) blood urea nitrogen 5 mg/dL 7-25 low Not Available [facility] (Lab) [address] [facility], [place], [address], 10/10/2025 00:09:56 10/08/20 25 10/08/2025 CMP(C OMPRE HENSI VE METAB OLIC PANEL ) creatinine 0.53 mg/dL 0.60-1 .30 low Not Available [facility] (Lab) [address] [facility], [place], [address], 10/10/2025 00:09:56 10/08/20 25 10/08/2025 CMP(C OMPRE HENSI VE METAB OLIC PANEL ) egfrcr (CKD-epi 2020) >90 mL/mi n/1.7 3_m2 >=60 Not Available [facility] (Lab) [address] [facility], [place], [address], 10/10/2025 00:09:56 10/08/20 25 10/08/2025 CMP(C OMPRE HENSI VE METAB OLIC PANEL ) calcium 8.6 mg/dL 8.3-10 .5 Not Available [facility] (Lab) [address] [place], [address], 10/10/2025 00:09:56 10/08/20 25 10/08/2025 CMP(C OMPRE HENSI VE METAB OLIC PANEL ) glucose 92 mg/dL 70-100 Not Available [facility] (Lab) [address] [place], [address], 10/10/2025 00:09:56 10/08/20 25 10/08/2025 CMP(C OMPRE HENSI VE METAB OLIC PANEL ) protein, total 5.9 g/dL 6.4-8. 3 low Not Available [facility] (Lab) [address] [place], [address], 10/10/2025 00:09:56 10/08/20 25 10/08/2025 CMP(C OMPRE HENSI VE METAB OLIC PANEL ) albumin 3.5 g/dL 3.5-5. 0 Not Available [facility] (Lab) [address] [facility], [place], [address], 10/10/2025 00:09:56 10/08/20 25 10/08/2025 CMP(C OMPRE HENSI VE METAB OLIC PANEL ) ALT 17 units /L 9-43 Not Available [facility] (Lab) [address] [facility], [place], [address], 10/10/2025 00:09:56 10/08/20 25 10/08/2025 CMP(C OMPRE HENSI VE METAB OLIC PANEL ) alkaline phosphatase 81 units /L 34-104 Not Available [facility] (Lab) [address] [facility], [place], [address], 10/10/2025 00:09:56 10/08/20 25 10/08/2025 CMP(C OMPRE HENSI VE METAB OLIC PANEL ) AST 16 units /L 13-39 Not Available [facility] (Lab) [address] [facility], [place], [address], 10/10/2025 00:09:56 10/08/20 25 10/08/2025 CMP(C OMPRE HENSI VE METAB OLIC PANEL ) bilirubin, total 0.5 mg/dL 0.2-1. 2 Not Available [facility] (Lab) [address] [facility], [place], [address], 10/10/2025 00:09:56 10/08/20 25 10/08/2025 CULTU RE: URINE result report SEE RESULT S BELOW Test: Cultu re: Urine Speci men Sourc e: Urine - Clean Catch Speci men Type: Urine Speci men Date: 10/08 1152 Resul t Date: 10/09 2305 Resul t Statu s: Final resul t Abnor mal: No Resul ting Lab: [facility] [address] [facility] [address] Tel: CULTU RE ----- ----- ----- --- No growt h in 1 day (dete ction level of 10,00 0 colon ies / ml.) Not Available [facility] (Lab) [address] [facility], [place], [address], 10/10/2025 00:09:56 07/14/2007/14/2025 US, obste tric, 2nd or 3rd trime ster No observ ation record ed. [email or web address], [place], [address], 07/14/2025 11:48:13 07/14/20 25 07/14/2025 US, obste tric, follo w-up No observ ation record ed. [address], [place], [address], 07/14/2025 16:09:19 08/11/20 25 08/11/2025 US, obste tric, follo w-up No observ ation record ed. [facility] [address], [place], [address], 08/11/2025 18:35:48 08/11/20 25 08/11/2025 , obste tric, follo w-up No observ ation record ed. [email or web address] [address], [place], [address], 08/13/2025 07:06:41 09/10/20 25 09/10/2025 , obste tric, follo w-up No observ ation record ed. [facility] [address], [place], [address], 09/10/2025 14:42:43 10/24/09/10/2025 US, obste tric, follo w-up No observ ation record ed. [email or web address] [address], [place], [address], 09/14/2025 14:46:19 10/08/20 25 10/08/2025 US, obste tric, follo w-up No observ ation record ed. [email or web address] [address], [place], [address], 10/11/2025 11:55:36 10/08/20 25 10/08/2025 non-s tress test No observ ation record ed. [place] [address], [place], [address], 10/08/2025 13:48:06 10/08/20 non-s tress test No observ ation record ed. [email or web address] [place] [address], [place], [address], 10/08/2025 12:32:22 10/08/2010/08/2025 US, obste tric, follo w-up No observ ation record ed. [facility] [address], [place], [address], 10/08/2025 16:57:13 10/08/20 25 10/08/2025 , dominic tric, bioph ysica l profi le + non-s tress test No observ ation record ed. [facility] [address], [place], [address], 10/08/2025 16:57:23 10/13/20 25 10/13/2025 US, dominic tric, bioph ysica l profi le + non-s tress test No observ ation record ed. [email or web address] [place] [address], [place], [address], 10/13/2025 11:51:09 10/13/20 25 10/13/2025 US, obste tric, bioph ysica l profi le + non-s tress test No observ ation record ed. [email or web address] [address], [place], [address], 10/20/2025 11:47:34 10/13/20 25 10/13/2025 non-s tress test No observ ation record ed. [email or web address] [place] [address] [address], [place], [address], 10/13/2025 17:57:16 10/13/20 non-s tress test No observ ation record ed. [address], [place], [address], 10/13/2025 17:34:36 10/22/20 25 10/22/2025 US, obste tric, bioph ysica l profi le No observ ation record ed. [email or web address] [address], [place], [address], 10/29/2025 11:35:15 10/22/20 25 10/22/2025 US, obste tric, bioph ysica l profi le + non-s tress test No observ ation record ed. [facility] [address], [place], [address], 10/22/2025 13:51:55 10/22/2010/22/2025 non-s tress test No observ ation record ed. [address], [place], [address], 10/27/2025 18:38:42 10/22/20 non-s tress test No observ ation record ed. [address], [place], [address], 10/22/2025 12:42:25 10/29/20 25 10/29/2025 US, obste tric, follo w-up No observ ation record ed. [email or web address] [address], [place], [address], 10/30/2025 01:33:53 10/29/20 25 10/29/2025 US, obste tric, follo w-up No observ ation record ed. [facility] [address], [place], [address], 10/29/2025 17:16:32 10/29/20 25 10/29/2025 US, obste tric, bioph ysica l profi le + non-s tress test No observ ation record ed. [facility] [address], [place], [address], 10/29/2025 17:16:42 Result Notes None recorded. Problems Name Problem SNOMED Code Status Onset Date Resolution Date Notes Provider Name and Address Organization Details Recorded Time 26095771 Active [address] [facility] 10:53:18 Hypertens dwight disorder 64649490 Active 2024 labetalol 200mg bid bASA daily serial growth us , weekly testing @ 32wks 10/08/25 300mg bid rpt labs Alysia Santos CNM [address], [place], [address], [facility] 5 12:52:39 Mixed anxiety and depressiv e disorder 110073903 Active 2024 buspirone 10mg lexapro 20 mg daily Alysia Santos CNM [address], [place], [address], [facility] 5 12:01:06 Past history of gestation al hypertens ion 550905368 Active 2024 vs preeclamp deirdre delivered at 37 weeks Alysia Santos CNM [address], [place], [address], [facility] 5 12:01:27 Marijuana user 238210271 Active 2024 Pt decreased . Continued use is causing family issues and pt is experienc ing increased anxiety and depressio n symptoms. Nina Olivares er null, [facility] 5 16:48:10 Marijuana user 513799851 Active 2024 Pt decreased . Continued use is causing family issues and pt is experienc ing increased anxiety and depressio n symptoms. Nina Olivares er null, [facility] 5 16:48:11 Problem Notes None recorded. Procedures Surgical History Date Name Laterality Status Provider Name and Address Organization Details Recorded Time 11/18/2021 Date of Last Pap Smear completed Kim Monson [facility] 08/11/2025 14:32:13 Imaging Results None recorded. Procedure Notes None recorded. Medical Equipment None Reported. Allergies Allergen ID Allergen Name Allergen Category Reaction Reaction Severity Criticality Documentation Date Start Date Code Code System Note Provider Name and Address Organization Details Recorded Time 84399 amoxicill in medicatio n hives Not available Not available 10/08/20252016 723 RxNorm Not Available [employer] [facility] 5 03:06:32 75145 clindamyc in Not available hives Not available Not available 10/08/20252018 2582 RxNorm Not Available [facility] - prod 5 03:06:32 Medications [...] Address Organization Details Last Updated DateTime 10/13/2025 36296.29430 g 119/80 mm[Hg] Cami Merida [facility] 10/13/2025 17:32:53 Date Recorded Body height Body mass index (BMI) Body weight Systolic And Diastolic Provider Name and Address Organization Details Last Updated DateTime 10/13/2025 162.56 cm 32.4 kg/m2 20133.96 g 119/80 mm[Hg] LOREN DENNIS [facility] 10/13/2025 11:35:50 Social History Question Answer Notes LastModified by Organizat ion Details LastModified Time Do You Have An Advance Directive? No Information n ot available 04/22/2025 How Many Years Have You Consumed Alcohol? 8 [email or web address] Information not available 08/11/2025 Are You Blind [...] Or The Highest Degree You Have Received? [id number] Information not available 04/22/2025 Are There Any Guns Present In Your Home? Yes Information not available 04/22/2025 Have You Ever Been Counseled For Unhealthy Alcohol Use? No [email or web address] Information not available 06/16/2025 Do You Use Protection During Sex? No Information not available 04/22/2025 Do You Use Your Seat Belt Or Car Seat Routinely? Yes Information not available 04/22/2025 Are You Sexually Active? Yes [email or web address] Information not available 06/16/2025 Do You Have Smoke And Carbon Monoxide Detectors In Your Home? Yes Information not available 04/22/2025 At What Age Did You Start Smoking Tobacco? 19 Information not available 04/22/2025 How Much Tobacco Do You Smoke? No Information not available 04/22/2025 Do You Use Sunscreen Routinely? No Information not available 04/22/2025 Has Tobacco Cessation Counseling Been Provided? No [email or web address] Information not available 06/16/2025 How Many Years Have You Smoked Tobacco? 4 [email or web address] Information not available 08/11/2025 Have You Used IV Drugs? No Information not available 04/22/2025 Do You Have Difficulty Walking Or Climbing Stairs? No [email or web address] Information not available 06/16/2025 Sex: Unknown Functional Status Question Answer Note LastModified by Organizat ion Details LastModified Time Do you use any illicit or recreational drugs? Yes Information not available 04/22/2025 Do you or have you ever used any other forms of tobacco or nicotine? No [email or web address] Information not available 06/16/2025 What is your level of alcohol consumption? Occasional [email or web address] Information not available 08/11/2025 Are you currently employed? Yes [email or web address] Information not available 06/16/2025 Are you able to walk independently without assistance or assistive devices? [email or web address] Information not available 04/22/2025 Are you able to care for yourself independently? 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 No [email or web address] Information not available 06/16/2025 What is your exercise level? Occasional Information not available 04/22/2025 Mental Status Question Answer Note LastModified by Organization D etails LastModified Time Do you feel stressed (tense, restless, nervous, or anxious, or unable to sleep at night)? [id number] Information not available 08/11/2025 Family History Relationship [...] ICD10 Code Diagnosis IMO Codes Diagnosis Note [id number] Alysia Santos [place] [address] [place] [address] 09/24/2025 11:20:09 09/24/2025 12:02:06 Gestation period, 30 weeks 18874028 Z3A.30 3904738 Acute urin shamir tract infection 114237740 N39.0 201920 [id number] Alysia Santos [facility] [address] [place] [address] 10/08/2025 11:01:42 10/08/2025 12:33:16 Chronic hypertension complicating AND/OR reason for care during 39142098 O10.919 44020097 [id number] Norris Jordan MD [place] [address] [place] [address] 10/08/2025 11:02:16 10/08/2025 13:23:40 Hypertension complicating 1739606018 9102 O16.3 Z3A.32 37882534 [id number] Alysia Santos [facility] [address] [place] [address] 10/08/2025 11:02:36 10/08/2025 12:56:56 -induced hypertension 36615582 O13.9 Hypertensive disorder 38 132760 I10 82152006 History of urinary tract infection 1331583470 107 Z87.187 4038972 912149 Norris Jordan MD [place] [address] [place] [address] 10/13/2025 10:48:37 10/13/2025 11:35:45 Essential hypertension complicating AND/OR reason for care during 42059900 O10.013 Z3A.33 9901596 [id number] Alysia Santos CNM [place] [address] [address] 10/13/2025 10:48:51 10/13/2025 17:36:59 Chronic hypertension complicating AND/OR reason for care during 81274480 O10.919 13535469 [id number] Alysia Santos CNM [place] [address] [address] 10/13/2025 10:49:32 10/13/2025 11:51:38 Gestation period, 33 weeks 74801485 Z3A.33 8852299 Health Concerns Section Related Observation LastModified by Organization Detai ls LastModified Time None Recorded Concern Status LastModified by Organization Details LastModified Time None Recorded Payers Encounter Date Sequence Insurance Name Policy Number Policy Sarah Covered Member ID Sarah Member ID Guarantor Name 10/13/2025 1 [place] [id number] Artem Dora [id number] Artem Dora Notes Date Note Type Note Provider Name and Address Organization Details Recorded Time 10/13/2025 text/html Generic HPI TemplateReported by Patient Alysia Santos CNM [address], [place], [address], [facility] 10/13/2025 11:51:18 OBGyn Episode Ob Episode Information Episode Created Date Number of Fetuses Patient Bloodtype Patient rh Status Prepregnancy Weight lbs Domestic Partner Domestic Partner Phone Father Name Marketing Proposal Coordinator Status 05/19/20 25 1 O Positive 173 OPEN Fetus Data First Name Last Name Admitted to NICU Weight (g) Sex Living Outcome Pediatric Complications Fetus ID Race Codes Race Delivery Type [id number] Problems Problem Notes Problem Name Start Date End Date Resolution Snomed Code Not e Hypertensive disorder 05/19/2025 1378038 3 labetalol 200mg bidbASA dailyserial growth us , weekly testing @ 42pmf70/ 300mg bid rpt labs Past history of gestational hypertension 05/19/2025 959098430 vs preeclampsia delivered at 37 weeks Marijuana user 08/18/2025 599084945 Pt d ecreased. Continued use is causing family issues and pt is experiencing increased anxiety and depression symptoms. Mixed anxiety and depressive disorder 05/19/2025 389316502 buspiron e 10mglexapro 20 mg daily Pablito [...] Date Ultra Sound Latest Days Gestation 0 [email or web address] 05/19/2025 11/27/19 26 0 Pre- Flowsheet Flowsheet Date 05/19/2025 Yoder Score Blood Edema Fundus Height Fundus Units Glucose Ketones Leukocytes Nitrite Labor Signs Protein Cervic Dilation Cervic Effacement Cervic Station Type Weight in lbs Pre/Post Dialysis Refused Weight 169.705664472397 BP Diastolic BP Location Tested BP Systolic [...] Weight in lbs Pre/Post Dialysis Refused Weight 173.211522591432 BP Diastolic BP Location Tested BP Systolic [...] Weight in lbs Pre/Post Dialysis Refused Weight 179.606547937801 BP Diastolic BP Location Tested BP Systolic [...] Weight in lbs Pre/Post Dialysis Refused Weight 188.358770939043 BP Diastolic BP Location Tested BP Systolic [...] Type Weight in lbs Pre/Post Dialysis Refused 189.576838265010 BP Diastolic BP Location Tested BP Systolic [...] Weight in lbs Pre/Post Dialysis Refused Weight 188.140065246738 BP Diastolic BP Location Tested BP Systolic [...] Weight in lbs Pre/Post Dialysis Refused Weight 190.614385789135 BP Diastolic BP Location Tested BP Systolic [...] Type Weight in lbs Pre/Post Dialysis Refused 191.986572891841 BP Diastolic BP Location Tested BP Systolic [...] Type Weight in lbs Pre/Post Dialysis Refused 189.503790237531 BP Diastolic BP Location Tested BP Systolic BP Type 80 L arm 119 sitting Fetus Heart Rate Present Fetus Movement A Yes Comments Flowsheet Date 10/13/2025 Yoder Score Blood Edema Fundus Height Fundus Units Glucose Ketones Leukocytes Nitrite Labor Signs Protein Cervic Dilation Cervic Effacement Cervic Station Type Weight in lbs Pre/Post Dialysis Refused Weight 189.405361350956 BP Diastolic BP Location Tested BP Systolic [...] Weight in lbs Pre/Post Dialysis Refused Weight 192.493316617512 BP Diastolic BP Location Tested BP Systolic BP Type 79 L arm 128 sitting Fetus Heart Rate Present Fetus Movement A Yes Comments Flowsheet Date 10/22/2025 Yoder Score Blood Edema Fundus Height Fundus Units Glucose Ketones Leukocytes Nitrite Labor Signs Protein Cervic Dilation Cervic Effacement Cervic Station Type Weight in lbs Pre/Post Dialysis Refused 192.893472207846 BP Diastolic BP Location Tested BP Systolic [...]
--- OUTSIDE RECORDS SUMMARY | 2025-11-01 06:21 | XMS_ITS | Encounter Summary ---
Author Organization [facility] Address [address] [place] [id number] Care Team Providers Care Solar Lab Technician Name Role Phone Mallorie Kitchen NP Primary Care Provider Encounter Details Date Type Department Care Team (Late st Contact Info) Description 01/23/2024 MyChart Message Enc [facility] Family Medicine - [place] [address] [place] [address] Mallorie [place] [address] OBGYN Social History Tobacco Use Types Packs/Day Years Used Date Smoking Tobacco: Former Cigarettes Smokeless Tobacco: Never Alcohol Use Standard Drinks/Week Comments Yes 0 (1 standard drink = 0.6 oz pur e alcohol) social PHQ-2 Answer Date Recorded Patient Health Questionnaire-2 Score 4 09/23/2023 Comments No Sex and Gender Information Value Date Recorded Sex Assigned at Female 09/23/2023 8:20 AM SECURITY TEST ENGINEER Legal Sex Female 5:40 PM CDT Gender Identity Female 09/23/2023 8:20 AM SECURITY TEST ENGINEER Sexual Orientation Not on file documented as of this encounter Plan of Treatment Not on file documented as of this encounter Visit Diagnoses Not on filedocumented in this encounter Additional Health Concerns Assessment Noted Time PHQ-9 Depression Total Score: 20 023 7:16 AM SECURITY TEST ENGINEER documented as of this encounter Care Teams Solar Lab Technician Relationship Specialty Start Date End Date Mallorie [place] [address] PCP - General NURSE PRACTITIONER 04/22/20 documented as of this encounter
[2025-11-01 06:32] LABS: Hematocrit 41.0 % (37.0-47.0); Hemoglobin 13.8 g/dL (12.0-15.0); Immature Granulocyte Percent A 0.6 % (0-0.5); Lymphocytes Absolute Auto 2.86 K/mm3 (0.9-3.2); Mean Corpuscular HGB Conc 33.7 g/dl (32-36); Mean Corpuscular Hemoglobin 27.5 pg (26-34); Mean Corpuscular Volume 81.7 fl (80-100); Nucleated Red Blood Cells Absolute Auto 0.000 K/mm3 (0.0-0.012); Nucleated Red Blood Cells Perc 0.0 % (0.0-0.2); Platelet Count Result 229 k/mm3 (150-375); Red Blood Count 5.02 M/mm3 (4.2-5.4); White Blood Count 10.1 K/mm3 (4.5-10.0)
[2025-11-01] MEDS: OXYTOCIN 30 UNITS/NS 500 ML 30 UNITS/500 ML BAG 999 UNITS IV CONT (06:51)
--- NOTE | 2025-11-01 07:02 | WPDOBADMIT ---
Obstetrics - Admit Note Admission Note: record reviewed. No pertinent additions to the history and/or any subsequent changes in the physical findings that are not consistent with the expected course of the were found. Additions to the history and/or subsequent changes in the physical findings follow. Admit in labor
--- NOTE | 2025-11-01 07:02 | PM.OBPRVD ---
OB - Vaginal Delivery Note Procedure Delivery date: 11/01/25 Events: Chronic Hypertension and Other (lexpro for anxiety) Induction method: None Delivery augmentation: Rupture of Membranes Delivery monitor: External FHT and External Uterine Route of delivery: Laceration Description: None Specimen: No Quantitative Blood Loss (ml): 100 Anesthesia type: Epidural Disposition: Floor Complications: No immediate complications Baby Date of : 11/01/25 Time of : 06:49 Gestational Age by Date: 36 Infant gender: Female presentation: vertex position: Right Occiput Posterior Placenta delivery description: Expressed Narrative: meconium fluid noted at rupture, peds at bs for evaluation
[2025-11-01] MEDS: OXYTOCIN 30 UNITS/NS 500 ML 30 UNITS/500 ML BAG 125 UNITS IV CONT (07:10)
[2025-11-01 07:22] LABS: Syphilis IgG/IgM Antibody Non-Reactive (Nonreactive)
[2025-11-01] MEDS: ACETAMINOPHEN 325 MG TABLET 650 MG PO (07:30)
[2025-11-01] MEDS: IBUPROFEN 600 MG TABLET PO ×2 (07:31→17:08)
--- NOTE | 2025-11-01 08:34 | LDADM ---
This patient, Sheryl John, was admitted to Labor/Delivery/Recovery 106 on 11/01/25 at 06:01. Plans for labor, pain management and were discussed with patient. Patient/family oriented to hospital policies and general routines including ID bracelet, bed and alarms, visiting hours, pain management, procedures, bathroom and other care routines, personal items, smoking policy, room service/diet and guest tray routines, security routines, and visiting hours. Patient/Family are encouraged to report perceived risks to care and to ask questions if they do not understand what they are told or what they should do. See OBIX for further documentation.
--- NOTE | 2025-11-01 09:30 | PC.NURSE ---
Patient transferred to post room #282 via wheelchair. Support person present. Oriented to unit, room, information board, rooming in, admission packet and security measures. Patient verbalizes understanding.
--- NOTE | 2025-11-01 16:04 | PC.NURSE ---
[id number] Consulted with patient to assess needs related to . Discussed with mother her successes, concerns and any questions she has. Per mother infant breastfed well with the first feeding and then by the 2nd feed it was only 5 minutes at the breast. We reviewed working with the , supporting breast, protecting her nipples with an optimal deep latch, good positioning, and good hand washing. Encouraged understanding the benefits of skin to skin, responding to feeding cues, frequencies of feeding 8-12 times in 24 hours (approximately 2-3 hours), duration of feedings, milk production, intake/output feeding sheet and signs of adequate intake encouraging swallowing at the breast. We also discussed that is only 36 weeks and often they can tire out quicker when feeding and that it would be a good idea to go ahead and start pumping with each feeding to protect mothers milk supply and then if needs supplement she could give the pumped colostrum/breast milk first. Reviewed positioning and alignment, supporting breast, off-centered (asymmetrical latch) and leading with the chin with big, open, wide gape. attempted to latch to the [right] breast in [cross cradle and football] position. Education given to the mother of how to visualize the suckling (with good rocking jaw motion) swallows (dropping of the lower jaw) and how to listen for drinking at the breast (the ka sound). Nipple care reviewed with optimal latch, good positioning and using clean hands when touching her breast. CLC RN then showed mother how to hand express both her breasts and CLC collected colostrum drops with a syringe. CLC RN using a syringe and gloved finger, fed infant 1.5mls of colostrum, she then started to wake up and mother attempted to latch on her right breast in football again, would latch but maybe only take 1-2 sucks, nothing consistent. A breast pump was then provided, mother shown how to use the hand pump in the kit as well as the electric double breast pump . Instructions given on cleaning, care, usage, that there should be no pain, pumping schedule for milk production, collection, and storage of human milk. Patient was assessed for correct placement, flange size (nipples measure 20-21mm, going to try the size 24 flange, may need 27), to pump for comfort and nipple stretching/stimulation for adequate milk production every 3 hours (8 times in 24 hours) 1-2 times at night. Parents are encouraged to record the pumping schedule on the feeding sheet.?Mother voiced understanding of the education shared along with mom/baby guide and the pump measurement, flange fit handout for additional resource information. Resources used to facilitate learning were used from the [visual handouts/ tool/mom and baby guide]. Mother voiced understanding of the education shared, to call for assistance if the does not latch or if there is discomfort with . Reported to the Primary RN.
[2025-11-01] MEDS: WITCH HAZEL 40 PADS 1 PAD (17:08)
[2025-11-01] MEDS: BENZOCAINE 20% AER SPR (*SP) 56 GM CAN 1 SPRAY (17:08)
[2025-11-01] MEDS: ESCITALOPRAM OXALATE 10 MG TABLET 20 MG PO (17:09)
[2025-11-01] MEDS: LABETALOL HCL 100 MG TABLET 200 MG PO (17:10)
[2025-11-01] MEDS: MULTIVIT/MIN/PREN/FOL AC/IRON TABLET 1 TAB PO (17:10)
[2025-11-01] MEDS: DOCUSATE SODIUM 100 MG CAPSULE PO (17:12)
[2025-11-02 05:00] VITALS: BP 129/89; PULSE 70; RESP 16; TEMP 36.7; O2SAT 97
[2025-11-02] MEDS: ACETAMINOPHEN 325 MG TABLET 650 MG PO ×2 (05:05→11:01)
[2025-11-02] MEDS: IBUPROFEN 600 MG TABLET PO ×3 (05:05→17:23)
[2025-11-02 05:07] LABS: Hematocrit 35.8 % (37.0-47.0); Hemoglobin 11.8 g/dL (12.0-15.0)
[2025-11-02] MEDS: ESCITALOPRAM OXALATE 10 MG TABLET 20 MG PO (07:05)
[2025-11-02 07:06] VITALS: PULSE 75
[2025-11-02] MEDS: DOCUSATE SODIUM 100 MG CAPSULE PO ×2 (07:06→17:23)
[2025-11-02] MEDS: LABETALOL HCL 100 MG TABLET 200 MG PO ×2 (07:06→17:23)
[2025-11-02] MEDS: MULTIVIT/MIN/PREN/FOL AC/IRON TABLET 1 TAB PO (07:06)
--- NOTE | 2025-11-02 08:50 | P.PNOB_ITS ---
OB - PN: Subj Subjective Date/time seen: 11/02/25 08:50 Interval history: PPD#1 s/p Doing well, pain in tailbone Voiding without issue Tolerating general diet Working with OB - PN: Obj Data Labs 11/02/25 04:55 Labs: Laboratory Results - last 24 hr 11/02/25 04:55 Hgb 11.8 L Hct 35.8 L OB - PN A/P Assessment and Plan (1) (spontaneous vaginal delivery): Code(s): O80 - Encounter for full-term uncomplicated delivery Status: Acute Plan day: 1 Plan: routine care Time Spent With Patient Time: Total time spent is greater than 50% in coordination of care (as documented) at patient's floor/unit and/or counseling patient: Review of Systems 2 Review of Systems: All systems reviewed & are unremarkable except as noted in HPI and below Exam 2 Const: General: comfortable and no acute distress O rientation/consciousness: patient oriented x3 Resp: Effort & Inspection: normal respiratory effort
--- NOTE | 2025-11-02 09:59 | PC.NURSE ---
0830 Consulted with patient to assess needs related to . Discussed with mother her successes, concerns and any questions she has. Per mother last night did wake up more and was able to latch, she has also been pumping and feeding expressed colostrum as well. Discussed with parents that the server manager, Dr. Roldan, would like for her to start the 15-15-15 feeding plan due to weight loss. This plan would be to put to breast for 15 mins, use the breast pump for 15 mins and feed with at least 15mls of either pumped breastmilk and/or formula, parents have chosen Enfamil. We reviewed working with the , supporting breast, protecting her nipples with an optimal deep latch, good positioning, and good hand washing. Encouraged understanding the benefits of skin to skin, responding to feeding cues, frequencies of feeding 8-12 times in 24 hours (approximately 2-3 hours), duration of feedings, milk production, intake/output feeding sheet and signs of adequate intake encouraging swallowing at the breast. Reviewed positioning and alignment, supporting breast, off-centered (asymmetrical latch) and leading with the chin with big, open, wide gape. latched optimally to the [right] breast in [football] position. Education given to the mother of how to visualize the suckling (with good rocking jaw motion) swallows (dropping of the lower jaw) and how to listen for drinking at the breast (the ka sound). The was [able] to maintain latch without discomfort to mother. Nipple care reviewed with optimal latch, good positioning and using clean hands when touching her breast. Per mother she would like to try a larger size flange for her right breast, she feels the size 24 is rubbing the sides of her nipple, size 27 flange given, mother to let me know if the larger size feels better. Resources used to facilitate learning were used from the [visual handouts/ tool/mom and baby guide]. Mother voiced understanding of the education shared, to call for assistance if the does not latch or if there is discomfort with . Reported to the Primary RN. 0920 Checked in with parents to see how feeding went, per mother infant breast fed well on her right breast for 15 mins without any pain and father of the then fed her a formula bottle, she took 15 mls without any problem. Reported to Primary RN.
--- NOTE | 2025-11-02 15:32 | PC.NURSE ---
1230 Mother called out for assistance waking to breastfeed. She was holding her in football position, she was un-swaddled and skin to skin with mother asleep, recommended trying to switch to cross cradle, so mother did. Infant briefly woke but did not latch, mother had pumped 2mls of colostrum, using a bottle nipple she was able to give the the colostrum, keep her skin to skin and call if she does not latch in the next 30 minutes. 1310 Checked in on mother and , she had her latched on her left breast in football position, advised to let her feed for the 15 minutes and then supplement with at least 15mls after. Reported to Primary RN.
[2025-11-02 17:17] VITALS: BP 132/92; PULSE 74; RESP 18; TEMP 36.7; O2SAT 98
[2025-11-02 17:23] VITALS: PULSE 68
[2025-11-02 20:01] VITALS: BP 127/81; PULSE 73; RESP 18; TEMP 36.4; O2SAT 98
[2025-11-03] MEDS: ACETAMINOPHEN 325 MG TABLET 650 MG PO (02:37)
[2025-11-03] MEDS: IBUPROFEN 600 MG TABLET PO ×2 (02:37→08:55)
[2025-11-03 07:20] VITALS: BP 143/93; PULSE 67; RESP 14; TEMP 36.7; O2SAT 99
[2025-11-03] MEDS: ESCITALOPRAM OXALATE 10 MG TABLET 20 MG PO (07:52)
[2025-11-03 07:53] VITALS: PULSE 68
[2025-11-03] MEDS: LABETALOL HCL 100 MG TABLET 200 MG PO (07:53)
[2025-11-03] MEDS: MULTIVIT/MIN/PREN/FOL AC/IRON TABLET 1 TAB PO (07:53)
[2025-11-03] MEDS: DOCUSATE SODIUM 100 MG CAPSULE PO (07:53)
--- NOTE | 2025-11-03 08:15 | P.PNOB_ITS ---
OB - PN: Subj Subjective Date/time seen: 11/03/25 08:15 Interval history: PPD#2 s/p Doing well, pain in tailbone Voiding without issue Tolerating general diet Working with planning d/c home OB - PN: Obj Data Labs 11/02/25 04:55 OB - PN A/P Plan day: 2 Plan: routine care and discharge home Time Spent With Patient Time: Total time spent is greater than 50% in coordination of care (as documented) at patient's floor/unit and/or counseling patient: Review of Systems 2 Review of Systems: All systems reviewed & are unremarkable except as noted in HPI and below Exam 2 Const: General: cooperative, healthy appearing and comfortable Chest: Chest palpation & inspection: normal inspection of the chest Resp: Effort & Inspection: normal respiratory effort Cardio: Rate: regular rate
--- NOTE | 2025-11-03 08:17 | P.DS_ITS ---
DS: Admitting Diagnosis Discharge Date 11/03/25 Admitting Diagnosis Labor DS: Discharge Diagnosis Discharge Diagnosis (1) (spontaneous vaginal delivery): Code(s): O80 - Encounter for full-term uncomplicated delivery Status: Acute OB - DS: Summary OB Procedures : None OB Procedures Intrapartum: Spontaneous Vag Delivery OB Procedures: : None Peripartum Data Laceration Description: None Time Spent with Patient Time attestation: Total time spent providing and/or coordinating discharge services: Discharge Plan Discharge Attending physician on discharge: Norris Jordan Consulting providers: Alysia Santos Discharging Clinician: Alysia Santos Patient Disposition: Home Activity: pelvic rest Diet: regular Patient Instructions: Antibiotic Form Patient Language: Qatari Stand Alone Forms: General Discharge Information Follow-up/Referrals: Alysia Santos CNM [Certified Nurse Pretzel Twisting Machine Operator, TRAINS SERVICE CONDUCTOR] - 4 Weeks Discharge Medications: Continued PNV no.95-ferrous fumarate-FA [] 28 mg iron- 800 mcg tablet 1 tablet PO DAILY escitalopram oxalate [Lexapro] 20 mg tablet 20 mg PO DAILY labetalol 200 mg tablet 200 mg PO Q12H buspirone 10 mg capsule 10 mg PO BID Discontinued aspirin 81 mg capsule 81 mg PO DAILY Date of admission: 11/01/25 06:01 Primary Care Provider: Imtiaz,Mallorie Admitting Provider: Norris Jordan Attending physician on admission: Norris Jordan Condition: Stable
--- NOTE | 2025-11-03 09:57 | PC.NURSE ---
Patient viewed the discharge video Mother & Baby Care, The First Two Weeks. Patient was given the opportunity and encouraged to ask questions. Patient verbalized understanding of information shared and has been given the mother/baby guide for home reference.
--- NOTE | 2025-11-03 10:40 | PC.NURSE ---
Consulted with mother concerning needs and she shared her ability to independently latch infant optimally without pain, she is also supplementing after and using her breast pump if does not have an effective feeding at the breast. Mother is feeding appropriately for growth of infant and understands stimulating to eat if needed. has had appropriate feedings in the last 24 hours meets the outcomes for weight, output, blood sugar and jaundice at this time. Reinforced understanding of milk production, transition of milk, signs of adequate intake, transition of stool, prevention/relief of engorgement, plugged ducts, mastitis, responsive watching for feeding cues, the different methods of stimulating infant to breastfeed 1-3 hours after the start of the last feeding, community resources, and when to call a provider using the resource of the feeding sheet along with the mom and baby guide. Mother voiced understanding of the information shared, is confident to continue effectively her infant at home, when to call for assistance, denies any additional assistance or education at this time. Reported to the Primary RN.
[2025-11-04 10:57] VITALS: BP 138/91; PULSE 74; RESP 20; TEMP 36.7; O2SAT 100
== END 2025-11-03 12:22 | disposition home or self-care (01) | DRG 805 ==
LOC: ANHOB2 11-03 08:16 → ANHLDR 11-04 11:24 → ANHOB2 11-04 11:24
PROVIDERS: Advanced Practice Midwife; Admitting Provider Obstetrics & Gynecology; PCP Nurse Practitioner; Visit Provider Obstetrics & Gynecology
DX: O10.92 Unspecified pre-existing hypertension complicating childbirth (principal); O60.14X0 Preterm labor third trimester with preterm delivery third trimester, not applicable or unspecified; Z37.0 Single live birth; Z3A.36 36 weeks gestation of pregnancy; O77.0 Labor and delivery complicated by meconium in amniotic fluid; O62.3 Precipitate labor; O69.81X0 Labor and delivery complicated by cord around neck, without compression, not applicable or unspecified; O99.344 Other mental disorders complicating childbirth; F41.9 Anxiety disorder, unspecified
CPT/HCPCS: 36415; 85014; 85018; 85025; 86593; 86850; 86900; 86901; A9270; J2590; J7120